=== PATIENT | male | born 1950 | race Caucasian/White ===

== ENCOUNTER 2017-02-09 19:47 | Inpatient (IN) | payer MEDICARE, OTHER ==
[~2017-02-09] VITALS: Ht 180.3 cm; Wt 99.9 kg
[~2017-02-09 19:47] MED LIST: ACET325T9 PO; ACET500T68 PO; AMLO10TA2 PO; ASPI325T8 PO; ATOR10TA PO; BACI28.34 OU; BUSP5TAB PO; CARB15DR98 OU; CHOL10003 PO; CHOL2000 PO; DIVA250T PO; DIVA500T2 PO; DIVA500T4 PO; IBUP400T18 PO; IBUP800T19 PO; LEVE500T56 PO; LISI-338 PO; LISI10TA2 PO; LITH300T3 PO; LOPE2TAB56 PO; LURA40TA PO; LURA80TA PO; MAALOX PO; MAG30ORA2 PO; MAG355OR12 PO; MAGN2400 PO; MAGN400O7 PO; MELO15TA23 PO; METH57CR8 TP; NICO1PAT2 TP; NICO1PAT21 TD; NICO1PAT21 TP; OLAN5TAB5 PO; OMEG1CAP6 PO; ONDA8TAB12 PO; RISP0.2519 PO; RISP1TAB43 PO; RISP25DI IM; RISP2TAB3 PO; RISP3TAB23 PO; Refresh Eye Drops EACHEYE; SERT50TA PO; TRIH2TAB3 PO; VITA1TAB3 PO; [UNRECOGNIZED DRUG - CODE] OU
--- NOTE | 2017-02-09 19:52 | ED.ADGEN ---
Past History Past Medical History: Anxiety, Bipolar, COPD, Depression, High Cholesterol, Hypertension, Schizophrenia, Other Past Surgical History: Other Smoking: Cigarettes Alcohol Use: None Drug Use: None Adult General Chief Complaint Chief Complaint ".. I don't know why they sent me here... I was at [place] last night..." HPI HPI Patient is a 66 year old male resident of [facility]. who presents with hx. of disruptive behavior, yelling inappropriately, cursing staff and other patients, showing chairs around, striking other patients and staff, Pt has been difficult to redirect, refusing meds for the past 2 weeks, refusing labs. Pt.has hx of Schizophrenia and Dementia. Pt. has Hx. of prior CVA with paraplegia, generalized deconditioning, osteoarthritis, COPD, Anemia, Hyperlipidemia, Depression, Anxiety Disorder , CADz, Dysphagia, Gastritis and Gastric Ulcer hx. Review of Systems Review of Systems Poor Historian but no compliants except sacral decub discomfort. Constitutional: Denies fever or chills [] Eyes: Denies change in visual acuity, redness, or eye pain [] HENT: Denies nasal congestion or sore throat [] Respiratory: Denies cough or shortness of breath [] Cardiovascular: No additional information not addressed in HPI [] GI: Denies abdominal pain, nausea, vomiting, bloody stools or diarrhea [] : Denies dysuria or hematuria [] Musculoskeletal: Denies back pain or joint pain [] Integument: Denies rash or skin lesions [] Neurologic: Denies headache, focal weakness or sensory changes [] Endocrine: Denies polyuria or polydipsia [] All other systems were reviewed and found to be within normal limits, except as documented in this note. Family History Family History No currently available Current Medications Current Medications See Nursing for home meds. Allergies Allergies Allergies Coded Allergies Type Severity Reaction Last Updated Verified trazodone Allergy Intermediate 02/09/17 Yes ziprasidone Allergy Intermediate 02/09/17 Yes NSAIDS (Non-Steroidal Anti-Inflamma Allergy Unknown 02/09/17 Yes Penicillins Allergy Unknown 02/09/17 Yes vancomycin Allergy Unknown 02/09/17 Yes Physical Exam Physical Exam Constitutional:in no acute distress, non-toxic appearance. [] HENT: Normocephalic, atraumatic, bilateral external ears normal, oropharynx moist, no oral exudates, nose normal. [] Eyes: PERRLA, EOMI, conjunctiva normal, no discharge. [] Neck: Normal range of motion, no tenderness, supple, no stridor. [] Cardiovascular:Bradycardia Heart rate regular rhythm, no murmur [] Lungs & Thorax: Bilateral breath sounds equal with scattered wheezes on auscultation [] Abdomen: Bowel sounds normal, soft, no tenderness, no masses, no pulsatile masses. Obese Skin: Warm, dry, no erythema, no rash. [] Back: No tenderness, no CVA tenderness. [] Extremities: Sacral tenderness, Decub. sacral, no cyanosis, no clubbing, ROM intact upper arms, bilateral leg weakness, no edema. [] Neurologic: Alert and oriented X 3, leg weakness, reports no change in baseline deficits of paraplegia. ] Psychologic: Affect anxious, angry, , judgement unable to assess at this time, mood depressed. Current Patient Data Vital Signs Vital Signs Date Time Temp Pulse Resp B/P (MAP) Pulse Ox O2 Delivery O2 Flow Rate FiO2 02/09/17 19:52 98.1 63 17 63 Lab Results Laboratory Tests Test 02/09/17 20:15 02/09/17 21:25 White Blood Count 9.0 x10^3/uL (4.0-11.0) Red Blood Count 4.78 x10^6/uL (4.30-5.70) Hemoglobin 14.3 g/dL (13.0-17.5) Hematocrit 41.3 % (39.0-53.0) Mean Corpuscular Volume 87 fL (79-100) Mean Corpuscular Hemoglobin 30 pg (25-35) Mean Corpuscular Hemoglobin Concent 35 g/dL (31-37) Red Cell Distribution Width 12.6 % (11.5-14.5) Platelet Count 166 x10^3/uL (140-400) Neutrophils (%) (Auto) 56 % (31-73) Lymphocytes (%) (Auto) 32 % (24-48) Monocytes (%) (Auto) 7 % (0-9) Eosinophils (%) (Auto) 4 % (0-3) H Basophils (%) (Auto) 1 % (0-3) Neutrophils # (Auto) 5.1 x10^3uL (1.8-7.7) Lymphocytes # (Auto) 2.8 x10^3/uL (1.0-4.8) Monocytes # (Auto) 0.6 x10^3/uL (0.0-1.1) Eosinophils # (Auto) 0.4 x10^3/uL (0.0-0.7) Basophils # (Auto) 0.1 x10^3/uL (0.0-0.2) Erythrocyte Sedimentation Rate 8 (0-15) Prothrombin Time 10.6 SEC (9.4-11.4) Prothrombin Time INR 1.0 (0.9-1.1) PTT 27 SEC (23-33) Sodium Level 136 mmol/L (136-145) Potassium Level 4.4 mmol/L (3.5-5.1) Chloride Level 102 mmol/L (98-107) Carbon Dioxide Level 26 mmol/L (21-32) Anion Gap 8 (6-14) Blood Urea Nitrogen 22 mg/dL (8-26) Creatinine 1.3 mg/dL (0.7-1.3) Estimated GFR (Cockcroft-Gault) 55.4 Glucose Level 94 mg/dL (70-99) Calcium Level 9.9 mg/dL (8.5-10.1) Magnesium Level 2.1 mg/dL (1.8-2.4) Total Bilirubin 0.4 mg/dL (0.2-1.0) Direct Bilirubin Pending Aspartate Amino Transferase (AST) 20 U/L (15-37) Alanine Aminotransferase (ALT) 18 U/L (16-63) Alkaline Phosphatase 72 U/L (46-116) Creatine Kinase 94 U/L (39-308) Creatine Kinase MB (Mass) 1.0 ng/mL (0.0-3.6) Creatine Kinase MB Relative Index 1.1 % (0-4) Troponin I Quantitative < 0.017 ng/mL (0-0.055) TJ-Iew-U-Type Natriuretic Peptide 35 pg/mL (0-124) Total Protein 7.6 g/dL (6.4-8.2) Albumin 4.0 g/dL (3.4-5.0) Urine Collection Type Unknown Urine Color Yellow Urine Clarity Clear Urine pH 8.0 Urine Specific [place] 1.015 Urine Protein Neg (NEG-TRACE) Urine Glucose (UA) Neg mg/dL (NEG) Urine Ketones (Stick) Neg mg/dL (NEG) Urine Blood Neg (NEG) Urine Nitrite Neg (NEG) Urine Bilirubin Neg (NEG) Urine Urobilinogen Dipstick 0.2 mg/dL (0.2 mg/dL) Urine Leukocyte Esterase Neg (NEG) Urine RBC 1-2 /HPF (0-2) Urine WBC 0 /HPF (0-4) Urine Squamous Epithelial Cells Occ /LPF Urine Bacteria 0 /HPF (0-FEW) Urine Opiates Screen Pos (NEG) Urine Methadone Screen Neg (NEG) Urine Barbiturates Neg (NEG) Urine Phencyclidine Screen Neg (NEG) Urine Amphetamine/Methamphetamine Neg (NEG) Urine Benzodiazepines Screen Neg (NEG) Urine Cocaine Screen Neg (NEG) Urine Cannabinoids Screen Neg (NEG) Urine Ethyl Alcohol Neg (NEG) EKG EKG My interpretation EKG shows a sinus bradycardia at 59 bpm. Does have somewhat irregular rhythm but there is noted P waves before each QRS. There is findings of T-wave changes. But no findings acute STEMI with contralateral changes.[] Radiology/Procedures Radiology/Procedures Reviewed chest x-ray from previous visit at [facility] [place] shows COPD type changes on 02/08. CT shows atrophy, no acute changes. Course & Med Decision Making Course & Med Decision Making Pertinent Labs and Imaging studies reviewed. (See chart for details). Patient to be admitted to [facility]. Consults to Dr. Chacon for medical issues. [] Final Impression Final Impression 1. Mental status change[] 2, Dementia 3. Schizophrenia 4. Aggressive Behavior 5. Depression 6. Anxiety Disorder 7. Paraplegia-CVA 8. COPD 9. Decub. sacral Ulcer 10Deconditioned Problems: Dragon Disclaimer Dragon Disclaimer This electronic medical record was generated, in whole or in part, using a voice recognition dictation system. JEANETH RODRIGES MD Feb 09, 2017 19:52
[2017-02-09 20:48] LABS: BASO # 0.1 x10^3/uL (0.0-0.2); BASO % 1 % (0-3); EOS # 0.4 x10^3/uL (0.0-0.7); EOS % 4 % (0-3); HEMATOCRIT 41.3 % (39.0-53.0); HEMOGLOBIN 14.3 g/dL (13.0-17.5); LYMPH # 2.8 x10^3/uL (1.0-4.8); LYMPH % 32 % (24-48); MEAN CORPUSCULAR HEMOGLOBIN 30 pg (25-35); MEAN CORPUSCULAR HGB CONC 35 g/dL (31-37); MEAN CORPUSCULAR VOLUME 87 fL (79-100); MONO # 0.6 x10^3/uL (0.0-1.1); MONO % 7 % (0-9); NEUT # 5.1 x10^3uL (1.8-7.7); NEUT % 56 % (31-73); PLATELET COUNT 166 x10^3/uL (140-400); RED BLOOD COUNT 4.78 x10^6/uL (4.30-5.70); RED CELL DISTRIBUTION WIDTH 12.6 % (11.5-14.5)
[2017-02-09 21:11] LABS: CALCIUM 9.9 mg/dL (8.5-10.1); CREATININE 1.3 mg/dL (0.7-1.3); GFR 55.4; MAGNESIUM 2.1 mg/dL (1.8-2.4); POTASSIUM 4.4 mmol/L (3.5-5.1)
--- NOTE | 2017-02-09 21:18 | EKG ---
[address] [address] Test Date: 2017-02-09 Test Time: 19:58:43 Pat Name: JAIR RICHTER Department: Room: Gender: M Branch Coordinator: ALBERTO : 1950 Requested By: JEANETH RODRIGES Order Number: [id number] Reading MD: Adrian Jules Measurements Intervals Raymond Rate: 59 P: WA: QRS: 36 QRSD: 100 T: 131 QT: 400 QTc: 396 Interpretive Statements SINUS RHYTHM ST & T ABNORMALITY, CONSIDER HIGH LATERAL ISCHEMIA OR LEFT VENTRICULAR STRAIN T ABNORMALITY IN LATERAL LEADS ABNORMAL ECG Electronically Signed On 02-15-2017 14:42:25 [employer]WALL PROFESSIONAL by Adrian Jules
[2017-02-09 21:55] LABS: BARBITURATES NEG (NEG); BENZODIAZEPINES NEG (NEG); CANNABINOIDS NEG (NEG); COCAINE NEG (NEG); METHADONE NEG (NEG); OPIATES POS (NEG); PHENCYCLIDINE NEG (NEG)
[2017-02-09 21:56] LABS: AMPHETAMINE/METHAMPHETAMINE NEG (NEG)
[2017-02-09 21:57] LABS: BILIRUBIN,URINE NEG (NEG); CLARITY,URINE CLEAR; COLOR,URINE YELLOW; GLUCOSE,URINE NEG (NEG); NITRITE,URINE NEG (NEG); UROBILINOGEN,URINE 0.2 mg/dL (0.2 mg/dL)
[2017-02-09 21:58] LABS: BACTERIA,URINE 0 /HPF (0-FEW); SQUAMOUS EPITHELIAL CELL,UR OCC /LPF; WBC,URINE 0 /HPF (0-4)
[2017-02-09 22:10] LABS: SEDIMENTATION RATE 8 (0-15)
[2017-02-09 22:51] VITALS: BP 138/76
[2017-02-09] MEDS ORDERED: MAGNESIUM HYDROXIDE 2,400 MG/30 ML ORAL.SUSP. PO PRN (23:45)
[2017-02-09] MEDS ORDERED: MAG HYDROX/AL HYDROX/SIMETH 30 ML ORAL.SUSP PO PRN (23:45)
[2017-02-09] MEDS ORDERED: METHYL SALICYLATE/MENTHOL TOPICAL OINTMENT 29GM TUBE. TP PRN (23:45)
[2017-02-09] MEDS ORDERED: ACETAMINOPHEN 325 MG TABLET PO PRN (23:45)
[2017-02-10 00:07] LABS: TOTAL BILIRUBIN 0.4 mg/dL (0.2-1.0); TOTAL PROTEIN 7.6 g/dL (6.4-8.2)
[2017-02-10] MEDS ORDERED: MAG360OR24 PO (01:14)
[2017-02-10] MEDS ORDERED: TAMS0.4C97 PO (01:14)
[2017-02-10] MEDS ORDERED: POLY17PO5 PO (01:14)
[2017-02-10] MEDS ORDERED: LOPE2CAP3 PO (01:14)
[2017-02-10] MEDS ORDERED: RANI150T2 PO (01:14)
[2017-02-10] MEDS ORDERED: LURA80TA PO (01:14)
[2017-02-10] MEDS ORDERED: MAGN400O7 PO (01:14)
[2017-02-10] MEDS ORDERED: CYAN10005 PO (01:14)
[2017-02-10] MEDS ORDERED: OXCA150T3 PO (01:14)
[2017-02-10] MEDS ORDERED: TRIH2TAB3 PO (01:14)
[2017-02-10] MEDS ORDERED: BUSP15TA PO (01:14)
[2017-02-10] MEDS ORDERED: ONDA4TAB11 PO (01:14)
[2017-02-10] MEDS ORDERED: MELA3TAB2 PO (01:14)
[2017-02-10] MEDS ORDERED: DEXT1DRO7 OP (01:14)
[2017-02-10] MEDS ORDERED: ACET160S PO (01:14)
[2017-02-10] MEDS ORDERED: SENN-79 PO (01:14)
[2017-02-10] MEDS ORDERED: ATOR10TA60 PO (01:14)
[2017-02-10] MEDS ORDERED: HYDR-971 PO ×2 (01:14)
[2017-02-10] MEDS ORDERED: LISI-338 PO (01:14)
[2017-02-10] MEDS ORDERED: MULT-460 PO (01:14)
[2017-02-10] MEDS ORDERED: PANT40TA3 PO (01:14)
[2017-02-10] MEDS ORDERED: OLAN2.5T3 PO (01:14)
[2017-02-10] MEDS ORDERED: CHOL10003 PO (01:14)
[2017-02-10] MEDS ORDERED: ASPI-630 PO (01:14)
[2017-02-10] MEDS ORDERED: ASCO500T3 PO (01:14)
[2017-02-10] MEDS ORDERED: MAGN400T3 PO (01:14)
[2017-02-10 05:18] LABS: DIRECT BILIRUBIN 0.1 mg/dL (0.0-0.2)
[2017-02-10 06:21] VITALS: BP 143/90
[2017-02-10] MEDS ORDERED: ACETAMINOPHEN 325 MG TABLET PO PRN (08:00)
[2017-02-10] MEDS ORDERED: HYDROcodone/APAP 5/325MG 1 TAB TABLET PO PRN (08:00)
[2017-02-10] MEDS ORDERED: LOPERAMIDE 2 MG CAPSULE PO PRN (08:00)
[2017-02-10] MEDS ORDERED: [UNRECOGNIZED DRUG - OTHER] TP PRN (08:00)
[2017-02-10] MEDS ORDERED: NON FORMULARY ITEM (Acetaminophen 650 MG) PO PRN (08:00)
[2017-02-10] MEDS ORDERED: CARBOXYMETHYLCELLULOSE SODIUM OU PRN (08:00)
[2017-02-10] MEDS ORDERED: ONDANSETRON ODT 4 MG TAB.RAPDIS PO PRN (08:30)
[2017-02-10] MEDS ORDERED: POLYVINYL ALCOHOL 1.4% OPHTH SOLUTION 15ML BOTTLE. OU PRN (08:30)
[2017-02-10] MEDS ORDERED: MAG HYDROX/AL HYDROX/SIMETH 30 ML ORAL.SUSP PO PRN (08:30)
[2017-02-10] MEDS: CHOLECALCIFEROL (VITAMIN D3) 1,000 UNIT TABLET PO SCH (09:21)
[2017-02-10] MEDS: amLODIPine BESYLATE 10 MG TABLET PO SCH (09:22)
[2017-02-10] MEDS: LISINOPRIL 5 MG TABLET. PO SCH (09:22)
[2017-02-10] MEDS: busPIRone 15 MG TABLET. PO SCH ×2 (09:22→20:18)
[2017-02-10] MEDS: PANTOPRAZOLE 40 MG TABLET. PO SCH (09:22)
[2017-02-10] MEDS: MAGNESIUM OXIDE 400 MG TABLET PO SCH ×2 (09:22→20:17)
[2017-02-10] MEDS: OXcarbazepine 150 MG TABLET. PO SCH ×2 (09:23→20:16)
[2017-02-10] MEDS: MULTIVITAMIN with MINERAL TABLET. PO SCH (09:23)
[2017-02-10] MEDS: ASPIRIN 81 MG TAB.CHEW PO SCH (09:23)
[2017-02-10] MEDS: ASCORBIC ACID 500 MG TABLET PO SCH ×2 (09:23→20:17)
[2017-02-10] MEDS: HYDROcodone/APAP 5/325MG 1 TAB TABLET PO SCH ×3 (09:23→20:16)
[2017-02-10] MEDS: CYANOCOBALAMIN (VITAMIN B-12) 1,000 MCG TABLET. PO SCH (09:23)
[2017-02-10] MEDS: SENNOSIDES 8.6 MG TABLET PO SCH ×2 (09:23→20:18)
[2017-02-10] MEDS: MAGNESIUM HYDROXIDE 2,400 MG/30 ML ORAL.SUSP. PO PRN (09:31)
[2017-02-10] MEDS: FAMOTIDINE 20 MG TABLET PO SCH (13:30)
[2017-02-10 15:27] VITALS: BP 135/75
[2017-02-10 16:08] LABS: THYROXINE 9.5 ug/dL (4.5-12.0)
--- NOTE | 2017-02-10 19:59 | PDOC ---
Exam Note: Rob Note: Please also refer to the separate dictated note~for this date of service dictated separately.~Patient seen individually. Discussed the patient with Nursing staff reviewed the chart.~Reviewed interim history and current functioning. Reviewed vital signs,~Labs/ Radiology~and current medications noted below. Continue current treatment with the changes noted in the dictated addendum note Assessment: Vital Signs: Vital Signs Date Time Temp Pulse Resp B/P (MAP) Pulse Ox O2 Delivery O2 Flow Rate FiO2 02/10/17 15:27 97.5 81 20 135/75 (95) 100 02/10/17 15:03 Room Air I&O Intake and Output 02/10/17 07:00 Intake Total 240 ml Balance 240 ml Intake Oral 240 ml Labs: Laboratory Tests Test 02/09/17 20:15 02/09/17 21:25 White Blood Count 9.0 x10^3/uL (4.0-11.0) Red Blood Count 4.78 x10^6/uL (4.30-5.70) Hemoglobin 14.3 g/dL (13.0-17.5) Hematocrit 41.3 % (39.0-53.0) Mean Corpuscular Volume 87 fL (79-100) Mean Corpuscular Hemoglobin 30 pg (25-35) Mean Corpuscular Hemoglobin Concent 35 g/dL (31-37) Red Cell Distribution Width 12.6 % (11.5-14.5) Platelet Count 166 x10^3/uL (140-400) Neutrophils (%) (Auto) 56 % (31-73) Lymphocytes (%) (Auto) 32 % (24-48) Monocytes (%) (Auto) 7 % (0-9) Eosinophils (%) (Auto) 4 % (0-3) H Basophils (%) (Auto) 1 % (0-3) Neutrophils # (Auto) 5.1 x10^3uL (1.8-7.7) Lymphocytes # (Auto) 2.8 x10^3/uL (1.0-4.8) Monocytes # (Auto) 0.6 x10^3/uL (0.0-1.1) Eosinophils # (Auto) 0.4 x10^3/uL (0.0-0.7) Basophils # (Auto) 0.1 x10^3/uL (0.0-0.2) Erythrocyte Sedimentation Rate 8 (0-15) Prothrombin Time 10.6 SEC (9.4-11.4) Prothrombin Time INR 1.0 (0.9-1.1) PTT 27 SEC (23-33) Sodium Level 136 mmol/L (136-145) Potassium Level 4.4 mmol/L (3.5-5.1) Chloride Level 102 mmol/L (98-107) Carbon Dioxide Level 26 mmol/L (21-32) Anion Gap 8 (6-14) Blood Urea Nitrogen 22 mg/dL (8-26) Creatinine 1.3 mg/dL (0.7-1.3) Estimated GFR (Cockcroft-Gault) 55.4 Glucose Level 94 mg/dL (70-99) Calcium Level 9.9 mg/dL (8.5-10.1) Magnesium Level 2.1 mg/dL (1.8-2.4) Total Bilirubin 0.4 mg/dL (0.2-1.0) Direct Bilirubin 0.1 mg/dL (0.0-0.2) Aspartate Amino Transferase (AST) 20 U/L (15-37) Alanine Aminotransferase (ALT) 18 U/L (16-63) Alkaline Phosphatase 72 U/L (46-116) Creatine Kinase 94 U/L (39-308) Creatine Kinase MB (Mass) 1.0 ng/mL (0.0-3.6) Creatine Kinase MB Relative Index 1.1 % (0-4) Troponin I Quantitative < 0.017 ng/mL (0-0.055) PR-Hic-R-Type Natriuretic Peptide 35 pg/mL (0-124) Total Protein 7.6 g/dL (6.4-8.2) Albumin 4.0 g/dL (3.4-5.0) Thyroid Stimulating Hormone (TSH) 0.886 uIU/mL (0.358-3.740) Thyroxine (T4) 9.5 ug/dL (4.5-12.0) Total Triiodothyronine (TT3) 79 ng/dL (71-180) Urine Collection Type Unknown Urine Color Yellow Urine Clarity Clear Urine pH 8.0 Urine Specific [place] 1.015 Urine Protein Neg (NEG-TRACE) Urine Glucose (UA) Neg mg/dL (NEG) Urine Ketones (Stick) Neg mg/dL (NEG) Urine Blood Neg (NEG) Urine Nitrite Neg (NEG) Urine Bilirubin Neg (NEG) Urine Urobilinogen Dipstick 0.2 mg/dL (0.2 mg/dL) Urine Leukocyte Esterase Neg (NEG) Urine RBC 1-2 /HPF (0-2) Urine WBC 0 /HPF (0-4) Urine Squamous Epithelial Cells Occ /LPF Urine Bacteria 0 /HPF (0-FEW) Urine Opiates Screen Pos (NEG) Urine Methadone Screen Neg (NEG) Urine Barbiturates Neg (NEG) Urine Phencyclidine Screen Neg (NEG) Urine Amphetamine/Methamphetamine Neg (NEG) Urine Benzodiazepines Screen Neg (NEG) Urine Cocaine Screen Neg (NEG) Urine Cannabinoids Screen Neg (NEG) Urine Ethyl Alcohol Neg (NEG) Current Medications: Meds: Current Medications Acetaminophen (Tylenol) 650 mg PRN Q6HRS PRN PO PAIN / TEMP; Start 02/09/17 at 23:45; Stop 02/10/17 at 08:25; Status DC Multi-Ingredient Ointment (Analgesic [place]) 1 shaheen PRN QID PRN TP MUSCLE PAIN; Start 02/09/17 at 23:45 Al Hydroxide/Mg Hydroxide (Mylanta Plus Xs) 15 ml PRN AFTMEALHC PRN PO DYSPEPSIA; Start 02/09/17 at 23:45; Stop 02/10/17 at 08:20; Status DC Magnesium Hydroxide (Milk Of Magnesia) 2,400 mg PRN QHS PRN PO CONSTIPATION; Start 02/09/17 at 23:45; Stop 02/10/17 at 08:25; Status DC Buspirone HCl (Buspar) 15 mg BID PO Last administered on 02/10/17 09:22; Start 02/10/17 at 09:00 Olanzapine (ZyPREXA) 2.5 mg HS PO ; Start 02/10/17 at 21:00 Oxcarbazepine (Trileptal) 150 mg BID PO Last administered on 02/10/17 09:23; Start 02/10/17 at 09:00 Non-Formulary Medication 120 mg HS PO ; Start 02/10/17 at 21:00; Status UNV Melatonin 6 mg QHS PO ; Start 02/10/17 at 21:00 Acetaminophen (Tylenol) 650 mg PRN Q6HRS PRN PO PAIN / TEMP; Start 02/10/17 at 08:00 Amlodipine Besylate (Norvasc) 10 mg DAILY PO Last administered on 02/10/17 09 :22; Start 02/10/17 at 09:00 Ascorbic Acid (Vitamin C) 500 mg BID PO Last administered on 02/10/17 09:23; Start 02/10/17 at 09:00 Aspirin (Children'S Aspirin) 81 mg DAILY PO Last administered on 02/10/17 09: 23; Start 02/10/17 at 09:00 Atorvastatin Calcium (Lipitor) 5 mg QHS PO ; Start 02/10/17 at 21:00 Vitamin D (Vitamin D3) 2,000 unit DAILY PO Last administered on 02/10/17 09: 21; Start 02/10/17 at 09:00 Cyanocobalamin (Vitamin B-12) 1,000 mcg DAILY PO Last administered on 09:23; Start 02/10/17 at 09:00 Acetaminophen/ Hydrocodone Bitart (Lortab 5/325) 1 tab PRN Q4HRS PRN PO PAIN; Start 02/10/17 at 08:00 Acetaminophen/ Hydrocodone Bitart (Lortab 5/325) 1 tab TID PO Last administered on 02/10/17 13:34; Start 02/10/17 at 09:00 Lisinopril (Prinivil) 5 mg DAILY PO Last administered on 02/10/17 09:22; Start 02/10/17 at 09:00 Loperamide HCl (Imodium) 2 mg PRN Q6HRS PRN PO DIARRHEA; Start 02/10/17 at 08: 00 Magnesium Hydroxide (Milk Of Magnesia) 2,400 mg PRN Q24HRS PRN PO CONSTIPATION Last administered on 02/10/17 09:31; Start 02/10/17 at 08:00 Magnesium Oxide (Magnesium Oxide) 400 mg BID PO Last administered on 09:22; Start 02/10/17 at 09:00 Pantoprazole Sodium (Protonix) 40 mg DAILYAC PO Last administered on 09:22; Start 02/10/17 at 09:00 Polyethylene Glycol (miraLAX) 17 gm PRN Q24HRS PRN PO CONSTIPATION; Start at 08:00 Sennosides (Senna) 8.6 mg BID PO Last administered on 02/10/17 09:23; Start 02/10/17 at 09:00 Tamsulosin HCl (Flomax) 0.4 mg HS PO ; Start 02/10/17 at 21:00 Non-Formulary Medication 650 mg PRN Q6HRS PRN PO pain/fever; Start 02/10/17 at 08:00; Stop 02/10/17 at 08:17; Status DC Non-Formulary Medication 1 drop PRN Q4HRS PRN OU DRY EYE; Start 02/10/17 at 08 :00; Stop 02/10/17 at 08:23; Status DC Artificial Tears (Artificial Tears) 2 drop PRN Q2HR PRN OU DRY EYE; Start at 08:30 Al Hydroxide/Mg Hydroxide (Mylanta Plus Xs) 30 ml PRN Q4HRS PRN PO GERD; Start 02/10/17 at 08:30 Non-Formulary Medication 1 shaheen PRN QID PRN TP MUSCLE PAIN; Start 02/10/17 at 08:00; Stop 02/10/17 at 08:18; Status DC Multivitamins/ Calcium (Thera-M Plus) 1 tab DAILY PO Last administered on 02/10 09:23; Start 02/10/17 at 09:00 Ondansetron HCl (Zofran Odt) 8 mg PRN QID PRN PO NAUSEA/VOMITING; Start at 08:30 Famotidine (Pepcid) 20 mg AFTRNOON PO Last administered on 02/10/17 13:30; Start 02/10/17 at 13:00 Active Scripts Active Reported Vitamin B-12 (Cyanocobalamin (Vitamin B-12)) 1,000 Mcg Tablet 1,000 Mcg PO DAILY Trileptal (Oxcarbazepine) 150 Mg Tablet 1 Mg PO BID Trihexyphenidyl Hcl 2 Mg Tablet 2 Mg PO BID Senna (Sennosides) 8.6 Mg Tablet 1 Tab PO BID Ranitidine Hcl 150 Mg Tablet 150 Mg PO AFTRNOON Protonix (Pantoprazole Sodium) 40 Mg Tablet.dr 40 Mg PO DAILYAC Zyprexa (Olanzapine) 2.5 Mg Tablet 2.5 Mg PO HS [place] 5-325 Tablet (Hydrocodone Bit/Acetaminophen) 1 Each Tablet 1 Tab PO TID [place] 5-325 Tablet (Hydrocodone Bit/Acetaminophen) 1 Each Tablet 1 Tab PO PRN Q4HRS PRN Alum-Mag Hydroxide-Simeth Liq (Mag Hydrox/Al Hydrox/Simeth) 360 Ml Oral.susp 30 Ml PO PRN Q4HRS PRN Multiple Vitamin (Multivitamin With Minerals) 1 Each Tablet 1 Each PO DAILY Miralax (Polyethylene Glycol 3350) 17 Gm Powd.pack 17 Gm PO PRN Q24HRS PRN Milk Of Magnesia (Magnesium Hydroxide) 400 Mg/5 Ml Oral.susp 2,400 Mg PO PRN Q24HRS PRN Melatonin 3 Mg Tablet 6 Mg PO HS Magnesium Oxide 400 Mg Tablet 400 Mg PO BID Anti-Diarrheal (Loperamide Hcl) 2 Mg Capsule 2 Mg PO PRN Q6HRS PRN Lisinopril 5 Mg Tablet 5 Mg PO DAILY Latuda (Lurasidone Hcl) 80 Mg Tablet 120 Mg PO HS Flomax (Tamsulosin Hcl) 0.4 Mg Cap.er.24h 0.4 Mg PO HS Vitamin D3 (Cholecalciferol (Vitamin D3)) 1,000 Unit Tablet 2,000 Unit PO DAILY Atorvastatin Calcium 10 Mg Tablet 5 Mg PO QHS Aspirin 81 Mg Tab.chew 81 Mg PO DAILY Ascorbic Acid 500 Mg Tablet 500 Mg PO BID Acetaminophen 160 Mg/5 Ml Solution 650 Mg PO PRN Q6HRS PRN Artificial Tears (Dextran 70/Hypromellose) 1 Each Droperette 2 Drop OP PRN Q2HR Buspirone Hcl 15 Mg Tablet 15 Mg PO BID Zyprexa Zydis (Olanzapine) 5 Mg Tab.rapdis 2.5 Mg PO PRN Q2HR PRN Dissolve in mouth Zofran Odt (Ondansetron) 8 Mg Tab.rapdis 8 Mg PO QID PRN Dissolve on tongue NICODERM CQ 21mg (Nicotine) 1 Each Patch.td24 1 Patch TP DAILY Remove at bedtime if patient is having sleep disturbances. [place] Ultra Strength Crm (Methyl Salicylate/Menth/Camph) 57 Gm Cream..g. 1 Shaheen TP PRN QID PRN Tylenol (Acetaminophen) 325 Mg Tablet 650 Mg PO PRN Q6HRS PRN Max Acetaminophen dose is 4000mg in 24 hours from all sources for adults. Refresh Tears (Carboxymethylcellulose Sodium) 15 Ml Drops 1 Drop OU PRN Q4HRS PRN Amlodipine Besylate 10 Mg Tablet 10 Mg PO DAILY Hold for SBP less than 100. After a held dose, reassess in 2 hours. If SBP is above threshold, administer dose as ordered. If SBP is below threshold, contact provider for additional instructions. I have reviewed the current psychotropics carefully including drug interactions. Risk benefit ratio favors no change other than as noted in my dictated progress note. Diagnosis: Problems: (1) SCHIZOAFFECTIVE DISORDER, UNSPECIFIED (2) Schizophrenia (3) Bipolar 1 disorder (4) Mental status change (5) Psychosis (6) Dementia (7) SIADH (syndrome of inappropriate ADH production) (8) Hyponatremia (9) Tobacco use disorder (10) Schizoaffective disorder TINY CHAN MD Feb 10, 2017 19:59
[2017-02-10 20:07] LABS: HEMOGLOBIN A1C 5.3 % (4.8-5.6)
[2017-02-10] MEDS: TAMSULOSIN 0.4 MG CAP.ER.24H. PO SCH (20:16)
[2017-02-10] MEDS: ATORVASTATIN CALCIUM 10 MG TABLET. PO SCH (20:17)
[2017-02-10] MEDS: MELATONIN 3 MG TABLET PO SCH (20:18)
[2017-02-10] MEDS: OLANZapine 2.5 MG TABLET PO SCH (20:18)
[2017-02-10] MEDS: LURASIDONE 40 MG TABLET. PO SCH (20:21)
[2017-02-11 05:50] VITALS: BP 145/87
[2017-02-11] MEDS: MAGNESIUM HYDROXIDE 2,400 MG/30 ML ORAL.SUSP. PO PRN (06:23)
[2017-02-11] MEDS: OXcarbazepine 150 MG TABLET. PO SCH ×2 (09:51→19:49)
[2017-02-11] MEDS: CHOLECALCIFEROL (VITAMIN D3) 1,000 UNIT TABLET PO SCH (09:51)
[2017-02-11] MEDS: PANTOPRAZOLE 40 MG TABLET. PO SCH (09:51)
[2017-02-11] MEDS: LISINOPRIL 5 MG TABLET. PO SCH (09:51)
[2017-02-11] MEDS: CYANOCOBALAMIN (VITAMIN B-12) 1,000 MCG TABLET. PO SCH (09:51)
[2017-02-11] MEDS: ASCORBIC ACID 500 MG TABLET PO SCH ×2 (09:51→19:44)
[2017-02-11] MEDS: MAGNESIUM OXIDE 400 MG TABLET PO SCH ×2 (09:51→19:44)
[2017-02-11] MEDS: busPIRone 15 MG TABLET. PO SCH ×2 (09:51→19:45)
[2017-02-11] MEDS: MULTIVITAMIN with MINERAL TABLET. PO SCH (09:51)
[2017-02-11] MEDS: ASPIRIN 81 MG TAB.CHEW PO SCH (09:51)
[2017-02-11] MEDS: SENNOSIDES 8.6 MG TABLET PO SCH ×2 (09:52→19:46)
[2017-02-11] MEDS: amLODIPine BESYLATE 10 MG TABLET PO SCH (09:52)
[2017-02-11] MEDS: HYDROcodone/APAP 5/325MG 1 TAB TABLET PO SCH ×3 (09:55→19:50)
[2017-02-11] MEDS: FAMOTIDINE 20 MG TABLET PO SCH (12:49)
[2017-02-11 15:53] VITALS: BP 126/77
--- NOTE | 2017-02-11 16:33 | HP ---
ADMIT DATE: 02/10/2017 PSYCHIATRIC ADMISSION HISTORY/EVALUATION This is a late entry for 02/10/2017, covers the elements not covered in my initial note of 02/10/2017. SUBJECTIVE: I met with the patient the evening of 02/10/2017. Discussed with nursing staff the evening of 02/10/2017 and earlier in the day after we received the referral from [facility] by his primary care physician on account of yelling out, being disruptive, psychotic, refusing medications, bumping his wheelchair into others, being verbally abusive to staff, unmanageable behaviors within the context of his schizoaffective disorder, bipolar type and progressive dementia. He has failed outpatient psychiatric interventions resulting in this referral. CHIEF COMPLAINT: "I did not do those things." The patient seems oblivious of the circumstances prompting admission. HISTORY OF PRESENT ILLNESS: The patient has a history of schizoaffective disorder, bipolar type. He has been residing at the [facility] for sometime, doing reasonably well, but over the past several days perhaps up to 1 month, he has been increasingly agitated. He has failed psychiatric interventions and outpatient treatment with Dr. Henriquez. As noted, he has been yelling out, disruptive, abusive, refusing medications, yelling. Behaviors have been deemed dangerous, unmanageable at the facility resulting in this referral. He does have a history of mood swings, psychotic symptoms, and progressive dementia. PAST PSYCHIATRIC HISTORY: As above. MEDICAL HISTORY: Status post hemiplegia, status post CVA, hemiparesis on the right side, muscle weakness, osteoarthritis, hyperlipidemia, hypertension, atherosclerotic heart disease, dysphagia, acute respiratory failure, acute duodenal ulcer with hemorrhage by history. ALLERGIES: PENICILLIN, TRAZODONE, VANCOMYCIN, GEODON, NONSTEROIDAL ANTI-INFLAMMATORY. CODE STATUS: DNR. DIET: Mechanical soft. Accu-Cheks are none. MEDICATION: Takes it whole. Ambulates in wheelchair and Dru lift. UA: 02/07/2017 was negative. FAMILY HISTORY: Noncontributory. SOCIAL HISTORY: The patient's about a year back. I initially met his while they were both an inpatient on the psychiatric facility and they have one daughter, who is the patient's DPOA. No alcohol or drug abuse, physical, sexual or elder abuse history is noted. Not known to be a perpetrator. Reaction to hospitalization, the patient accepting of this, asset supportive daughter. MENTAL STATUS EXAM: The patient was seen individually evening of 02/10/2017. He is oriented to himself and situation. Speech moderate latency, often responses monosyllabic. Abstraction fair, computation impaired, language function intact. Attention span short. He appears somewhat paranoid, delusional, distracted. No active suicidal or homicidal ideation. ASSETS: Supportive daughter. WEAKNESS: Chronic mental illness. IMPRESSION: Schizoaffective disorder, bipolar type, mixed with psychotic features; anxiety disorder, unspecified; major neurocognitive disorder, vascular with delusion, depression, behavioral disturbance, impulse control disorder, unspecified. Rest as above. PLAN: Admit to Geropsychiatry Unit at [facility]. I will see the patient daily individually from a psychiatric standpoint; medical followup per Dr. Chacon/Dr. Posada. Continue the patient on his current psychotropics, which include Trileptal 150 mg b.i.d., melatonin 6 mg at bedtime, Zyprexa 2.5 mg at bedtime, BuSpar 15 mg b.i.d., Latuda 120 mg at bedtime. We will increase the Trileptal to 300 mg twice a day as a mood stabilizer. Make further changes as clinically indicated post baseline assessment. MAN Cinthia CHAN MD DR: ARON/zena JOB#: [id number] / [id number]
[2017-02-11] MEDS: LIDOCAINE (700MG/PATCH) PATCH. TD SCH (16:37)
[2017-02-11] MEDS: OLANZapine 2.5 MG TABLET PO SCH (19:44)
[2017-02-11] MEDS: MELATONIN 3 MG TABLET PO SCH (19:45)
[2017-02-11] MEDS: TAMSULOSIN 0.4 MG CAP.ER.24H. PO SCH (19:45)
[2017-02-11] MEDS: ATORVASTATIN CALCIUM 10 MG TABLET. PO SCH (19:46)
[2017-02-11] MEDS: LURASIDONE 40 MG TABLET. PO SCH (19:51)
--- NOTE | 2017-02-11 19:58 | PDOC ---
Exam Note: Rob Note: Please also refer to the separate dictated note~for this date of service dictated separately.~Patient seen individually. Discussed the patient with Nursing staff reviewed the chart.~Reviewed interim history and current functioning. Reviewed vital signs,~Labs/ Radiology~and current medications noted below. Continue current treatment with the changes noted in the dictated addendum note Assessment: Vital Signs: Vital Signs Date Time Temp Pulse Resp B/P (MAP) Pulse Ox O2 Delivery O2 Flow Rate FiO2 02/11/17 15:53 97.4 71 20 126/77 (93) 96 Room Air I&O Intake and Output 02/11/17 07:00 Intake Total 840 ml Balance 840 ml Intake Oral 840 ml # Voids 3 # Bowel Movements 1 Labs: Laboratory Tests Test 02/10/17 21:50 Triglycerides Level 96 mg/dL (0-150) Cholesterol Level 127 mg/dL (0-200) LDL Cholesterol, Calculated 68 mg/dL (0-100) VLDL Cholesterol, Calculated 19 mg/dL (0-40) Non-HDL Cholesterol Calculated 87 mg/dL (0-129) HDL Cholesterol 40 mg/dL (40-60) Cholesterol/HDL Ratio 3.0 Current Medications: Meds: Current Medications Acetaminophen (Tylenol) 650 mg PRN Q6HRS PRN PO PAIN / TEMP; Start 02/09/17 at 23:45; Stop 02/10/17 at 08:25; Status DC Multi-Ingredient Ointment (Analgesic [place]) 1 shaheen PRN QID PRN TP MUSCLE PAIN; Start 02/09/17 at 23:45 Al Hydroxide/Mg Hydroxide (Mylanta Plus Xs) 15 ml PRN AFTMEALHC PRN PO DYSPEPSIA; Start 02/09/17 at 23:45; Stop 02/10/17 at 08:20; Status DC Magnesium Hydroxide (Milk Of Magnesia) 2,400 mg PRN QHS PRN PO CONSTIPATION; Start 02/09/17 at 23:45; Stop 02/10/17 at 08:25; Status DC Buspirone HCl (Buspar) 15 mg BID PO Last administered on 02/11/17 19:45; Start 02/10/17 at 09:00 Olanzapine (ZyPREXA) 2.5 mg HS PO Last administered on 02/11/17 19:44; Start 02/10/17 at 21:00 Oxcarbazepine (Trileptal) 150 mg BID PO Last administered on 02/11/17 09:51; Start 02/10/17 at 09:00; Stop 02/11/17 at 11:41; Status DC Non-Formulary Medication 120 mg HS PO ; Start 02/10/17 at 21:00; Status UNV Melatonin 6 mg QHS PO Last administered on 02/11/17 19:45; Start 02/10/17 at 21:00 Acetaminophen (Tylenol) 650 mg PRN Q6HRS PRN PO PAIN / TEMP; Start 02/10/17 at 08:00 Amlodipine Besylate (Norvasc) 10 mg DAILY PO Last administered on 02/11/17 09 :52; Start 02/10/17 at 09:00 Ascorbic Acid (Vitamin C) 500 mg BID PO Last administered on 02/11/17 19:44; Start 02/10/17 at 09:00 Aspirin (Children'S Aspirin) 81 mg DAILY PO Last administered on 02/11/17 09: 51; Start 02/10/17 at 09:00 Atorvastatin Calcium (Lipitor) 5 mg QHS PO Last administered on 02/11/17 19: 46; Start 02/10/17 at 21:00 Vitamin D (Vitamin D3) 2,000 unit DAILY PO Last administered on 02/11/17 09: 51; Start 02/10/17 at 09:00 Cyanocobalamin (Vitamin B-12) 1,000 mcg DAILY PO Last administered on 09:51; Start 02/10/17 at 09:00 Acetaminophen/ Hydrocodone Bitart (Lortab 5/325) 1 tab PRN Q4HRS PRN PO PAIN; Start 02/10/17 at 08:00 Acetaminophen/ Hydrocodone Bitart (Lortab 5/325) 1 tab TID PO Last administered on 02/11/17 19:50; Start 02/10/17 at 09:00 Lisinopril (Prinivil) 5 mg DAILY PO Last administered on 02/11/17 09:51; Start 02/10/17 at 09:00 Loperamide HCl (Imodium) 2 mg PRN Q6HRS PRN PO DIARRHEA; Start 02/10/17 at 08: 00 Magnesium Hydroxide (Milk Of Magnesia) 2,400 mg PRN Q24HRS PRN PO CONSTIPATION Last administered on 02/11/17 06:23; Start 02/10/17 at 08:00 Magnesium Oxide (Magnesium Oxide) 400 mg BID PO Last administered on 19:44; Start 02/10/17 at 09:00 Pantoprazole Sodium (Protonix) 40 mg DAILYAC PO Last administered on 09:51; Start 02/10/17 at 09:00 Polyethylene Glycol (miraLAX) 17 gm PRN Q24HRS PRN PO CONSTIPATION; Start at 08:00 Sennosides (Senna) 8.6 mg BID PO Last administered on 02/11/17 19:46; Start 02/10/17 at 09:00 Tamsulosin HCl (Flomax) 0.4 mg HS PO Last administered on 02/11/17 19:45; Start 02/10/17 at 21:00 Non-Formulary Medication 650 mg PRN Q6HRS PRN PO pain/fever; Start 02/10/17 at 08:00; Stop 02/10/17 at 08:17; Status DC Non-Formulary Medication 1 drop PRN Q4HRS PRN OU DRY EYE; Start 02/10/17 at 08 :00; Stop 02/10/17 at 08:23; Status DC Artificial Tears (Artificial Tears) 2 drop PRN Q2HR PRN OU DRY EYE; Start at 08:30 Al Hydroxide/Mg Hydroxide (Mylanta Plus Xs) 30 ml PRN Q4HRS PRN PO GERD; Start 02/10/17 at 08:30 Non-Formulary Medication 1 shaheen PRN QID PRN TP MUSCLE PAIN; Start 02/10/17 at 08:00; Stop 02/10/17 at 08:18; Status DC Multivitamins/ Calcium (Thera-M Plus) 1 tab DAILY PO Last administered on 02/11 09:51; Start 02/10/17 at 09:00 Ondansetron HCl (Zofran Odt) 8 mg PRN QID PRN PO NAUSEA/VOMITING; Start at 08:30 Famotidine (Pepcid) 20 mg AFTRNOON PO Last administered on 02/11/17 12:49; Start 02/10/17 at 13:00 Oxcarbazepine (Trileptal) 300 mg BID PO Last administered on 02/11/17 19:49; Start 02/11/17 at 21:00 Lidocaine (Lidoderm) 1 patch DAILY TD Last administered on 02/11/17 16:37; Start 02/11/17 at 15:00 Buspirone HCl (Buspar) 10 mg DAILY@1400 PO ; Start 02/12/17 at 14:00 Active Scripts Active Reported Vitamin B-12 (Cyanocobalamin (Vitamin B-12)) 1,000 Mcg Tablet 1,000 Mcg PO DAILY Trileptal (Oxcarbazepine) 150 Mg Tablet 1 Mg PO BID Trihexyphenidyl Hcl 2 Mg Tablet 2 Mg PO BID Senna (Sennosides) 8.6 Mg Tablet 1 Tab PO BID Ranitidine Hcl 150 Mg Tablet 150 Mg PO AFTRNOON Protonix (Pantoprazole Sodium) 40 Mg Tablet.dr 40 Mg PO DAILYAC Zyprexa (Olanzapine) 2.5 Mg Tablet 2.5 Mg PO HS [place] 5-325 Tablet (Hydrocodone Bit/Acetaminophen) 1 Each Tablet 1 Tab PO TID [place] 5-325 Tablet (Hydrocodone Bit/Acetaminophen) 1 Each Tablet 1 Tab PO PRN Q4HRS PRN Alum-Mag Hydroxide-Simeth Liq (Mag Hydrox/Al Hydrox/Simeth) 360 Ml Oral.susp 30 Ml PO PRN Q4HRS PRN Multiple Vitamin (Multivitamin With Minerals) 1 Each Tablet 1 Each PO DAILY Miralax (Polyethylene Glycol 3350) 17 Gm Powd.pack 17 Gm PO PRN Q24HRS PRN Milk Of Magnesia (Magnesium Hydroxide) 400 Mg/5 Ml Oral.susp 2,400 Mg PO PRN Q24HRS PRN Melatonin 3 Mg Tablet 6 Mg PO HS Magnesium Oxide 400 Mg Tablet 400 Mg PO BID Anti-Diarrheal (Loperamide Hcl) 2 Mg Capsule 2 Mg PO PRN Q6HRS PRN Lisinopril 5 Mg Tablet 5 Mg PO DAILY Latuda (Lurasidone Hcl) 80 Mg Tablet 120 Mg PO HS Flomax (Tamsulosin Hcl) 0.4 Mg Cap.er.24h 0.4 Mg PO HS Vitamin D3 (Cholecalciferol (Vitamin D3)) 1,000 Unit Tablet 2,000 Unit PO DAILY Atorvastatin Calcium 10 Mg Tablet 5 Mg PO QHS Aspirin 81 Mg Tab.chew 81 Mg PO DAILY Ascorbic Acid 500 Mg Tablet 500 Mg PO BID Acetaminophen 160 Mg/5 Ml Solution 650 Mg PO PRN Q6HRS PRN Artificial Tears (Dextran 70/Hypromellose) 1 Each Droperette 2 Drop OP PRN Q2HR Buspirone Hcl 15 Mg Tablet 15 Mg PO BID Zyprexa Zydis (Olanzapine) 5 Mg Tab.rapdis 2.5 Mg PO PRN Q2HR PRN Dissolve in mouth Zofran Odt (Ondansetron) 8 Mg Tab.rapdis 8 Mg PO QID PRN Dissolve on tongue NICODERM CQ 21mg (Nicotine) 1 Each Patch.td24 1 Patch TP DAILY Remove at bedtime if patient is having sleep disturbances. [place] Ultra Strength Crm (Methyl Salicylate/Menth/Camph) 57 Gm Cream..g. 1 Shaheen TP PRN QID PRN Tylenol (Acetaminophen) 325 Mg Tablet 650 Mg PO PRN Q6HRS PRN Max Acetaminophen dose is 4000mg in 24 hours from all sources for adults. Refresh Tears (Carboxymethylcellulose Sodium) 15 Ml Drops 1 Drop OU PRN Q4HRS PRN Amlodipine Besylate 10 Mg Tablet 10 Mg PO DAILY Hold for SBP less than 100. After a held dose, reassess in 2 hours. If SBP is above threshold, administer dose as ordered. If SBP is below threshold, contact provider for additional instructions. I have reviewed the current psychotropics carefully including drug interactions. Risk benefit ratio favors no change other than as noted in my dictated progress note. Diagnosis: Problems: (1) SCHIZOAFFECTIVE DISORDER, UNSPECIFIED (2) Schizophrenia (3) Bipolar 1 disorder (4) Mental status change (5) Psychosis (6) Dementia (7) SIADH (syndrome of inappropriate ADH production) (8) Hyponatremia (9) Tobacco use disorder (10) Schizoaffective disorder TINY CHAN MD Feb 11, 2017 19:58
--- NOTE | 2017-02-11 23:11 | CONS ---
DATE OF CONSULTATION: 02/11/2017 HISTORY OF PRESENT ILLNESS: [facility] here at [facility]. The patient has been very disruptive, psychotic, refusing medications, bumping his wheelchair into others and verbally abusive to staff. The patient basically has a history of schizoaffective disorder, bipolar type. He has been living in [facility] for some time. He has failed psychiatric intervention and outpatient treatment at the facility at [facility] where he was before. He has been deemed dangerous at times and management of the facility resulting in referral. The patient is not able to give any type of medical history. He does have severe mood swings, psychotic symptoms and progressive dementia. 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 ALLERGIES: PENICILLIN, TRAZODONE, VANCOMYCIN, GEODON, NONSTEROIDAL ANTI-INFLAMMATORY MEDICATION, ZIPRASIDONE. The patient is a DNR. FAMILY HISTORY: Noncontributory. HOME MEDICATIONS: Includes Tylenol, Norvasc 10 mg a day, ascorbic acid 500 mg b.i.d., aspirin 81 mg, Lipitor 5 mg, buspirone 15 mg b.i.d., carboxymethylcellulose sodium, vitamin D3, B12, artificial tears, hydrocodone p.r.n., lisinopril 5 mg daily, Latuda 80 mg daily, magnesium hydroxide, magnesium oxide, methyl salicylate cream, nicotine patch every 24 hours, Zyprexa 2.5 mg daily, Zofran ODT p.r.n., Senokot for constipation, Flomax 0.4 mg daily, trihexyphenidyl 2 mg daily, Zantac 150 mg daily and MiraLax. SOCIAL HISTORY: Not obtained from the patient per se. Obviously, he has a smoking history. REVIEW OF SYSTEMS: The patient not able to give a history to that function as he is really not able to discuss much in the way of his medical condition. PHYSICAL EXAMINATION: GENERAL: On exam, was a white male in no apparent distress. VITAL SIGNS: Blood pressure 145/80, respiratory rate 18, pulse 90, afebrile. The patient's head was atraumatic, normocephalic. Eyes: PERRLA without jaundice. Mouth and throat were normal. NECK: Supple, no JVD, carotid bruits. No thyromegaly. Lungs were diminished throughout, but basically diminished, but clear. CARDIOVASCULAR: Regular sinus rhythm, S1, S2. ABDOMEN: Soft, nontender, no rebound or guarding. Positive bowel sounds, no hepatosplenomegaly noted, protuberant. EXTREMITIES: No clubbing, cyanosis. Trace edema noted. NEUROLOGIC: The patient was alert. He is in a wheelchair. He is confused and disoriented just to self. The patient; otherwise, fairly stiff in some of his extremities and decreased range of motion, complains of some pain in his shoulders. I have put a Lidoderm patch to those areas. ASSESSMENT AND PLAN: Otherwise; schizoaffective disorder, bipolar type with psychotic features, anxiety disorder, major neurocognitive disorder, vascular, delusional, depression with behavioral disturbance, impulse control disorder, degenerative arthritis of the extremities, status post CVA with hemiparesis on the right side, some muscle weakness, history of hypertension and atherosclerotic heart disease, history of acute respiratory failure and history of duodenal ulcer. The patient will be admitted. We will monitor for medical problems. The patient's labs are basically stable and reviewed and found to be basically all within normal limits. Thank you for this consultation. We will follow along with you by his medical needs and will make any adjustments as indicated. RUBEN COLE MD DR: MATTHEW/zena JOB#: [id number] / [id number]
[2017-02-12 05:39] VITALS: BP 139/78
[2017-02-12] MEDS: ASPIRIN 81 MG TAB.CHEW PO SCH (07:37)
[2017-02-12] MEDS: amLODIPine BESYLATE 10 MG TABLET PO SCH (07:37)
[2017-02-12] MEDS: LISINOPRIL 5 MG TABLET. PO SCH (07:38)
[2017-02-12] MEDS: OXcarbazepine 150 MG TABLET. PO SCH ×2 (07:38→19:52)
[2017-02-12] MEDS: MAGNESIUM OXIDE 400 MG TABLET PO SCH ×2 (07:38→19:52)
[2017-02-12] MEDS: SENNOSIDES 8.6 MG TABLET PO SCH ×2 (07:39→19:54)
[2017-02-12] MEDS: MULTIVITAMIN with MINERAL TABLET. PO SCH (07:39)
[2017-02-12] MEDS: ASCORBIC ACID 500 MG TABLET PO SCH ×2 (07:39→19:52)
[2017-02-12] MEDS: busPIRone 15 MG TABLET. PO SCH ×2 (07:39→19:52)
[2017-02-12] MEDS: CHOLECALCIFEROL (VITAMIN D3) 1,000 UNIT TABLET PO SCH (07:40)
[2017-02-12] MEDS: LIDOCAINE (700MG/PATCH) PATCH. TD SCH (07:40)
[2017-02-12] MEDS: PANTOPRAZOLE 40 MG TABLET. PO SCH (07:40)
[2017-02-12] MEDS: CYANOCOBALAMIN (VITAMIN B-12) 1,000 MCG TABLET. PO SCH (07:40)
[2017-02-12] MEDS: HYDROcodone/APAP 5/325MG 1 TAB TABLET PO SCH ×3 (07:44→19:51)
[2017-02-12] MEDS: FAMOTIDINE 20 MG TABLET PO SCH (13:41)
[2017-02-12] MEDS: busPIRone 10 MG TABLET. PO SCH (13:41)
[2017-02-12 15:48] VITALS: BP 137/74
[2017-02-12] MEDS: TAMSULOSIN 0.4 MG CAP.ER.24H. PO SCH (19:51)
[2017-02-12] MEDS: MELATONIN 3 MG TABLET PO SCH (19:51)
[2017-02-12] MEDS: ATORVASTATIN CALCIUM 10 MG TABLET. PO SCH (19:54)
[2017-02-12] MEDS: LURASIDONE 40 MG TABLET. PO SCH (19:56)
[2017-02-12] MEDS: MIRTAZAPINE 7.5 MG TABLET. PO SCH (19:56)
--- NOTE | 2017-02-12 20:16 | PDOC ---
Exam Note: Rob Note: Please also refer to the separate dictated note~for this date of service dictated separately.~Patient seen individually. Discussed the patient with Nursing staff reviewed the chart.~Reviewed interim history and current functioning. Reviewed vital signs,~Labs/ Radiology~and current medications noted below. Continue current treatment with the changes noted in the dictated addendum note Assessment: Vital Signs: Vital Signs Date Time Temp Pulse Resp B/P (MAP) Pulse Ox O2 Delivery O2 Flow Rate FiO2 02/12/17 19:51 20 02/12/17 15:48 97.4 80 137/74 (95) 100 02/12/17 14:42 Room Air I&O Intake and Output 02/12/17 07:00 Intake Total 1200 ml Balance 1200 ml Intake Oral 1200 ml # Bowel Movements 1 Current Medications: Meds: Current Medications Acetaminophen (Tylenol) 650 mg PRN Q6HRS PRN PO PAIN / TEMP; Start 02/09/17 at 23:45; Stop 02/10/17 at 08:25; Status DC Multi-Ingredient Ointment (Analgesic [place]) 1 shaheen PRN QID PRN TP MUSCLE PAIN; Start 02/09/17 at 23:45 Al Hydroxide/Mg Hydroxide (Mylanta Plus Xs) 15 ml PRN AFTMEALHC PRN PO DYSPEPSIA; Start 02/09/17 at 23:45; Stop 02/10/17 at 08:20; Status DC Magnesium Hydroxide (Milk Of Magnesia) 2,400 mg PRN QHS PRN PO CONSTIPATION; Start 02/09/17 at 23:45; Stop 02/10/17 at 08:25; Status DC Buspirone HCl (Buspar) 15 mg BID PO Last administered on 02/12/17 19:52; Start 02/10/17 at 09:00 Olanzapine (ZyPREXA) 2.5 mg HS PO Last administered on 02/11/17 19:44; Start 02/10/17 at 21:00; Stop 02/12/17 at 19:29; Status DC Oxcarbazepine (Trileptal) 150 mg BID PO Last administered on 02/11/17 09:51; Start 02/10/17 at 09:00; Stop 02/11/17 at 11:41; Status DC Non-Formulary Medication 120 mg HS PO ; Start 02/10/17 at 21:00; Status UNV Melatonin 6 mg QHS PO Last administered on 02/12/17 19:51; Start 02/10/17 at 21:00 Acetaminophen (Tylenol) 650 mg PRN Q6HRS PRN PO PAIN / TEMP; Start 02/10/17 at 08:00 Amlodipine Besylate (Norvasc) 10 mg DAILY PO Last administered on 02/12/17 07: 37; Start 02/10/17 at 09:00 Ascorbic Acid (Vitamin C) 500 mg BID PO Last administered on 02/12/17 19:52; Start 02/10/17 at 09:00 Aspirin (Children'S Aspirin) 81 mg DAILY PO Last administered on 02/12/17 07: 37; Start 02/10/17 at 09:00 Atorvastatin Calcium (Lipitor) 5 mg QHS PO Last administered on 02/12/17 19:54 ; Start 02/10/17 at 21:00 Vitamin D (Vitamin D3) 2,000 unit DAILY PO Last administered on 02/12/17 07:40 ; Start 02/10/17 at 09:00 Cyanocobalamin (Vitamin B-12) 1,000 mcg DAILY PO Last administered on 07:40; Start 02/10/17 at 09:00 Acetaminophen/ Hydrocodone Bitart (Lortab 5/325) 1 tab PRN Q4HRS PRN PO PAIN; Start 02/10/17 at 08:00 Acetaminophen/ Hydrocodone Bitart (Lortab 5/325) 1 tab TID PO Last administered on 02/12/17 19:51; Start 02/10/17 at 09:00 Lisinopril (Prinivil) 5 mg DAILY PO Last administered on 02/12/17 07:38; Start 02/10/17 at 09:00 Loperamide HCl (Imodium) 2 mg PRN Q6HRS PRN PO DIARRHEA; Start 02/10/17 at 08: 00 Magnesium Hydroxide (Milk Of Magnesia) 2,400 mg PRN Q24HRS PRN PO CONSTIPATION Last administered on 02/11/17 06:23; Start 02/10/17 at 08:00 Magnesium Oxide (Magnesium Oxide) 400 mg BID PO Last administered on 02/12/17 19:52; Start 02/10/17 at 09:00 Pantoprazole Sodium (Protonix) 40 mg DAILYAC PO Last administered on 02/12/17 07:40; Start 02/10/17 at 09:00 Polyethylene Glycol (miraLAX) 17 gm PRN Q24HRS PRN PO CONSTIPATION; Start at 08:00 Sennosides (Senna) 8.6 mg BID PO Last administered on 02/12/17 19:54; Start 02/10/17 at 09:00 Tamsulosin HCl (Flomax) 0.4 mg HS PO Last administered on 02/12/17 19:51; Start 02/10/17 at 21:00 Non-Formulary Medication 650 mg PRN Q6HRS PRN PO pain/fever; Start 02/10/17 at 08:00; Stop 02/10/17 at 08:17; Status DC Non-Formulary Medication 1 drop PRN Q4HRS PRN OU DRY EYE; Start 02/10/17 at 08 :00; Stop 02/10/17 at 08:23; Status DC Artificial Tears (Artificial Tears) 2 drop PRN Q2HR PRN OU DRY EYE; Start at 08:30 Al Hydroxide/Mg Hydroxide (Mylanta Plus Xs) 30 ml PRN Q4HRS PRN PO GERD; Start 02/10/17 at 08:30 Non-Formulary Medication 1 shaheen PRN QID PRN TP MUSCLE PAIN; Start 02/10/17 at 08:00; Stop 02/10/17 at 08:18; Status DC Multivitamins/ Calcium (Thera-M Plus) 1 tab DAILY PO Last administered on 07:39; Start 02/10/17 at 09:00 Ondansetron HCl (Zofran Odt) 8 mg PRN QID PRN PO NAUSEA/VOMITING; Start at 08:30 Famotidine (Pepcid) 20 mg AFTRNOON PO Last administered on 02/12/17 13:41; Start 02/10/17 at 13:00 Oxcarbazepine (Trileptal) 300 mg BID PO Last administered on 02/12/17 19:52; Start 02/11/17 at 21:00 Lidocaine (Lidoderm) 1 patch DAILY TD Last administered on 02/12/17 07:40; Start 02/11/17 at 15:00 Buspirone HCl (Buspar) 10 mg DAILY@1400 PO Last administered on 02/12/17 13:41 ; Start 02/12/17 at 14:00 Quetiapine Fumarate (SEROquel) 25 mg TID@0900,1400,1700 PO ; Start 02/13/17 at 09:00 Mirtazapine (Remeron) 7.5 mg QHS PO Last administered on 02/12/17 19:56; Start 02/12/17 at 21:00 Active Scripts Active Reported Vitamin B-12 (Cyanocobalamin (Vitamin B-12)) 1,000 Mcg Tablet 1,000 Mcg PO DAILY Trileptal (Oxcarbazepine) 150 Mg Tablet 1 Mg PO BID Trihexyphenidyl Hcl 2 Mg Tablet 2 Mg PO BID Senna (Sennosides) 8.6 Mg Tablet 1 Tab PO BID Ranitidine Hcl 150 Mg Tablet 150 Mg PO AFTRNOON Protonix (Pantoprazole Sodium) 40 Mg Tablet.dr 40 Mg PO DAILYAC Zyprexa (Olanzapine) 2.5 Mg Tablet 2.5 Mg PO HS [place] 5-325 Tablet (Hydrocodone Bit/Acetaminophen) 1 Each Tablet 1 Tab PO TID [place] 5-325 Tablet (Hydrocodone Bit/Acetaminophen) 1 Each Tablet 1 Tab PO PRN Q4HRS PRN Alum-Mag Hydroxide-Simeth Liq (Mag Hydrox/Al Hydrox/Simeth) 360 Ml Oral.susp 30 Ml PO PRN Q4HRS PRN Multiple Vitamin (Multivitamin With Minerals) 1 Each Tablet 1 Each PO DAILY Miralax (Polyethylene Glycol 3350) 17 Gm Powd.pack 17 Gm PO PRN Q24HRS PRN Milk Of Magnesia (Magnesium Hydroxide) 400 Mg/5 Ml Oral.susp 2,400 Mg PO PRN Q24HRS PRN Melatonin 3 Mg Tablet 6 Mg PO HS Magnesium Oxide 400 Mg Tablet 400 Mg PO BID Anti-Diarrheal (Loperamide Hcl) 2 Mg Capsule 2 Mg PO PRN Q6HRS PRN Lisinopril 5 Mg Tablet 5 Mg PO DAILY Latuda (Lurasidone Hcl) 80 Mg Tablet 120 Mg PO HS Flomax (Tamsulosin Hcl) 0.4 Mg Cap.er.24h 0.4 Mg PO HS Vitamin D3 (Cholecalciferol (Vitamin D3)) 1,000 Unit Tablet 2,000 Unit PO DAILY Atorvastatin Calcium 10 Mg Tablet 5 Mg PO QHS Aspirin 81 Mg Tab.chew 81 Mg PO DAILY Ascorbic Acid 500 Mg Tablet 500 Mg PO BID Acetaminophen 160 Mg/5 Ml Solution 650 Mg PO PRN Q6HRS PRN Artificial Tears (Dextran 70/Hypromellose) 1 Each Droperette 2 Drop OP PRN Q2HR Buspirone Hcl 15 Mg Tablet 15 Mg PO BID Zyprexa Zydis (Olanzapine) 5 Mg Tab.rapdis 2.5 Mg PO PRN Q2HR PRN Dissolve in mouth Zofran Odt (Ondansetron) 8 Mg Tab.rapdis 8 Mg PO QID PRN Dissolve on tongue NICODERM CQ 21mg (Nicotine) 1 Each Patch.td24 1 Patch TP DAILY Remove at bedtime if patient is having sleep disturbances. [place] Ultra Strength Crm (Methyl Salicylate/Menth/Camph) 57 Gm Cream..g. 1 Shaheen TP PRN QID PRN Tylenol (Acetaminophen) 325 Mg Tablet 650 Mg PO PRN Q6HRS PRN Max Acetaminophen dose is 4000mg in 24 hours from all sources for adults. Refresh Tears (Carboxymethylcellulose Sodium) 15 Ml Drops 1 Drop OU PRN Q4HRS PRN Amlodipine Besylate 10 Mg Tablet 10 Mg PO DAILY Hold for SBP less than 100. After a held dose, reassess in 2 hours. If SBP is above threshold, administer dose as ordered. If SBP is below threshold, contact provider for additional instructions. I have reviewed the current psychotropics carefully including drug interactions. Risk benefit ratio favors no change other than as noted in my dictated progress note. Diagnosis: Problems: (1) SCHIZOAFFECTIVE DISORDER, UNSPECIFIED (2) Schizophrenia (3) Bipolar 1 disorder (4) Mental status change (5) Psychosis (6) Dementia (7) SIADH (syndrome of inappropriate ADH production) (8) Hyponatremia (9) Tobacco use disorder (10) Schizoaffective disorder TINY CHAN MD Feb 12, 2017 20:16
--- NOTE | 2017-02-13 01:30 | PN ---
DATE: 02/11/2017 This late entry 02/11/2017 covers elements not covered in my initial note of 02/11/2017. I met with the patient evening of 02/11/2017 at length and staffed at a treatment team meeting with the entire team morning of 02/11/2017 together with the patient's daughter, Soraida, attending. The daughter is the DPOA. The patient slept 7 hours previous evening. Appetite 100%. Reviewed his history at length including circumstances prompting admission including yelling, disruptive behavior, refusing medications, bumping others with his wheelchair, verbally abusive to staff, unmanageable psychotic. REVIEW OF SYSTEMS: Ambulation impaired, in wheelchair. No CV, , pulmonary, eye, ENT system symptoms on review. Reliability varies. MENTAL STATUS EXAM: Oriented to himself and situation. Speech is coherent, has some latency, often responses monosyllabic. Abstraction fair, computation impaired, language function intact. Mood and affect still somewhat withdrawn, at times labile, but improved. Reviewed past history, that his 1 year ago. IMPRESSION: Schizoaffective disorder, bipolar type, mixed with psychotic features, cognitive disorder, unspecified. PLAN: Increase Trileptal from 150 mg b.i.d. to 300 mg twice a day for his mood disorder. Maintain Zyprexa 2.5 mg at bedtime, melatonin 6 mg at bedtime, Latuda 120 mg at bedtime, BuSpar 15 mg b.i.d., may need to add an antidepressant if depressive symptoms are evident. MAN Cinthia CHAN MD DR: ARON/zena JOB#: [id number] / [id number]
[2017-02-13 05:55] VITALS: BP 133/79
[2017-02-13] MEDS: HYDROcodone/APAP 5/325MG 1 TAB TABLET PO SCH ×3 (07:43→19:19)
[2017-02-13] MEDS: CYANOCOBALAMIN (VITAMIN B-12) 1,000 MCG TABLET. PO SCH (07:43)
[2017-02-13] MEDS: ASCORBIC ACID 500 MG TABLET PO SCH ×2 (07:43→19:17)
[2017-02-13] MEDS: MULTIVITAMIN with MINERAL TABLET. PO SCH (07:43)
[2017-02-13] MEDS: busPIRone 15 MG TABLET. PO SCH ×2 (07:43→19:17)
[2017-02-13] MEDS: SENNOSIDES 8.6 MG TABLET PO SCH ×2 (07:43→19:17)
[2017-02-13] MEDS: MAGNESIUM OXIDE 400 MG TABLET PO SCH ×2 (07:43→19:19)
[2017-02-13] MEDS: amLODIPine BESYLATE 10 MG TABLET PO SCH (07:44)
[2017-02-13] MEDS: OXcarbazepine 150 MG TABLET. PO SCH ×2 (07:44→19:17)
[2017-02-13] MEDS: CHOLECALCIFEROL (VITAMIN D3) 1,000 UNIT TABLET PO SCH (07:44)
[2017-02-13] MEDS: PANTOPRAZOLE 40 MG TABLET. PO SCH (07:44)
[2017-02-13] MEDS: LISINOPRIL 5 MG TABLET. PO SCH (07:44)
[2017-02-13] MEDS: ASPIRIN 81 MG TAB.CHEW PO SCH (07:45)
[2017-02-13] MEDS: LIDOCAINE (700MG/PATCH) PATCH. TD SCH (07:45)
[2017-02-13] MEDS: QUEtiapine 25 MG TABLET. PO SCH ×3 (07:46→17:52)
[2017-02-13] MEDS: busPIRone 10 MG TABLET. PO SCH (13:23)
[2017-02-13] MEDS: FAMOTIDINE 20 MG TABLET PO SCH (13:23)
[2017-02-13 16:27] VITALS: BP 153/80
[2017-02-13] MEDS: TAMSULOSIN 0.4 MG CAP.ER.24H. PO SCH (19:16)
[2017-02-13] MEDS: MELATONIN 3 MG TABLET PO SCH (19:16)
[2017-02-13] MEDS: ATORVASTATIN CALCIUM 10 MG TABLET. PO SCH (19:16)
[2017-02-13] MEDS: MIRTAZAPINE 7.5 MG TABLET. PO SCH (19:17)
[2017-02-13] MEDS: LURASIDONE 40 MG TABLET. PO SCH (19:25)
--- NOTE | 2017-02-13 21:46 | PDOC ---
Exam Note: Rob Note: Please also refer to the separate dictated note~for this date of service dictated separately.~Patient seen individually. Discussed the patient with Nursing staff reviewed the chart.~Reviewed interim history and current functioning. Reviewed vital signs,~Labs/ Radiology~and current medications noted below. Continue current treatment with the changes noted in the dictated addendum note Assessment: Vital Signs: Vital Signs Date Time Temp Pulse Resp B/P (MAP) Pulse Ox O2 Delivery O2 Flow Rate FiO2 02/13/17 21:28 16 Room Air 02/13/17 16:27 98.8 80 153/80 (104) 95 I&O Intake and Output 02/13/17 07:00 Intake Total 1080 ml Balance 1080 ml Intake Oral 1080 ml Current Medications: Meds: Current Medications Acetaminophen (Tylenol) 650 mg PRN Q6HRS PRN PO PAIN / TEMP; Start 02/09/17 at 23:45; Stop 02/10/17 at 08:25; Status DC Multi-Ingredient Ointment (Analgesic [place]) 1 shaheen PRN QID PRN TP MUSCLE PAIN; Start 02/09/17 at 23:45 Al Hydroxide/Mg Hydroxide (Mylanta Plus Xs) 15 ml PRN AFTMEALHC PRN PO DYSPEPSIA; Start 02/09/17 at 23:45; Stop 02/10/17 at 08:20; Status DC Magnesium Hydroxide (Milk Of Magnesia) 2,400 mg PRN QHS PRN PO CONSTIPATION; Start 02/09/17 at 23:45; Stop 02/10/17 at 08:25; Status DC Buspirone HCl (Buspar) 15 mg BID PO Last administered on 02/13/17 19:17; Start 02/10/17 at 09:00 Olanzapine (ZyPREXA) 2.5 mg HS PO Last administered on 02/11/17 19:44; Start 02/10/17 at 21:00; Stop 02/12/17 at 19:29; Status DC Oxcarbazepine (Trileptal) 150 mg BID PO Last administered on 02/11/17 09:51; Start 02/10/17 at 09:00; Stop 02/11/17 at 11:41; Status DC Non-Formulary Medication 120 mg HS PO ; Start 02/10/17 at 21:00; Status UNV Melatonin 6 mg QHS PO Last administered on 02/13/17 19:16; Start 02/10/17 at 21:00 Acetaminophen (Tylenol) 650 mg PRN Q6HRS PRN PO PAIN / TEMP; Start 02/10/17 at 08:00 Amlodipine Besylate (Norvasc) 10 mg DAILY PO Last administered on 02/13/17 07: 44; Start 02/10/17 at 09:00 Ascorbic Acid (Vitamin C) 500 mg BID PO Last administered on 02/13/17 19:17; Start 02/10/17 at 09:00 Aspirin (Children'S Aspirin) 81 mg DAILY PO Last administered on 02/13/17 07: 45; Start 02/10/17 at 09:00 Atorvastatin Calcium (Lipitor) 5 mg QHS PO Last administered on 02/13/17 19:16 ; Start 02/10/17 at 21:00 Vitamin D (Vitamin D3) 2,000 unit DAILY PO Last administered on 02/13/17 07:44 ; Start 02/10/17 at 09:00 Cyanocobalamin (Vitamin B-12) 1,000 mcg DAILY PO Last administered on 07:43; Start 02/10/17 at 09:00 Acetaminophen/ Hydrocodone Bitart (Lortab 5/325) 1 tab PRN Q4HRS PRN PO PAIN; Start 02/10/17 at 08:00 Acetaminophen/ Hydrocodone Bitart (Lortab 5/325) 1 tab TID PO Last administered on 02/13/17 19:19; Start 02/10/17 at 09:00 Lisinopril (Prinivil) 5 mg DAILY PO Last administered on 02/13/17 07:44; Start 02/10/17 at 09:00 Loperamide HCl (Imodium) 2 mg PRN Q6HRS PRN PO DIARRHEA; Start 02/10/17 at 08: 00 Magnesium Hydroxide (Milk Of Magnesia) 2,400 mg PRN Q24HRS PRN PO CONSTIPATION Last administered on 02/11/17 06:23; Start 02/10/17 at 08:00 Magnesium Oxide (Magnesium Oxide) 400 mg BID PO Last administered on 02/13/17 19:19; Start 02/10/17 at 09:00 Pantoprazole Sodium (Protonix) 40 mg DAILYAC PO Last administered on 02/13/17 07:44; Start 02/10/17 at 09:00 Polyethylene Glycol (miraLAX) 17 gm PRN Q24HRS PRN PO CONSTIPATION; Start at 08:00 Sennosides (Senna) 8.6 mg BID PO Last administered on 02/13/17 19:17; Start 02/10/17 at 09:00 Tamsulosin HCl (Flomax) 0.4 mg HS PO Last administered on 02/13/17 19:16; Start 02/10/17 at 21:00 Non-Formulary Medication 650 mg PRN Q6HRS PRN PO pain/fever; Start 02/10/17 at 08:00; Stop 02/10/17 at 08:17; Status DC Non-Formulary Medication 1 drop PRN Q4HRS PRN OU DRY EYE; Start 02/10/17 at 08 :00; Stop 02/10/17 at 08:23; Status DC Artificial Tears (Artificial Tears) 2 drop PRN Q2HR PRN OU DRY EYE; Start at 08:30 Al Hydroxide/Mg Hydroxide (Mylanta Plus Xs) 30 ml PRN Q4HRS PRN PO GERD; Start 02/10/17 at 08:30 Non-Formulary Medication 1 shaheen PRN QID PRN TP MUSCLE PAIN; Start 02/10/17 at 08:00; Stop 02/10/17 at 08:18; Status DC Multivitamins/ Calcium (Thera-M Plus) 1 tab DAILY PO Last administered on 07:43; Start 02/10/17 at 09:00 Ondansetron HCl (Zofran Odt) 8 mg PRN QID PRN PO NAUSEA/VOMITING; Start at 08:30 Famotidine (Pepcid) 20 mg AFTRNOON PO Last administered on 02/13/17 13:23; Start 02/10/17 at 13:00 Oxcarbazepine (Trileptal) 300 mg BID PO Last administered on 02/13/17 19:17; Start 02/11/17 at 21:00 Lidocaine (Lidoderm) 1 patch DAILY TD Last administered on 02/13/17 07:45; Start 02/11/17 at 15:00 Buspirone HCl (Buspar) 10 mg DAILY@1400 PO Last administered on 02/13/17 13:23 ; Start 02/12/17 at 14:00 Quetiapine Fumarate (SEROquel) 25 mg TID@0900,1400,1700 PO Last administered on 02/13/17 17:52; Start 02/13/17 at 09:00; Stop 02/13/17 at 18:37; Status DC Mirtazapine (Remeron) 7.5 mg QHS PO Last administered on 02/13/17 19:17; Start 02/12/17 at 21:00 Quetiapine Fumarate (SEROquel) 37.5 mg TID@0900,1400,1700 PO ; Start 02/14/17 at 09:00 Olanzapine (ZyPREXA ZYDIS) 2.5 mg PRN Q2HR PRN PO ANXIETY / AGITATION; Start 02/13/17 at 18:45 Active Scripts Active Reported Vitamin B-12 (Cyanocobalamin (Vitamin B-12)) 1,000 Mcg Tablet 1,000 Mcg PO DAILY Trileptal (Oxcarbazepine) 150 Mg Tablet 1 Mg PO BID Trihexyphenidyl Hcl 2 Mg Tablet 2 Mg PO BID Senna (Sennosides) 8.6 Mg Tablet 1 Tab PO BID Ranitidine Hcl 150 Mg Tablet 150 Mg PO AFTRNOON Protonix (Pantoprazole Sodium) 40 Mg Tablet.dr 40 Mg PO DAILYAC Zyprexa (Olanzapine) 2.5 Mg Tablet 2.5 Mg PO HS [place] 5-325 Tablet (Hydrocodone Bit/Acetaminophen) 1 Each Tablet 1 Tab PO TID [place] 5-325 Tablet (Hydrocodone Bit/Acetaminophen) 1 Each Tablet 1 Tab PO PRN Q4HRS PRN Alum-Mag Hydroxide-Simeth Liq (Mag Hydrox/Al Hydrox/Simeth) 360 Ml Oral.susp 30 Ml PO PRN Q4HRS PRN Multiple Vitamin (Multivitamin With Minerals) 1 Each Tablet 1 Each PO DAILY Miralax (Polyethylene Glycol 3350) 17 Gm Powd.pack 17 Gm PO PRN Q24HRS PRN Milk Of Magnesia (Magnesium Hydroxide) 400 Mg/5 Ml Oral.susp 2,400 Mg PO PRN Q24HRS PRN Melatonin 3 Mg Tablet 6 Mg PO HS Magnesium Oxide 400 Mg Tablet 400 Mg PO BID Anti-Diarrheal (Loperamide Hcl) 2 Mg Capsule 2 Mg PO PRN Q6HRS PRN Lisinopril 5 Mg Tablet 5 Mg PO DAILY Latuda (Lurasidone Hcl) 80 Mg Tablet 120 Mg PO HS Flomax (Tamsulosin Hcl) 0.4 Mg Cap.er.24h 0.4 Mg PO HS Vitamin D3 (Cholecalciferol (Vitamin D3)) 1,000 Unit Tablet 2,000 Unit PO DAILY Atorvastatin Calcium 10 Mg Tablet 5 Mg PO QHS Aspirin 81 Mg Tab.chew 81 Mg PO DAILY Ascorbic Acid 500 Mg Tablet 500 Mg PO BID Acetaminophen 160 Mg/5 Ml Solution 650 Mg PO PRN Q6HRS PRN Artificial Tears (Dextran 70/Hypromellose) 1 Each Droperette 2 Drop OP PRN Q2HR Buspirone Hcl 15 Mg Tablet 15 Mg PO BID Zyprexa Zydis (Olanzapine) 5 Mg Tab.rapdis 2.5 Mg PO PRN Q2HR PRN Dissolve in mouth Zofran Odt (Ondansetron) 8 Mg Tab.rapdis 8 Mg PO QID PRN Dissolve on tongue NICODERM CQ 21mg (Nicotine) 1 Each Patch.td24 1 Patch TP DAILY Remove at bedtime if patient is having sleep disturbances. [place] Ultra Strength Crm (Methyl Salicylate/Menth/Camph) 57 Gm Cream..g. 1 Shaheen TP PRN QID PRN Tylenol (Acetaminophen) 325 Mg Tablet 650 Mg PO PRN Q6HRS PRN Max Acetaminophen dose is 4000mg in 24 hours from all sources for adults. Refresh Tears (Carboxymethylcellulose Sodium) 15 Ml Drops 1 Drop OU PRN Q4HRS PRN Amlodipine Besylate 10 Mg Tablet 10 Mg PO DAILY Hold for SBP less than 100. After a held dose, reassess in 2 hours. If SBP is above threshold, administer dose as ordered. If SBP is below threshold, contact provider for additional instructions. I have reviewed the current psychotropics carefully including drug interactions. Risk benefit ratio favors no change other than as noted in my dictated progress note. Diagnosis: Problems: (1) SCHIZOAFFECTIVE DISORDER, UNSPECIFIED (2) Schizophrenia (3) Bipolar 1 disorder (4) Mental status change (5) Psychosis (6) Dementia (7) SIADH (syndrome of inappropriate ADH production) (8) Hyponatremia (9) Schizoaffective disorder TINY CHAN MD Feb 13, 2017 21:46
[2017-02-14 05:51] VITALS: BP 129/77
[2017-02-14 07:47] LABS: BASO # 0.1 x10^3/uL (0.0-0.2); BASO % 1 % (0-3); EOS # 0.3 x10^3/uL (0.0-0.7); EOS % 6 % (0-3); HEMATOCRIT 41.3 % (39.0-53.0); HEMOGLOBIN 14.2 g/dL (13.0-17.5); LYMPH # 1.9 x10^3/uL (1.0-4.8); LYMPH % 32 % (24-48); MEAN CORPUSCULAR HEMOGLOBIN 30 pg (25-35); MEAN CORPUSCULAR HGB CONC 34 g/dL (31-37); MEAN CORPUSCULAR VOLUME 87 fL (79-100); MONO # 0.5 x10^3/uL (0.0-1.1); MONO % 9 % (0-9); NEUT # 3.2 x10^3uL (1.8-7.7); NEUT % 53 % (31-73); PLATELET COUNT 176 x10^3/uL (140-400); RED BLOOD COUNT 4.74 x10^6/uL (4.30-5.70); RED CELL DISTRIBUTION WIDTH 12.7 % (11.5-14.5); WHITE BLOOD COUNT 6.1 x10^3/uL (4.0-11.0)
[2017-02-14] MEDS: ASCORBIC ACID 500 MG TABLET PO SCH ×2 (07:55→19:42)
[2017-02-14] MEDS: ASPIRIN 81 MG TAB.CHEW PO SCH (07:55)
[2017-02-14] MEDS: busPIRone 15 MG TABLET. PO SCH ×2 (07:55→19:42)
[2017-02-14] MEDS: CHOLECALCIFEROL (VITAMIN D3) 1,000 UNIT TABLET PO SCH (07:55)
[2017-02-14] MEDS: PANTOPRAZOLE 40 MG TABLET. PO SCH (07:55)
[2017-02-14] MEDS: OXcarbazepine 150 MG TABLET. PO SCH ×2 (07:56→19:43)
[2017-02-14] MEDS: SENNOSIDES 8.6 MG TABLET PO SCH ×2 (07:56→19:42)
[2017-02-14] MEDS: MAGNESIUM OXIDE 400 MG TABLET PO SCH ×2 (07:56→19:42)
[2017-02-14] MEDS: MULTIVITAMIN with MINERAL TABLET. PO SCH (07:56)
[2017-02-14] MEDS: amLODIPine BESYLATE 10 MG TABLET PO SCH (07:56)
[2017-02-14] MEDS: LISINOPRIL 5 MG TABLET. PO SCH (07:56)
[2017-02-14] MEDS: CYANOCOBALAMIN (VITAMIN B-12) 1,000 MCG TABLET. PO SCH (07:56)
[2017-02-14] MEDS: LIDOCAINE (700MG/PATCH) PATCH. TD SCH (07:57)
[2017-02-14 07:59] LABS: ALBUMIN 3.8 g/dL (3.4-5.0); ALBUMIN/GLOBULIN RATIO 1.1 (1.0-1.7); CALCIUM 9.3 mg/dL (8.5-10.1); CREATININE 1.4 mg/dL (0.7-1.3); GFR 50.9; POTASSIUM 4.9 mmol/L (3.5-5.1); TOTAL BILIRUBIN 0.5 mg/dL (0.2-1.0); TOTAL PROTEIN 7.4 g/dL (6.4-8.2)
[2017-02-14] MEDS: QUEtiapine 25 MG TABLET. PO SCH ×3 (08:00→16:56)
[2017-02-14] MEDS: POLYETHYLENE GLYCOL 3350 17 GM PACKET. PO PRN ×3 (11:42→19:47)
[2017-02-14] MEDS: MAGNESIUM HYDROXIDE 2,400 MG/30 ML ORAL.SUSP. PO PRN (11:42)
[2017-02-14] MEDS: FAMOTIDINE 20 MG TABLET PO SCH (15:09)
[2017-02-14] MEDS: busPIRone 10 MG TABLET. PO SCH (15:10)
[2017-02-14] MEDS: HYDROcodone/APAP 5/325MG 1 TAB TABLET PO SCH ×2 (15:10→19:42)
[2017-02-14 16:12] VITALS: BP 122/76
--- NOTE | 2017-02-14 18:34 | PN ---
DATE: 02/12/2017 PSYCHIATRIC PROGRESS NOTE This late entry date of service 02/12/2017 covers elements, not covered in my initial note of 02/12/2017. I met with the patient in the evening of 02/12/2017. Overall, the patient remains somewhat anxious, needy per nursing report, fixated on his foot, not working, that is broken and there is no evidence of that. He slept 8 hours previous evening. Ambulation impaired, in wheelchair. REVIEW OF SYSTEMS: No CV, , pulmonary, eye system symptoms on review. Vague somatic symptoms. Part of his mood lability, anxiety. MENTAL STATUS EXAM: Oriented to himself and situation. Speech is coherent, a little pressured at times, other times monosyllabic and responses. Abstraction fair, computation impaired, language function intact, attention span short. Mood and affect remain somewhat anxious, labile. LABORATORY DATA: Reviewed. IMPRESSION: Unchanged from initial note. PLAN: Start trazodone 50 mg p.o. at bedtime p.r.n., may repeat x1 for anxiety. Change Zyprexa to Seroquel 12.5 mg 9 a.m., 2 p.m., 5 p.m. Maintain BuSpar 15 b.i.d., Latuda 120 mg at bedtime, Trileptal 300 mg b.i.d., melatonin 6 mg at bedtime. Discontinue the Zyprexa 2.5 mg at bedtime. Reviewed drug contractions. Risk/benefit ratio favors no further change. TINY CHAN MD DR: ARON/zena JOB#: [id number] / [id number]
--- NOTE | 2017-02-14 19:29 | PN ---
DATE: 02/13/2017 This is a late entry 02/13, covers elements not covered in my initial note 02/13. SUBJECTIVE: I met with the patient evening of 02/13. The patient has been quite anxious, labile, yelling in the dining room in the morning, complaining of pain, putting himself on the floor, yelling most of the evening about his leg. He is on the mattress on the floor in a separate hallway. No active suicidal or homicidal ideation. Attention span short, language function intact. Mood and affect labile. He has had some abdominal movement. We will consult Dr. Chan, Neurology, for this. Somatically preoccupied "I'm paralyzed." Complains of muscle spams, "the muscles are getting me bullets," in his back are coming out according to his statements. He refused to feed himself at lunchtime. REVIEW OF SYSTEMS: Ambulation impaired, in wheelchair. Vague somatic symptoms noted above. MENTAL STATUS EXAM: Oriented to himself and situation. Speech coherent, rapid at times. Abstraction fair, computation impaired, language function intact. Attention span short. IMPRESSION: Unchanged from initial note. PLAN: Increase Seroquel from 25 mg 3 times a day to 37.5 mg 3 times a day, BuSpar was increased for anxiety previously. Maintain the rest unchanged. Make further adjustments as clinically indicated. MAN Cinthia CHAN MD DR: ARON/zena JOB#: [id number] / [id number]
[2017-02-14] MEDS: MIRTAZAPINE 7.5 MG TABLET. PO SCH (19:42)
[2017-02-14] MEDS: ATORVASTATIN CALCIUM 10 MG TABLET. PO SCH (19:42)
[2017-02-14] MEDS: MELATONIN 3 MG TABLET PO SCH (19:42)
[2017-02-14] MEDS: TAMSULOSIN 0.4 MG CAP.ER.24H. PO SCH (19:44)
[2017-02-14] MEDS: LURASIDONE 40 MG TABLET. PO SCH (19:45)
--- NOTE | 2017-02-14 20:01 | PDOC ---
Exam Note: Rob Note: Please also refer to the separate dictated note~for this date of service dictated separately.~Patient seen individually. Discussed the patient with Nursing staff reviewed the chart.~Reviewed interim history and current functioning. Reviewed vital signs,~Labs/ Radiology~and current medications noted below. Continue current treatment with the changes noted in the dictated addendum note Assessment: Vital Signs: Vital Signs Date Time Temp Pulse Resp B/P (MAP) Pulse Ox O2 Delivery O2 Flow Rate FiO2 02/14/17 19:42 22 02/14/17 16:12 98.4 81 122/76 (91) 97 02/13/17 21:28 Room Air I&O Intake and Output 02/14/17 07:00 Intake Total 720 ml Balance 720 ml Intake Oral 720 ml Labs: Laboratory Tests Test 02/14/17 07:26 White Blood Count 6.1 x10^3/uL (4.0-11.0) Red Blood Count 4.74 x10^6/uL (4.30-5.70) Hemoglobin 14.2 g/dL (13.0-17.5) Hematocrit 41.3 % (39.0-53.0) Mean Corpuscular Volume 87 fL (79-100) Mean Corpuscular Hemoglobin 30 pg (25-35) Mean Corpuscular Hemoglobin Concent 34 g/dL (31-37) Red Cell Distribution Width 12.7 % (11.5-14.5) Platelet Count 176 x10^3/uL (140-400) Neutrophils (%) (Auto) 53 % (31-73) Lymphocytes (%) (Auto) 32 % (24-48) Monocytes (%) (Auto) 9 % (0-9) Eosinophils (%) (Auto) 6 % (0-3) H Basophils (%) (Auto) 1 % (0-3) Neutrophils # (Auto) 3.2 x10^3uL (1.8-7.7) Lymphocytes # (Auto) 1.9 x10^3/uL (1.0-4.8) Monocytes # (Auto) 0.5 x10^3/uL (0.0-1.1) Eosinophils # (Auto) 0.3 x10^3/uL (0.0-0.7) Basophils # (Auto) 0.1 x10^3/uL (0.0-0.2) Sodium Level 136 mmol/L (136-145) Potassium Level 4.9 mmol/L (3.5-5.1) Chloride Level 101 mmol/L (98-107) Carbon Dioxide Level 29 mmol/L (21-32) Anion Gap 6 (6-14) Blood Urea Nitrogen 16 mg/dL (8-26) Creatinine 1.4 mg/dL (0.7-1.3) H Estimated GFR (Cockcroft-Gault) 50.9 BUN/Creatinine Ratio 11 (6-20) Glucose Level 106 mg/dL (70-99) H Calcium Level 9.3 mg/dL (8.5-10.1) Total Bilirubin 0.5 mg/dL (0.2-1.0) Aspartate Amino Transferase (AST) 22 U/L (15-37) Alanine Aminotransferase (ALT) 22 U/L (16-63) Alkaline Phosphatase 82 U/L (46-116) Total Protein 7.4 g/dL (6.4-8.2) Albumin 3.8 g/dL (3.4-5.0) Albumin/Globulin Ratio 1.1 (1.0-1.7) Current Medications: Meds: Current Medications Acetaminophen (Tylenol) 650 mg PRN Q6HRS PRN PO PAIN / TEMP; Start 02/09/17 at 23:45; Stop 02/10/17 at 08:25; Status DC Multi-Ingredient Ointment (Analgesic [place]) 1 shaheen PRN QID PRN TP MUSCLE PAIN; Start 02/09/17 at 23:45 Al Hydroxide/Mg Hydroxide (Mylanta Plus Xs) 15 ml PRN AFTMEALHC PRN PO DYSPEPSIA; Start 02/09/17 at 23:45; Stop 02/10/17 at 08:20; Status DC Magnesium Hydroxide (Milk Of Magnesia) 2,400 mg PRN QHS PRN PO CONSTIPATION; Start 02/09/17 at 23:45; Stop 02/10/17 at 08:25; Status DC Buspirone HCl (Buspar) 15 mg BID PO Last administered on 02/14/17 19:42; Start 02/10/17 at 09:00 Olanzapine (ZyPREXA) 2.5 mg HS PO Last administered on 02/11/17 19:44; Start 02/10/17 at 21:00; Stop 02/12/17 at 19:29; Status DC Oxcarbazepine (Trileptal) 150 mg BID PO Last administered on 02/11/17 09:51; Start 02/10/17 at 09:00; Stop 02/11/17 at 11:41; Status DC Non-Formulary Medication 120 mg HS PO ; Start 02/10/17 at 21:00; Status UNV Melatonin 6 mg QHS PO Last administered on 02/14/17 19:42; Start 02/10/17 at 21:00 Acetaminophen (Tylenol) 650 mg PRN Q6HRS PRN PO PAIN / TEMP; Start 02/10/17 at 08:00 Amlodipine Besylate (Norvasc) 10 mg DAILY PO Last administered on 02/14/17 07: 56; Start 02/10/17 at 09:00 Ascorbic Acid (Vitamin C) 500 mg BID PO Last administered on 02/14/17 19:42; Start 02/10/17 at 09:00 Aspirin (Children'S Aspirin) 81 mg DAILY PO Last administered on 02/14/17 07: 55; Start 02/10/17 at 09:00 Atorvastatin Calcium (Lipitor) 5 mg QHS PO Last administered on 02/14/17 19:42 ; Start 02/10/17 at 21:00 Vitamin D (Vitamin D3) 2,000 unit DAILY PO Last administered on 02/14/17 07:55 ; Start 02/10/17 at 09:00 Cyanocobalamin (Vitamin B-12) 1,000 mcg DAILY PO Last administered on 07:56; Start 02/10/17 at 09:00 Acetaminophen/ Hydrocodone Bitart (Lortab 5/325) 1 tab PRN Q4HRS PRN PO PAIN; Start 02/10/17 at 08:00 Acetaminophen/ Hydrocodone Bitart (Lortab 5/325) 1 tab TID PO Last administered on 02/14/17 19:42; Start 02/10/17 at 09:00 Lisinopril (Prinivil) 5 mg DAILY PO Last administered on 02/14/17 07:56; Start 02/10/17 at 09:00 Loperamide HCl (Imodium) 2 mg PRN Q6HRS PRN PO DIARRHEA; Start 02/10/17 at 08: 00 Magnesium Hydroxide (Milk Of Magnesia) 2,400 mg PRN Q24HRS PRN PO CONSTIPATION Last administered on 02/14/17 11:42; Start 02/10/17 at 08:00 Magnesium Oxide (Magnesium Oxide) 400 mg BID PO Last administered on 02/14/17 19:42; Start 02/10/17 at 09:00 Pantoprazole Sodium (Protonix) 40 mg DAILYAC PO Last administered on 02/14/17 07:55; Start 02/10/17 at 09:00 Polyethylene Glycol (miraLAX) 17 gm PRN Q24HRS PRN PO CONSTIPATION Last administered on 02/14/17 19:47; Start 02/10/17 at 08:00 Sennosides (Senna) 8.6 mg BID PO Last administered on 02/14/17 19:42; Start 02/10/17 at 09:00 Tamsulosin HCl (Flomax) 0.4 mg HS PO Last administered on 02/14/17 19:44; Start 02/10/17 at 21:00 Non-Formulary Medication 650 mg PRN Q6HRS PRN PO pain/fever; Start 02/10/17 at 08:00; Stop 02/10/17 at 08:17; Status DC Non-Formulary Medication 1 drop PRN Q4HRS PRN OU DRY EYE; Start 02/10/17 at 08 :00; Stop 02/10/17 at 08:23; Status DC Artificial Tears (Artificial Tears) 2 drop PRN Q2HR PRN OU DRY EYE; Start at 08:30 Al Hydroxide/Mg Hydroxide (Mylanta Plus Xs) 30 ml PRN Q4HRS PRN PO GERD; Start 02/10/17 at 08:30 Non-Formulary Medication 1 shaheen PRN QID PRN TP MUSCLE PAIN; Start 02/10/17 at 08:00; Stop 02/10/17 at 08:18; Status DC Multivitamins/ Calcium (Thera-M Plus) 1 tab DAILY PO Last administered on 07:56; Start 02/10/17 at 09:00 Ondansetron HCl (Zofran Odt) 8 mg PRN QID PRN PO NAUSEA/VOMITING; Start at 08:30 Famotidine (Pepcid) 20 mg AFTRNOON PO Last administered on 02/14/17 15:09; Start 02/10/17 at 13:00 Oxcarbazepine (Trileptal) 300 mg BID PO Last administered on 02/14/17 19:43; Start 02/11/17 at 21:00 Lidocaine (Lidoderm) 1 patch DAILY TD Last administered on 02/14/17 07:57; Start 02/11/17 at 15:00 Buspirone HCl (Buspar) 10 mg DAILY@1400 PO Last administered on 02/14/17 15:10 ; Start 02/12/17 at 14:00 Quetiapine Fumarate (SEROquel) 25 mg TID@0900,1400,1700 PO Last administered on 02/13/17 17:52; Start 02/13/17 at 09:00; Stop 02/13/17 at 18:37; Status DC Mirtazapine (Remeron) 7.5 mg QHS PO Last administered on 02/14/17 19:42; Start 02/12/17 at 21:00 Quetiapine Fumarate (SEROquel) 37.5 mg TID@0900,1400,1700 PO Last administered on 02/14/17 16:56; Start 02/14/17 at 09:00 Olanzapine (ZyPREXA ZYDIS) 2.5 mg PRN Q2HR PRN PO ANXIETY / AGITATION; Start 02/13/17 at 18:45 Active Scripts Active Reported Vitamin B-12 (Cyanocobalamin (Vitamin B-12)) 1,000 Mcg Tablet 1,000 Mcg PO DAILY Trileptal (Oxcarbazepine) 150 Mg Tablet 1 Mg PO BID Trihexyphenidyl Hcl 2 Mg Tablet 2 Mg PO BID Senna (Sennosides) 8.6 Mg Tablet 1 Tab PO BID Ranitidine Hcl 150 Mg Tablet 150 Mg PO AFTRNOON Protonix (Pantoprazole Sodium) 40 Mg Tablet.dr 40 Mg PO DAILYAC Zyprexa (Olanzapine) 2.5 Mg Tablet 2.5 Mg PO HS [place] 5-325 Tablet (Hydrocodone Bit/Acetaminophen) 1 Each Tablet 1 Tab PO TID [place] 5-325 Tablet (Hydrocodone Bit/Acetaminophen) 1 Each Tablet 1 Tab PO PRN Q4HRS PRN Alum-Mag Hydroxide-Simeth Liq (Mag Hydrox/Al Hydrox/Simeth) 360 Ml Oral.susp 30 Ml PO PRN Q4HRS PRN Multiple Vitamin (Multivitamin With Minerals) 1 Each Tablet 1 Each PO DAILY Miralax (Polyethylene Glycol 3350) 17 Gm Powd.pack 17 Gm PO PRN Q24HRS PRN Milk Of Magnesia (Magnesium Hydroxide) 400 Mg/5 Ml Oral.susp 2,400 Mg PO PRN Q24HRS PRN Melatonin 3 Mg Tablet 6 Mg PO HS Magnesium Oxide 400 Mg Tablet 400 Mg PO BID Anti-Diarrheal (Loperamide Hcl) 2 Mg Capsule 2 Mg PO PRN Q6HRS PRN Lisinopril 5 Mg Tablet 5 Mg PO DAILY Latuda (Lurasidone Hcl) 80 Mg Tablet 120 Mg PO HS Flomax (Tamsulosin Hcl) 0.4 Mg Cap.er.24h 0.4 Mg PO HS Vitamin D3 (Cholecalciferol (Vitamin D3)) 1,000 Unit Tablet 2,000 Unit PO DAILY Atorvastatin Calcium 10 Mg Tablet 5 Mg PO QHS Aspirin 81 Mg Tab.chew 81 Mg PO DAILY Ascorbic Acid 500 Mg Tablet 500 Mg PO BID Acetaminophen 160 Mg/5 Ml Solution 650 Mg PO PRN Q6HRS PRN Artificial Tears (Dextran 70/Hypromellose) 1 Each Droperette 2 Drop OP PRN Q2HR Buspirone Hcl 15 Mg Tablet 15 Mg PO BID Zyprexa Zydis (Olanzapine) 5 Mg Tab.rapdis 2.5 Mg PO PRN Q2HR PRN Dissolve in mouth Zofran Odt (Ondansetron) 8 Mg Tab.rapdis 8 Mg PO QID PRN Dissolve on tongue NICODERM CQ 21mg (Nicotine) 1 Each Patch.td24 1 Patch TP DAILY Remove at bedtime if patient is having sleep disturbances. [place] Ultra Strength Crm (Methyl Salicylate/Menth/Camph) 57 Gm Cream..g. 1 Shaheen TP PRN QID PRN Tylenol (Acetaminophen) 325 Mg Tablet 650 Mg PO PRN Q6HRS PRN Max Acetaminophen dose is 4000mg in 24 hours from all sources for adults. Refresh Tears (Carboxymethylcellulose Sodium) 15 Ml Drops 1 Drop OU PRN Q4HRS PRN Amlodipine Besylate 10 Mg Tablet 10 Mg PO DAILY Hold for SBP less than 100. After a held dose, reassess in 2 hours. If SBP is above threshold, administer dose as ordered. If SBP is below threshold, contact provider for additional instructions. I have reviewed the current psychotropics carefully including drug interactions. Risk benefit ratio favors no change other than as noted in my dictated progress note. Diagnosis: Problems: (1) Mental status change (2) Psychosis (3) Dementia (4) SIADH (syndrome of inappropriate ADH production) (5) Hyponatremia (6) Tobacco use disorder (7) Schizoaffective disorder (8) SCHIZOAFFECTIVE DISORDER, UNSPECIFIED (9) Schizophrenia (10) Bipolar 1 disorder TINY CHAN MD Feb 14, 2017 20:01
--- NOTE | 2017-02-15 01:03 | RAD ---
INDICATION: Sent previous CT for comparison. Patient has bilateral extremity weakness but mostly on the left, mental status changes. COMPARISON: October 01, 2015 TECHNIQUE: Axial CT images obtained through the head without intravenous contrast. One or more of the following individualized dose reduction techniques were utilized for this examination: 1. Automated exposure control; 2. Adjustment of the mA and/or kV according to patient size; 3. Use of iterative reconstruction technique. FINDINGS: No intracranial hemorrhage. No midline shift. Basal cisterns patents. Ventricles and sulci are globally prominent. No acute osseous abnormality. Orbits and paranasal sinuses unremarkable. Scattered foci of low attenuation within the white matter. There are some possible swelling overlying the partially visualized face. IMPRESSION: 1. No acute intracranial hemorrhage. 2. Scattered regions of low attenuation within the white matter. Non-specific in nature but frequently secondary to chronic small vessel ischemic disease. If there is clinical concern for acute causes MRI could better evaluate. 3. Prominence of ventricles and sulci which is frequently secondary to age related volume loss. Electronically signed by: Tamir Schofield MD (02/15/2017 12:59 AM) [id number]
[2017-02-15 02:52] LABS: BILIRUBIN,URINE NEG (NEG); CLARITY,URINE CLEAR; COLOR,URINE YELLOW; GLUCOSE,URINE NEG (NEG)
[2017-02-15 02:53] LABS: BACTERIA,URINE 0 /HPF (0-FEW); HYALINE CASTS, URINE OCC /HPF; NITRITE,URINE NEG (NEG); SQUAMOUS EPITHELIAL CELL,UR OCC /LPF; UROBILINOGEN,URINE 0.2 mg/dL (0.2 mg/dL); WBC,URINE OCC /HPF (0-4)
[2017-02-15 05:52] VITALS: BP 116/74
[2017-02-15] MEDS: PANTOPRAZOLE 40 MG TABLET. PO SCH (08:26)
[2017-02-15] MEDS: MAGNESIUM OXIDE 400 MG TABLET PO SCH ×2 (08:27→20:01)
[2017-02-15] MEDS: SENNOSIDES 8.6 MG TABLET PO SCH ×2 (08:27→20:01)
[2017-02-15] MEDS: CYANOCOBALAMIN (VITAMIN B-12) 1,000 MCG TABLET. PO SCH (08:27)
[2017-02-15] MEDS: LISINOPRIL 5 MG TABLET. PO SCH (08:27)
[2017-02-15] MEDS: OXcarbazepine 150 MG TABLET. PO SCH ×2 (08:28→20:00)
[2017-02-15] MEDS: amLODIPine BESYLATE 10 MG TABLET PO SCH (08:28)
[2017-02-15] MEDS: ASCORBIC ACID 500 MG TABLET PO SCH ×2 (08:28→20:02)
[2017-02-15] MEDS: MULTIVITAMIN with MINERAL TABLET. PO SCH (08:28)
[2017-02-15] MEDS: ASPIRIN 81 MG TAB.CHEW PO SCH (08:29)
[2017-02-15] MEDS: QUEtiapine 25 MG TABLET. PO SCH ×3 (08:29→18:46)
[2017-02-15] MEDS: HYDROcodone/APAP 5/325MG 1 TAB TABLET PO SCH ×3 (08:29→20:04)
[2017-02-15] MEDS: busPIRone 15 MG TABLET. PO SCH ×2 (08:30→20:01)
[2017-02-15] MEDS: LIDOCAINE (700MG/PATCH) PATCH. TD SCH (08:31)
[2017-02-15] MEDS: CHOLECALCIFEROL (VITAMIN D3) 1,000 UNIT TABLET PO SCH (08:32)
[2017-02-15] MEDS: MAGNESIUM HYDROXIDE 2,400 MG/30 ML ORAL.SUSP. PO PRN (12:43)
[2017-02-15] MEDS: FAMOTIDINE 20 MG TABLET PO SCH (13:43)
[2017-02-15] MEDS: busPIRone 10 MG TABLET. PO SCH (13:43)
[2017-02-15 15:59] VITALS: BP 127/87
--- NOTE | 2017-02-15 19:59 | PDOC ---
Exam Note: Rob Note: Please also refer to the separate dictated note~for this date of service dictated separately.~Patient seen individually. Discussed the patient with Nursing staff reviewed the chart.~Reviewed interim history and current functioning. Reviewed vital signs,~Labs/ Radiology~and current medications noted below. Continue current treatment with the changes noted in the dictated addendum note Assessment: Vital Signs: Vital Signs Date Time Temp Pulse Resp B/P (MAP) Pulse Ox O2 Delivery O2 Flow Rate FiO2 02/15/17 15:59 97.5 99 18 127/87 (100) 93 02/15/17 15:00 Room Air I&O Intake and Output 02/15/17 07:00 Intake Total 1200 ml Output Total 1000 ml Balance 200 ml Intake Oral 1200 ml Output Urine Total 1000 ml Labs: Laboratory Tests Test 02/15/17 02:15 Urine Collection Type Unknown Urine Color Yellow Urine Clarity Clear Urine pH 6.0 Urine Specific [place] 1.020 Urine Protein Neg (NEG-TRACE) Urine Glucose (UA) Neg mg/dL (NEG) Urine Ketones (Stick) Trace mg/dL (NEG) Urine Blood Trace (NEG) Urine Nitrite Neg (NEG) Urine Bilirubin Neg (NEG) Urine Urobilinogen Dipstick 0.2 mg/dL (0.2 mg/dL) Urine Leukocyte Esterase Neg (NEG) Urine RBC 6-10 /HPF (0-2) Urine WBC Occ /HPF (0-4) Urine Squamous Epithelial Cells Occ /LPF Urine Bacteria 0 /HPF (0-FEW) Urine Hyaline Casts Occ /HPF Current Medications: Meds: Current Medications Acetaminophen (Tylenol) 650 mg PRN Q6HRS PRN PO PAIN / TEMP; Start 02/09/17 at 23:45; Stop 02/10/17 at 08:25; Status DC Multi-Ingredient Ointment (Analgesic [place]) 1 shaheen PRN QID PRN TP MUSCLE PAIN; Start 02/09/17 at 23:45 Al Hydroxide/Mg Hydroxide (Mylanta Plus Xs) 15 ml PRN AFTMEALHC PRN PO DYSPEPSIA; Start 02/09/17 at 23:45; Stop 02/10/17 at 08:20; Status DC Magnesium Hydroxide (Milk Of Magnesia) 2,400 mg PRN QHS PRN PO CONSTIPATION; Start 02/09/17 at 23:45; Stop 02/10/17 at 08:25; Status DC Buspirone HCl (Buspar) 15 mg BID PO Last administered on 02/15/17 08:30; Start 02/10/17 at 09:00 Olanzapine (ZyPREXA) 2.5 mg HS PO Last administered on 02/11/17 19:44; Start 02/10/17 at 21:00; Stop 02/12/17 at 19:29; Status DC Oxcarbazepine (Trileptal) 150 mg BID PO Last administered on 02/11/17 09:51; Start 02/10/17 at 09:00; Stop 02/11/17 at 11:41; Status DC Non-Formulary Medication 120 mg HS PO ; Start 02/10/17 at 21:00; Status UNV Melatonin 6 mg QHS PO Last administered on 02/14/17 19:42; Start 02/10/17 at 21:00 Acetaminophen (Tylenol) 650 mg PRN Q6HRS PRN PO PAIN / TEMP; Start 02/10/17 at 08:00 Amlodipine Besylate (Norvasc) 10 mg DAILY PO Last administered on 02/15/17 08: 28; Start 02/10/17 at 09:00 Ascorbic Acid (Vitamin C) 500 mg BID PO Last administered on 02/15/17 08:28; Start 02/10/17 at 09:00 Aspirin (Children'S Aspirin) 81 mg DAILY PO Last administered on 02/15/17 08: 29; Start 02/10/17 at 09:00 Atorvastatin Calcium (Lipitor) 5 mg QHS PO Last administered on 02/14/17 19:42 ; Start 02/10/17 at 21:00 Vitamin D (Vitamin D3) 2,000 unit DAILY PO Last administered on 02/15/17 08:32 ; Start 02/10/17 at 09:00 Cyanocobalamin (Vitamin B-12) 1,000 mcg DAILY PO Last administered on 08:27; Start 02/10/17 at 09:00 Acetaminophen/ Hydrocodone Bitart (Lortab 5/325) 1 tab PRN Q4HRS PRN PO PAIN; Start 02/10/17 at 08:00 Acetaminophen/ Hydrocodone Bitart (Lortab 5/325) 1 tab TID PO Last administered on 02/15/17 13:44; Start 02/10/17 at 09:00 Lisinopril (Prinivil) 5 mg DAILY PO Last administered on 02/15/17 08:27; Start 02/10/17 at 09:00 Loperamide HCl (Imodium) 2 mg PRN Q6HRS PRN PO DIARRHEA; Start 02/10/17 at 08: 00 Magnesium Hydroxide (Milk Of Magnesia) 2,400 mg PRN Q24HRS PRN PO CONSTIPATION Last administered on 02/15/17 12:43; Start 02/10/17 at 08:00 Magnesium Oxide (Magnesium Oxide) 400 mg BID PO Last administered on 02/15/17 08:27; Start 02/10/17 at 09:00 Pantoprazole Sodium (Protonix) 40 mg DAILYAC PO Last administered on 02/15/17 08:26; Start 02/10/17 at 09:00 Polyethylene Glycol (miraLAX) 17 gm PRN Q24HRS PRN PO CONSTIPATION Last administered on 02/14/17 19:47; Start 02/10/17 at 08:00 Sennosides (Senna) 8.6 mg BID PO Last administered on 02/15/17 08:27; Start 02/10/17 at 09:00 Tamsulosin HCl (Flomax) 0.4 mg HS PO Last administered on 02/14/17 19:44; Start 02/10/17 at 21:00 Non-Formulary Medication 650 mg PRN Q6HRS PRN PO pain/fever; Start 02/10/17 at 08:00; Stop 02/10/17 at 08:17; Status DC Non-Formulary Medication 1 drop PRN Q4HRS PRN OU DRY EYE; Start 02/10/17 at 08 :00; Stop 02/10/17 at 08:23; Status DC Artificial Tears (Artificial Tears) 2 drop PRN Q2HR PRN OU DRY EYE; Start at 08:30 Al Hydroxide/Mg Hydroxide (Mylanta Plus Xs) 30 ml PRN Q4HRS PRN PO GERD; Start 02/10/17 at 08:30 Non-Formulary Medication 1 shaheen PRN QID PRN TP MUSCLE PAIN; Start 02/10/17 at 08:00; Stop 02/10/17 at 08:18; Status DC Multivitamins/ Calcium (Thera-M Plus) 1 tab DAILY PO Last administered on 08:28; Start 02/10/17 at 09:00 Ondansetron HCl (Zofran Odt) 8 mg PRN QID PRN PO NAUSEA/VOMITING; Start at 08:30 Famotidine (Pepcid) 20 mg AFTRNOON PO Last administered on 02/15/17 13:43; Start 02/10/17 at 13:00 Oxcarbazepine (Trileptal) 300 mg BID PO Last administered on 02/15/17 08:28; Start 02/11/17 at 21:00 Lidocaine (Lidoderm) 1 patch DAILY TD Last administered on 02/15/17 08:31; Start 02/11/17 at 15:00 Buspirone HCl (Buspar) 10 mg DAILY@1400 PO Last administered on 02/15/17 13:43 ; Start 02/12/17 at 14:00 Quetiapine Fumarate (SEROquel) 25 mg TID@0900,1400,1700 PO Last administered on 02/13/17 17:52; Start 02/13/17 at 09:00; Stop 02/13/17 at 18:37; Status DC Mirtazapine (Remeron) 7.5 mg QHS PO Last administered on 02/14/17 19:42; Start 02/12/17 at 21:00 Quetiapine Fumarate (SEROquel) 37.5 mg TID@0900,1400,1700 PO Last administered on 02/15/17 18:46; Start 02/14/17 at 09:00 Olanzapine (ZyPREXA ZYDIS) 2.5 mg PRN Q2HR PRN PO ANXIETY / AGITATION; Start 02/13/17 at 18:45 Active Scripts Active Reported Vitamin B-12 (Cyanocobalamin (Vitamin B-12)) 1,000 Mcg Tablet 1,000 Mcg PO DAILY Trileptal (Oxcarbazepine) 150 Mg Tablet 1 Mg PO BID Trihexyphenidyl Hcl 2 Mg Tablet 2 Mg PO BID Senna (Sennosides) 8.6 Mg Tablet 1 Tab PO BID Ranitidine Hcl 150 Mg Tablet 150 Mg PO AFTRNOON Protonix (Pantoprazole Sodium) 40 Mg Tablet.dr 40 Mg PO DAILYAC Zyprexa (Olanzapine) 2.5 Mg Tablet 2.5 Mg PO HS [place] 5-325 Tablet (Hydrocodone Bit/Acetaminophen) 1 Each Tablet 1 Tab PO TID [place] 5-325 Tablet (Hydrocodone Bit/Acetaminophen) 1 Each Tablet 1 Tab PO PRN Q4HRS PRN Alum-Mag Hydroxide-Simeth Liq (Mag Hydrox/Al Hydrox/Simeth) 360 Ml Oral.susp 30 Ml PO PRN Q4HRS PRN Multiple Vitamin (Multivitamin With Minerals) 1 Each Tablet 1 Each PO DAILY Miralax (Polyethylene Glycol 3350) 17 Gm Powd.pack 17 Gm PO PRN Q24HRS PRN Milk Of Magnesia (Magnesium Hydroxide) 400 Mg/5 Ml Oral.susp 2,400 Mg PO PRN Q24HRS PRN Melatonin 3 Mg Tablet 6 Mg PO HS Magnesium Oxide 400 Mg Tablet 400 Mg PO BID Anti-Diarrheal (Loperamide Hcl) 2 Mg Capsule 2 Mg PO PRN Q6HRS PRN Lisinopril 5 Mg Tablet 5 Mg PO DAILY Latuda (Lurasidone Hcl) 80 Mg Tablet 120 Mg PO HS Flomax (Tamsulosin Hcl) 0.4 Mg Cap.er.24h 0.4 Mg PO HS Vitamin D3 (Cholecalciferol (Vitamin D3)) 1,000 Unit Tablet 2,000 Unit PO DAILY Atorvastatin Calcium 10 Mg Tablet 5 Mg PO QHS Aspirin 81 Mg Tab.chew 81 Mg PO DAILY Ascorbic Acid 500 Mg Tablet 500 Mg PO BID Acetaminophen 160 Mg/5 Ml Solution 650 Mg PO PRN Q6HRS PRN Artificial Tears (Dextran 70/Hypromellose) 1 Each Droperette 2 Drop OP PRN Q2HR Buspirone Hcl 15 Mg Tablet 15 Mg PO BID Zyprexa Zydis (Olanzapine) 5 Mg Tab.rapdis 2.5 Mg PO PRN Q2HR PRN Dissolve in mouth Zofran Odt (Ondansetron) 8 Mg Tab.rapdis 8 Mg PO QID PRN Dissolve on tongue NICODERM CQ 21mg (Nicotine) 1 Each Patch.td24 1 Patch TP DAILY Remove at bedtime if patient is having sleep disturbances. [place] Ultra Strength Crm (Methyl Salicylate/Menth/Camph) 57 Gm Cream..g. 1 Shahe[place] TP PRN QID PRN Tylenol (Acetaminophen) 325 Mg Tablet 650 Mg PO PRN Q6HRS PRN Max Acetaminophen dose is 4000mg in 24 hours from all sources for adults. Refresh Tears (Carboxymethylcellulose Sodium) 15 Ml Drops 1 Drop OU PRN Q4HRS PRN Amlodipine Besylate 10 Mg Tablet 10 Mg PO DAILY Hold for SBP less than 100. After a held dose, reassess in 2 hours. If SBP is above threshold, administer dose as ordered. If SBP is below threshold, contact provider for additional instructions. I have reviewed the current psychotropics carefully including drug interactions. Risk benefit ratio favors no change other than as noted in my dictated progress note. 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
[2017-02-15] MEDS: TAMSULOSIN 0.4 MG CAP.ER.24H. PO SCH (20:00)
[2017-02-15] MEDS: MIRTAZAPINE 7.5 MG TABLET. PO SCH (20:01)
[2017-02-15] MEDS: ATORVASTATIN CALCIUM 10 MG TABLET. PO SCH (20:01)
[2017-02-15] MEDS: MELATONIN 3 MG TABLET PO SCH (20:02)
[2017-02-15] MEDS: LURASIDONE 40 MG TABLET. PO SCH (20:04)
[2017-02-16 06:22] VITALS: BP 101/44
[2017-02-16 07:13] LABS: BASO # 0.1 x10^3/uL (0.0-0.2); BASO % 1 % (0-3); EOS # 0.3 x10^3/uL (0.0-0.7); EOS % 4 % (0-3); HEMATOCRIT 41.8 % (39.0-53.0); HEMOGLOBIN 14.2 g/dL (13.0-17.5); LYMPH # 1.8 x10^3/uL (1.0-4.8); LYMPH % 25 % (24-48); MEAN CORPUSCULAR HEMOGLOBIN 30 pg (25-35); MEAN CORPUSCULAR HGB CONC 34 g/dL (31-37); MEAN CORPUSCULAR VOLUME 88 fL (79-100); MONO # 0.5 x10^3/uL (0.0-1.1); MONO % 7 % (0-9); NEUT # 4.6 x10^3uL (1.8-7.7); NEUT % 63 % (31-73); PLATELET COUNT 177 x10^3/uL (140-400); RED BLOOD COUNT 4.78 x10^6/uL (4.30-5.70); RED CELL DISTRIBUTION WIDTH 12.7 % (11.5-14.5); WHITE BLOOD COUNT 7.2 x10^3/uL (4.0-11.0)
[2017-02-16 07:39] LABS: ALBUMIN 3.8 g/dL (3.4-5.0); CALCIUM 9.4 mg/dL (8.5-10.1); CREATININE 1.5 mg/dL (0.7-1.3); POTASSIUM 5.1 mmol/L (3.5-5.1); TOTAL BILIRUBIN 0.3 mg/dL (0.2-1.0); TOTAL PROTEIN 7.5 g/dL (6.4-8.2)
[2017-02-16] MEDS: ASPIRIN 81 MG TAB.CHEW PO SCH (08:37)
[2017-02-16] MEDS: PANTOPRAZOLE 40 MG TABLET. PO SCH (08:37)
[2017-02-16] MEDS: busPIRone 15 MG TABLET. PO SCH ×2 (08:39→20:28)
[2017-02-16] MEDS: CHOLECALCIFEROL (VITAMIN D3) 1,000 UNIT TABLET PO SCH (08:39)
[2017-02-16] MEDS: CYANOCOBALAMIN (VITAMIN B-12) 1,000 MCG TABLET. PO SCH (08:39)
[2017-02-16] MEDS: MULTIVITAMIN with MINERAL TABLET. PO SCH (08:39)
[2017-02-16] MEDS: ASCORBIC ACID 500 MG TABLET PO SCH ×2 (08:39→20:29)
[2017-02-16] MEDS: MAGNESIUM OXIDE 400 MG TABLET PO SCH ×2 (08:39→20:30)
[2017-02-16] MEDS: OXcarbazepine 150 MG TABLET. PO SCH (08:39)
[2017-02-16] MEDS: QUEtiapine 25 MG TABLET. PO SCH ×3 (08:41→17:27)
[2017-02-16] MEDS: SENNOSIDES 8.6 MG TABLET PO SCH ×2 (08:41→20:28)
[2017-02-16 08:42] VITALS: BP 132/83
[2017-02-16] MEDS: LISINOPRIL 5 MG TABLET. PO SCH (08:43)
[2017-02-16] MEDS: amLODIPine BESYLATE 10 MG TABLET PO SCH (08:44)
[2017-02-16] MEDS: LIDOCAINE (700MG/PATCH) PATCH. TD SCH (08:45)
[2017-02-16] MEDS: HYDROcodone/APAP 5/325MG 1 TAB TABLET PO SCH ×3 (08:53→20:37)
--- NOTE | 2017-02-16 10:08 | PN ---
DATE: 02/14/2017 This late entry 02/14/2017 covers elements not covered in my initial note 02/14/2017. I met with the patient in the evening of 02/14/2017. He slept 6-1/2 hours previous evening, has been less labile in his mood, yelling is better. Dr. Chan did see the patient for a Neurology consult. CT head is being done. He has been retaining urine and I will defer to Dr. Chacon/Dr. Posada. Creatinine was 1.4 on 02/14/2017. REVIEW OF SYSTEMS: Positive for some tiredness, impaired ambulation. No CV, , pulmonary, eye, ENT system symptoms on review. MENTAL STATUS EXAM: Oriented to himself and situation. Speech is coherent, less pressured. Abstraction fair, computation impaired, language function intact, attention span short. Mood and affect remains labile, at times withdrawn. No active suicidal or homicidal ideation. LABORATORY DATA: Reviewed. IMPRESSION: Schizoaffective disorder, bipolar type, mixed with psychotic features. Rest unchanged. PLAN: Continue psychotropics mentioned in my initial note. Adjust further as clinically indicated. MAN Cinthia CHAN MD DR: ARON/zena JOB#: [id number] / [id number]
[2017-02-16] MEDS: MAGNESIUM HYDROXIDE 2,400 MG/30 ML ORAL.SUSP. PO PRN (10:28)
[2017-02-16] MEDS: busPIRone 10 MG TABLET. PO SCH (13:04)
[2017-02-16] MEDS: FAMOTIDINE 20 MG TABLET PO SCH (13:04)
[2017-02-16 15:09] VITALS: BP 132/72
--- NOTE | 2017-02-16 18:49 | RAD ---
AP supine abdominal radiograph 02/16/2017 CLINICAL INDICATION: Constipation versus obstruction. COMPARISON: None. FINDINGS: There is mild gaseous distention of the stomach. Scattered gas throughout the small and large bowel loops and gas seen to the level of the distal colon. There is moderate amount of retained stool throughout the distal colon and rectum. IMPRESSION: 1. No radiographic evidence of bowel obstruction. 2. Moderate amount of retained distal colonic and rectal stool, may contribute to constipation. Electronically signed by: Giuseppe Gómez MD (02/16/2017 6:45 PM) [facility]
--- NOTE | 2017-02-16 19:58 | PDOC ---
Exam Note: Rob Note: Please also refer to the separate dictated note~for this date of service dictated separately.~Patient seen individually. Discussed the patient with Nursing staff reviewed the chart.~Reviewed interim history and current functioning. Reviewed vital signs,~Labs/ Radiology~and current medications noted below. Continue current treatment with the changes noted in the dictated addendum note Assessment: Vital Signs: Vital Signs Date Time Temp Pulse Resp B/P (MAP) Pulse Ox O2 Delivery O2 Flow Rate FiO2 02/16/17 15:09 98.0 72 16 132/72 (92) 93 02/16/17 14:14 Room Air I&O Intake and Output 02/16/17 07:00 Intake Total 600 ml Balance 600 ml Intake Oral 600 ml # Voids 2 # Bowel Movements 1 Labs: Laboratory Tests Test 02/16/17 06:58 White Blood Count 7.2 x10^3/uL (4.0-11.0) Red Blood Count 4.78 x10^6/uL (4.30-5.70) Hemoglobin 14.2 g/dL (13.0-17.5) Hematocrit 41.8 % (39.0-53.0) Mean Corpuscular Volume 88 fL (79-100) Mean Corpuscular Hemoglobin 30 pg (25-35) Mean Corpuscular Hemoglobin Concent 34 g/dL (31-37) Red Cell Distribution Width 12.7 % (11.5-14.5) Platelet Count 177 x10^3/uL (140-400) Neutrophils (%) (Auto) 63 % (31-73) Lymphocytes (%) (Auto) 25 % (24-48) Monocytes (%) (Auto) 7 % (0-9) Eosinophils (%) (Auto) 4 % (0-3) H Basophils (%) (Auto) 1 % (0-3) Neutrophils # (Auto) 4.6 x10^3uL (1.8-7.7) Lymphocytes # (Auto) 1.8 x10^3/uL (1.0-4.8) Monocytes # (Auto) 0.5 x10^3/uL (0.0-1.1) Eosinophils # (Auto) 0.3 x10^3/uL (0.0-0.7) Basophils # (Auto) 0.1 x10^3/uL (0.0-0.2) Sodium Level 139 mmol/L (136-145) Potassium Level 5.1 mmol/L (3.5-5.1) Chloride Level 104 mmol/L (98-107) Carbon Dioxide Level 28 mmol/L (21-32) Anion Gap 7 (6-14) Blood Urea Nitrogen 24 mg/dL (8-26) Creatinine 1.5 mg/dL (0.7-1.3) H Estimated GFR (Cockcroft-Gault) 47.0 BUN/Creatinine Ratio 16 (6-20) Glucose Level 104 mg/dL (70-99) H Calcium Level 9.4 mg/dL (8.5-10.1) Magnesium Level 2.8 mg/dL (1.8-2.4) H Total Bilirubin 0.3 mg/dL (0.2-1.0) Aspartate Amino Transferase (AST) 20 U/L (15-37) Alanine Aminotransferase (ALT) 25 U/L (16-63) Alkaline Phosphatase 77 U/L (46-116) Total Protein 7.5 g/dL (6.4-8.2) Albumin 3.8 g/dL (3.4-5.0) Albumin/Globulin Ratio 1.0 (1.0-1.7) Current Medications: Meds: Current Medications Acetaminophen (Tylenol) 650 mg PRN Q6HRS PRN PO PAIN / TEMP; Start 02/09/17 at 23:45; Stop 02/10/17 at 08:25; Status DC Multi-Ingredient Ointment (Analgesic [place]) 1 shaheen PRN QID PRN TP MUSCLE PAIN; Start 02/09/17 at 23:45 Al Hydroxide/Mg Hydroxide (Mylanta Plus Xs) 15 ml PRN AFTMEALHC PRN PO DYSPEPSIA; Start 02/09/17 at 23:45; Stop 02/10/17 at 08:20; Status DC Magnesium Hydroxide (Milk Of Magnesia) 2,400 mg PRN QHS PRN PO CONSTIPATION; Start 02/09/17 at 23:45; Stop 02/10/17 at 08:25; Status DC Buspirone HCl (Buspar) 15 mg BID PO Last administered on 02/16/17t 08:39; Start 02/10/17 at 09:00 Olanzapine (ZyPREXA) 2.5 mg HS PO Last administered on 02/11/17 19:44; Start 02/10/17 at 21:00; Stop 02/12/17 at 19:29; Status DC Oxcarbazepine (Trileptal) 150 mg BID PO Last administered on 02/11/17 09:51; Start 02/10/17 at 09:00; Stop 02/11/17 at 11:41; Status DC Non-Formulary Medication 120 mg HS PO ; Start 02/10/17 at 21:00; Status UNV Melatonin 6 mg QHS PO Last administered on 02/15/17 20:02; Start 02/10/17 at 21:00 Acetaminophen (Tylenol) 650 mg PRN Q6HRS PRN PO PAIN / TEMP; Start 02/10/17 at 08:00 Amlodipine Besylate (Norvasc) 10 mg DAILY PO Last administered on 02/16/17 08: 44; Start 02/10/17 at 09:00 Ascorbic Acid (Vitamin C) 500 mg BID PO Last administered on 02/16/17 08:39; Start 02/10/17 at 09:00 Aspirin (Children'S Aspirin) 81 mg DAILY PO Last administered on 02/16/17 08: 37; Start 02/10/17 at 09:00 Atorvastatin Calcium (Lipitor) 5 mg QHS PO Last administered on 02/15/17 20:01 ; Start 02/10/17 at 21:00 Vitamin D (Vitamin D3) 2,000 unit DAILY PO Last administered on 02/16/17 08:39 ; Start 02/10/17 at 09:00 Cyanocobalamin (Vitamin B-12) 1,000 mcg DAILY PO Last administered on 08:39; Start 02/10/17 at 09:00 Acetaminophen/ Hydrocodone Bitart (Lortab 5/325) 1 tab PRN Q4HRS PRN PO PAIN; Start 02/10/17 at 08:00 Acetaminophen/ Hydrocodone Bitart (Lortab 5/325) 1 tab TID PO Last administered on 02/16/17 13:05; Start 02/10/17 at 09:00 Lisinopril (Prinivil) 5 mg DAILY PO Last administered on 02/16/17 08:43; Start 02/10/17 at 09:00 Loperamide HCl (Imodium) 2 mg PRN Q6HRS PRN PO DIARRHEA; Start 02/10/17 at 08: 00 Magnesium Hydroxide (Milk Of Magnesia) 2,400 mg PRN Q24HRS PRN PO CONSTIPATION Last administered on 02/16/17 10:28; Start 02/10/17 at 08:00 Magnesium Oxide (Magnesium Oxide) 400 mg BID PO Last administered on 02/16/17 08:39; Start 02/10/17 at 09:00 Pantoprazole Sodium (Protonix) 40 mg DAILYAC PO Last administered on 02/16/17 08:37; Start 02/10/17 at 09:00 Polyethylene Glycol (miraLAX) 17 gm PRN Q24HRS PRN PO CONSTIPATION Last administered on 02/14/17 19:47; Start 02/10/17 at 08:00 Sennosides (Senna) 8.6 mg BID PO Last administered on 02/16/17 08:41; Start 02/10/17 at 09:00 Tamsulosin HCl (Flomax) 0.4 mg HS PO Last administered on 02/15/17 20:00; Start 02/10/17 at 21:00 Non-Formulary Medication 650 mg PRN Q6HRS PRN PO pain/fever; Start 02/10/17 at 08:00; Stop 02/10/17 at 08:17; Status DC Non-Formulary Medication 1 drop PRN Q4HRS PRN OU DRY EYE; Start 02/10/17 at 08 :00; Stop 02/10/17 at 08:23; Status DC Artificial Tears (Artificial Tears) 2 drop PRN Q2HR PRN OU DRY EYE; Start at 08:30 Al Hydroxide/Mg Hydroxide (Mylanta Plus Xs) 30 ml PRN Q4HRS PRN PO GERD; Start 02/10/17 at 08:30 Non-Formulary Medication 1 shaheen PRN QID PRN TP MUSCLE PAIN; Start 02/10/17 at 08:00; Stop 02/10/17 at 08:18; Status DC Multivitamins/ Calcium (Thera-M Plus) 1 tab DAILY PO Last administered on 08:39; Start 02/10/17 at 09:00 Ondansetron HCl (Zofran Odt) 8 mg PRN QID PRN PO NAUSEA/VOMITING; Start at 08:30 Famotidine (Pepcid) 20 mg AFTRNOON PO Last administered on 02/16/17 13:04; Start 02/10/17 at 13:00 Oxcarbazepine (Trileptal) 300 mg BID PO Last administered on 02/16/17 08:39; Start 02/11/17 at 21:00; Stop 02/16/17 at 17:59; Status DC Lidocaine (Lidoderm) 1 patch DAILY TD Last administered on 02/16/17 08:45; Start 02/11/17 at 15:00 Buspirone HCl (Buspar) 10 mg DAILY@1400 PO Last administered on 02/16/17 13:04 ; Start 02/12/17 at 14:00 Quetiapine Fumarate (SEROquel) 25 mg TID@0900,1400,1700 PO Last administered on 02/13/17 17:52; Start 02/13/17 at 09:00; Stop 02/13/17 at 18:37; Status DC Mirtazapine (Remeron) 7.5 mg QHS PO Last administered on 02/15/17 20:01; Start 02/12/17 at 21:00 Quetiapine Fumarate (SEROquel) 37.5 mg TID@0900,1400,1700 PO Last administered on 02/16/17 17:27; Start 02/14/17 at 09:00; Stop 02/16/17 at 18:57; Status DC Olanzapine (ZyPREXA ZYDIS) 2.5 mg PRN Q2HR PRN PO ANXIETY / AGITATION; Start 02/13/17 at 18:45 Oxcarbazepine (Trileptal) 300 mg DAILY PO ; Start 02/17/17 at 09:00; Stop at 12:00 Oxcarbazepine (Trileptal) 600 mg QHS PO ; Start 02/16/17 at 21:00; Stop at 23:00 Oxcarbazepine (Trileptal) 600 mg BID PO ; Start 02/20/17 at 09:00 Risperidone (RisperDAL) 0.5 mg HS PO ; Start 02/16/17 at 21:00 Active Scripts Active Reported Vitamin B-12 (Cyanocobalamin (Vitamin B-12)) 1,000 Mcg Tablet 1,000 Mcg PO DAILY Trileptal (Oxcarbazepine) 150 Mg Tablet 1 Mg PO BID Trihexyphenidyl Hcl 2 Mg Tablet 2 Mg PO BID Senna (Sennosides) 8.6 Mg Tablet 1 Tab PO BID Ranitidine Hcl 150 Mg Tablet 150 Mg PO AFTRNOON Protonix (Pantoprazole Sodium) 40 Mg Tablet.dr 40 Mg PO DAILYAC Zyprexa (Olanzapine) 2.5 Mg Tablet 2.5 Mg PO HS [place] 5-325 Tablet (Hydrocodone Bit/Acetaminophen) 1 Each Tablet 1 Tab PO TID [place] 5-325 Tablet (Hydrocodone Bit/Acetaminophen) 1 Each Tablet 1 Tab PO PRN Q4HRS PRN Alum-Mag Hydroxide-Simeth Liq (Mag Hydrox/Al Hydrox/Simeth) 360 Ml Oral.susp 30 Ml PO PRN Q4HRS PRN Multiple Vitamin (Multivitamin With Minerals) 1 Each Tablet 1 Each PO DAILY Miralax (Polyethylene Glycol 3350) 17 Gm Powd.pack 17 Gm PO PRN Q24HRS PRN Milk Of Magnesia (Magnesium Hydroxide) 400 Mg/5 Ml Oral.susp 2,400 Mg PO PRN Q24HRS PRN Melatonin 3 Mg Tablet 6 Mg PO HS Magnesium Oxide 400 Mg Tablet 400 Mg PO BID Anti-Diarrheal (Loperamide Hcl) 2 Mg Capsule 2 Mg PO PRN Q6HRS PRN Lisinopril 5 Mg Tablet 5 Mg PO DAILY Latuda (Lurasidone Hcl) 80 Mg Tablet 120 Mg PO HS Flomax (Tamsulosin Hcl) 0.4 Mg Cap.er.24h 0.4 Mg PO HS Vitamin D3 (Cholecalciferol (Vitamin D3)) 1,000 Unit Tablet 2,000 Unit PO DAILY Atorvastatin Calcium 10 Mg Tablet 5 Mg PO QHS Aspirin 81 Mg Tab.chew 81 Mg PO DAILY Ascorbic Acid 500 Mg Tablet 500 Mg PO BID Acetaminophen 160 Mg/5 Ml Solution 650 Mg PO PRN Q6HRS PRN Artificial Tears (Dextran 70/Hypromellose) 1 Each Droperette 2 Drop OP PRN Q2HR Buspirone Hcl 15 Mg Tablet 15 Mg PO BID Zyprexa Zydis (Olanzapine) 5 Mg Tab.rapdis 2.5 Mg PO PRN Q2HR PRN Dissolve in mouth Zofran Odt (Ondansetron) 8 Mg Tab.rapdis 8 Mg PO QID PRN Dissolve on tongue NICODERM CQ 21mg (Nicotine) 1 Each Patch.td24 1 Patch TP DAILY Remove at bedtime if patient is having sleep disturbances. [place] Ultra Strength Crm (Methyl Salicylate/Menth/Camph) 57 Gm Cream..g. 1 Shahe[place] TP PRN QID PRN Tylenol (Acetaminophen) 325 Mg Tablet 650 Mg PO PRN Q6HRS PRN Max Acetaminophen dose is 4000mg in 24 hours from all sources for adults. Refresh Tears (Carboxymethylcellulose Sodium) 15 Ml Drops 1 Drop OU PRN Q4HRS PRN Amlodipine Besylate 10 Mg Tablet 10 Mg PO DAILY Hold for SBP less than 100. After a held dose, reassess in 2 hours. If SBP is above threshold, administer dose as ordered. If SBP is below threshold, contact provider for additional instructions. I have reviewed the current psychotropics carefully including drug interactions. Risk benefit ratio favors no change other than as noted in my dictated progress note. 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
[2017-02-16] MEDS: MIRTAZAPINE 7.5 MG TABLET. PO SCH (20:28)
[2017-02-16] MEDS: MELATONIN 3 MG TABLET PO SCH (20:28)
[2017-02-16] MEDS: TAMSULOSIN 0.4 MG CAP.ER.24H. PO SCH (20:28)
[2017-02-16] MEDS: ATORVASTATIN CALCIUM 10 MG TABLET. PO SCH (20:29)
[2017-02-16] MEDS: LURASIDONE 40 MG TABLET. PO SCH (20:30)
[2017-02-16] MEDS ORDERED: BISACODYL 10 MG SUPP.RECT PR PRN (20:30)
[2017-02-16] MEDS: risperiDONE 0.5 MG TABLET. PO SCH (20:37)
[2017-02-17 06:19] VITALS: BP 120/72
[2017-02-17] MEDS: CYANOCOBALAMIN (VITAMIN B-12) 1,000 MCG TABLET. PO SCH (08:07)
[2017-02-17] MEDS: PANTOPRAZOLE 40 MG TABLET. PO SCH (08:07)
[2017-02-17] MEDS: SENNOSIDES 8.6 MG TABLET PO SCH ×2 (08:08→20:12)
[2017-02-17] MEDS: ASCORBIC ACID 500 MG TABLET PO SCH ×2 (08:08→20:12)
[2017-02-17] MEDS: busPIRone 15 MG TABLET. PO SCH ×2 (08:08→20:13)
[2017-02-17] MEDS: ASPIRIN 81 MG TAB.CHEW PO SCH (08:10)
[2017-02-17] MEDS: LISINOPRIL 5 MG TABLET. PO SCH (08:10)
[2017-02-17] MEDS: MAGNESIUM OXIDE 400 MG TABLET PO SCH ×2 (08:10→20:13)
[2017-02-17] MEDS: MULTIVITAMIN with MINERAL TABLET. PO SCH (08:10)
[2017-02-17] MEDS: CHOLECALCIFEROL (VITAMIN D3) 1,000 UNIT TABLET PO SCH (08:10)
[2017-02-17] MEDS: amLODIPine BESYLATE 10 MG TABLET PO SCH (08:10)
[2017-02-17] MEDS: LIDOCAINE (700MG/PATCH) PATCH. TD SCH (08:11)
[2017-02-17] MEDS: HYDROcodone/APAP 5/325MG 1 TAB TABLET PO SCH ×3 (08:18→20:20)
--- NOTE | 2017-02-17 12:03 | PN ---
DATE: 02/15/2017 This is a late entry for 02/15/2017 and covers elements not covered in my initial note of 02/15/2017. I met with the patient the evening of 02/15/2017. The patient slept 5-1/4 hours previous evening. He has been behaving helpless, demanding and wanting nursing staff to essentially do everything for him, needing help with sitting up and being fed as well. He states his feet are broken and he is unable to move his arms, does nothing for himself. CT head was negative. UA has reflex to culture. REVIEW OF SYSTEMS: Lying in bed, complains of the above somatic symptoms. No CV, , pulmonary, eye system symptoms on review. MENTAL STATUS EXAM: Oriented to himself and situation. Speech is difficult to understand, somewhat low in volume. Abstraction fair, computation impaired, language function intact. Attention span short. He is quite psychotic. LABORATORY DATA: Reviewed. IMPRESSION: Unchanged from initial note. PLAN: Continue current psychotropics, increase Trileptal to 300 mg a.m. and 600 mg at bedtime for 2 days, then 600 mg b.i.d. as a mood stabilizer. Maintain the Rest unchanged. Adjust further as clinically indicated. TINY CHAN MD DR: ARON/zena JOB#: [id number] / [id number]
[2017-02-17] MEDS: FAMOTIDINE 20 MG TABLET PO SCH (13:57)
[2017-02-17] MEDS: busPIRone 10 MG TABLET. PO SCH (13:57)
[2017-02-17 16:27] VITALS: BP 119/71
[2017-02-17] MEDS: ATORVASTATIN CALCIUM 10 MG TABLET. PO SCH (20:13)
[2017-02-17] MEDS: TAMSULOSIN 0.4 MG CAP.ER.24H. PO SCH (20:13)
[2017-02-17] MEDS: MELATONIN 3 MG TABLET PO SCH (20:13)
[2017-02-17] MEDS: risperiDONE 0.5 MG TABLET. PO SCH (20:14)
[2017-02-17] MEDS: MIRTAZAPINE 7.5 MG TABLET. PO SCH (20:14)
[2017-02-17] MEDS: LURASIDONE 40 MG TABLET. PO SCH (20:21)
--- NOTE | 2017-02-17 21:09 | PDOC ---
Exam Note: Rob Note: Please also refer to the separate dictated note~for this date of service dictated separately.~Patient seen individually. Discussed the patient with Nursing staff reviewed the chart.~Reviewed interim history and current functioning. Reviewed vital signs,~Labs/ Radiology~and current medications noted below. Continue current treatment with the changes noted in the dictated addendum note Assessment: Vital Signs: Vital Signs Date Time Temp Pulse Resp B/P (MAP) Pulse Ox O2 Delivery O2 Flow Rate FiO2 02/17/17 20:20 18 Room Air 02/17/17 16:27 97.8 67 119/71 (87) 93 I&O Intake and Output 02/17/17 07:00 Intake Total 1080 ml Output Total 600 ml Balance 480 ml Intake Oral 1080 ml Output Urine Total 600 ml # Voids 2 # Bowel Movements 1 Current Medications: Meds: Current Medications Acetaminophen (Tylenol) 650 mg PRN Q6HRS PRN PO PAIN / TEMP; Start 02/09/17 at 23:45; Stop 02/10/17 at 08:25; Status DC Multi-Ingredient Ointment (Analgesic [place]) 1 shaheen PRN QID PRN TP MUSCLE PAIN; Start 02/09/17 at 23:45 Al Hydroxide/Mg Hydroxide (Mylanta Plus Xs) 15 ml PRN AFTMEALHC PRN PO DYSPEPSIA; Start 02/09/17 at 23:45; Stop 02/10/17 at 08:20; Status DC Magnesium Hydroxide (Milk Of Magnesia) 2,400 mg PRN QHS PRN PO CONSTIPATION; Start 02/09/17 at 23:45; Stop 02/10/17 at 08:25; Status DC Buspirone HCl (Buspar) 15 mg BID PO Last administered on 02/17/17 20:13; Start 02/10/17 at 09:00 Olanzapine (ZyPREXA) 2.5 mg HS PO Last administered on 02/11/17 19:44; Start 02/10/17 at 21:00; Stop 02/12/17 at 19:29; Status DC Oxcarbazepine (Trileptal) 150 mg BID PO Last administered on 02/11/17 09:51; Start 02/10/17 at 09:00; Stop 02/11/17 at 11:41; Status DC Non-Formulary Medication 120 mg HS PO ; Start 02/10/17 at 21:00; Status UNV Melatonin 6 mg QHS PO Last administered on 02/17/17 20:13; Start 02/10/17 at 21:00 Acetaminophen (Tylenol) 650 mg PRN Q6HRS PRN PO PAIN / TEMP; Start 02/10/17 at 08:00 Amlodipine Besylate (Norvasc) 10 mg DAILY PO Last administered on 02/17/17 08: 10; Start 02/10/17 at 09:00 Ascorbic Acid (Vitamin C) 500 mg BID PO Last administered on 02/17/17 20:12; Start 02/10/17 at 09:00 Aspirin (Children'S Aspirin) 81 mg DAILY PO Last administered on 02/17/17 08: 10; Start 02/10/17 at 09:00 Atorvastatin Calcium (Lipitor) 5 mg QHS PO Last administered on 02/17/17 20:13 ; Start 02/10/17 at 21:00 Vitamin D (Vitamin D3) 2,000 unit DAILY PO Last administered on 02/17/17 08:10 ; Start 02/10/17 at 09:00 Cyanocobalamin (Vitamin B-12) 1,000 mcg DAILY PO Last administered on 08:07; Start 02/10/17 at 09:00 Acetaminophen/ Hydrocodone Bitart (Lortab 5/325) 1 tab PRN Q4HRS PRN PO PAIN; Start 02/10/17 at 08:00 Acetaminophen/ Hydrocodone Bitart (Lortab 5/325) 1 tab TID PO Last administered on 02/17/17 20:20; Start 02/10/17 at 09:00 Lisinopril (Prinivil) 5 mg DAILY PO Last administered on 02/17/17 08:10; Start 02/10/17 at 09:00 Loperamide HCl (Imodium) 2 mg PRN Q6HRS PRN PO DIARRHEA; Start 02/10/17 at 08: 00 Magnesium Hydroxide (Milk Of Magnesia) 2,400 mg PRN Q24HRS PRN PO CONSTIPATION Last administered on 02/16/17 10:28; Start 02/10/17 at 08:00 Magnesium Oxide (Magnesium Oxide) 400 mg BID PO Last administered on 02/17/17 20:13; Start 02/10/17 at 09:00 Pantoprazole Sodium (Protonix) 40 mg DAILYAC PO Last administered on 02/17/17 08:07; Start 02/10/17 at 09:00 Polyethylene Glycol (miraLAX) 17 gm PRN Q24HRS PRN PO CONSTIPATION Last administered on 02/14/17 19:47; Start 02/10/17 at 08:00 Sennosides (Senna) 8.6 mg BID PO Last administered on 02/17/17 20:12; Start 02/10/17 at 09:00 Tamsulosin HCl (Flomax) 0.4 mg HS PO Last administered on 02/17/17 20:13; Start 02/10/17 at 21:00 Non-Formulary Medication 650 mg PRN Q6HRS PRN PO pain/fever; Start 02/10/17 at 08:00; Stop 02/10/17 at 08:17; Status DC Non-Formulary Medication 1 drop PRN Q4HRS PRN OU DRY EYE; Start 02/10/17 at 08 :00; Stop 02/10/17 at 08:23; Status DC Artificial Tears (Artificial Tears) 2 drop PRN Q2HR PRN OU DRY EYE; Start at 08:30 Al Hydroxide/Mg Hydroxide (Mylanta Plus Xs) 30 ml PRN Q4HRS PRN PO GERD; Start 02/10/17 at 08:30 Non-Formulary Medication 1 shaheen PRN QID PRN TP MUSCLE PAIN; Start 02/10/17 at 08:00; Stop 02/10/17 at 08:18; Status DC Multivitamins/ Calcium (Thera-M Plus) 1 tab DAILY PO Last administered on 08:10; Start 02/10/17 at 09:00 Ondansetron HCl (Zofran Odt) 8 mg PRN QID PRN PO NAUSEA/VOMITING; Start at 08:30 Famotidine (Pepcid) 20 mg AFTRNOON PO Last administered on 02/17/17 13:57; Start 02/10/17 at 13:00 Oxcarbazepine (Trileptal) 300 mg BID PO Last administered on 02/16/17 08:39; Start 02/11/17 at 21:00; Stop 02/16/17 at 17:59; Status DC Lidocaine (Lidoderm) 1 patch DAILY TD Last administered on 02/17/17 08:11; Start 02/11/17 at 15:00 Buspirone HCl (Buspar) 10 mg DAILY@1400 PO Last administered on 02/17/17 13:57 ; Start 02/12/17 at 14:00 Quetiapine Fumarate (SEROquel) 25 mg TID@0900,1400,1700 PO Last administered on 02/13/17 17:52; Start 02/13/17 at 09:00; Stop 02/13/17 at 18:37; Status DC Mirtazapine (Remeron) 7.5 mg QHS PO Last administered on 02/17/17 20:14; Start 02/12/17 at 21:00 Quetiapine Fumarate (SEROquel) 37.5 mg TID@0900,1400,1700 PO Last administered on 02/16/17 17:27; Start 02/14/17 at 09:00; Stop 02/16/17 at 18:57; Status DC Olanzapine (ZyPREXA ZYDIS) 2.5 mg PRN Q2HR PRN PO ANXIETY / AGITATION; Start 02/13/17 at 18:45 Oxcarbazepine (Trileptal) 300 mg DAILY PO Last administered on 02/17/17 08:17 ; Start 02/17/17 at 09:00; Stop 02/19/17 at 12:00 Oxcarbazepine (Trileptal) 600 mg QHS PO Last administered on 02/17/17 20:12; Start 02/16/17 at 21:00; Stop 02/19/17 at 23:00 Oxcarbazepine (Trileptal) 600 mg BID PO ; Start 02/20/17 at 09:00 Risperidone (RisperDAL) 0.5 mg HS PO Last administered on 02/17/17 20:14; Start 02/16/17 at 21:00; Stop 02/17/17 at 21:01; Status DC Bisacodyl (Dulcolax Supp) 10 mg PRN DAILY PRN [place] CONSTIPATION Last administered on 02/16/17 20:40; Start 12/5/17 at 20:30 Risperidone (RisperDAL) 1 mg HS PO ; Start 02/18/17 at 21:00 Active Scripts Active Reported Vitamin B-12 (Cyanocobalamin (Vitamin B-12)) 1,000 Mcg Tablet 1,000 Mcg PO DAILY Trileptal (Oxcarbazepine) 150 Mg Tablet 1 Mg PO BID Trihexyphenidyl Hcl 2 Mg Tablet 2 Mg PO BID Senna (Sennosides) 8.6 Mg Tablet 1 Tab PO BID Ranitidine Hcl 150 Mg Tablet 150 Mg PO AFTRNOON Protonix (Pantoprazole Sodium) 40 Mg Tablet.dr 40 Mg PO DAILYAC Zyprexa (Olanzapine) 2.5 Mg Tablet 2.5 Mg PO HS [place] 5-325 Tablet (Hydrocodone Bit/Acetaminophen) 1 Each Tablet 1 Tab PO TID [place] 5-325 Tablet (Hydrocodone Bit/Acetaminophen) 1 Each Tablet 1 Tab PO PRN Q4HRS PRN Alum-Mag Hydroxide-Simeth Liq (Mag Hydrox/Al Hydrox/Simeth) 360 Ml Oral.susp 30 Ml PO PRN Q4HRS PRN Multiple Vitamin (Multivitamin With Minerals) 1 Each Tablet 1 Each PO DAILY Miralax (Polyethylene Glycol 3350) 17 Gm Powd.pack 17 Gm PO PRN Q24HRS PRN Milk Of Magnesia (Magnesium Hydroxide) 400 Mg/5 Ml Oral.susp 2,400 Mg PO PRN Q24HRS PRN Melatonin 3 Mg Tablet 6 Mg PO HS Magnesium Oxide 400 Mg Tablet 400 Mg PO BID Anti-Diarrheal (Loperamide Hcl) 2 Mg Capsule 2 Mg PO PRN Q6HRS PRN Lisinopril 5 Mg Tablet 5 Mg PO DAILY Latuda (Lurasidone Hcl) 80 Mg Tablet 120 Mg PO HS Flomax (Tamsulosin Hcl) 0.4 Mg Cap.er.24h 0.4 Mg PO HS Vitamin D3 (Cholecalciferol (Vitamin D3)) 1,000 Unit Tablet 2,000 Unit PO DAILY Atorvastatin Calcium 10 Mg Tablet 5 Mg PO QHS Aspirin 81 Mg Tab.chew 81 Mg PO DAILY Ascorbic Acid 500 Mg Tablet 500 Mg PO BID Acetaminophen 160 Mg/5 Ml Solution 650 Mg PO PRN Q6HRS PRN Artificial Tears (Dextran 70/Hypromellose) 1 Each Droperette 2 Drop OP PRN Q2HR Buspirone Hcl 15 Mg Tablet 15 Mg PO BID Zyprexa Zydis (Olanzapine) 5 Mg Tab.rapdis 2.5 Mg PO PRN Q2HR PRN Dissolve in mouth Zofran Odt (Ondansetron) 8 Mg Tab.rapdis 8 Mg PO QID PRN Dissolve on tongue NICODERM CQ 21mg (Nicotine) 1 Each Patch.td24 1 Patch TP DAILY Remove at bedtime if patient is having sleep disturbances. [place] Ultra Strength Crm (Methyl Salicylate/Menth/Camph) 57 Gm Cream..g. 1 Shaheen TP PRN QID PRN Tylenol (Acetaminophen) 325 Mg Tablet 650 Mg PO PRN Q6HRS PRN Max Acetaminophen dose is 4000mg in 24 hours from all sources for adults. Refresh Tears (Carboxymethylcellulose Sodium) 15 Ml Drops 1 Drop OU PRN Q4HRS PRN Amlodipine Besylate 10 Mg Tablet 10 Mg PO DAILY Hold for SBP less than 100. After a held dose, reassess in 2 hours. If SBP is above threshold, administer dose as ordered. If SBP is below threshold, contact provider for additional instructions. I have reviewed the current psychotropics carefully including drug interactions. Risk benefit ratio favors no change other than as noted in my dictated progress note. Diagnosis: Problems: (1) Mental status change (2) Psychosis (3) Dementia (4) Schizoaffective disorder (5) SCHIZOAFFECTIVE DISORDER, UNSPECIFIED (6) Schizophrenia (7) Bipolar 1 disorder TINY CHAN MD Feb 17, 2017 21:09
--- NOTE | 2017-02-18 02:19 | PN ---
DATE: 02/16/2017 This late entry for 02/16/2017 covers elements not covered in my initial note of 02/16/2017. SUBJECTIVE: I met with the patient in the evening of 02/16/2017. He remains quite psychotic, refusing to do much of anything for himself, states he cannot move his arms and legs, refusing to feed himself. Nursing staff let his meal tray for lunch be in front of him and ultimately he did eat it himself. I had to feed him most of his supper as he refused to eat, fixated that he has lost function of his arms and fingers. There is a questionable bowel obstruction on KUB. We will defer to Dr. Chacon. He slid and fell to the floor. No injuries. Somewhat helpless, just has had 2 bowel movements since admission. REVIEW OF SYSTEMS: Ambulation impaired. No CV, , pulmonary, eye system symptoms on review. Other somatic symptoms noted above. MENTAL STATUS EXAM: Reasonably oriented to place and situation. Speech, low in rate and rhythm, often responses monosyllabic. Abstraction fair, computation impaired, language function intact. Remains quite psychotic. Much of it, somatic in presentation. No active suicidal or homicidal ideation. LABORATORY DATA: Reviewed. IMPRESSION: Schizoaffective disorder, bipolar type, mixed with psychotic features; cognitive disorder, unspecified; anxiety disorder, unspecified. Rest unchanged. PLAN: Change Seroquel to Risperdal 0.5 mg p.o. at bedtime. Maintain rest of the psychotropics mentioned in my initial note. Trileptal is being increased. Reviewed drug interactions. Risk/benefit ratio favors no further change. Continue Latuda 120 mg a day. MAN Cinthia CHAN MD DR: ARON/zena JOB#: [id number] / [id number]
[2017-02-18 05:48] VITALS: BP 143/79
[2017-02-18] MEDS: LIDOCAINE (700MG/PATCH) PATCH. TD SCH (08:41)
[2017-02-18] MEDS: CYANOCOBALAMIN (VITAMIN B-12) 1,000 MCG TABLET. PO SCH (08:42)
[2017-02-18] MEDS: LISINOPRIL 5 MG TABLET. PO SCH (08:42)
[2017-02-18] MEDS: MULTIVITAMIN with MINERAL TABLET. PO SCH (08:42)
[2017-02-18] MEDS: amLODIPine BESYLATE 10 MG TABLET PO SCH (08:42)
[2017-02-18] MEDS: ASPIRIN 81 MG TAB.CHEW PO SCH (08:42)
[2017-02-18] MEDS: MAGNESIUM OXIDE 400 MG TABLET PO SCH ×2 (08:42→20:24)
[2017-02-18] MEDS: CHOLECALCIFEROL (VITAMIN D3) 1,000 UNIT TABLET PO SCH (08:42)
[2017-02-18] MEDS: ASCORBIC ACID 500 MG TABLET PO SCH ×2 (08:42→20:24)
[2017-02-18] MEDS: busPIRone 15 MG TABLET. PO SCH ×2 (08:42→20:25)
[2017-02-18] MEDS: SENNOSIDES 8.6 MG TABLET PO SCH ×2 (08:42→20:24)
[2017-02-18] MEDS: PANTOPRAZOLE 40 MG TABLET. PO SCH (08:44)
[2017-02-18] MEDS: HYDROcodone/APAP 5/325MG 1 TAB TABLET PO SCH ×3 (08:44→20:29)
[2017-02-18 11:38] LABS: BACTERIA,URINE FEW /HPF (0-FEW); BILIRUBIN,URINE NEG (NEG); CLARITY,URINE HAZY; COLOR,URINE YELLOW; GLUCOSE,URINE NEG (NEG); NITRITE,URINE NEG (NEG); RBC,URINE OCC /HPF (0-2); SQUAMOUS EPITHELIAL CELL,UR OCC /LPF; UROBILINOGEN,URINE 0.2 mg/dL (0.2 mg/dL)
[2017-02-18 11:39] LABS: HYALINE CASTS, URINE OCC /HPF
[2017-02-18 13:46] LABS: BASO # 0.1 x10^3/uL (0.0-0.2); BASO % 1 % (0-3); EOS # 0.4 x10^3/uL (0.0-0.7); EOS % 4 % (0-3); HEMOGLOBIN 14.5 g/dL (13.0-17.5); LYMPH # 1.8 x10^3/uL (1.0-4.8); LYMPH % 18 % (24-48); MEAN CORPUSCULAR HEMOGLOBIN 30 pg (25-35); MEAN CORPUSCULAR HGB CONC 34 g/dL (31-37); MEAN CORPUSCULAR VOLUME 87 fL (79-100); MONO # 0.7 x10^3/uL (0.0-1.1); MONO % 7 % (0-9); NEUT # 6.8 x10^3uL (1.8-7.7); NEUT % 70 % (31-73); PLATELET COUNT 173 x10^3/uL (140-400); RED BLOOD COUNT 4.82 x10^6/uL (4.30-5.70); RED CELL DISTRIBUTION WIDTH 12.8 % (11.5-14.5); WHITE BLOOD COUNT 9.7 x10^3/uL (4.0-11.0)
[2017-02-18 13:59] LABS: ALBUMIN 3.6 g/dL (3.4-5.0); CALCIUM 9.2 mg/dL (8.5-10.1); CREATININE 1.3 mg/dL (0.7-1.3); GFR 55.4; POTASSIUM 4.9 mmol/L (3.5-5.1); TOTAL BILIRUBIN 0.3 mg/dL (0.2-1.0); TOTAL PROTEIN 7.3 g/dL (6.4-8.2)
[2017-02-18] MEDS: FAMOTIDINE 20 MG TABLET PO SCH (14:42)
[2017-02-18] MEDS: busPIRone 10 MG TABLET. PO SCH (14:42)
[2017-02-18 16:32] VITALS: BP 143/81
--- NOTE | 2017-02-18 19:53 | PDOC ---
Exam Note: Rob Note: Please also refer to the separate dictated note~for this date of service dictated separately.~Patient seen individually. Discussed the patient with Nursing staff reviewed the chart.~Reviewed interim history and current functioning. Reviewed vital signs,~Labs/ Radiology~and current medications noted below. Continue current treatment with the changes noted in the dictated addendum note Assessment: Vital Signs: Vital Signs Date Time Temp Pulse Resp B/P (MAP) Pulse Ox O2 Delivery O2 Flow Rate FiO2 02/18/17 16:32 97.8 84 20 143/81 (101) 97 02/18/17 05:48 Room Air I&O Intake and Output 02/18/17 07:00 Intake Total 840 ml Balance 840 ml Intake Oral 840 ml # Voids 2 Labs: Laboratory Tests Test 02/18/17 11:23 02/18/17 13:39 Urine Collection Type U cath Urine Color Yellow Urine Clarity Hazy Urine pH 6.5 Urine Specific [place] 1.025 Urine Protein Neg (NEG-TRACE) Urine Glucose (UA) Neg mg/dL (NEG) Urine Ketones (Stick) Neg mg/dL (NEG) Urine Blood Neg (NEG) Urine Nitrite Neg (NEG) Urine Bilirubin Neg (NEG) Urine Urobilinogen Dipstick 0.2 mg/dL (0.2 mg/dL) Urine Leukocyte Esterase Neg (NEG) Urine RBC Occ /HPF (0-2) Urine WBC 1-4 /HPF (0-4) Urine Squamous Epithelial Cells Occ /LPF Urine Bacteria Few /HPF (0-FEW) Urine Hyaline Casts Occ /HPF Urine Mucus Slight /LPF White Blood Count 9.7 x10^3/uL (4.0-11.0) Red Blood Count 4.82 x10^6/uL (4.30-5.70) Hemoglobin 14.5 g/dL (13.0-17.5) Hematocrit 42.0 % (39.0-53.0) Mean Corpuscular Volume 87 fL (79-100) Mean Corpuscular Hemoglobin 30 pg (25-35) Mean Corpuscular Hemoglobin Concent 34 g/dL (31-37) Red Cell Distribution Width 12.8 % (11.5-14.5) Platelet Count 173 x10^3/uL (140-400) Neutrophils (%) (Auto) 70 % (31-73) Lymphocytes (%) (Auto) 18 % (24-48) L Monocytes (%) (Auto) 7 % (0-9) Eosinophils (%) (Auto) 4 % (0-3) H Basophils (%) (Auto) 1 % (0-3) Neutrophils # (Auto) 6.8 x10^3uL (1.8-7.7) Lymphocytes # (Auto) 1.8 x10^3/uL (1.0-4.8) Monocytes # (Auto) 0.7 x10^3/uL (0.0-1.1) Eosinophils # (Auto) 0.4 x10^3/uL (0.0-0.7) Basophils # (Auto) 0.1 x10^3/uL (0.0-0.2) Sodium Level 138 mmol/L (136-145) Potassium Level 4.9 mmol/L (3.5-5.1) Chloride Level 102 mmol/L (98-107) Carbon Dioxide Level 29 mmol/L (21-32) Anion Gap 7 (6-14) Blood Urea Nitrogen 25 mg/dL (8-26) Creatinine 1.3 mg/dL (0.7-1.3) Estimated GFR (Cockcroft-Gault) 55.4 BUN/Creatinine Ratio 19 (6-20) Glucose Level 104 mg/dL (70-99) H Calcium Level 9.2 mg/dL (8.5-10.1) Total Bilirubin 0.3 mg/dL (0.2-1.0) Aspartate Amino Transferase (AST) 21 U/L (15-37) Alanine Aminotransferase (ALT) 25 U/L (16-63) Alkaline Phosphatase 88 U/L (46-116) Total Protein 7.3 g/dL (6.4-8.2) Albumin 3.6 g/dL (3.4-5.0) Albumin/Globulin Ratio 1.0 (1.0-1.7) Current Medications: Meds: Current Medications Acetaminophen (Tylenol) 650 mg PRN Q6HRS PRN PO PAIN / TEMP; Start 02/09/17 at 23:45; Stop 02/10/17 at 08:25; Status DC Multi-Ingredient Ointment (Analgesic [place]) 1 shaheen PRN QID PRN TP MUSCLE PAIN; Start 02/09/17 at 23:45 Al Hydroxide/Mg Hydroxide (Mylanta Plus Xs) 15 ml PRN AFTMEALHC PRN PO DYSPEPSIA; Start 02/09/17 at 23:45; Stop 02/10/17 at 08:20; Status DC Magnesium Hydroxide (Milk Of Magnesia) 2,400 mg PRN QHS PRN PO CONSTIPATION; Start 02/09/17 at 23:45; Stop 02/10/17 at 08:25; Status DC Buspirone HCl (Buspar) 15 mg BID PO Last administered on 02/18/17 08:42; Start 02/10/17 at 09:00 Olanzapine (ZyPREXA) 2.5 mg HS PO Last administered on 02/11/17 19:44; Start 02/10/17 at 21:00; Stop 02/12/17 at 19:29; Status DC Oxcarbazepine (Trileptal) 150 mg BID PO Last administered on 02/11/17 09:51; Start 02/10/17 at 09:00; Stop 02/11/17 at 11:41; Status DC Non-Formulary Medication 120 mg HS PO ; Start 02/10/17 at 21:00; Status UNV Melatonin 6 mg QHS PO Last administered on 02/17/17 20:13; Start 02/10/17 at 21:00 Acetaminophen (Tylenol) 650 mg PRN Q6HRS PRN PO PAIN / TEMP; Start 02/10/17 at 08:00 Amlodipine Besylate (Norvasc) 10 mg DAILY PO Last administered on 02/18/17 08: 42; Start 02/10/17 at 09:00 Ascorbic Acid (Vitamin C) 500 mg BID PO Last administered on 02/18/17 08:42; Start 02/10/17 at 09:00 Aspirin (Children'S Aspirin) 81 mg DAILY PO Last administered on 02/18/17 08: 42; Start 02/10/17 at 09:00 Atorvastatin Calcium (Lipitor) 5 mg QHS PO Last administered on 02/17/17 20:13 ; Start 02/10/17 at 21:00 Vitamin D (Vitamin D3) 2,000 unit DAILY PO Last administered on 02/18/17 08:42 ; Start 02/10/17 at 09:00 Cyanocobalamin (Vitamin B-12) 1,000 mcg DAILY PO Last administered on 08:42; Start 02/10/17 at 09:00 Acetaminophen/ Hydrocodone Bitart (Lortab 5/325) 1 tab PRN Q4HRS PRN PO PAIN; Start 02/10/17 at 08:00 Acetaminophen/ Hydrocodone Bitart (Lortab 5/325) 1 tab TID PO Last administered on 02/18/17 14:42; Start 02/10/17 at 09:00 Lisinopril (Prinivil) 5 mg DAILY PO Last administered on 02/18/17 08:42; Start 02/10/17 at 09:00 Loperamide HCl (Imodium) 2 mg PRN Q6HRS PRN PO DIARRHEA; Start 02/10/17 at 08: 00 Magnesium Hydroxide (Milk Of Magnesia) 2,400 mg PRN Q24HRS PRN PO CONSTIPATION Last administered on 02/16/17 10:28; Start 02/10/17 at 08:00 Magnesium Oxide (Magnesium Oxide) 400 mg BID PO Last administered on 02/18/17 08:42; Start 02/10/17 at 09:00 Pantoprazole Sodium (Protonix) 40 mg DAILYAC PO Last administered on 02/18/17 08:44; Start 02/10/17 at 09:00 Polyethylene Glycol (miraLAX) 17 gm PRN Q24HRS PRN PO CONSTIPATION Last administered on 02/14/17 19:47; Start 02/10/17 at 08:00 Sennosides (Senna) 8.6 mg BID PO Last administered on 02/18/17 08:42; Start 02/10/17 at 09:00 Tamsulosin HCl (Flomax) 0.4 mg HS PO Last administered on 02/17/17 20:13; Start 02/10/17 at 21:00 Non-Formulary Medication 650 mg PRN Q6HRS PRN PO pain/fever; Start 02/10/17 at 08:00; Stop 02/10/17 at 08:17; Status DC Non-Formulary Medication 1 drop PRN Q4HRS PRN OU DRY EYE; Start 02/10/17 at 08 :00; Stop 02/10/17 at 08:23; Status DC Artificial Tears (Artificial Tears) 2 drop PRN Q2HR PRN OU DRY EYE; Start at 08:30 Al Hydroxide/Mg Hydroxide (Mylanta Plus Xs) 30 ml PRN Q4HRS PRN PO GERD; Start 02/10/17 at 08:30 Non-Formulary Medication 1 shaheen PRN QID PRN TP MUSCLE PAIN; Start 02/10/17 at 08:00; Stop 02/10/17 at 08:18; Status DC Multivitamins/ Calcium (Thera-M Plus) 1 tab DAILY PO Last administered on 08:42; Start 02/10/17 at 09:00 Ondansetron HCl (Zofran Odt) 8 mg PRN QID PRN PO NAUSEA/VOMITING; Start at 08:30 Famotidine (Pepcid) 20 mg AFTRNOON PO Last administered on 02/18/17 14:42; Start 02/10/17 at 13:00 Oxcarbazepine (Trileptal) 300 mg BID PO Last administered on 02/16/17 08:39; Start 02/11/17 at 21:00; Stop 02/16/17 at 17:59; Status DC Lidocaine (Lidoderm) 1 patch DAILY TD Last administered on 02/18/17 08:41; Start 02/11/17 at 15:00 Buspirone HCl (Buspar) 10 mg DAILY@1400 PO Last administered on 02/18/17 14:42 ; Start 02/12/17 at 14:00 Quetiapine Fumarate (SEROquel) 25 mg TID@0900,1400,1700 PO Last administered on 02/13/17 17:52; Start 02/13/17 at 09:00; Stop 02/13/17 at 18:37; Status DC Mirtazapine (Remeron) 7.5 mg QHS PO Last administered on 02/17/17 20:14; Start 02/12/17 at 21:00 Quetiapine Fumarate (SEROquel) 37.5 mg TID@0900,1400,1700 PO Last administered on 02/16/17 17:27; Start 02/14/17 at 09:00; Stop 02/16/17 at 18:57; Status DC Olanzapine (ZyPREXA ZYDIS) 2.5 mg PRN Q2HR PRN PO ANXIETY / AGITATION; Start 02/13/17 at 18:45 Oxcarbazepine (Trileptal) 300 mg DAILY PO Last administered on 02/18/17 08:42 ; Start 02/17/17 at 09:00; Stop 02/19/17 at 12:00 Oxcarbazepine (Trileptal) 600 mg QHS PO Last administered on 02/17/17 20:12; Start 02/16/17 at 21:00; Stop 02/19/17 at 23:00 Oxcarbazepine (Trileptal) 600 mg BID PO ; Start 02/20/17 at 09:00 Risperidone (RisperDAL) 0.5 mg HS PO Last administered on 02/17/17 20:14; Start 02/16/17 at 21:00; Stop 02/17/17 at 21:01; Status DC Bisacodyl (Dulcolax Supp) 10 mg PRN DAILY PRN [place] CONSTIPATION Last administered on 02/16/17 20:40; Start 02/16/17 at 20:30 Risperidone (RisperDAL) 1 mg HS PO ; Start 02/18/17 at 21:00 Active Scripts Active Reported Vitamin B-12 (Cyanocobalamin (Vitamin B-12)) 1,000 Mcg Tablet 1,000 Mcg PO DAILY Trileptal (Oxcarbazepine) 150 Mg Tablet 1 Mg PO BID Trihexyphenidyl Hcl 2 Mg Tablet 2 Mg PO BID Senna (Sennosides) 8.6 Mg Tablet 1 Tab PO BID Ranitidine Hcl 150 Mg Tablet 150 Mg PO AFTRNOON Protonix (Pantoprazole Sodium) 40 Mg Tablet.dr 40 Mg PO DAILYAC Zyprexa (Olanzapine) 2.5 Mg Tablet 2.5 Mg PO HS [place] 5-325 Tablet (Hydrocodone Bit/Acetaminophen) 1 Each Tablet 1 Tab PO TID [place] 5-325 Tablet (Hydrocodone Bit/Acetaminophen) 1 Each Tablet 1 Tab PO PRN Q4HRS PRN Alum-Mag Hydroxide-Simeth Liq (Mag Hydrox/Al Hydrox/Simeth) 360 Ml Oral.susp 30 Ml PO PRN Q4HRS PRN Multiple Vitamin (Multivitamin With Minerals) 1 Each Tablet 1 Each PO DAILY Miralax (Polyethylene Glycol 3350) 17 Gm Powd.pack 17 Gm PO PRN Q24HRS PRN Milk Of Magnesia (Magnesium Hydroxide) 400 Mg/5 Ml Oral.susp 2,400 Mg PO PRN Q24HRS PRN Melatonin 3 Mg Tablet 6 Mg PO HS Magnesium Oxide 400 Mg Tablet 400 Mg PO BID Anti-Diarrheal (Loperamide Hcl) 2 Mg Capsule 2 Mg PO PRN Q6HRS PRN Lisinopril 5 Mg Tablet 5 Mg PO DAILY Latuda (Lurasidone Hcl) 80 Mg Tablet 120 Mg PO HS Flomax (Tamsulosin Hcl) 0.4 Mg Cap.er.24h 0.4 Mg PO HS Vitamin D3 (Cholecalciferol (Vitamin D3)) 1,000 Unit Tablet 2,000 Unit PO DAILY Atorvastatin Calcium 10 Mg Tablet 5 Mg PO QHS Aspirin 81 Mg Tab.chew 81 Mg PO DAILY Ascorbic Acid 500 Mg Tablet 500 Mg PO BID Acetaminophen 160 Mg/5 Ml Solution 650 Mg PO PRN Q6HRS PRN Artificial Tears (Dextran 70/Hypromellose) 1 Each Droperette 2 Drop OP PRN Q2HR Buspirone Hcl 15 Mg Tablet 15 Mg PO BID Zyprexa Zydis (Olanzapine) 5 Mg Tab.rapdis 2.5 Mg PO PRN Q2HR PRN Dissolve in mouth Zofran Odt (Ondansetron) 8 Mg Tab.rapdis 8 Mg PO QID PRN Dissolve on tongue NICODERM CQ 21mg (Nicotine) 1 Each Patch.td24 1 Patch TP DAILY Remove at bedtime if patient is having sleep disturbances. [place] Ultra Strength Crm (Methyl Salicylate/Menth/Camph) 57 Gm Cream..g. 1 [place] TP PRN QID PRN Tylenol (Acetaminophen) 325 Mg Tablet 650 Mg PO PRN Q6HRS PRN Max Acetaminophen dose is 4000mg in 24 hours from all sources for adults. Refresh Tears (Carboxymethylcellulose Sodium) 15 Ml Drops 1 Drop OU PRN Q4HRS PRN Amlodipine Besylate 10 Mg Tablet 10 Mg PO DAILY Hold for SBP less than 100. After a held dose, reassess in 2 hours. If SBP is above threshold, administer dose as ordered. If SBP is below threshold, contact provider for additional instructions. I have reviewed the current psychotropics carefully including drug interactions. Risk benefit ratio favors no change other than as noted in my dictated progress note. Diagnosis: Problems: (1) Mental status change (2) Psychosis (3) Dementia (4) SIADH (syndrome of inappropriate ADH production) (5) Hyponatremia (6) Tobacco use disorder (7) Schizoaffective disorder (8) SCHIZOAFFECTIVE DISORDER, UNSPECIFIED (9) Schizophrenia (10) Bipolar 1 disorder TINY CHAN MD Feb 18, 2017 19:53
[2017-02-18] MEDS: TAMSULOSIN 0.4 MG CAP.ER.24H. PO SCH (20:24)
[2017-02-18] MEDS: MELATONIN 3 MG TABLET PO SCH (20:24)
[2017-02-18] MEDS: ATORVASTATIN CALCIUM 10 MG TABLET. PO SCH (20:25)
[2017-02-18] MEDS: MIRTAZAPINE 7.5 MG TABLET. PO SCH (20:25)
[2017-02-18] MEDS: risperiDONE 1 MG TABLET. PO SCH (20:28)
[2017-02-18] MEDS: LURASIDONE 40 MG TABLET. PO SCH (20:29)
--- NOTE | 2017-02-18 22:11 | PN ---
DATE: 02/17/2017 This is a late entry for 02/17/2017 covers elements not covered my initial note of 02/17/2017. SUBJECTIVE: I met with the patient the evening of 02/17/2017. The patient has been irritable, needy, refused to feed himself breakfast because he said he cannot move any of his upper extremities and this is inaccurate, somewhat delusional. He did not eat much for lunch, but by dinnertime, he was quite hungry and fed himself 100% of his dinner. REVIEW OF SYSTEMS: Ambulation impaired. He complains of tiredness. No CV, , pulmonary, eye system symptoms on review, vague somatic symptoms are evident. MENTAL STATUS EXAMINATION: Reasonably oriented. Speech, often responses monosyllabic, low in volume. Abstraction fair, computation impaired, language function intact. Mood and affect somewhat withdrawn, depressed, remains psychotic. LABORATORY DATA: Reviewed. IMPRESSION: Unchanged from initial notes, schizoaffective disorder, bipolar type, mixed with psychotic features; schizophrenia, chronic, undifferentiated with acute exacerbation. Rest unchanged including mild cognitive impairment. PLAN: Risperdal is currently 0.5 [address]time in place of the Seroquel, and on 02/18/2017, we will increase the Risperdal to 1 mg at bedtime. Continue Trileptal, melatonin, BuSpar, Latuda and Remeron at current dosage. MAN Cinthia CHAN MD DR: ARON/zena JOB#: [id number] / [id number]
[2017-02-19 05:46] VITALS: BP 127/68
[2017-02-19] MEDS: PANTOPRAZOLE 40 MG TABLET. PO SCH (07:51)
[2017-02-19] MEDS: MAGNESIUM OXIDE 400 MG TABLET PO SCH ×2 (07:51→19:35)
[2017-02-19] MEDS: ASCORBIC ACID 500 MG TABLET PO SCH ×2 (07:51→19:36)
[2017-02-19] MEDS: LIDOCAINE (700MG/PATCH) PATCH. TD SCH (07:51)
[2017-02-19] MEDS: MULTIVITAMIN with MINERAL TABLET. PO SCH (07:51)
[2017-02-19] MEDS: CYANOCOBALAMIN (VITAMIN B-12) 1,000 MCG TABLET. PO SCH (07:51)
[2017-02-19] MEDS: LISINOPRIL 5 MG TABLET. PO SCH (07:51)
[2017-02-19] MEDS: ASPIRIN 81 MG TAB.CHEW PO SCH (07:51)
[2017-02-19] MEDS: busPIRone 15 MG TABLET. PO SCH ×2 (07:51→19:35)
[2017-02-19] MEDS: SENNOSIDES 8.6 MG TABLET PO SCH ×2 (07:52→19:36)
[2017-02-19] MEDS: CHOLECALCIFEROL (VITAMIN D3) 1,000 UNIT TABLET PO SCH (07:52)
[2017-02-19] MEDS: amLODIPine BESYLATE 10 MG TABLET PO SCH (07:52)
[2017-02-19] MEDS: MAGNESIUM HYDROXIDE 2,400 MG/30 ML ORAL.SUSP. PO PRN (07:53)
[2017-02-19] MEDS: HYDROcodone/APAP 5/325MG 1 TAB TABLET PO SCH ×3 (07:53→19:35)
[2017-02-19] MEDS: FAMOTIDINE 20 MG TABLET PO SCH (14:20)
[2017-02-19] MEDS: busPIRone 10 MG TABLET. PO SCH (14:20)
[2017-02-19 16:01] VITALS: BP 106/68
[2017-02-19] MEDS: LURASIDONE 40 MG TABLET. PO SCH (19:35)
[2017-02-19] MEDS: MIRTAZAPINE 7.5 MG TABLET. PO SCH (19:35)
[2017-02-19] MEDS: risperiDONE 1 MG TABLET. PO SCH (19:36)
[2017-02-19] MEDS: MELATONIN 3 MG TABLET PO SCH (19:36)
[2017-02-19] MEDS: TAMSULOSIN 0.4 MG CAP.ER.24H. PO SCH (19:36)
[2017-02-19] MEDS: ATORVASTATIN CALCIUM 10 MG TABLET. PO SCH (19:36)
--- NOTE | 2017-02-19 19:48 | PDOC ---
Exam Note: Rob Note: Please also refer to the separate dictated note~for this date of service dictated separately.~Patient seen individually. Discussed the patient with Nursing staff reviewed the chart.~Reviewed interim history and current functioning. Reviewed vital signs,~Labs/ Radiology~and current medications noted below. Continue current treatment with the changes noted in the dictated addendum note Assessment: Vital Signs: Vital Signs Date Time Temp Pulse Resp B/P (MAP) Pulse Ox O2 Delivery O2 Flow Rate FiO2 02/19/17 19:35 20 02/19/17 16:01 97.7 70 106/68 (81) 97 02/18/17 21:45 Room Air I&O Intake and Output 02/19/17 07:00 Intake Total 480 ml Output Total 1950 ml Balance -1470 ml Intake Oral 480 ml Output Urine Total 1950 ml Current Medications: Meds: Current Medications Acetaminophen (Tylenol) 650 mg PRN Q6HRS PRN PO PAIN / TEMP; Start 02/09/17 at 23:45; Stop 02/10/17 at 08:25; Status DC Multi-Ingredient Ointment (Analgesic [place]) 1 shaheen PRN QID PRN TP MUSCLE PAIN; Start 02/09/17 at 23:45 Al Hydroxide/Mg Hydroxide (Mylanta Plus Xs) 15 ml PRN AFTMEALHC PRN PO DYSPEPSIA; Start 02/09/17 at 23:45; Stop 02/10/17 at 08:20; Status DC Magnesium Hydroxide (Milk Of Magnesia) 2,400 mg PRN QHS PRN PO CONSTIPATION; Start 02/09/17 at 23:45; Stop 02/10/17 at 08:25; Status DC Buspirone HCl (Buspar) 15 mg BID PO Last administered on 02/19/17 19:35; Start 02/10/17 at 09:00 Olanzapine (ZyPREXA) 2.5 mg HS PO Last administered on 02/11/17 19:44; Start 02/10/17 at 21:00; Stop 02/12/17 at 19:29; Status DC Oxcarbazepine (Trileptal) 150 mg BID PO Last administered on 02/11/17 09:51; Start 02/10/17 at 09:00; Stop 02/11/17 at 11:41; Status DC Non-Formulary Medication 120 mg HS PO ; Start 02/10/17 at 21:00; Status UNV Melatonin 6 mg QHS PO Last administered on 02/19/17 19:36; Start 02/10/17 at 21:00 Acetaminophen (Tylenol) 650 mg PRN Q6HRS PRN PO PAIN / TEMP; Start 02/10/17 at 08:00 Amlodipine Besylate (Norvasc) 10 mg DAILY PO Last administered on 02/19/17 07: 52; Start 02/10/17 at 09:00 Ascorbic Acid (Vitamin C) 500 mg BID PO Last administered on 02/19/17 19:36; Start 02/10/17 at 09:00 Aspirin (Children'S Aspirin) 81 mg DAILY PO Last administered on 02/19/17 07: 51; Start 02/10/17 at 09:00 Atorvastatin Calcium (Lipitor) 5 mg QHS PO Last administered on 02/19/17 19:36 ; Start 02/10/17 at 21:00 Vitamin D (Vitamin D3) 2,000 unit DAILY PO Last administered on 02/19/17 07:52 ; Start 02/10/17 at 09:00 Cyanocobalamin (Vitamin B-12) 1,000 mcg DAILY PO Last administered on 07:51; Start 02/10/17 at 09:00 Acetaminophen/ Hydrocodone Bitart (Lortab 5/325) 1 tab PRN Q4HRS PRN PO PAIN; Start 02/10/17 at 08:00 Acetaminophen/ Hydrocodone Bitart (Lortab 5/325) 1 tab TID PO Last administered on 02/19/17 19:35; Start 02/10/17 at 09:00 Lisinopril (Prinivil) 5 mg DAILY PO Last administered on 02/19/17 07:51; Start 02/10/17 at 09:00 Loperamide HCl (Imodium) 2 mg PRN Q6HRS PRN PO DIARRHEA; Start 02/10/17 at 08: 00 Magnesium Hydroxide (Milk Of Magnesia) 2,400 mg PRN Q24HRS PRN PO CONSTIPATION Last administered on 02/19/17 07:53; Start 02/10/17 at 08:00 Magnesium Oxide (Magnesium Oxide) 400 mg BID PO Last administered on 02/19/17 19:35; Start 02/10/17 at 09:00 Pantoprazole Sodium (Protonix) 40 mg DAILYAC PO Last administered on 02/19/17 07:51; Start 02/10/17 at 09:00 Polyethylene Glycol (miraLAX) 17 gm PRN Q24HRS PRN PO CONSTIPATION Last administered on 02/14/17 19:47; Start 02/10/17 at 08:00 Sennosides (Senna) 8.6 mg BID PO Last administered on 02/19/17 19:36; Start 02/10/17 at 09:00 Tamsulosin HCl (Flomax) 0.4 mg HS PO Last administered on 02/19/17 19:36; Start 02/10/17 at 21:00 Non-Formulary Medication 650 mg PRN Q6HRS PRN PO pain/fever; Start 02/10/17 at 08:00; Stop 02/10/17 at 08:17; Status DC Non-Formulary Medication 1 drop PRN Q4HRS PRN OU DRY EYE; Start 02/10/17 at 08 :00; Stop 02/10/17 at 08:23; Status DC Artificial Tears (Artificial Tears) 2 drop PRN Q2HR PRN OU DRY EYE; Start at 08:30 Al Hydroxide/Mg Hydroxide (Mylanta Plus Xs) 30 ml PRN Q4HRS PRN PO GERD; Start 02/10/17 at 08:30 Non-Formulary Medication 1 shaheen PRN QID PRN TP MUSCLE PAIN; Start 02/10/17 at 08:00; Stop 02/10/17 at 08:18; Status DC Multivitamins/ Calcium (Thera-M Plus) 1 tab DAILY PO Last administered on 07:51; Start 02/10/17 at 09:00 Ondansetron HCl (Zofran Odt) 8 mg PRN QID PRN PO NAUSEA/VOMITING; Start at 08:30 Famotidine (Pepcid) 20 mg AFTRNOON PO Last administered on 02/19/17 14:20; Start 02/10/17 at 13:00 Oxcarbazepine (Trileptal) 300 mg BID PO Last administered on 02/16/17 08:39; Start 02/11/17 at 21:00; Stop 02/16/17 at 17:59; Status DC Lidocaine (Lidoderm) 1 patch DAILY TD Last administered on 02/19/17 07:51; Start 02/11/17 at 15:00 Buspirone HCl (Buspar) 10 mg DAILY@1400 PO Last administered on 02/19/17 14:20 ; Start 02/12/17 at 14:00 Quetiapine Fumarate (SEROquel) 25 mg TID@0900,1400,1700 PO Last administered on 02/13/17 17:52; Start 02/13/17 at 09:00; Stop 02/13/17 at 18:37; Status DC Mirtazapine (Remeron) 7.5 mg QHS PO Last administered on 02/19/17 19:35; Start 02/12/17 at 21:00 Quetiapine Fumarate (SEROquel) 37.5 mg TID@0900,1400,1700 PO Last administered on 02/16/17 17:27; Start 02/14/17 at 09:00; Stop 02/16/17 at 18:57; Status DC Olanzapine (ZyPREXA ZYDIS) 2.5 mg PRN Q2HR PRN PO ANXIETY / AGITATION; Start 02/13/17 at 18:45 Oxcarbazepine (Trileptal) 300 mg DAILY PO Last administered on 02/19/17 07:51 ; Start 02/17/17 at 09:00; Stop 02/19/17 at 12:00; Status DC Oxcarbazepine (Trileptal) 600 mg QHS PO Last administered on 02/19/17 19:35; Start 02/16/17 at 21:00; Stop 02/19/17 at 23:00 Oxcarbazepine (Trileptal) 600 mg BID PO ; Start 02/20/17 at 09:00 Risperidone (RisperDAL) 0.5 mg HS PO Last administered on 02/17/17 20:14; Start 02/16/17 at 21:00; Stop 02/17/17 at 21:01; Status DC Bisacodyl (Dulcolax Supp) 10 mg PRN DAILY PRN [place] CONSTIPATION Last administered on 02/16/17 20:40; Start 02/16/17 at 20:30 Risperidone (RisperDAL) 1 mg HS PO Last administered on 02/19/17t 19:36; Start 02/18/17 at 21:00 Active Scripts Active Reported Vitamin B-12 (Cyanocobalamin (Vitamin B-12)) 1,000 Mcg Tablet 1,000 Mcg PO DAILY Trileptal (Oxcarbazepine) 150 Mg Tablet 1 Mg PO BID Trihexyphenidyl Hcl 2 Mg Tablet 2 Mg PO BID Senna (Sennosides) 8.6 Mg Tablet 1 Tab PO BID Ranitidine Hcl 150 Mg Tablet 150 Mg PO AFTRNOON Protonix (Pantoprazole Sodium) 40 Mg Tablet.dr 40 Mg PO DAILYAC Zyprexa (Olanzapine) 2.5 Mg Tablet 2.5 Mg PO HS [place] 5-325 Tablet (Hydrocodone Bit/Acetaminophen) 1 Each Tablet 1 Tab PO TID [place] 5-325 Tablet (Hydrocodone Bit/Acetaminophen) 1 Each Tablet 1 Tab PO PRN Q4HRS PRN Alum-Mag Hydroxide-Simeth Liq (Mag Hydrox/Al Hydrox/Simeth) 360 Ml Oral.susp 30 Ml PO PRN Q4HRS PRN Multiple Vitamin (Multivitamin With Minerals) 1 Each Tablet 1 Each PO DAILY Miralax (Polyethylene Glycol 3350) 17 Gm Powd.pack 17 Gm PO PRN Q24HRS PRN Milk Of Magnesia (Magnesium Hydroxide) 400 Mg/5 Ml Oral.susp 2,400 Mg PO PRN Q24HRS PRN Melatonin 3 Mg Tablet 6 Mg PO HS Magnesium Oxide 400 Mg Tablet 400 Mg PO BID Anti-Diarrheal (Loperamide Hcl) 2 Mg Capsule 2 Mg PO PRN Q6HRS PRN Lisinopril 5 Mg Tablet 5 Mg PO DAILY Latuda (Lurasidone Hcl) 80 Mg Tablet 120 Mg PO HS Flomax (Tamsulosin Hcl) 0.4 Mg Cap.er.24h 0.4 Mg PO HS Vitamin D3 (Cholecalciferol (Vitamin D3)) 1,000 Unit Tablet 2,000 Unit PO DAILY Atorvastatin Calcium 10 Mg Tablet 5 Mg PO QHS Aspirin 81 Mg Tab.chew 81 Mg PO DAILY Ascorbic Acid 500 Mg Tablet 500 Mg PO BID Acetaminophen 160 Mg/5 Ml Solution 650 Mg PO PRN Q6HRS PRN Artificial Tears (Dextran 70/Hypromellose) 1 Each Droperette 2 Drop OP PRN Q2HR Buspirone Hcl 15 Mg Tablet 15 Mg PO BID Zyprexa Zydis (Olanzapine) 5 Mg Tab.rapdis 2.5 Mg PO PRN Q2HR PRN Dissolve in mouth Zofran Odt (Ondansetron) 8 Mg Tab.rapdis 8 Mg PO QID PRN Dissolve on tongue NICODERM CQ 21mg (Nicotine) 1 Each Patch.td24 1 Patch TP DAILY Remove at bedtime if patient is having sleep disturbances. [place] Ultra Strength Crm (Methyl Salicylate/Menth/Camph) 57 Gm Cream..g. 1 Shaheen TP PRN QID PRN Tylenol (Acetaminophen) 325 Mg Tablet 650 Mg PO PRN Q6HRS PRN Max Acetaminophen dose is 4000mg in 24 hours from all sources for adults. Refresh Tears (Carboxymethylcellulose Sodium) 15 Ml Drops 1 Drop OU PRN Q4HRS PRN Amlodipine Besylate 10 Mg Tablet 10 Mg PO DAILY Hold for SBP less than 100. After a held dose, reassess in 2 hours. If SBP is above threshold, administer dose as ordered. If SBP is below threshold, contact provider for additional instructions. I have reviewed the current psychotropics carefully including drug interactions. Risk benefit ratio favors no change other than as noted in my dictated progress note. Diagnosis: Problems: (1) Mental status change (2) Psychosis (3) Dementia (4) SIADH (syndrome of inappropriate ADH production) (5) Hyponatremia (6) Tobacco use disorder (7) Schizoaffective disorder (8) SCHIZOAFFECTIVE DISORDER, UNSPECIFIED (9) Schizophrenia (10) Bipolar 1 disorder TINY CHAN MD Feb 19, 2017 19:48
--- NOTE | 2017-02-20 04:18 | PN ---
DATE: 02/18/2017 This late entry for 02/18/2017 covers elements not covered in my initial note of 02/18/2017. SUBJECTIVE: I met with the patient in the evening of 02/18/2017. The patient remains somatically preoccupied, often refuses to feed himself because he says he cannot move his arms and by the evening he is hungry for supper and then feeds himself the whole meal. I met with him in the evening of 02/18/2017, staffed at a treatment team meeting in the morning of 02/18/2017 with the entire team. BUN is 24. He appears helpless at times. REVIEW OF SYSTEMS: Ambulation impaired, in wheelchair. No CV, , pulmonary, eye, ENT system symptoms on review other than inability to move his upper extremities, which is not accurate. MENTAL STATUS EXAM: Reasonably oriented. Speech, low in volume, often responses monosyllabic. Abstraction fair, computation impaired, language function intact, attention span short. Mood and affect remains withdrawn. LABORATORY DATA: Reviewed. IMPRESSION: Unchanged from initial note. PLAN: Continue psychotropics mentioned in my initial note, may need to adjust Risperdal further for psychotic symptoms, which present as somatic symptoms. MAN Cinthia CHAN MD DR: ARON/zena JOB#: [id number] / [id number]
[2017-02-20 05:52] VITALS: BP 123/83
[2017-02-20] MEDS: busPIRone 15 MG TABLET. PO SCH ×2 (09:04→20:39)
[2017-02-20] MEDS: ASPIRIN 81 MG TAB.CHEW PO SCH (09:04)
[2017-02-20] MEDS: PANTOPRAZOLE 40 MG TABLET. PO SCH (09:04)
[2017-02-20] MEDS: HYDROcodone/APAP 5/325MG 1 TAB TABLET PO SCH ×3 (09:07→20:40)
[2017-02-20] MEDS: SENNOSIDES 8.6 MG TABLET PO SCH ×2 (09:07→20:39)
[2017-02-20] MEDS: MAGNESIUM OXIDE 400 MG TABLET PO SCH ×2 (09:07→20:38)
[2017-02-20] MEDS: LISINOPRIL 5 MG TABLET. PO SCH (09:07)
[2017-02-20] MEDS: MULTIVITAMIN with MINERAL TABLET. PO SCH (09:07)
[2017-02-20] MEDS: CYANOCOBALAMIN (VITAMIN B-12) 1,000 MCG TABLET. PO SCH (09:08)
[2017-02-20] MEDS: ASCORBIC ACID 500 MG TABLET PO SCH ×2 (09:09→20:39)
[2017-02-20] MEDS: LIDOCAINE (700MG/PATCH) PATCH. TD SCH (09:09)
[2017-02-20] MEDS: CHOLECALCIFEROL (VITAMIN D3) 1,000 UNIT TABLET PO SCH (09:09)
[2017-02-20] MEDS: amLODIPine BESYLATE 10 MG TABLET PO SCH (09:19)
[2017-02-20] MEDS: busPIRone 10 MG TABLET. PO SCH (14:01)
[2017-02-20] MEDS: FAMOTIDINE 20 MG TABLET PO SCH (14:02)
[2017-02-20 16:18] VITALS: BP 150/91
[2017-02-20] MEDS: TAMSULOSIN 0.4 MG CAP.ER.24H. PO SCH (20:38)
[2017-02-20] MEDS: MELATONIN 3 MG TABLET PO SCH (20:39)
[2017-02-20] MEDS: LURASIDONE 40 MG TABLET. PO SCH (20:39)
[2017-02-20] MEDS: MIRTAZAPINE 7.5 MG TABLET. PO SCH (20:39)
[2017-02-20] MEDS: ATORVASTATIN CALCIUM 10 MG TABLET. PO SCH (20:39)
[2017-02-20] MEDS: risperiDONE 1 MG TABLET. PO SCH (20:40)
[2017-02-20 20:54] LABS: BILIRUBIN,URINE NEG (NEG); CLARITY,URINE TURBID; COLOR,URINE RED; GLUCOSE,URINE NEG (NEG)
[2017-02-20 20:55] LABS: BACTERIA,URINE MOD /HPF (0-FEW); NITRITE,URINE POS (NEG); RBC,URINE TNTC /HPF (0-2); SQUAMOUS EPITHELIAL CELL,UR OCC /LPF; UROBILINOGEN,URINE 1 mg/dL (0.2 mg/dL)
--- NOTE | 2017-02-20 21:32 | PDOC ---
Exam Note: Rob Note: Please also refer to the separate dictated note~for this date of service dictated separately.~Patient seen individually. Discussed the patient with Nursing staff reviewed the chart.~Reviewed interim history and current functioning. Reviewed vital signs,~Labs/ Radiology~and current medications noted below. Continue current treatment with the changes noted in the dictated addendum note Assessment: Vital Signs: Vital Signs Date Time Temp Pulse Resp B/P (MAP) Pulse Ox O2 Delivery O2 Flow Rate FiO2 02/20/17 16:18 98.0 106 16 150/91 (110) 98 Room Air I&O Intake and Output 02/20/17 07:00 Intake Total 360 ml Output Total 1450 ml Balance -1090 ml Intake Oral 360 ml Output Urine Total 1450 ml Labs: Laboratory Tests Test 02/20/17 19:00 Urine Collection Type Unknown Urine Color Red Urine Clarity Turbid Urine pH >8.5 Urine Specific [place] 1.010 Urine Protein >100 mg/dl (NEG-TRACE) Urine Glucose (UA) Neg mg/dL (NEG) Urine Ketones (Stick) Trace mg/dL (NEG) Urine Blood Large (NEG) Urine Nitrite Pos (NEG) Urine Bilirubin Neg (NEG) Urine Urobilinogen Dipstick 1 mg/dL (0.2 mg/dL) Urine Leukocyte Esterase Small (NEG) Urine RBC Tntc /HPF (0-2) Urine WBC 5-10 /HPF (0-4) Urine Squamous Epithelial Cells Occ /LPF Urine Bacteria Mod /HPF (0-FEW) Current Medications: Meds: Current Medications Acetaminophen (Tylenol) 650 mg PRN Q6HRS PRN PO PAIN / TEMP; Start 02/09/17 at 23:45; Stop 02/10/17 at 08:25; Status DC Multi-Ingredient Ointment (Analgesic [place]) 1 shaheen PRN QID PRN TP MUSCLE PAIN; Start 02/09/17 at 23:45 Al Hydroxide/Mg Hydroxide (Mylanta Plus Xs) 15 ml PRN AFTMEALHC PRN PO DYSPEPSIA; Start 02/09/17 at 23:45; Stop 02/10/17 at 08:20; Status DC Magnesium Hydroxide (Milk Of Magnesia) 2,400 mg PRN QHS PRN PO CONSTIPATION; Start 02/09/17 at 23:45; Stop 02/10/17 at 08:25; Status DC Buspirone HCl (Buspar) 15 mg BID PO Last administered on 02/20/17 20:39; Start 02/10/17 at 09:00 Olanzapine (ZyPREXA) 2.5 mg HS PO Last administered on 02/11/17 19:44; Start 02/10/17 at 21:00; Stop 02/12/17 at 19:29; Status DC Oxcarbazepine (Trileptal) 150 mg BID PO Last administered on 02/11/17 09:51; Start 02/10/17 at 09:00; Stop 02/11/17 at 11:41; Status DC Non-Formulary Medication 120 mg HS PO ; Start 02/10/17 at 21:00; Status UNV Melatonin 6 mg QHS PO Last administered on 02/20/17 20:39; Start 02/10/17 at 21:00 Acetaminophen (Tylenol) 650 mg PRN Q6HRS PRN PO PAIN / TEMP; Start 02/10/17 at 08:00 Amlodipine Besylate (Norvasc) 10 mg DAILY PO Last administered on 02/20/17 09: 19; Start 02/10/17 at 09:00 Ascorbic Acid (Vitamin C) 500 mg BID PO Last administered on 02/20/17 20:39; Start 02/10/17 at 09:00 Aspirin (Children'S Aspirin) 81 mg DAILY PO Last administered on 02/20/17 09: 04; Start 02/10/17 at 09:00 Atorvastatin Calcium (Lipitor) 5 mg QHS PO Last administered on 02/20/17 20:39 ; Start 02/10/17 at 21:00 Vitamin D (Vitamin D3) 2,000 unit DAILY PO Last administered on 02/20/17 09:09 ; Start 02/10/17 at 09:00 Cyanocobalamin (Vitamin B-12) 1,000 mcg DAILY PO Last administered on 09:08; Start 02/10/17 at 09:00 Acetaminophen/ Hydrocodone Bitart (Lortab 5/325) 1 tab PRN Q4HRS PRN PO PAIN; Start 02/10/17 at 08:00 Acetaminophen/ Hydrocodone Bitart (Lortab 5/325) 1 tab TID PO Last administered on 02/20/17 20:40; Start 02/10/17 at 09:00 Lisinopril (Prinivil) 5 mg DAILY PO Last administered on 02/20/17 09:07; Start 02/10/17 at 09:00 Loperamide HCl (Imodium) 2 mg PRN Q6HRS PRN PO DIARRHEA; Start 02/10/17 at 08: 00 Magnesium Hydroxide (Milk Of Magnesia) 2,400 mg PRN Q24HRS PRN PO CONSTIPATION Last administered on 02/19/17 07:53; Start 02/10/17 at 08:00 Magnesium Oxide (Magnesium Oxide) 400 mg BID PO Last administered on 02/20/17 20:38; Start 02/10/17 at 09:00 Pantoprazole Sodium (Protonix) 40 mg DAILYAC PO Last administered on 02/20/17 09:04; Start 02/10/17 at 09:00 Polyethylene Glycol (miraLAX) 17 gm PRN Q24HRS PRN PO CONSTIPATION Last administered on 02/14/17 19:47; Start 02/10/17 at 08:00 Sennosides (Senna) 8.6 mg BID PO Last administered on 02/20/17 20:39; Start 02/10/17 at 09:00 Tamsulosin HCl (Flomax) 0.4 mg HS PO Last administered on 02/20/17 20:38; Start 02/10/17 at 21:00 Non-Formulary Medication 650 mg PRN Q6HRS PRN PO pain/fever; Start 02/10/17 at 08:00; Stop 02/10/17 at 08:17; Status DC Non-Formulary Medication 1 drop PRN Q4HRS PRN OU DRY EYE; Start 02/10/17 at 08 :00; Stop 02/10/17 at 08:23; Status DC Artificial Tears (Artificial Tears) 2 drop PRN Q2HR PRN OU DRY EYE; Start at 08:30 Al Hydroxide/Mg Hydroxide (Mylanta Plus Xs) 30 ml PRN Q4HRS PRN PO GERD; Start 02/10/17 at 08:30 Non-Formulary Medication 1 shaheen PRN QID PRN TP MUSCLE PAIN; Start 02/10/17 at 08:00; Stop 02/10/17 at 08:18; Status DC Multivitamins/ Calcium (Thera-M Plus) 1 tab DAILY PO Last administered on 09:07; Start 02/10/17 at 09:00 Ondansetron HCl (Zofran Odt) 8 mg PRN QID PRN PO NAUSEA/VOMITING; Start at 08:30 Famotidine (Pepcid) 20 mg AFTRNOON PO Last administered on 02/20/17 14:02; Start 02/10/17 at 13:00 Oxcarbazepine (Trileptal) 300 mg BID PO Last administered on 02/16/17 08:39; Start 02/11/17 at 21:00; Stop 02/16/17 at 17:59; Status DC Lidocaine (Lidoderm) 1 patch DAILY TD Last administered on 02/20/17 09:09; Start 02/11/17 at 15:00 Buspirone HCl (Buspar) 10 mg DAILY@1400 PO Last administered on 02/20/17 14:01 ; Start 02/12/17 at 14:00 Quetiapine Fumarate (SEROquel) 25 mg TID@0900,1400,1700 PO Last administered on 02/13/17 17:52; Start 02/13/17 at 09:00; Stop 02/13/17 at 18:37; Status DC Mirtazapine (Remeron) 7.5 mg QHS PO Last administered on 02/20/17 20:39; Start 02/12/17 at 21:00 Quetiapine Fumarate (SEROquel) 37.5 mg TID@0900,1400,1700 PO Last administered on 02/16/17 17:27; Start 02/14/17 at 09:00; Stop 02/16/17 at 18:57; Status DC Olanzapine (ZyPREXA ZYDIS) 2.5 mg PRN Q2HR PRN PO ANXIETY / AGITATION; Start 02/13/17 at 18:45 Oxcarbazepine (Trileptal) 300 mg DAILY PO Last administered on 02/19/17 07:51 ; Start 02/17/17 at 09:00; Stop 02/19/17 at 12:00; Status DC Oxcarbazepine (Trileptal) 600 mg QHS PO Last administered on 02/19/17 19:35; Start 02/16/17 at 21:00; Stop 02/19/17 at 23:00; Status DC Oxcarbazepine (Trileptal) 600 mg BID PO Last administered on 02/20/17 20:40; Start 02/20/17 at 09:00 Risperidone (RisperDAL) 0.5 mg HS PO Last administered on 02/17/17 20:14; Start 02/16/17 at 21:00; Stop 02/17/17 at 21:01; Status DC Bisacodyl (Dulcolax Supp) 10 mg PRN DAILY PRN [place] CONSTIPATION Last administered on 02/16/17 20:40; Start 02/16/17 at 20:30 Risperidone (RisperDAL) 1 mg HS PO Last administered on 02/20/17 20:40; Start 02/18/17 at 21:00 Active Scripts Active Reported Vitamin B-12 (Cyanocobalamin (Vitamin B-12)) 1,000 Mcg Tablet 1,000 Mcg PO DAILY Trileptal (Oxcarbazepine) 150 Mg Tablet 1 Mg PO BID Trihexyphenidyl Hcl 2 Mg Tablet 2 Mg PO BID Senna (Sennosides) 8.6 Mg Tablet 1 Tab PO BID Ranitidine Hcl 150 Mg Tablet 150 Mg PO AFTRNOON Protonix (Pantoprazole Sodium) 40 Mg Tablet.dr 40 Mg PO DAILYAC Zyprexa (Olanzapine) 2.5 Mg Tablet 2.5 Mg PO HS [place] 5-325 Tablet (Hydrocodone Bit/Acetaminophen) 1 Each Tablet 1 Tab PO TID [place] 5-325 Tablet (Hydrocodone Bit/Acetaminophen) 1 Each Tablet 1 Tab PO PRN Q4HRS PRN Alum-Mag Hydroxide-Simeth Liq (Mag Hydrox/Al Hydrox/Simeth) 360 Ml Oral.susp 30 Ml PO PRN Q4HRS PRN Multiple Vitamin (Multivitamin With Minerals) 1 Each Tablet 1 Each PO DAILY Miralax (Polyethylene Glycol 3350) 17 Gm Powd.pack 17 Gm PO PRN Q24HRS PRN Milk Of Magnesia (Magnesium Hydroxide) 400 Mg/5 Ml Oral.susp 2,400 Mg PO PRN Q24HRS PRN Melatonin 3 Mg Tablet 6 Mg PO HS Magnesium Oxide 400 Mg Tablet 400 Mg PO BID Anti-Diarrheal (Loperamide Hcl) 2 Mg Capsule 2 Mg PO PRN Q6HRS PRN Lisinopril 5 Mg Tablet 5 Mg PO DAILY Latuda (Lurasidone Hcl) 80 Mg Tablet 120 Mg PO HS Flomax (Tamsulosin Hcl) 0.4 Mg Cap.er.24h 0.4 Mg PO HS Vitamin D3 (Cholecalciferol (Vitamin D3)) 1,000 Unit Tablet 2,000 Unit PO DAILY Atorvastatin Calcium 10 Mg Tablet 5 Mg PO QHS Aspirin 81 Mg Tab.chew 81 Mg PO DAILY Ascorbic Acid 500 Mg Tablet 500 Mg PO BID Acetaminophen 160 Mg/5 Ml Solution 650 Mg PO PRN Q6HRS PRN Artificial Tears (Dextran 70/Hypromellose) 1 Each Droperette 2 Drop OP PRN Q2HR Buspirone Hcl 15 Mg Tablet 15 Mg PO BID Zyprexa Zydis (Olanzapine) 5 Mg Tab.rapdis 2.5 Mg PO PRN Q2HR PRN Dissolve in mouth Zofran Odt (Ondansetron) 8 Mg Tab.rapdis 8 Mg PO QID PRN Dissolve on tongue NICODERM CQ 21mg (Nicotine) 1 Each Patch.td24 1 Patch TP DAILY Remove at bedtime if patient is having sleep disturbances. [place] Ultra Strength Crm (Methyl Salicylate/Menth/Camph) 57 Gm Cream..g. 1 [place]he[place] TP PRN QID PRN Tylenol (Acetaminophen) 325 Mg Tablet 650 Mg PO PRN Q6HRS PRN Max Acetaminophen dose is 4000mg in 24 hours from all sources for adults. Refresh Tears (Carboxymethylcellulose Sodium) 15 Ml Drops 1 Drop OU PRN Q4HRS PRN Amlodipine Besylate 10 Mg Tablet 10 Mg PO DAILY Hold for SBP less than 100. After a held dose, reassess in 2 hours. If SBP is above threshold, administer dose as ordered. If SBP is below threshold, contact provider for additional instructions. I have reviewed the current psychotropics carefully including drug interactions. Risk benefit ratio favors no change other than as noted in my dictated progress note. Diagnosis: Problems: (1) Mental status change (2) Psychosis (3) Dementia (4) SIADH (syndrome of inappropriate ADH production) (5) Hyponatremia (6) Schizoaffective disorder (7) SCHIZOAFFECTIVE DISORDER, UNSPECIFIED (8) Schizophrenia (9) Bipolar 1 disorder TINY CHAN MD Feb 20, 2017 21:32
[2017-02-21 02:38] VITALS: BP 131/75
[2017-02-21 02:44] VITALS: BP 131/75
[2017-02-21 06:05] VITALS: BP 112/66
[2017-02-21] MEDS: busPIRone 15 MG TABLET. PO SCH (08:56)
[2017-02-21] MEDS: ASPIRIN 81 MG TAB.CHEW PO SCH (08:56)
[2017-02-21] MEDS: PANTOPRAZOLE 40 MG TABLET. PO SCH (08:56)
[2017-02-21] MEDS: HYDROcodone/APAP 5/325MG 1 TAB TABLET PO SCH ×2 (08:57→14:00)
[2017-02-21] MEDS: MAGNESIUM OXIDE 400 MG TABLET PO SCH (08:57)
[2017-02-21] MEDS: amLODIPine BESYLATE 10 MG TABLET PO SCH (08:58)
[2017-02-21] MEDS: SENNOSIDES 8.6 MG TABLET PO SCH (08:58)
[2017-02-21] MEDS: LISINOPRIL 5 MG TABLET. PO SCH (08:58)
[2017-02-21] MEDS: MULTIVITAMIN with MINERAL TABLET. PO SCH (08:58)
[2017-02-21] MEDS: LIDOCAINE (700MG/PATCH) PATCH. TD SCH (08:59)
[2017-02-21] MEDS: ASCORBIC ACID 500 MG TABLET PO SCH (08:59)
[2017-02-21] MEDS: CHOLECALCIFEROL (VITAMIN D3) 1,000 UNIT TABLET PO SCH (08:59)
[2017-02-21] MEDS: CYANOCOBALAMIN (VITAMIN B-12) 1,000 MCG TABLET. PO SCH (08:59)
[2017-02-21] MEDS: MAGNESIUM HYDROXIDE 2,400 MG/30 ML ORAL.SUSP. PO PRN (09:21)
[2017-02-21] MEDS: FAMOTIDINE 20 MG TABLET PO SCH (13:00)
[2017-02-21] MEDS: busPIRone 10 MG TABLET. PO SCH (14:00)
--- NOTE | 2017-02-21 14:32 | PN ---
DATE: 02/19/2017 PSYCHIATRIC PROGRESS NOTE This is a late entry 02/19/2017, covers elements not covered in my initial note 02/19/2017. SUBJECTIVE: The patient remains somewhat helpless, withdrawn, refuses to eat and feed himself from breakfast and lunch. At dinnertime, he is hungry and then feeds himself fully for his entire dinner. Somewhat needy, retaining urine. Straight cath has been attempted and now he will have a Mehta placed. REVIEW OF SYSTEMS: Ambulation impaired, in Broda chair. No CV, , pulmonary, eye system symptoms on review. MENTAL STATUS EXAM: Oriented to himself and situation. Speech moderate latency, often responses monosyllabic. Abstraction fair, computation impaired, language function intact, attention span short. Mood and affect somewhat withdrawn. LABORATORY DATA: Reviewed. IMPRESSION: Unchanged from initial note. PLAN: Continue current psychotropics including the Trileptal as a mood stabilizer, BuSpar, Latuda, Remeron, Risperdal, latter is being increased, may consider adding Wellbutrin as an antidepressant. MAN Cinthia CHAN MD DR: ARON/zena JOB#: [id number] / [id number]
[2017-02-21 16:14] VITALS: BP 121/63
[2017-02-21 17:42] VITALS: BP 117/75
[2017-02-21 18:12] LABS: BASO # 0.1 x10^3/uL (0.0-0.2); BASO % 0 % (0-3); EOS # 0.1 x10^3/uL (0.0-0.7); EOS % 0 % (0-3); HEMATOCRIT 45.7 % (39.0-53.0); HEMOGLOBIN 15.3 g/dL (13.0-17.5); LYMPH # 1.6 x10^3/uL (1.0-4.8); LYMPH % 9 % (24-48); MEAN CORPUSCULAR HEMOGLOBIN 29 pg (25-35); MEAN CORPUSCULAR HGB CONC 33 g/dL (31-37); MEAN CORPUSCULAR VOLUME 87 fL (79-100); MONO # 1.3 x10^3/uL (0.0-1.1); MONO % 7 % (0-9); NEUT % 83 % (31-73); PLATELET COUNT 201 x10^3/uL (140-400); RED BLOOD COUNT 5.24 x10^6/uL (4.30-5.70); RED CELL DISTRIBUTION WIDTH 12.7 % (11.5-14.5); WHITE BLOOD COUNT 18.1 x10^3/uL (4.0-11.0)
[2017-02-21] MEDS ORDERED: BUSP10TA PO (18:31)
[2017-02-21] MEDS ORDERED: OXCA600T PO (18:32)
[2017-02-21] MEDS ORDERED: BUPR-192 PO (18:32)
[2017-02-21] MEDS ORDERED: BISA10SU2 RC (18:34)
[2017-02-21] MEDS ORDERED: FAMO20TA5 PO (18:35)
[2017-02-21 18:36] LABS: ALBUMIN 3.8 g/dL (3.4-5.0); ALBUMIN/GLOBULIN RATIO 0.9 (1.0-1.7); CREATININE 1.7 mg/dL (0.7-1.3); GFR 40.7; POTASSIUM 5.1 mmol/L (3.5-5.1); TOTAL BILIRUBIN 0.5 mg/dL (0.2-1.0)
[2017-02-21] MEDS ORDERED: MIRT7.5T8 PO (18:38)
[2017-02-21] MEDS ORDERED: POLY255P PO (18:39)
[2017-02-21] MEDS ORDERED: POLY15DR27 OP (18:39)
[2017-02-21] MEDS ORDERED: LIDODERM TD (18:42)
[2017-02-21] MEDS ORDERED: RISP1TAB43 PO (19:16)
--- NOTE | 2017-02-21 21:06 | PN ---
DATE: 02/20/2017 PSYCHIATRIC PROGRESS NOTE This late entry 02/20/2017 covers elements, not covered in my initial note of 02/20/2017. I met with the patient in the evening of 02/20/2017. The patient has been somewhat dehydrated: Urine is dark with blood in it. He has a Mehta in place. We will defer to Dr. Posada. Previous evening was demanding, helpless, but did feed himself for supper. Ambulation impaired, in Broda chair. REVIEW OF SYSTEMS: No CV, , pulmonary, eye system symptoms on review. Frequently complains of inability to use his arms. He in fact believes that he can feed himself and then does it, and feeds himself very well when he is extremely hungry by suppertime. MENTAL STATUS EXAM: Oriented to himself and situation. Speech is coherent, has some latency. Abstraction fair, computation impaired, language function intact, attention span short. Mood and affect still somewhat withdrawn. LABORATORY DATA: Reviewed. IMPRESSION: Unchanged from initial note. Trileptal was increased to 600 mg b.i.d. PLAN: Continue rest of the psychotropics unchanged. Start Wellbutrin-XL 150 mg p.o. daily. Adjust further as clinically indicated. I feel some of the patients depressive symptoms may make ____ cannot use his extremities. We will adjust Wellbutrin so long if it does not make them more manic. MAN Cinthia CHAN MD DR: ARON/zena JOB#: [id number] / [id number]
[2017-02-21 21:58] LABS: % EOS 1 % (0-5); % LYMPHS 11 % (24-48); % MONOS 1 % (0-10); % SEGS 87 % (35-66); OVALOCYTES OCC; SCHISTOCYTES OCC
[2017-02-21 22:50] LABS: PLT ESTIMATE ADEQUATE (ADEQUATE)
--- NOTE | 2017-02-22 01:16 | PN ---
DATE: 02/18/2017 SUBJECTIVE: The patient denies any new medical or neurological complaints. He continues to complain of weakness of the upper and lower extremities, difficulty to use his arms and feed himself. He does not allow anybody to feed him, but when the tray left in front of him on the table, the patient would feed himself. He also complains of weakness of the right hand. OBJECTIVE: GENERAL: Well-developed, well-nourished white male, not in acute distress. VITAL SIGNS: Blood pressure 119/71, respiratory rate 18, pulse is 67 and regular, temperature 97.8, oxygen saturation 93% on room air. HEENT: Normocephalic, atraumatic, otherwise unremarkable. NECK: Supple. Negative for carotid bruit, lymphadenopathy, or thyromegaly. LUNGS: Clear to A and P. CARDIOVASCULAR: Regular rhythm, normal S1, S2. ABDOMEN: Soft. Bowel sounds positive. EXTREMITIES: Negative for cyanosis, clubbing, or edema. NEUROLOGICAL: Mental Status: The patient is alert and oriented x 3. Speech is fluent. There is no language dysfunction. Memory, judgment, and abstract thinking are intact. The patient denies hallucination or delusion. Cranial nerves grossly intact. Motor examination revealed mild weakness of the right upper extremity compared to the left one. The strength was 5/5 on the left side. Sensory examination revealed normal pinprick and light touch senses throughout. Deep tendon reflexes were symmetric and hypoactive with absent Achilles responses. Gait: The patient has unsteady stance. A KUB x-ray performed was performed on 02/16/2017 because the patient has not had any bowel movements. It revealed no evidence of bowel obstructions. IMPRESSION: 1. Generalized weakness, more prominent on the right side, probably due to previous subcortical infarct. 2. Multiple medical problems include hypertension, hyperlipidemia, and duodenal ulcer. 3. Vitamin D and vitamin B12 deficiencies, osteoarthritis ____. RECOMMENDATIONS: 1. We will continue with current psychiatric and medical care. 2. Physical therapy as tolerated. M Marci HERRERA MD DR: NICOLA/zena JOB#: [id number] / [id number]
--- NOTE | 2017-02-22 01:35 | PN ---
DATE: 02/16/2017 SUBJECTIVE: The patient complains of weakness of both arms and legs. He denies any other neurological complaints. He continues to refuse his medication and he did not finish his medication and meals. However, when his lunch was placed in front of him, he started eating by himself. The patient stated the he cannot use his hands because of severe weakness and pain. He also complains of constipation. He has not had bowel movements since yesterday. OBJECTIVE: GENERAL: Well-developed, well nourished, moderately obese white male, not in acute distress. VITAL SIGNS: Blood pressure 132/72, respiratory rate 16, pulse is 72, temperature is 98, oxygen saturation 93% on room air. HEENT: Normocephalic, atraumatic, otherwise unremarkable. NECK: Supple. Negative for carotid bruit, lymphadenopathy, JVD or thyromegaly. LUNGS: Clear to A and P. CARDIOVASCULAR: Regular rate and rhythm, normal S1, S2. EXTREMITIES: Negative for cyanosis, clubbing or pitting edema. NEUROLOGICAL EXAM: Mental Status: The patient is alert and oriented x 3. The speech is fluent. There is no language dysfunction. Memory, judgment, and abstract thinking are intact. The patient denies hallucination or delusion. Cranial nerves are intact and no focal muscle atrophy. The strength is 4/5 in the right upper and lower extremities and 5/5 throughout. Sensory examination: Normal pinprick and light touch senses throughout. Deep tendon reflexes are symmetric and hypoactive with absent Achilles responses. Gait: The patient has unsteady stance. He remains ambulating with a wheelchair. LABORATORY DATA: CBC revealed white blood cells of 7.2, hemoglobin 14.2, hematocrit 41.8, platelet count 177,000. Chemistry revealed sodium of 139, potassium 5.1, chloride 104, CO2 of 28, BUN 24, creatinine 1.5, glucose of 104, calcium 9.4. Liver enzymes are normal. Liver enzymes are normal. Urinalysis on 02/15/2017, revealed negative nitrates and negative leukocyte esterase, and occasional white blood cells, no bacteria. IMPRESSION: 1. Generalized weakness, but more prominent on the right side, probably due to previous stroke. 2. Multiple medical problems include hypertension, hyperlipidemia, duodenal ulcer, vitamin B12 and vitamin D deficiency, and benign prostate hypertrophy. 3. Multiple psychiatric problems including schizoaffective disorder, anxiety, depressions, and disruptive behaviors. RECOMMENDATIONS: Continue with the current medical and psychiatric care. M Marci HERRERA MD DR: NICOLA/zena JOB#: [id number] / [id number]
--- NOTE | 2017-02-22 01:47 | CONS ---
DATE OF CONSULTATION: 02/14/2017 NEUROLOGY CONSULTATION REFERRING PHYSICIAN: Jose Cotton M.D. REASON FOR CONSULTATION: Recent history of stroke. HISTORY OF PRESENT ILLNESS: This is a 66-year-old male, who was admitted through Emergency Room on 02/09/2017 on account of behavior disturbances described as disruptive psychotic behavior. The patient has been more violent abusing his medications and bumping his wheelchair into others, has been verbally abusive to the staff and difficult to manage on outpatient basis care. Neuro consult was requested because the patient has had a history of stroke in the last few months resulted in right hemiparesis. Currently, the [facility] is in the [facility]. He denies headaches, visual disturbances, nausea, vomiting, chest pain, shortness of breath or palpitation, dysarthria or dysphagia or vertigo. PAST MEDICAL HISTORY: Significant for schizoaffective disorder, progressive dementia, anxiety, depression and behavior disturbances, history of stroke resulted in right hemiparesis with mild residual deficit, osteoarthritis, hyperlipidemia, hypertension, atherosclerotic heart disease, dysphagia, duodenal ulcer with hemorrhage. PAST SURGICAL HISTORY: None. SOCIAL HISTORY: The patient denies smoking, alcohol drinking, or illicit drug use. CURRENT HOME MEDICATIONS: Bupropion 150 mg daily, Trileptal 600 mg b.i.d., Risperdal 1 mg at bedtime, Dulcolax 10 mg daily for constipation, olanzapine 2.5 mg q. 2 hours p.r.n. for anxiety and agitation, Remeron 7.5 mg at bedtime, buspirone 10 mg daily, lidocaine patches, Flomax 0.4 mg at bedtime, Lipitor 5 mg at bedtime, melatonin 6 mg at bedtime, Pepcid 20 mg daily, multivitamins, Protonix 40 mg p.o. daily, milk of magnesia, lisinopril 5 mg daily, Lortab 5/325 mg t.i.d. for pain, vitamin B12 1000 mcg, vitamin D 2000 units daily, aspirin 81 mg daily, vitamin C 500 mg b.i.d., BuSpar 15 mg b.i.d., Zofran 8 mg q.i.d. p.r.n. for nausea and vomiting, artificial tears, MiraLax 17 gram every 24 hours p.r.n. for constipation, Imodium 2 mg q.6h. p.r.n. for diarrhea. ALLERGIES: NSAIDs, PENICILLIN, TRAZODONE, VANCOMYCIN AND ZIPRASIDONE. REVIEW OF SYSTEMS: 10-point review of system was performed as mentioned above in history of present illness. PHYSICAL EXAMINATION: GENERAL: A moderately obese white male, not in acute distress. He weighs 220 pounds. VITAL SIGNS: Blood pressure 122/76, respiratory rate 18, pulse is 81, temperature 98.4, oxygen saturation 97% on room air. HEENT: Normocephalic, atraumatic, otherwise unremarkable. NECK: Supple. Negative for carotid bruit, lymphadenopathy or thyromegaly. LUNGS: Clear to A and P. CARDIOVASCULAR: Regular rate and rhythm, normal S1, S2. There is no S3, S4 or murmur. ABDOMEN: Soft. Bowel sounds positive. EXTREMITIES: Negative for cyanosis, clubbing or pitting edema. NEUROLOGIC: 1. MENTAL STATUS: The patient is alert and oriented x 3. Speech is fluent. There is no language dysfunction. Memory, judgment, and abstract thinking are impaired. Attention span is short. The patient recalls 1/3 immediately and after 1 and 3 minutes. 2. CRANIAL NERVES: Visual flores are full. The pupils are reactive to light and accommodation. Extraocular movements are intact. There is no nystagmus. There is no facial motor or sensory deficit. Hearing is intact bilaterally. The palate is elevated symmetrically. Sternocleidomastoid muscles are powerful bilaterally. The patient shrugs his shoulders symmetrically, protrudes his tongue in the midline without fasciculation or atrophy. 3. MOTOR: No focal muscle bulk was seen. The tone is normal. The strength is 4/5 in the right upper and lower extremity and 5/5 throughout. 4. SENSORY: Examination revealed diminished pinprick and light touch senses over the right upper and lower extremities in all dermatomes. Otherwise, normal pinprick, light touch, vibratory and position senses on the left side. Deep tendon reflexes were symmetric and hypoactive without pathologic responses. Gait: The patient has unsteady stance. He spends most of the time in the chair. DIAGNOSTIC DATA: Nonenhanced head CT scan revealed evidence of chronic small vessel ischemic disease with generalized atrophy, otherwise, no acute intracranial process. LABORATORY DATA: CBC revealed white blood cells of 6.1 thousand, hemoglobin 14.2, hematocrit 41.3, platelet count 176,000. Chemistry is pending. Coagulopathy. D-dimer is 0.42. Otherwise, unremarkable. Urine drug screen is positive for opiates. IMPRESSION: 1. History of recent stroke resulting in right hemiparesis with improvement of his motor deficit. 2. Multiple medical problems include hypertension, hyperlipidemia, osteoarthritis, and atherosclerotic heart disease. 3. Multiple psychiatric problems include schizoaffective disorder, bipolar type; anxiety, dementia, depression and behavior disturbances. RECOMMENDATIONS: 1. Continue with current medical and psychiatric care. 2. Physical therapy as tolerated. 3. Continue with current home medications. M Marci HERRERA MD DR: NICOLA/zena JOB#: [id number] / [id number]
[2017-02-22] MEDS ORDERED: buPROPion XL 150 MG TAB.ER.24H PO SCH (09:00)
--- NOTE | 2017-02-22 11:46 | DS ---
DATE OF DISCHARGE: 02/21/2017 PSYCHIATRIC PROGRESS NOTE This is a late entry, date of service 02/21/2017, covers elements not covered in my initial note 02/21/2017. REASON FOR ADMISSION: Please refer to the admission history for details. Briefly, the patient is a 66-year-old male from [facility] with diagnosis of schizoaffective disorder, bipolar type, referred back to us for yelling, disruptive behaviors, refusing medications, bumping others with his wheelchair, verbally abusive to staff. He has failed outpatient psychiatric interventions. SIGNIFICANT FINDINGS AND CLINICAL COURSE: Following admission, the patient was seen daily individually by myself, followed medically per Dr. Chacon/Dr. Posada. He was quite somatically preoccupied, convinced he could not walk or do anything for himself and not even feed himself and was quite psychotic. Adjustments were made in his psychotropics and from a psychiatric standpoint, he seemed to be doing better on a combination of Trileptal 600 mg twice a day, melatonin 6 mg at bedtime, BuSpar 15 mg b.i.d., 10 mg at 1400, Latuda 120 mg at bedtime, Remeron 7.5 mg at bedtime, Risperdal 1 mg p.o. at bedtime, Zyprexa p.r.n., Wellbutrin XL 150 mg daily. He was gradually able to feed himself at least 1 meal a day, gradually doing more for himself rest of the day, but at this stage he seemed to develop urosepsis with significant blood in his urine and was transferred to Dr. Posada for further management. REVIEW OF SYSTEMS: Prior to discharge impaired ambulation, in Broda chair. No CV, , pulmonary, eye, ENT system symptoms on review. Reliability poor. MENTAL STATUS EXAM: Oriented to himself and situation. Speech coherent, has some latency. Abstraction fair, computation impaired, language function intact. Memory is impaired. Associations at times loose. LABORATORY DATA: Reviewed. FINAL DIAGNOSES: Schizoaffective disorder, bipolar type, mixed with psychotic features, in partial remission; anxiety disorder, unspecified; major neurocognitive disorder, Alzheimer, vascular with depression, delusion; impulse control disorder, unspecified; urosepsis. Rest unchanged from admission. DISCHARGE MEDICATIONS: Prior to discharge, Trileptal and Risperdal were discontinued. He was maintained on the rest of his psychotropics. Please refer to the [facility] for detail medication list. Psychiatric and Medical followup on per Dr. Posada. Time for discharge day management greater than 30 minutes. MAN Cinthia CHAN MD DR: ARON/zena JOB#: [id number] / [id number]
--- NOTE | 2017-02-22 22:06 | DS ---
DATE OF DISCHARGE: 02/21/2017 ADDENDUM This addendum is to specify the taper of one of his atypical antipsychotics, which he was taking at discharge to minimize the risks associated with this. At discharge, he was on Latuda 120 mg a day, Risperdal 1 mg p.o. at bedtime along with Zyprexa p.r.n. Once the patient is back at the nursing facility and stable for 30 days, attempt should be made to taper and stop his Risperdal. Risperdal could drop down to 0.75 mg p.o. at bedtime for 30 days, 0.5 mg p.o. at bedtime for 30 days, 0.25 mg p.o. at bedtime for 30 days and discontinued. This would leave him on 1 atypical. MAN Cinthia CHAN MD DR: ARON/zena JOB#: [id number] / [id number]
== END 2017-02-21 19:46 | disposition short-term general hospital (02) | DRG 885 ==
LOC: ER 19:47 → GEROPSY 22:12
PROVIDERS: ADMIT Psychiatry & Neurology Psychiatry; ATTEND Psychiatry & Neurology Psychiatry
DX: F25.0 Schizoaffective disorder, bipolar type (principal); L89.159 Pressure ulcer of sacral region, unspecified stage; E22.2 Syndrome of inappropriate secretion of antidiuretic hormone; G82.20 Paraplegia, unspecified; F01.51 Vascular dementia, unspecified severity, with behavioral disturbance; G30.9 Alzheimer's disease, unspecified; J44.9 Chronic obstructive pulmonary disease, unspecified; E86.0 Dehydration; F02.81 Dementia in other diseases classified elsewhere, unspecified severity, with behavioral disturbance; I69.351 Hemiplegia and hemiparesis following cerebral infarction affecting right dominant side; M13.88 Other specified arthritis, other site; F22 Delusional disorders; E53.8 Deficiency of other specified B group vitamins; E55.9 Vitamin D deficiency, unspecified; E78.5 Hyperlipidemia, unspecified; F41.9 Anxiety disorder, unspecified; F63.9 Impulse disorder, unspecified; I10 Essential (primary) hypertension; I25.10 Atherosclerotic heart disease of native coronary artery without angina pectoris; K26.9 Duodenal ulcer, unspecified as acute or chronic, without hemorrhage or perforation; K59.00 Constipation, unspecified; F39 Unspecified mood [affective] disorder; N40.0 Benign prostatic hyperplasia without lower urinary tract symptoms; Z66 Do not resuscitate; Z72.0 Tobacco use; Z79.82 Long term (current) use of aspirin; Z79.899 Other long term (current) drug therapy; Z87.11 Personal history of peptic ulcer disease; Z88.6 Allergy status to analgesic agent; Z88.1 Allergy status to other antibiotic agents; Z88.0 Allergy status to penicillin; Z88.8 Allergy status to other drugs, medicaments and biological substances
CPT/HCPCS: 36415; 70450; 74000; 80048; 80053; 80061; 80076; 80307; 81001; 82553; 83036; 83605; 83735; 83880; 84436; 84443; 84480; 84484; 85007; 85025; 85610; 85651; 85730; 86592; 86593; 87086; 87186; 93005; 99285-25; G0479

== ENCOUNTER 2017-02-21 19:11 | Inpatient (IN) | payer MEDICARE, OTHER ==
[~2017-02-21] VITALS: Ht 180.3 cm; Wt 97.7 kg
[~2017-02-21 19:11] MED LIST changes: +ACET160S PO; +ASCO500T3 PO; +ASPI-630 PO; +ATOR10TA60 PO; +BISA10SU2 RC; +BUPR-192 PO; +BUSP10TA PO; +BUSP15TA PO; +CYAN10005 PO; +DEXT1DRO7 OP; +FAMO20TA5 PO; +HYDR-971 PO; +LIDODERM TD; +LOPE2CAP3 PO; +MAG360OR24 PO; +MAGN400T3 PO; +MELA3TAB2 PO; +MIRT7.5T8 PO; +MULT-460 PO; +OLAN2.5T3 PO; +ONDA4TAB11 PO; +OXCA150T3 PO; +OXCA600T PO; +PANT40TA3 PO; +POLY15DR27 OP; +POLY17PO5 PO; +POLY255P PO; +RANI150T2 PO; +SENN-79 PO; +TAMS0.4C97 PO
[2017-02-21] MEDS ORDERED: RISP1TAB43 PO (19:16)
[2017-02-21 19:45] VITALS: BP 125/74
[2017-02-21] MEDS: IV NORMAL SALINE 1,000ML 1,000 ML IV PRN (20:00)
[2017-02-21 21:00] VITALS: BP 109/72
[2017-02-22] VITALS (7 sets, daily range): BP systolic 93–141; BP diastolic 54–72
[2017-02-22 08:19] LABS: ALBUMIN 3.1 g/dL (3.4-5.0); ALBUMIN/GLOBULIN RATIO 0.8 (1.0-1.7); CREATININE 1.4 mg/dL (0.7-1.3); GFR 50.9; MAGNESIUM 2.7 mg/dL (1.8-2.4); POTASSIUM 4.8 mmol/L (3.5-5.1); TOTAL BILIRUBIN 0.3 mg/dL (0.2-1.0); TOTAL PROTEIN 6.9 g/dL (6.4-8.2)
[2017-02-22 08:46] LABS: BASO # 0.1 x10^3/uL (0.0-0.2); BASO % 1 % (0-3); EOS # 0.2 x10^3/uL (0.0-0.7); EOS % 2 % (0-3); HEMATOCRIT 39.5 % (39.0-53.0); HEMOGLOBIN 13.3 g/dL (13.0-17.5); LYMPH # 2.5 x10^3/uL (1.0-4.8); LYMPH % 22 % (24-48); MEAN CORPUSCULAR HEMOGLOBIN 30 pg (25-35); MEAN CORPUSCULAR HGB CONC 34 g/dL (31-37); MEAN CORPUSCULAR VOLUME 88 fL (79-100); MONO # 0.9 x10^3/uL (0.0-1.1); MONO % 8 % (0-9); NEUT # 7.6 x10^3uL (1.8-7.7); NEUT % 67 % (31-73); PLATELET COUNT 178 x10^3/uL (140-400); RED BLOOD COUNT 4.49 x10^6/uL (4.30-5.70); RED CELL DISTRIBUTION WIDTH 12.8 % (11.5-14.5); WHITE BLOOD COUNT 11.3 x10^3/uL (4.0-11.0)
[2017-02-22] MEDS ORDERED: IOHEXOL 300 MG/ML 75 ML VIAL. IV ONE (09:15)
--- NOTE | 2017-02-22 10:29 | RAD ---
Indication: Gross hematuria, apparently after Mehta catheter replacement Technique: Precontrast imaging through the kidneys was performed. Portal venous phase imaging through the abdomen and pelvis was performed. 50 mL of intravenous Omnipaque 300 was administered without complication. No comparison is available. One or more of the following individualized dose reduction techniques were utilized for this examination: 1. Automated exposure control 2. Adjustment of the mA and/or kV according to patient size 3. Use of iterative reconstruction technique Findings: Precontrast imaging through the kidneys demonstrates no definite calculus within the collecting systems. Calcifications on the right are favored to be vascular. 3.5 cm presumed complex cyst on the left demonstrates no enhancement between pre and portal venous phase imaging. Subcentimeter probable cysts in each kidney are too small to characterize. Kidneys are symmetrically perfused. Neither ureter is dilated. There is air within the bladder presumably from catheter placement. Bladder is only minimally distended limiting evaluation. The bladder wall does appear thickened allowing for the degree of distention. There is stranding of the perivesical fat. There is atelectasis or scarring in the left lung base. There is no pleural effusion. There are coronary artery calcifications. Liver is grossly unremarkable. There is cholelithiasis. Gallbladder is mildly distended. There is no adjacent stranding or fluid apparent. Spleen is not enlarged. Pancreas and adrenals are unremarkable. There is atheromatous disease in the abdominal aorta without aneurysm. There is no small bowel obstruction or definite mural thickening. There is increased stool in the colon. Lack of oral contrast limits evaluation of bowel. There is no free pelvic fluid. Prostate is borderline prominent. Calcified phleboliths are noted. There are degenerative changes in the spine. Impression: 1. Mehta catheter is in position. Bladder is not well distended although the bladder wall appears thickened even allowing for the degree of distention. There is also stranding in the perivesical fat. This could be secondary to cystitis. 2. Probable complex left renal cyst. 3. Calcifications in the right kidney are favored to be vascular. 4. Cholelithiasis. Gallbladder is mildly distended. If there is concern for acute cholecystitis, consider hepatobiliary scintigraphy.
[2017-02-22] MEDS ORDERED: BISACODYL 10 MG SUPP.RECT RC PRN (15:45)
[2017-02-22] MEDS ORDERED: POLYETHYLENE GLYCOL 3350 17 GM PACKET. PO PRN (15:45)
[2017-02-22] MEDS ORDERED: POLYVINYL ALCOHOL 1.4% OPHTH SOLUTION 15ML BOTTLE. OU PRN (15:45)
[2017-02-22] MEDS ORDERED: MAGNESIUM HYDROXIDE 2,400 MG/30 ML ORAL.SUSP. PO PRN (15:45)
[2017-02-22] MEDS ORDERED: ACETAMINOPHEN 325 MG TABLET PO PRN (15:45)
[2017-02-22] MEDS ORDERED: LOPERAMIDE 2 MG CAPSULE PO PRN (15:45)
[2017-02-22] MEDS ORDERED: METHYL SALICYLATE/MENTHOL TOPICAL OINTMENT 29GM TUBE. TP PRN (16:30)
[2017-02-22] MEDS ORDERED: ONDANSETRON ODT 4 MG TAB.RAPDIS PO PRN (16:30)
--- NOTE | 2017-02-22 17:07 | HP ---
ADMIT DATE: 02/21/2017 REASON FOR ADMISSION TO THE ICU: This is a 66-year-old male who was transferred down from the [facility] for urosepsis or for urinary tract infections. He was not acting right and was mildly hypotensive and so was transferred down for further care. PAST MEDICAL HISTORY: Schizophrenia, hypertension, COPD, bipolar disorder, hyperlipidemia, anxiety, major depressive disorder, delusional disorder, tobacco use disorder. He has also had previous admissions to the [facility] prior to this one for inappropriate sexual gestures at the nursing facility. CURRENT MEDICATIONS: Reviewed. ALLERGIES: TRAZODONE and ZIPRASIDONE. SOCIAL HISTORY: The patient's recently . He has smoked, but probably is unable to smoke currently because of his poor health. No alcohol. Used to live in [place], no longer works. REVIEW OF SYSTEMS: The patient was quite groggy, but is quite sleepy, but did say that he was hungry and wanted something to drink, no other complaints. OBJECTIVE: VITAL SIGNS: T-max 98.8, blood pressure lowest of 94/61 this morning 112/60, pulse 66, respirations 16, pulse ox 94% on room air. Height 71 inches, weight 214 pounds. HEENT: The patient's face is flushed. He has a little bit of debris on the right eye, but his eyes are clear. Nose patent. Tongue is very dry. NECK: Supple. LUNGS: Clear. CARDIOVASCULAR: Regular rhythm and rate. ABDOMEN: Soft, nontender. EXTREMITIES: Without edema. GENITOURINARY: He has a Mehta catheter in place with gross bloody urine. LABORATORY DATA: Also, a large amount of blood, positive nitrites, 5-10 white cells. His white blood cell count is 11.3. Chemistry: Creatinine is 1.4, magnesium is 2.7. ASSESSMENT: 1. Sepsis with urinary tract infection. 2. Dehydration. 3. Acute kidney injury. 4. Hypermagnesemia. 5. Fall risk. 6. Anxiety. 7. Schizoaffective disorder. 8. Hypertension. 9. Chronic obstructive pulmonary disease. 10. Previous tobacco use disorder. The patient's abdominal pelvis CT shows thickened bladder wall, probable secondary to cystitis, also left complex cyst, left renal cyst. He also has gallstones and gallbladder, mildly distended. The patient was not tender and has been n.p.o. PLAN: IV fluids, IV antibiotics, slowly resume his antipsychotics and we will monitor him closely. JHON STUBBS DO DR: TRUDY/zena JOB#: [id number] / [id number]
--- NOTE | 2017-02-22 18:38 | PDOC ---
Exam Note: Rob Note: Please also refer to the separate dictated note~for this date of service dictated separately.~Patient seen individually. Discussed the patient with Nursing staff reviewed the chart.~Reviewed interim history and current functioning. Reviewed vital signs,~Labs/ Radiology~and current medications noted below. Continue current treatment with the changes noted in the dictated addendum note Assessment: Vital Signs: Vital Signs Date Time Temp Pulse Resp B/P (MAP) Pulse Ox O2 Delivery O2 Flow Rate FiO2 02/22/17 15:11 98.8 66 16 112/60 (77) 94 Room Air I&O Intake and Output 02/22/17 07:00 Intake Total 2050 ml Output Total 650 ml Balance 1400 ml IV Total 2050 ml Output Urine Total 650 ml Labs: Laboratory Tests Test 02/22/17 07:58 White Blood Count 11.3 x10^3/uL (4.0-11.0) H Red Blood Count 4.49 x10^6/uL (4.30-5.70) Hemoglobin 13.3 g/dL (13.0-17.5) Hematocrit 39.5 % (39.0-53.0) Mean Corpuscular Volume 88 fL (79-100) Mean Corpuscular Hemoglobin 30 pg (25-35) Mean Corpuscular Hemoglobin Concent 34 g/dL (31-37) Red Cell Distribution Width 12.8 % (11.5-14.5) Platelet Count 178 x10^3/uL (140-400) Neutrophils (%) (Auto) 67 % (31-73) Lymphocytes (%) (Auto) 22 % (24-48) L Monocytes (%) (Auto) 8 % (0-9) Eosinophils (%) (Auto) 2 % (0-3) Basophils (%) (Auto) 1 % (0-3) Neutrophils # (Auto) 7.6 x10^3uL (1.8-7.7) Lymphocytes # (Auto) 2.5 x10^3/uL (1.0-4.8) Monocytes # (Auto) 0.9 x10^3/uL (0.0-1.1) Eosinophils # (Auto) 0.2 x10^3/uL (0.0-0.7) Basophils # (Auto) 0.1 x10^3/uL (0.0-0.2) Sodium Level 141 mmol/L (136-145) Potassium Level 4.8 mmol/L (3.5-5.1) Chloride Level 107 mmol/L (98-107) Carbon Dioxide Level 25 mmol/L (21-32) Anion Gap 9 (6-14) Blood Urea Nitrogen 25 mg/dL (8-26) Creatinine 1.4 mg/dL (0.7-1.3) H Estimated GFR (Cockcroft-Gault) 50.9 BUN/Creatinine Ratio 18 (6-20) Glucose Level 106 mg/dL (70-99) H Lactic Acid Level 0.8 mmol/L (0.4-2.0) Calcium Level 9.0 mg/dL (8.5-10.1) Magnesium Level 2.7 mg/dL (1.8-2.4) H Total Bilirubin 0.3 mg/dL (0.2-1.0) Aspartate Amino Transferase (AST) 18 U/L (15-37) Alanine Aminotransferase (ALT) 23 U/L (16-63) Alkaline Phosphatase 70 U/L (46-116) Total Protein 6.9 g/dL (6.4-8.2) Albumin 3.1 g/dL (3.4-5.0) L Albumin/Globulin Ratio 0.8 (1.0-1.7) L Current Medications: Meds: Current Medications Ceftriaxone Sodium 1 gm/ Sodium Chloride 50 ml @ 100 mls/hr Q24H IV Last administered on 02/21/17 20:35; Start 02/21/17 at 21:00 Sodium Chloride 1,000 ml @ 100 mls/hr Q10H PRN IV SEE I/O RECORD Last administered on 02/21/17t 20:00; Start 02/21/17 at 21:15 Iohexol (Omnipaque 300 Mg/ml) 75 ml 1X ONCE IV ; Start 02/22/17 at 09:15; Stop 02/22/17 at 09:16; Status DC Acetaminophen (Tylenol) 650 mg PRN Q6HRS PRN PO PAIN / TEMP; Start 02/22/17 at 15:45 Ascorbic Acid (Vitamin C) 500 mg BID PO ; Start 02/22/17 at 21:00 Aspirin (Children'S Aspirin) 81 mg DAILY PO ; Start 02/23/17 at 09:00 Atorvastatin Calcium (Lipitor) 5 mg QHS PO ; Start 02/22/17 at 21:00 Bisacodyl (Dulcolax Supp) 10 mg PRN DAILY PRN RC CONSTIPATION; Start 02/22/17 at 15:45 Bupropion HCl (Wellbutrin Xl) 150 mg DAILY PO ; Start 02/23/17 at 09:00 Buspirone HCl (Buspar) 10 mg DAILY@1400 PO ; Start 02/23/17 at 14:00 Buspirone HCl (Buspar) 15 mg BID PO ; Start 02/22/17 at 21:00 Vitamin D (Vitamin D3) 2,000 unit DAILY PO ; Start 02/23/17 at 09:00 Cyanocobalamin (Vitamin B-12) 1,000 mcg DAILY PO ; Start 02/23/17 at 09:00 Famotidine (Pepcid) 20 mg AFTRNOON PO ; Start 02/23/17 at 13:00 Loperamide HCl (Imodium) 2 mg PRN Q6HRS PRN PO DIARRHEA; Start 02/22/17 at 15: 45 Magnesium Hydroxide (Milk Of Magnesia) 2,400 mg PRN Q24HRS PRN PO CONSTIPATION ; Start 02/22/17 at 15:45 Magnesium Oxide (Magnesium Oxide) 400 mg BID PO ; Start 02/22/17 at 21:00 Mirtazapine (Remeron) 7.5 mg QHS PO ; Start 02/22/17 at 21:00 Olanzapine (ZyPREXA ZYDIS) 2.5 mg PRN Q2HR PRN PO psychosis; Start 02/22/17 at 15:45 Pantoprazole Sodium (Protonix) 40 mg DAILYAC PO ; Start 02/23/17 at 07:30 Polyethylene Glycol (miraLAX) 17 gm PRN Q24HRS PRN PO CONSTIPATION; Start 01/29 at 15:45 Artificial Tears (Artificial Tears) 1 drop PRN Q2HR PRN OU DRY EYE; Start 01/29 at 15:45 Risperidone (RisperDAL) 1 mg QHS PO ; Start 02/22/17 at 21:00 Sennosides (Senna) 8.6 mg BID PO ; Start 02/22/17 at 21:00 Tamsulosin HCl (Flomax) 0.4 mg HS PO ; Start 02/22/17 at 21:00 Non-Formulary Medication 120 mg HS PO ; Start 02/22/17 at 21:00; Status UNV Melatonin 6 mg QHS PO ; Start 02/22/17 at 21:00 Multi-Ingredient Ointment (Analgesic [place]) 1 shaheen PRN QID PRN TP MUSCLE PAIN; Start 02/22/17 at 16:30 Multivitamins/ Calcium (Thera-M Plus) 1 tab DAILY PO ; Start 02/23/17 at 09:00 Ondansetron HCl (Zofran Odt) 8 mg PRN QID PRN PO NAUSEA/VOMITING; Start at 16:30 Oxcarbazepine (Trileptal) 600 mg BID PO ; Start 02/22/17 at 21:00 Lidocaine (Lidoderm) 1 patch DAILY TD ; Start 02/23/17 at 09:00 Active Scripts Active Reported Risperdal (Risperidone) 1 Mg Tablet 1 Tab PO QHS [Lidoderm] 700 Mg TD DAILY Artificial Tears (Polyvinyl Alcohol) 15 Ml Drops 1 Drop OP PRN Q2HR PRN Mirtazapine 7.5 Mg Tablet 7.5 Mg PO QHS Famotidine 20 Mg Tablet 20 Mg PO AFTRNOON Bisacodyl 10 Mg Supp.rect 10 Mg RC PRN DAILY PRN Oxcarbazepine 600 Mg Tablet 600 Mg PO BID Bupropion Xl (Bupropion Hcl) 150 Mg Tab.er.24h 150 Mg PO DAILY Buspirone Hcl 10 Mg Tablet 10 Mg PO DAILY@1400 Vitamin B-12 (Cyanocobalamin (Vitamin B-12)) 1,000 Mcg Tablet 1,000 Mcg PO DAILY Senna (Sennosides) 8.6 Mg Tablet 1 Tab PO BID Protonix (Pantoprazole Sodium) 40 Mg Tablet.dr 40 Mg PO DAILYAC [place] 5-325 Tablet (Hydrocodone Bit/Acetaminophen) 1 Each Tablet 1 Tab PO TID [place] 5-325 Tablet (Hydrocodone Bit/Acetaminophen) 1 Each Tablet 1 Tab PO PRN Q4HRS PRN Alum-Mag Hydroxide-Simeth Liq (Mag Hydrox/Al Hydrox/Simeth) 360 Ml Oral.susp 30 Ml PO PRN Q4HRS PRN Multiple Vitamin (Multivitamin With Minerals) 1 Each Tablet 1 Each PO DAILY Miralax (Polyethylene Glycol 3350) 17 Gm Powd.pack 17 Gm PO PRN Q24HRS PRN Milk Of Magnesia (Magnesium Hydroxide) 400 Mg/5 Ml Oral.susp 2,400 Mg PO PRN Q24HRS PRN Melatonin 3 Mg Tablet 6 Mg PO HS Magnesium Oxide 400 Mg Tablet 400 Mg PO BID Anti-Diarrheal (Loperamide Hcl) 2 Mg Capsule 2 Mg PO PRN Q6HRS PRN Lisinopril 5 Mg Tablet 5 Mg PO DAILY Latuda (Lurasidone Hcl) 80 Mg Tablet 120 Mg PO HS Flomax (Tamsulosin Hcl) 0.4 Mg Cap.er.24h 0.4 Mg PO HS Vitamin D3 (Cholecalciferol (Vitamin D3)) 1,000 Unit Tablet 2,000 Unit PO DAILY Atorvastatin Calcium 10 Mg Tablet 5 Mg PO QHS Aspirin 81 Mg Tab.chew 81 Mg PO DAILY Ascorbic Acid 500 Mg Tablet 500 Mg PO BID Buspirone Hcl 15 Mg Tablet 15 Mg PO BID Zyprexa Zydis (Olanzapine) 5 Mg Tab.rapdis 2.5 Mg PO PRN Q2HR PRN Dissolve in mouth Zofran Odt (Ondansetron) 8 Mg Tab.rapdis 8 Mg PO QID PRN Dissolve on tongue [place] Ultra Strength Crm (Methyl Salicylate/Menth/Camph) 57 Gm Cream..g. 1 Shaheen TP PRN QID PRN Tylenol (Acetaminophen) 325 Mg Tablet 650 Mg PO PRN Q6HRS PRN Max Acetaminophen dose is 4000mg in 24 hours from all sources for adults. Amlodipine Besylate 10 Mg Tablet 10 Mg PO DAILY Hold for SBP less than 100. After a held dose, reassess in 2 hours. If SBP is above threshold, administer dose as ordered. If SBP is below threshold, contact provider for additional instructions. I have reviewed the current psychotropics carefully including drug interactions. Risk benefit ratio favors no change other than as noted in my dictated progress note. Diagnosis: Problems: (1) Bipolar 1 disorder (2) Schizophrenia (3) SCHIZOAFFECTIVE DISORDER, UNSPECIFIED (4) Schizoaffective disorder TINY CHAN MD Feb 22, 2017 18:38
[2017-02-22] MEDS: ASCORBIC ACID 500 MG TABLET PO SCH (20:52)
[2017-02-22] MEDS: MIRTAZAPINE 7.5 MG TABLET. PO SCH (20:52)
[2017-02-22] MEDS: TAMSULOSIN 0.4 MG CAP.ER.24H. PO SCH (20:52)
[2017-02-22] MEDS: risperiDONE 1 MG TABLET. PO SCH (20:52)
[2017-02-22] MEDS: SENNOSIDES 8.6 MG TABLET PO SCH (20:52)
[2017-02-22] MEDS: ATORVASTATIN CALCIUM 10 MG TABLET. PO SCH (20:53)
[2017-02-22] MEDS: MAGNESIUM OXIDE 400 MG TABLET PO SCH (20:53)
[2017-02-22] MEDS: MELATONIN 3 MG TABLET PO SCH (20:53)
[2017-02-22] MEDS: LURASIDONE 40 MG TABLET. PO SCH (20:53)
[2017-02-22] MEDS: busPIRone 15 MG TABLET. PO SCH (20:54)
[2017-02-23 00:11] VITALS: BP 127/61
[2017-02-23 00:39] VITALS: BP 117/68
[2017-02-23] MEDS: IV NORMAL SALINE 1,000ML 1,000 ML IV PRN (01:17)
[2017-02-23 05:03] VITALS: BP 147/78
[2017-02-23 06:15] LABS: BASO % 0 % (0-3); EOS # 0.5 x10^3/uL (0.0-0.7); EOS % 4 % (0-3); HEMATOCRIT 36.2 % (39.0-53.0); HEMOGLOBIN 12.3 g/dL (13.0-17.5); LYMPH # 2.7 x10^3/uL (1.0-4.8); LYMPH % 21 % (24-48); MEAN CORPUSCULAR HEMOGLOBIN 30 pg (25-35); MEAN CORPUSCULAR HGB CONC 34 g/dL (31-37); MEAN CORPUSCULAR VOLUME 88 fL (79-100); MONO # 0.9 x10^3/uL (0.0-1.1); MONO % 8 % (0-9); NEUT # 8.4 x10^3uL (1.8-7.7); NEUT % 67 % (31-73); PLATELET COUNT 159 x10^3/uL (140-400); RED BLOOD COUNT 4.12 x10^6/uL (4.30-5.70); RED CELL DISTRIBUTION WIDTH 12.6 % (11.5-14.5); WHITE BLOOD COUNT 12.6 x10^3/uL (4.0-11.0)
[2017-02-23 06:29] LABS: ALBUMIN 2.9 g/dL (3.4-5.0); ALBUMIN/GLOBULIN RATIO 0.8 (1.0-1.7); CALCIUM 8.7 mg/dL (8.5-10.1); CREATININE 1.2 mg/dL (0.7-1.3); GFR 60.8; POTASSIUM 4.4 mmol/L (3.5-5.1); TOTAL BILIRUBIN 0.3 mg/dL (0.2-1.0); TOTAL PROTEIN 6.5 g/dL (6.4-8.2)
[2017-02-23] MEDS: PANTOPRAZOLE 40 MG TABLET. PO SCH (07:30)
[2017-02-23] MEDS: ASCORBIC ACID 500 MG TABLET PO SCH ×2 (08:06→20:22)
[2017-02-23] MEDS: MAGNESIUM OXIDE 400 MG TABLET PO SCH ×2 (08:07→20:23)
[2017-02-23] MEDS: CYANOCOBALAMIN (VITAMIN B-12) 1,000 MCG TABLET. PO SCH (08:07)
[2017-02-23] MEDS: SENNOSIDES 8.6 MG TABLET PO SCH ×2 (08:07→20:23)
[2017-02-23] MEDS: ASPIRIN 81 MG TAB.CHEW PO SCH (08:07)
[2017-02-23] MEDS: MULTIVITAMIN with MINERAL TABLET. PO SCH (08:07)
[2017-02-23] MEDS: CHOLECALCIFEROL (VITAMIN D3) 1,000 UNIT TABLET PO SCH (08:07)
[2017-02-23] MEDS: LIDOCAINE (700MG/PATCH) PATCH. TD SCH (08:08)
[2017-02-23] MEDS: busPIRone 15 MG TABLET. PO SCH ×2 (09:05→20:23)
[2017-02-23] MEDS: buPROPion XL 150 MG TAB.ER.24H PO SCH (09:06)
[2017-02-23 11:11] VITALS: BP 123/81
[2017-02-23] MEDS ORDERED: FAMOTIDINE 20 MG TABLET PO SCH (13:00)
[2017-02-23] MEDS ORDERED: busPIRone 10 MG TABLET. PO SCH (14:00)
[2017-02-23] MEDS ORDERED: SINCALIDE IV ONE (15:45)
[2017-02-23] MEDS ORDERED: NORMAL SALINE IV ONE (15:45)
[2017-02-23] MEDS ORDERED: ENOXAPARIN 40 MG/0.4 ML DISP.SYRIN. SQ SCH (16:00)
--- NOTE | 2017-02-23 16:48 | RAD ---
Indication: Gallbladder attack. Technique: Hepatobiliary scintigraphy with gallbladder ejection fraction was performed. 5.5 mCi technetium 99m labeled Choletec IV was administered. 1.98 mcg of IV Kinevac was administered and gallbladder ejection fraction then calculated. Findings: There is prompt uptake of radiotracer by the hepatic parenchyma. Gallbladder activity is visualized x 10 m. Gallbladder ejection fraction is calculated at 48%. Impression: Normal hepatobiliary scintigraphy with normal ejection fraction.
--- NOTE | 2017-02-23 17:55 | PDOC ---
Exam Note: Rob Note: Please also refer to the separate dictated note~for this date of service dictated separately.~Patient seen individually. Discussed the patient with Nursing staff reviewed the chart.~Reviewed interim history and current functioning. Reviewed vital signs,~Labs/ Radiology~and current medications noted below. Continue current treatment with the changes noted in the dictated addendum note Assessment: Vital Signs: Vital Signs Date Time Temp Pulse Resp B/P (MAP) Pulse Ox O2 Delivery O2 Flow Rate FiO2 02/23/17 15:02 off unit for gallbladder scan 02/23/17 11:11 98.7 64 20 123/81 (95) 98 1.0 I&O Intake and Output 02/23/17 07:00 Intake Total 2648 ml Output Total 1975 ml Balance 673 ml Intake Oral 1100 ml IV Total 1548 ml Output Urine Total 1975 ml Labs: Laboratory Tests Test 02/23/17 05:54 White Blood Count 12.6 x10^3/uL (4.0-11.0) H Red Blood Count 4.12 x10^6/uL (4.30-5.70) L Hemoglobin 12.3 g/dL (13.0-17.5) L Hematocrit 36.2 % (39.0-53.0) L Mean Corpuscular Volume 88 fL (79-100) Mean Corpuscular Hemoglobin 30 pg (25-35) Mean Corpuscular Hemoglobin Concent 34 g/dL (31-37) Red Cell Distribution Width 12.6 % (11.5-14.5) Platelet Count 159 x10^3/uL (140-400) Neutrophils (%) (Auto) 67 % (31-73) Lymphocytes (%) (Auto) 21 % (24-48) L Monocytes (%) (Auto) 8 % (0-9) Eosinophils (%) (Auto) 4 % (0-3) H Basophils (%) (Auto) 0 % (0-3) Neutrophils # (Auto) 8.4 x10^3uL (1.8-7.7) H Lymphocytes # (Auto) 2.7 x10^3/uL (1.0-4.8) Monocytes # (Auto) 0.9 x10^3/uL (0.0-1.1) Eosinophils # (Auto) 0.5 x10^3/uL (0.0-0.7) Basophils # (Auto) 0.0 x10^3/uL (0.0-0.2) Sodium Level 138 mmol/L (136-145) Potassium Level 4.4 mmol/L (3.5-5.1) Chloride Level 104 mmol/L (98-107) Carbon Dioxide Level 26 mmol/L (21-32) Anion Gap 8 (6-14) Blood Urea Nitrogen 20 mg/dL (8-26) Creatinine 1.2 mg/dL (0.7-1.3) Estimated GFR (Cockcroft-Gault) 60.8 BUN/Creatinine Ratio 17 (6-20) Glucose Level 94 mg/dL (70-99) Calcium Level 8.7 mg/dL (8.5-10.1) Magnesium Level 2.0 mg/dL (1.8-2.4) Total Bilirubin 0.3 mg/dL (0.2-1.0) Aspartate Amino Transferase (AST) 22 U/L (15-37) Alanine Aminotransferase (ALT) 28 U/L (16-63) Alkaline Phosphatase 64 U/L (46-116) Total Protein 6.5 g/dL (6.4-8.2) Albumin 2.9 g/dL (3.4-5.0) L Albumin/Globulin Ratio 0.8 (1.0-1.7) L Current Medications: Meds: Current Medications Ceftriaxone Sodium 1 gm/ Sodium Chloride 50 ml @ 100 mls/hr Q24H IV Last administered on 02/22/17 20:55; Start 02/21/17 at 21:00 Sodium Chloride 1,000 ml @ 100 mls/hr Q10H PRN IV SEE I/O RECORD Last administered on 02/23/17 01:17; Start 02/21/17 at 21:15 Iohexol (Omnipaque 300 Mg/ml) 75 ml 1X ONCE IV ; Start 02/22/17 at 09:15; Stop 02/22/17 at 09:16; Status DC Acetaminophen (Tylenol) 650 mg PRN Q6HRS PRN PO PAIN / TEMP; Start 02/22/17 at 15:45 Ascorbic Acid (Vitamin C) 500 mg BID PO Last administered on 02/23/17 08:06; Start 02/22/17 at 21:00 Aspirin (Children'S Aspirin) 81 mg DAILY PO Last administered on 02/23/17 08: 07; Start 02/23/17 at 09:00 Atorvastatin Calcium (Lipitor) 5 mg QHS PO Last administered on 02/22/17 20: 53; Start 02/22/17 at 21:00 Bisacodyl (Dulcolax Supp) 10 mg PRN DAILY PRN RC CONSTIPATION Last administered on 02/23/17 04:57; Start 02/22/17 at 15:45 Bupropion HCl (Wellbutrin Xl) 150 mg DAILY PO Last administered on 02/23/17 09:06; Start 02/23/17 at 09:00 Buspirone HCl (Buspar) 10 mg DAILY@1400 PO ; Start 02/23/17 at 14:00 Buspirone HCl (Buspar) 15 mg BID PO Last administered on 02/23/17 09:05; Start 02/22/17 at 21:00 Vitamin D (Vitamin D3) 2,000 unit DAILY PO Last administered on 02/23/17 08: 07; Start 02/23/17 at 09:00 Cyanocobalamin (Vitamin B-12) 1,000 mcg DAILY PO Last administered on 08:07; Start 02/23/17 at 09:00 Famotidine (Pepcid) 20 mg AFTRNOON PO ; Start 02/23/17 at 13:00 Loperamide HCl (Imodium) 2 mg PRN Q6HRS PRN PO DIARRHEA; Start 02/22/17 at 15: 45 Magnesium Hydroxide (Milk Of Magnesia) 2,400 mg PRN Q24HRS PRN PO CONSTIPATION ; Start 02/22/17 at 15:45 Magnesium Oxide (Magnesium Oxide) 400 mg BID PO Last administered on 08:07; Start 02/22/17 at 21:00 Mirtazapine (Remeron) 7.5 mg QHS PO Last administered on 02/22/17 20:52; Start 02/22/17 at 21:00 Olanzapine (ZyPREXA ZYDIS) 2.5 mg PRN Q2HR PRN PO psychosis Last administered on 02/23/17 07:56; Start 02/22/17 at 15:45 Pantoprazole Sodium (Protonix) 40 mg DAILYAC PO Last administered on 07:30; Start 02/23/17 at 07:30 Polyethylene Glycol (miraLAX) 17 gm PRN Q24HRS PRN PO CONSTIPATION Last administered on 02/23/17 07:56; Start 02/22/17 at 15:45 Artificial Tears (Artificial Tears) 1 drop PRN Q2HR PRN OU DRY EYE Last administered on 02/23/17 09:05; Start 02/22/17 at 15:45 Risperidone (RisperDAL) 1 mg QHS PO Last administered on 02/22/17 20:52; Start 02/22/17 at 21:00 Sennosides (Senna) 8.6 mg BID PO Last administered on 02/23/17 08:07; Start 02/22/17 at 21:00 Tamsulosin HCl (Flomax) 0.4 mg HS PO Last administered on 02/22/17 20:52; Start 02/22/17 at 21:00 Non-Formulary Medication 120 mg HS PO ; Start 02/22/17 at 21:00; Status UNV Melatonin 6 mg QHS PO Last administered on 02/22/17 20:53; Start 02/22/17 at 21:00 Multi-Ingredient Ointment (Analgesic [place]) 1 shaheen PRN QID PRN TP MUSCLE PAIN; Start 02/22/17 at 16:30 Multivitamins/ Calcium (Thera-M Plus) 1 tab DAILY PO Last administered on 02/23 08:07; Start 02/23/17 at 09:00 Ondansetron HCl (Zofran Odt) 8 mg PRN QID PRN PO NAUSEA/VOMITING; Start at 16:30 Oxcarbazepine (Trileptal) 600 mg BID PO Last administered on 02/23/17 09:06; Start 02/22/17 at 21:00 Lidocaine (Lidoderm) 1 patch DAILY TD Last administered on 02/23/17 08:08; Start 02/23/17 at 09:00 Enoxaparin Sodium (Lovenox) 40 mg Q24H SQ Last administered on 02/23/17 17:30 ; Start 02/23/17 at 16:00 Sincalide 1.98 mcg/Sodium Chloride 30 ml @ 120 mls/hr 1X ONCE IV Last administered on 02/23/17t 15:45; Start 02/23/17 at 15:45; Stop 02/23/17 at 15 :59; Status DC Active Scripts Active Reported Risperdal (Risperidone) 1 Mg Tablet 1 Tab PO QHS [Lidoderm] 700 Mg TD DAILY Artificial Tears (Polyvinyl Alcohol) 15 Ml Drops 1 Drop OP PRN Q2HR PRN Mirtazapine 7.5 Mg Tablet 7.5 Mg PO QHS Famotidine 20 Mg Tablet 20 Mg PO AFTRNOON Bisacodyl 10 Mg Supp.rect 10 Mg RC PRN DAILY PRN Oxcarbazepine 600 Mg Tablet 600 Mg PO BID Bupropion Xl (Bupropion Hcl) 150 Mg Tab.er.24h 150 Mg PO DAILY Buspirone Hcl 10 Mg Tablet 10 Mg PO DAILY@1400 Vitamin B-12 (Cyanocobalamin (Vitamin B-12)) 1,000 Mcg Tablet 1,000 Mcg PO DAILY Senna (Sennosides) 8.6 Mg Tablet 1 Tab PO BID Protonix (Pantoprazole Sodium) 40 Mg Tablet.dr 40 Mg PO DAILYAC [place] 5-325 Tablet (Hydrocodone Bit/Acetaminophen) 1 Each Tablet 1 Tab PO TID [place] 5-325 Tablet (Hydrocodone Bit/Acetaminophen) 1 Each Tablet 1 Tab PO PRN Q4HRS PRN Alum-Mag Hydroxide-Simeth Liq (Mag Hydrox/Al Hydrox/Simeth) 360 Ml Oral.susp 30 Ml PO PRN Q4HRS PRN Multiple Vitamin (Multivitamin With Minerals) 1 Each Tablet 1 Each PO DAILY Miralax (Polyethylene Glycol 3350) 17 Gm Powd.pack 17 Gm PO PRN Q24HRS PRN Milk Of Magnesia (Magnesium Hydroxide) 400 Mg/5 Ml Oral.susp 2,400 Mg PO PRN Q24HRS PRN Melatonin 3 Mg Tablet 6 Mg PO HS Magnesium Oxide 400 Mg Tablet 400 Mg PO BID Anti-Diarrheal (Loperamide Hcl) 2 Mg Capsule 2 Mg PO PRN Q6HRS PRN Lisinopril 5 Mg Tablet 5 Mg PO DAILY Latuda (Lurasidone Hcl) 80 Mg Tablet 120 Mg PO HS Flomax (Tamsulosin Hcl) 0.4 Mg Cap.er.24h 0.4 Mg PO HS Vitamin D3 (Cholecalciferol (Vitamin D3)) 1,000 Unit Tablet 2,000 Unit PO DAILY Atorvastatin Calcium 10 Mg Tablet 5 Mg PO QHS Aspirin 81 Mg Tab.chew 81 Mg PO DAILY Ascorbic Acid 500 Mg Tablet 500 Mg PO BID Buspirone Hcl 15 Mg Tablet 15 Mg PO BID Zyprexa Zydis (Olanzapine) 5 Mg Tab.rapdis 2.5 Mg PO PRN Q2HR PRN Dissolve in mouth Zofran Odt (Ondansetron) 8 Mg Tab.rapdis 8 Mg PO QID PRN Dissolve on tongue [place] Ultra Strength Crm (Methyl Salicylate/Menth/Camph) 57 Gm Cream..g. 1 Shahe[place] TP PRN QID PRN Tylenol (Acetaminophen) 325 Mg Tablet 650 Mg PO PRN Q6HRS PRN Max Acetaminophen dose is 4000mg in 24 hours from all sources for adults. Amlodipine Besylate 10 Mg Tablet 10 Mg PO DAILY Hold for SBP less than 100. After a held dose, reassess in 2 hours. If SBP is above threshold, administer dose as ordered. If SBP is below threshold, contact provider for additional instructions. I have reviewed the current psychotropics carefully including drug interactions. Risk benefit ratio favors no change other than as noted in my dictated progress note. Diagnosis: Problems: (1) Bipolar 1 disorder (2) Schizoaffective disorder (3) Psychosis (4) Dementia (5) Schizophrenia TINY CHAN MD Feb 23, 2017 17:55
[2017-02-23 19:15] VITALS: BP 137/74
[2017-02-23] MEDS: ATORVASTATIN CALCIUM 10 MG TABLET. PO SCH (20:23)
[2017-02-23] MEDS: TAMSULOSIN 0.4 MG CAP.ER.24H. PO SCH (20:23)
[2017-02-23] MEDS: LURASIDONE 40 MG TABLET. PO SCH (20:23)
[2017-02-23] MEDS: MIRTAZAPINE 7.5 MG TABLET. PO SCH (20:23)
[2017-02-23] MEDS: MELATONIN 3 MG TABLET PO SCH (20:23)
[2017-02-23] MEDS: risperiDONE 1 MG TABLET. PO SCH (20:23)
[2017-02-23 22:40] VITALS: BP 113/71
[2017-02-24 01:45] VITALS: BP 131/70
--- NOTE | 2017-02-24 03:29 | PN ---
DATE: 02/23/2017 CURRENT PROBLEMS: 1. Sepsis. 2. Urinary tract infection. 3. Gross hematuria. 4. Leukocytosis. 5. Dilated gallbladder, questionable cholecystitis. 6. Hypomagnesemia that has resolved. 7. Fall risk. 8. Schizoaffective disorder. 9. Hypertension. 10. COPD. 11. Previous tobacco use disorder. 12. Dehydration. The patient woke up yesterday evening, wanted some coffee. He was alert. He had been almost 24 hours without any psych meds, so really did wake up. He did eat without difficulty. He did get a psych meds last night and is a little bit more sedated this morning. OBJECTIVE: VITAL SIGNS: Blood pressure 147/78, pulse 71, respirations 21, O2 sat 94% on 1 liter, temperature 98.9, easily arousable. HEENT: Tongue is slightly dry. NECK: Supple. LUNGS: Clear. CARDIOVASCULAR: Regular rhythm and rate. ABDOMEN: Soft. Bowel sounds are positive. No right upper quadrant pain per se. EXTREMITIES: Without edema. Mehta with denis colored urine. Intake 2648, output 1975. The patient gained about 4 pounds. PLAN: Discussed with Dr. Fink the abnormal findings on the CT of the abdomen. We will go ahead and do __ scan as his white count went up slightly today, one make sure we do not miss the cholecystitis and will proceed from there and make plans for him to go upstairs again to [facility]. JHON STUBBS DO DR: TRUDY/zena JOB#: [id number] / [id number]
--- NOTE | 2017-02-24 04:51 | PN ---
DATE: 02/22/2017 PSYCHIATRIC PROGRESS NOTE This is a late entry for 02/22/2017, covers the elements not covered in my initial note of 02/22/2017. SUBJECTIVE: I have been asked to follow the patient from a psychiatric standpoint while he is in the ICU for urosepsis. Prior to this, [facility] was [facility] being stabilized for his schizoaffective disorder. He was medically compromised and transferred downstairs. Overall, medically he is doing better per nursing report, seems clearer from a psychiatric standpoint as well. We had discontinued a couple of his psychotropics prior to his transfer to. REVIEW OF SYSTEMS: Ambulation impaired. No CV, , pulmonary, eye, ENT system symptoms on review. MENTAL STATUS EXAM: Oriented to himself and situation. Speech has some latency, often responses monosyllabic, coherent. Abstraction fair, computation impaired, language function intact, attention span short. Mood and affect less labile. LABORATORY DATA: Reviewed. IMPRESSION: Schizoaffective disorder, bipolar type, mixed with psychotic features; anxiety disorder, unspecified; cognitive disorder, unspecified. PLAN: Continue psychotropics mentioned in my initial note. Adjust further as clinically indicated. MAN Cinthia CHAN MD DR: ARON/zena JOB#: [id number] / [id number]
[2017-02-24 05:25] VITALS: BP 121/75
[2017-02-24 08:24] LABS: HEMATOCRIT 35.6 % (39.0-53.0); HEMOGLOBIN 12.2 g/dL (13.0-17.5); RED BLOOD COUNT 4.12 x10^6/uL (4.30-5.70); RED CELL DISTRIBUTION WIDTH 12.6 % (11.5-14.5)
[2017-02-24] MEDS: LIDOCAINE (700MG/PATCH) PATCH. TD SCH (08:24)
[2017-02-24] MEDS: ASPIRIN 81 MG TAB.CHEW PO SCH (08:25)
[2017-02-24] MEDS: MULTIVITAMIN with MINERAL TABLET. PO SCH (08:25)
[2017-02-24] MEDS: MAGNESIUM OXIDE 400 MG TABLET PO SCH (08:25)
[2017-02-24] MEDS: SENNOSIDES 8.6 MG TABLET PO SCH (08:25)
[2017-02-24] MEDS: CYANOCOBALAMIN (VITAMIN B-12) 1,000 MCG TABLET. PO SCH (08:29)
[2017-02-24] MEDS: CHOLECALCIFEROL (VITAMIN D3) 1,000 UNIT TABLET PO SCH (08:29)
[2017-02-24] MEDS: ASCORBIC ACID 500 MG TABLET PO SCH (08:30)
[2017-02-24] MEDS: PANTOPRAZOLE 40 MG TABLET. PO SCH (08:30)
[2017-02-24] MEDS: busPIRone 15 MG TABLET. PO SCH (08:30)
[2017-02-24] MEDS: buPROPion XL 150 MG TAB.ER.24H PO SCH (08:31)
[2017-02-24 08:43] LABS: ALBUMIN/GLOBULIN RATIO 0.8 (1.0-1.7); CALCIUM 9.2 mg/dL (8.5-10.1); CREATININE 1.1 mg/dL (0.7-1.3); GFR 67.2; POTASSIUM 4.4 mmol/L (3.5-5.1); TOTAL BILIRUBIN 0.3 mg/dL (0.2-1.0); TOTAL PROTEIN 6.8 g/dL (6.4-8.2)
[2017-02-24] MEDS ORDERED: CEPH-264 PO (10:37)
[2017-02-24] MEDS ORDERED: MAG HYDROX/AL HYDROX/SIMETH 30 ML ORAL.SUSP PO PRN (10:45)
--- NOTE | 2017-02-24 15:04 | PDOC3 ---
Discharge Summary Visit Information Date of Admission: Feb 21, 2017 Date of Discharge: Feb 24, 2017 Final Diagnosis 1.SEPSIS 2. Urinary tract infection.-KLEBSIELLA PNEUMONIA 3. Gross hematuria. 4. Leukocytosis. 5. Dilated gallbladder, questionable cholecystitis. 6. Hypomagnesemia that has resolved. 7. Fall risk. 8. Schizoaffective disorder. 9. Hypertension. 10. COPD. 11. Previous tobacco use disorder. 12. Dehydration. Problems: Brief Hospital Course Allergies Allergies Coded Allergies Type Severity Reaction Last Updated Verified NSAIDS (Non-Steroidal Anti-Inflamma Allergy Intermediate 02/11/17 Yes Penicillins Allergy Intermediate 02/11/17 Yes trazodone Allergy Intermediate 02/09/17 Yes vancomycin Allergy Intermediate 02/11/17 Yes ziprasidone Allergy Intermediate 02/09/17 Yes Vital Signs Vital Signs Date Time Temp Pulse Resp B/P (MAP) Pulse Ox O2 Delivery O2 Flow Rate FiO2 02/24/17 08:00 Nasal Cannula 1.0 02/24/17 05:25 68 16 121/75 (90) 95 02/23/17 22:40 98.1 Lab Results Laboratory Tests Test 02/23/17 05:54 02/24/17 07:48 White Blood Count 12.6 x10^3/uL (4.0-11.0) 9.0 x10^3/uL (4.0-11.0) Red Blood Count 4.12 x10^6/uL (4.30-5.70) 4.12 x10^6/uL (4.30-5.70) Hemoglobin 12.3 g/dL (13.0-17.5) 12.2 g/dL (13.0-17.5) Hematocrit 36.2 % (39.0-53.0) 35.6 % (39.0-53.0) Mean Corpuscular Volume 88 fL (79-100) 86 fL (79-100) Mean Corpuscular Hemoglobin 30 pg (25-35) 30 pg (25-35) Mean Corpuscular Hemoglobin Concent 34 g/dL (31-37) 34 g/dL (31-37) Red Cell Distribution Width 12.6 % (11.5-14.5) 12.6 % (11.5-14.5) Platelet Count 159 x10^3/uL (140-400) 173 x10^3/uL (140-400) Neutrophils (%) (Auto) 67 % (31-73) Lymphocytes (%) (Auto) 21 % (24-48) Monocytes (%) (Auto) 8 % (0-9) Eosinophils (%) (Auto) 4 % (0-3) Basophils (%) (Auto) 0 % (0-3) Neutrophils # (Auto) 8.4 x10^3uL (1.8-7.7) Lymphocytes # (Auto) 2.7 x10^3/uL (1.0-4.8) Monocytes # (Auto) 0.9 x10^3/uL (0.0-1.1) Eosinophils # (Auto) 0.5 x10^3/uL (0.0-0.7) Basophils # (Auto) 0.0 x10^3/uL (0.0-0.2) Sodium Level 138 mmol/L (136-145) 136 mmol/L (136-145) Potassium Level 4.4 mmol/L (3.5-5.1) 4.4 mmol/L (3.5-5.1) Chloride Level 104 mmol/L (98-107) 102 mmol/L (98-107) Carbon Dioxide Level 26 mmol/L (21-32) 27 mmol/L (21-32) Anion Gap 8 (6-14) 7 (6-14) Blood Urea Nitrogen 20 mg/dL (8-26) 14 mg/dL (8-26) Creatinine 1.2 mg/dL (0.7-1.3) 1.1 mg/dL (0.7-1.3) Estimated GFR (Cockcroft-Gault) 60.8 67.2 BUN/Creatinine Ratio 17 (6-20) 13 (6-20) Glucose Level 94 mg/dL (70-99) 95 mg/dL (70-99) Calcium Level 8.7 mg/dL (8.5-10.1) 9.2 mg/dL (8.5-10.1) Magnesium Level 2.0 mg/dL (1.8-2.4) 2.0 mg/dL (1.8-2.4) Total Bilirubin 0.3 mg/dL (0.2-1.0) 0.3 mg/dL (0.2-1.0) Aspartate Amino Transf (AST/SGOT) 22 U/L (15-37) 23 U/L (15-37) Alanine Aminotransferase (ALT/SGPT) 28 U/L (16-63) 31 U/L (16-63) Alkaline Phosphatase 64 U/L (46-116) 64 U/L (46-116) Total Protein 6.5 g/dL (6.4-8.2) 6.8 g/dL (6.4-8.2) Albumin 2.9 g/dL (3.4-5.0) 3.0 g/dL (3.4-5.0) Albumin/Globulin Ratio 0.8 (1.0-1.7) 0.8 (1.0-1.7) Brief Hospital Course Mr. Mendez is a 66 old [sex] who presented with [ ] REASON FOR ADMISSION TO THE ICU: This is a 66-year-old male who was transferred down from the [facility] for urinary tract infections. He was not acting right and was mildly hypotensive and so was transferred down for further care.hE WAS SEPTIC AND GREW OUT KLEBSIELLA IN HIS URINE. HE WAS TREATED WITH IV ANTIBIOTICS AND IV FLUIDS. HE CONTINUED TO IMPROVE, STARTED TO EAT AND DRINK AND WAS READY TO BE TRANSFERRED BACK TO THE [facility]. Discharge Information Condition at Discharge: Improved Disposition/Orders: Other Dischare Medications Current Medications Ceftriaxone Sodium 1 gm/ Sodium Chloride 50 ml @ 100 mls/hr Q24H IV Last administered on 02/23/17 20:24; Start 02/21/17 at 21:00; Stop 02/24/17 at 10 :41; Status DC Sodium Chloride 1,000 ml @ 100 mls/hr Q10H PRN IV SEE I/O RECORD Last administered on 02/23/17 01:17; Start 02/21/17 at 21:15; Stop 02/24/17 at 10 :41; Status DC Iohexol (Omnipaque 300 Mg/ml) 75 ml 1X ONCE IV ; Start 02/22/17 at 09:15; Stop 02/22/17 at 09:16; Status DC Acetaminophen (Tylenol) 650 mg PRN Q6HRS PRN PO PAIN / TEMP; Start 02/22/17 at 15:45; Stop 02/24/17 at 10:41; Status DC Ascorbic Acid (Vitamin C) 500 mg BID PO Last administered on 02/24/17 08:30; Start 02/22/17 at 21:00; Stop 02/24/17 at 10:41; Status DC Aspirin (Children'S Aspirin) 81 mg DAILY PO Last administered on 02/24/17 08: 25; Start 02/23/17 at 09:00; Stop 02/24/17 at 10:41; Status DC Atorvastatin Calcium (Lipitor) 5 mg QHS PO Last administered on 02/23/17 20: 23; Start 02/22/17 at 21:00; Stop 02/24/17 at 10:41; Status DC Bisacodyl (Dulcolax Supp) 10 mg PRN DAILY PRN RC CONSTIPATION Last administered on 02/23/17 04:57; Start 02/22/17 at 15:45; Stop 02/24/17 at 10 :41; Status DC Bupropion HCl (Wellbutrin Xl) 150 mg DAILY PO Last administered on 02/24/17 08:31; Start 02/23/17 at 09:00; Stop 02/24/17 at 10:41; Status DC Buspirone HCl (Buspar) 10 mg DAILY@1400 PO ; Start 02/23/17 at 14:00; Stop at 10:41; Status DC Buspirone HCl (Buspar) 15 mg BID PO Last administered on 02/24/17 08:30; Start 02/22/17 at 21:00; Stop 02/24/17 at 10:41; Status DC Vitamin D (Vitamin D3) 2,000 unit DAILY PO Last administered on 02/24/17 08: 29; Start 02/23/17 at 09:00; Stop 02/24/17 at 10:41; Status DC Cyanocobalamin (Vitamin B-12) 1,000 mcg DAILY PO Last administered on 08:29; Start 02/23/17 at 09:00; Stop 02/24/17 at 10:41; Status DC Famotidine (Pepcid) 20 mg AFTRNOON PO ; Start 02/23/17 at 13:00; Stop at 10:41; Status DC Loperamide HCl (Imodium) 2 mg PRN Q6HRS PRN PO DIARRHEA; Start 02/22/17 at 15: 45; Stop 02/24/17 at 10:41; Status DC Magnesium Hydroxide (Milk Of Magnesia) 2,400 mg PRN Q24HRS PRN PO CONSTIPATION ; Start 02/22/17 at 15:45; Stop 02/24/17 at 10:41; Status DC Magnesium Oxide (Magnesium Oxide) 400 mg BID PO Last administered on 08:25; Start 02/22/17 at 21:00; Stop 02/24/17 at 10:41; Status DC Mirtazapine (Remeron) 7.5 mg QHS PO Last administered on 02/23/17 20:23; Start 02/22/17 at 21:00; Stop 02/24/17 at 10:41; Status DC Olanzapine (ZyPREXA ZYDIS) 2.5 mg PRN Q2HR PRN PO psychosis Last administered on 02/23/17 07:56; Start 02/22/17 at 15:45; Stop 02/24/17 at 10:41; Status DC Pantoprazole Sodium (Protonix) 40 mg DAILYAC PO Last administered on 08:30; Start 02/23/17 at 07:30; Stop 02/24/17 at 10:41; Status DC Polyethylene Glycol (miraLAX) 17 gm PRN Q24HRS PRN PO CONSTIPATION Last administered on 02/23/17 07:56; Start 02/22/17 at 15:45; Stop 02/24/17 at 10 :41; Status DC Artificial Tears (Artificial Tears) 1 drop PRN Q2HR PRN OU DRY EYE Last administered on 02/23/17 09:05; Start 02/22/17 at 15:45; Stop 02/24/17 at 10 :41; Status DC Risperidone (RisperDAL) 1 mg QHS PO Last administered on 02/23/17 20:23; Start 02/22/17 at 21:00; Stop 02/24/17 at 10:41; Status DC Sennosides (Senna) 8.6 mg BID PO Last administered on 02/24/17 08:25; Start 02/22/17 at 21:00; Stop 02/24/17 at 10:41; Status DC Tamsulosin HCl (Flomax) 0.4 mg HS PO Last administered on 02/23/17 20:23; Start 02/22/17 at 21:00; Stop 02/24/17 at 10:41; Status DC Non-Formulary Medication 120 mg HS PO Last administered on 02/23/17 20:23; Start 02/22/17 at 21:00; Stop 02/24/17 at 10:41; Status UNV Melatonin 6 mg QHS PO Last administered on 02/23/17 20:23; Start 02/22/17 at 21:00; Stop 02/24/17 at 10:41; Status DC Multi-Ingredient Ointment (Analgesic [place]) 1 shaheen PRN QID PRN TP MUSCLE PAIN; Start 02/22/17 at 16:30; Stop 02/24/17 at 10:41; Status DC Multivitamins/ Calcium (Thera-M Plus) 1 tab DAILY PO Last administered on 02/24 08:25; Start 02/23/17 at 09:00; Stop 02/24/17 at 10:41; Status DC Ondansetron HCl (Zofran Odt) 8 mg PRN QID PRN PO NAUSEA/VOMITING; Start at 16:30; Stop 02/24/17 at 10:41; Status DC Oxcarbazepine (Trileptal) 600 mg BID PO Last administered on 02/24/17 08:31; Start 02/22/17 at 21:00; Stop 02/24/17 at 10:41; Status DC Lidocaine (Lidoderm) 1 patch DAILY TD Last administered on 02/24/17 08:24; Start 02/23/17 at 09:00; Stop 02/24/17 at 10:41; Status DC Enoxaparin Sodium (Lovenox) 40 mg Q24H SQ Last administered on 02/23/17 17:30 ; Start 02/23/17 at 16:00; Stop 02/24/17 at 10:41; Status DC Sincalide 1.98 mcg/Sodium Chloride 30 ml @ 120 mls/hr 1X ONCE IV Last administered on 02/23/17 15:45; Start 02/23/17 at 15:45; Stop 02/23/17 at 15 :59; Status DC Al Hydroxide/Mg Hydroxide (Mylanta Plus Xs) 30 ml PRN Q4HRS PRN PO GERD; Start 02/24/17 at 10:45; Stop 02/24/17 at 10:45; Status DC Active Scripts Active Reported Keflex (Cephalexin) 500 Mg Capsule 1 Cap PO TID Risperdal (Risperidone) 1 Mg Tablet 1 Tab PO QHS [Lidoderm] 700 Mg TD DAILY Artificial Tears (Polyvinyl Alcohol) 15 Ml Drops 1 Drop OP PRN Q2HR PRN Mirtazapine 7.5 Mg Tablet 7.5 Mg PO QHS Famotidine 20 Mg Tablet 20 Mg PO AFTRNOON Bisacodyl 10 Mg Supp.rect 10 Mg RC PRN DAILY PRN Oxcarbazepine 600 Mg Tablet 600 Mg PO BID Bupropion Xl (Bupropion Hcl) 150 Mg Tab.er.24h 150 Mg PO DAILY Buspirone Hcl 10 Mg Tablet 10 Mg PO DAILY@1400 Vitamin B-12 (Cyanocobalamin (Vitamin B-12)) 1,000 Mcg Tablet 1,000 Mcg PO DAILY Senna (Sennosides) 8.6 Mg Tablet 1 Tab PO BID Protonix (Pantoprazole Sodium) 40 Mg Tablet.dr 40 Mg PO DAILYAC Alum-Mag Hydroxide-Simeth Liq (Mag Hydrox/Al Hydrox/Simeth) 360 Ml Oral.susp 30 Ml PO PRN Q4HRS PRN Multiple Vitamin (Multivitamin With Minerals) 1 Each Tablet 1 Each PO DAILY Miralax (Polyethylene Glycol 3350) 17 Gm Powd.pack 17 Gm PO PRN Q24HRS PRN Milk Of Magnesia (Magnesium Hydroxide) 400 Mg/5 Ml Oral.susp 2,400 Mg PO PRN Q24HRS PRN Melatonin 3 Mg Tablet 6 Mg PO HS Magnesium Oxide 400 Mg Tablet 400 Mg PO BID Anti-Diarrheal (Loperamide Hcl) 2 Mg Capsule 2 Mg PO PRN Q6HRS PRN Latuda (Lurasidone Hcl) 80 Mg Tablet 120 Mg PO HS Flomax (Tamsulosin Hcl) 0.4 Mg Cap.er.24h 0.4 Mg PO HS Vitamin D3 (Cholecalciferol (Vitamin D3)) 1,000 Unit Tablet 2,000 Unit PO DAILY Atorvastatin Calcium 10 Mg Tablet 5 Mg PO QHS Aspirin 81 Mg Tab.chew 81 Mg PO DAILY Ascorbic Acid 500 Mg Tablet 500 Mg PO BID Buspirone Hcl 15 Mg Tablet 15 Mg PO BID Zyprexa Zydis (Olanzapine) 5 Mg Tab.rapdis 2.5 Mg PO PRN Q2HR PRN Dissolve in mouth Zofran Odt (Ondansetron) 8 Mg Tab.rapdis 8 Mg PO QID PRN Dissolve on tongue [place] Ultra Strength Crm (Methyl Salicylate/Menth/Camph) 57 Gm Cream..g. 1 Shaheen TP PRN QID PRN Tylenol (Acetaminophen) 325 Mg Tablet 650 Mg PO PRN Q6HRS PRN Max Acetaminophen dose is 4000mg in 24 hours from all sources for adults. Patient Instructions Patient Instuctions TRANSFER BACK TO THE [facility] FOR FURTHER PSYCHIATRIC TREATMENT. JHON STUBBS DO Feb 24, 2017 15:04
--- NOTE | 2017-02-24 23:02 | PN ---
DATE: 02/23/2017 SUBJECTIVE: This late entry 02/23/2017 covers elements not covered in my initial note of 02/23/2017. The patient was seen individually evening of 02/23/2017. The patient has been somewhat withdrawn, but less agitated, less labile and medically seems to be improving. He remains somewhat confused. I met with him in ICU, bed 5 individually. REVIEW OF SYSTEMS: Complains of being tired, impaired ambulation. No CV, , pulmonary, eye, ENT system symptoms on review. Reliability poor. MENTAL STATUS EXAM: Oriented to himself, situation. He was very pleasant, verbal asking me how my day was and asking me about my family. As I was questioning him about his day, an improvement. Speech coherent, low in volume. Abstraction fair. Computation impaired. He is still paranoid, somewhat delusional, but able to be redirected. No active suicidal or homicidal ideation. IMPRESSION: Unchanged from initial note. PLAN: Continue current psychotropics mentioned in my initial note. We will consider transfer back to [facility] if clinically indicated once he is medically stable. MAN Cinthia CHAN MD DR: ARON/zena JOB#: [id number] / [id number]
== END 2017-02-24 10:41 | DRG 871 ==
LOC: ICU 19:11
PROVIDERS: ADMIT Internal Medicine; ATTEND Internal Medicine
DX: A41.9 Sepsis, unspecified organism (principal); N17.0 Acute kidney failure with tubular necrosis; I95.9 Hypotension, unspecified; E83.41 Hypermagnesemia; F03.90 Unspecified dementia, unspecified severity, without behavioral disturbance, psychotic disturbance, mood disturbance, and anxiety; J44.9 Chronic obstructive pulmonary disease, unspecified; F22 Delusional disorders; F25.0 Schizoaffective disorder, bipolar type; K81.9 Cholecystitis, unspecified; E86.0 Dehydration; N30.91 Cystitis, unspecified with hematuria; E78.5 Hyperlipidemia, unspecified; F41.9 Anxiety disorder, unspecified; B96.1 Klebsiella pneumoniae [K. pneumoniae] as the cause of diseases classified elsewhere; I10 Essential (primary) hypertension; K21.9 Gastro-esophageal reflux disease without esophagitis; K82.8 Other specified diseases of gallbladder; N28.1 Cyst of kidney, acquired; Z79.82 Long term (current) use of aspirin; Z79.899 Other long term (current) drug therapy; Z87.891 Personal history of nicotine dependence; Z91.81 History of falling; Z88.8 Allergy status to other drugs, medicaments and biological substances; Z88.6 Allergy status to analgesic agent; Z88.0 Allergy status to penicillin
CPT/HCPCS: 36415; 74174; 78226; 80053; 83605; 83735; 85025; 85027; 87040; 87641; 96374; 96375; A9537; J0696; J1650; J2805; J7030

== ENCOUNTER 2017-02-24 10:06 | Inpatient (IN) | payer MEDICARE, OTHER ==
[~2017-02-24] VITALS: Ht 180.3 cm; Wt 98.1 kg
[2017-02-24] MEDS ORDERED: CEPH-264 PO (10:37)
[2017-02-24 11:08] VITALS: BP 119/67
[2017-02-24] MEDS ORDERED: METHYL SALICYLATE/MENTHOL TOPICAL OINTMENT 29GM TUBE. TP PRN (11:15)
[2017-02-24] MEDS ORDERED: MAGNESIUM HYDROXIDE 2,400 MG/30 ML ORAL.SUSP. PO PRN ×2 (11:15→11:30)
[2017-02-24] MEDS ORDERED: MAG HYDROX/AL HYDROX/SIMETH 30 ML ORAL.SUSP PO PRN ×2 (11:15→12:30)
[2017-02-24] MEDS ORDERED: ACETAMINOPHEN 325 MG TABLET PO PRN (11:15)
[2017-02-24] MEDS ORDERED: BISACODYL 10 MG SUPP.RECT RC PRN (11:30)
[2017-02-24] MEDS ORDERED: [UNRECOGNIZED DRUG - OTHER] TP PRN (11:30)
[2017-02-24] MEDS ORDERED: LOPERAMIDE 2 MG CAPSULE PO PRN (11:30)
[2017-02-24] MEDS ORDERED: POLYVINYL ALCOHOL 1.4% OPHTH SOLUTION 15ML BOTTLE. OU PRN (11:30)
[2017-02-24] MEDS ORDERED: POLYETHYLENE GLYCOL 3350 17 GM PACKET. PO PRN (11:30)
[2017-02-24] MEDS ORDERED: ONDANSETRON ODT 4 MG TAB.RAPDIS PO PRN (12:30)
[2017-02-24] MEDS ORDERED: busPIRone 10 MG TABLET. PO SCH (14:00)
[2017-02-24 16:33] VITALS: BP 144/82
[2017-02-24] MEDS: CEPHALEXIN 250 MG CAPSULE PO SCH ×2 (16:59→23:05)
[2017-02-24] MEDS: FAMOTIDINE 20 MG TABLET PO SCH (16:59)
--- NOTE | 2017-02-24 20:16 | PDOC ---
Exam Note: Rob Note: Please also refer to the separate dictated note~for this date of service dictated separately.~Patient seen individually. Discussed the patient with Nursing staff reviewed the chart.~Reviewed interim history and current functioning. Reviewed vital signs,~Labs/ Radiology~and current medications noted below. Continue current treatment with the changes noted in the dictated addendum note Assessment: Vital Signs: Vital Signs Date Time Temp Pulse Resp B/P (MAP) Pulse Ox O2 Delivery O2 Flow Rate FiO2 02/24/17 16:33 97.6 80 19 144/82 (102) 95 Current Medications: Meds: Current Medications Acetaminophen (Tylenol) 650 mg PRN Q6HRS PRN PO PAIN / TEMP; Start 02/24/17 at 11:15; Status Cancel Multi-Ingredient Ointment (Analgesic [place]) 1 shaheen PRN QID PRN TP MUSCLE PAIN; Start 02/24/17 at 11:15 Al Hydroxide/Mg Hydroxide (Mylanta Plus Xs) 15 ml PRN AFTMEALHC PRN PO DYSPEPSIA; Start 02/24/17 at 11:15; Status Cancel Magnesium Hydroxide (Milk Of Magnesia) 2,400 mg PRN QHS PRN PO CONSTIPATION; Start 02/24/17 at 11:15; Status Cancel Acetaminophen (Tylenol) 650 mg PRN Q6HRS PRN PO PAIN / TEMP; Start 02/24/17 at 11:30 Ascorbic Acid (Vitamin C) 500 mg BID PO ; Start 02/24/17 at 21:00 Aspirin (Children'S Aspirin) 81 mg DAILY PO ; Start 02/25/17 at 09:00 Atorvastatin Calcium (Lipitor) 5 mg QHS PO ; Start 02/24/17 at 21:00 Bisacodyl (Dulcolax Supp) 10 mg PRN DAILY PRN RC CONSTIPATION; Start 02/24/17 at 11:30 Bupropion HCl (Wellbutrin Xl) 150 mg DAILY PO ; Start 02/25/17 at 09:00 Buspirone HCl (Buspar) 10 mg DAILY@1400 PO Last administered on 02/24/17t 16: 59; Start 02/24/17 at 14:00 Buspirone HCl (Buspar) 15 mg BID PO ; Start 02/24/17 at 21:00 Vitamin D (Vitamin D3) 2,000 unit DAILY PO ; Start 02/25/17 at 09:00 Cyanocobalamin (Vitamin B-12) 1,000 mcg DAILY PO ; Start 02/25/17 at 09:00 Famotidine (Pepcid) 20 mg AFTRNOON PO Last administered on 02/24/17 16:59; Start 02/24/17 at 13:00 Loperamide HCl (Imodium) 2 mg PRN Q6HRS PRN PO DIARRHEA; Start 02/24/17 at 11: 30 Magnesium Hydroxide (Milk Of Magnesia) 2,400 mg PRN Q24HRS PRN PO CONSTIPATION ; Start 02/24/17 at 11:30 Magnesium Oxide (Magnesium Oxide) 400 mg BID PO ; Start 02/24/17 at 21:00 Mirtazapine (Remeron) 7.5 mg QHS PO ; Start 02/24/17 at 21:00 Olanzapine (ZyPREXA ZYDIS) 2.5 mg PRN Q2HR PRN PO psychosis; Start 02/24/17 at 11:30 Pantoprazole Sodium (Protonix) 40 mg DAILYAC PO ; Start 02/25/17 at 07:30 Polyethylene Glycol (miraLAX) 17 gm PRN Q24HRS PRN PO CONSTIPATION; Start at 11:30 Artificial Tears (Artificial Tears) 1 drop PRN Q2HR PRN OU DRY EYE; Start at 11:30 Risperidone (RisperDAL) 1 mg QHS PO ; Start 02/24/17 at 21:00 Sennosides (Senna) 8.6 mg BID PO ; Start 02/24/17 at 21:00 Tamsulosin HCl (Flomax) 0.4 mg HS PO ; Start 02/24/17 at 21:00 Cephalexin HCl (Keflex) 500 mg TID PO Last administered on 02/24/17 16:59; Start 02/24/17 at 14:00 Non-Formulary Medication 120 mg HS PO ; Start 02/24/17 at 21:00; Status UNV Al Hydroxide/Mg Hydroxide (Mylanta Plus Xs) 30 ml PRN Q4HRS PRN PO GERD; Start 02/24/17 at 12:30 Melatonin 6 mg QHS PO ; Start 02/24/17 at 21:00 Non-Formulary Medication 1 shaheen PRN QID PRN TP MUSCLE PAIN; Start 02/24/17 at 11:30; Status UNV Multivitamins/ Calcium (Thera-M Plus) 1 tab DAILY PO ; Start 02/25/17 at 09:00 Ondansetron HCl (Zofran Odt) 8 mg PRN QID PRN PO NAUSEA/VOMITING; Start at 12:30 Oxcarbazepine (Trileptal) 600 mg BID PO ; Start 02/24/17 at 21:00 Lidocaine (Lidoderm) 1 patch DAILY TD ; Start 02/25/17 at 09:00 Active Scripts Active Reported Keflex (Cephalexin) 500 Mg Capsule 1 Cap PO TID Risperdal (Risperidone) 1 Mg Tablet 1 Tab PO QHS [Lidoderm] 700 Mg TD DAILY Artificial Tears (Polyvinyl Alcohol) 15 Ml Drops 1 Drop OP PRN Q2HR PRN Mirtazapine 7.5 Mg Tablet 7.5 Mg PO QHS Famotidine 20 Mg Tablet 20 Mg PO AFTRNOON Bisacodyl 10 Mg Supp.rect 10 Mg RC PRN DAILY PRN Oxcarbazepine 600 Mg Tablet 600 Mg PO BID Bupropion Xl (Bupropion Hcl) 150 Mg Tab.er.24h 150 Mg PO DAILY Buspirone Hcl 10 Mg Tablet 10 Mg PO DAILY@1400 Vitamin B-12 (Cyanocobalamin (Vitamin B-12)) 1,000 Mcg Tablet 1,000 Mcg PO DAILY Senna (Sennosides) 8.6 Mg Tablet 1 Tab PO BID Protonix (Pantoprazole Sodium) 40 Mg Tablet.dr 40 Mg PO DAILYAC Alum-Mag Hydroxide-Simeth Liq (Mag Hydrox/Al Hydrox/Simeth) 360 Ml Oral.susp 30 Ml PO PRN Q4HRS PRN Multiple Vitamin (Multivitamin With Minerals) 1 Each Tablet 1 Each PO DAILY Miralax (Polyethylene Glycol 3350) 17 Gm Powd.pack 17 Gm PO PRN Q24HRS PRN Milk Of Magnesia (Magnesium Hydroxide) 400 Mg/5 Ml Oral.susp 2,400 Mg PO PRN Q24HRS PRN Melatonin 3 Mg Tablet 6 Mg PO HS Magnesium Oxide 400 Mg Tablet 400 Mg PO BID Anti-Diarrheal (Loperamide Hcl) 2 Mg Capsule 2 Mg PO PRN Q6HRS PRN Latuda (Lurasidone Hcl) 80 Mg Tablet 120 Mg PO HS Flomax (Tamsulosin Hcl) 0.4 Mg Cap.er.24h 0.4 Mg PO HS Vitamin D3 (Cholecalciferol (Vitamin D3)) 1,000 Unit Tablet 2,000 Unit PO DAILY Atorvastatin Calcium 10 Mg Tablet 5 Mg PO QHS Aspirin 81 Mg Tab.chew 81 Mg PO DAILY Ascorbic Acid 500 Mg Tablet 500 Mg PO BID Buspirone Hcl 15 Mg Tablet 15 Mg PO BID Zyprexa Zydis (Olanzapine) 5 Mg Tab.rapdis 2.5 Mg PO PRN Q2HR PRN Dissolve in mouth Zofran Odt (Ondansetron) 8 Mg Tab.rapdis 8 Mg PO QID PRN Dissolve on tongue [place] Ultra Strength Crm (Methyl Salicylate/Menth/Camph) 57 Gm Cream..g. 1 Shaheen TP PRN QID PRN Tylenol (Acetaminophen) 325 Mg Tablet 650 Mg PO PRN Q6HRS PRN Max Acetaminophen dose is 4000mg in 24 hours from all sources for adults. I have reviewed the current psychotropics carefully including drug interactions. Risk benefit ratio favors no change other than as noted in my dictated progress note. Diagnosis: Problems: (1) UTI (urinary tract infection) (2) Schizoaffective disorder, bipolar type (3) Chronic schizoaffective disorder with acute exacerbation (4) Mild cognitive impairment (5) Mental status change (6) Psychosis (7) Dementia (8) SIADH (syndrome of inappropriate ADH production) (9) Hyponatremia (10) Tobacco use disorder (11) Schizoaffective disorder (12) SCHIZOAFFECTIVE DISORDER, UNSPECIFIED (13) Schizophrenia (14) Bipolar 1 disorder TINY CHAN MD Feb 24, 2017 20:16
[2017-02-24] MEDS: ATORVASTATIN CALCIUM 10 MG TABLET. PO SCH (20:28)
[2017-02-24] MEDS: SENNOSIDES 8.6 MG TABLET PO SCH (20:29)
[2017-02-24] MEDS: TAMSULOSIN 0.4 MG CAP.ER.24H. PO SCH (20:29)
[2017-02-24] MEDS: risperiDONE 1 MG TABLET. PO SCH (20:29)
[2017-02-24] MEDS: MELATONIN 3 MG TABLET PO SCH (20:29)
[2017-02-24] MEDS: MAGNESIUM OXIDE 400 MG TABLET PO SCH (20:29)
[2017-02-24] MEDS: ASCORBIC ACID 500 MG TABLET PO SCH (20:29)
[2017-02-24] MEDS: busPIRone 15 MG TABLET. PO SCH (20:29)
[2017-02-24] MEDS: MIRTAZAPINE 7.5 MG TABLET. PO SCH (20:29)
[2017-02-24] MEDS: LURASIDONE 40 MG TABLET. PO SCH (20:34)
--- NOTE | 2017-02-24 22:35 | HP ---
ADMIT DATE: 02/24/2017 This note covers elements, not covered in my initial note, 02/24/2017. IDENTIFYING DATA: The patient is a 66-year-old male, referred from [address] [place] [address] Chacon on the medical/surgical floor after he was medically stabilized for urosepsis, which developed when he was [facility] the [facility], being stabilized for an acute exacerbation of his schizoaffective disorder, bipolar type. While in the ICU, he remained psychotic, even though aggression was better. He was restless, anxious, referred back for inpatient psychiatric stabilization. CHIEF COMPLAINT: "I am okay." HISTORY OF PRESENT ILLNESS: The patient has a history of schizoaffective disorder, bipolar type. He has been residing at [facility], became extremely psychotic, agitated, more confused, was referred to us for inpatient psychiatric stabilization. Towards that end of that stay, he developed urosepsis, transferred to the ICU and back again now. No active suicidal or homicidal ideation. Readers refer to my initial psychiatric evaluation from the past hospitalization for details. PAST PSYCHIATRIC HISTORY: As above. MEDICAL HISTORY: Status post urosepsis, osteoarthritis, hyperlipidemia, muscle weakness, hypertension, dysphagia, hemiplegia; hemiparesis, dominant side; COPD. ACCU-CHEKS: None. DIET: Mechanical soft. Takes his medications whole. MRAD was reviewed. CODE STATUS: DNR. ALLERGIES: PENICILLIN, VANCOMYCIN, GEODON, TRAZODONE, NONSTEROIDAL ANTI-INFLAMMATORY MEDICATIONS. FAMILY HISTORY: Noncontributory. SOCIAL HISTORY: No alcohol, drug abuse, physical, sexual or elder abuse history is noted. Not known to be a perpetrator. His about 1 year ago. MENTAL STATUS EXAMINATION: The patient was seen individually in the evening of 02/24/2017. He seemed to remember me. Oriented to himself and situation. Speech coherent, low in volume. Abstraction fair, computation impaired, language function intact, attention span short. Mood and affect remains labile, psychotic. LABORATORY DATA: Reviewed. IMPRESSION: Schizoaffective disorder, bipolar type, mixed with acute exacerbation; anxiety disorder, unspecified; impulse control disorder, unspecified. Rest diagnoses as above. PLAN: Admit to geropsychiatry unit at [facility]. I will see the patient daily individually from a psychiatric standpoint, medical followup per Dr. Chacon/Dr. Posada. Continue current psychotropics, observe baseline, adjust further as clinically indicated. MAN Cinthia CHAN MD DR: ARON/zena JOB#: [id number] / [id number]
[2017-02-25 06:24] VITALS: BP 128/88
[2017-02-25] MEDS: PANTOPRAZOLE 40 MG TABLET. PO SCH (08:42)
[2017-02-25] MEDS: CHOLECALCIFEROL (VITAMIN D3) 1,000 UNIT TABLET PO SCH (08:42)
[2017-02-25] MEDS: SENNOSIDES 8.6 MG TABLET PO SCH ×2 (08:42→20:31)
[2017-02-25] MEDS: ASPIRIN 81 MG TAB.CHEW PO SCH (08:43)
[2017-02-25] MEDS: MULTIVITAMIN with MINERAL TABLET. PO SCH (08:43)
[2017-02-25] MEDS: MAGNESIUM OXIDE 400 MG TABLET PO SCH ×2 (08:43→20:33)
[2017-02-25] MEDS: CEPHALEXIN 250 MG CAPSULE PO SCH ×3 (08:43→20:32)
[2017-02-25] MEDS: busPIRone 15 MG TABLET. PO SCH (08:43)
[2017-02-25] MEDS: CYANOCOBALAMIN (VITAMIN B-12) 1,000 MCG TABLET. PO SCH (08:43)
[2017-02-25] MEDS: LIDOCAINE (700MG/PATCH) PATCH. TD SCH (08:43)
[2017-02-25] MEDS: ASCORBIC ACID 500 MG TABLET PO SCH ×2 (08:43→20:33)
[2017-02-25] MEDS ORDERED: buPROPion XL 150 MG TAB.ER.24H PO SCH (09:00)
[2017-02-25] MEDS: FAMOTIDINE 20 MG TABLET PO SCH (13:33)
[2017-02-25 16:37] VITALS: BP 164/89
--- NOTE | 2017-02-25 17:02 | HP ---
ADMIT DATE: 02/24/2017 UPDATE OF H AND P FOR THE [facility] The patient is a 66-year-old gentleman who has 2 H and Ps, one from 01/20/2017 and one from 02/21/2017 when he was originally [facility]2017 and then was transferred down to the ICU on 02/21/2017. He has been medically stabilized and transferred back upstairs. Please refer to either one of these H and Ps for full history and physical. JHON STUBBS DO DR: TRUDY/zena JOB#: [id number] / [id number]
[2017-02-25] MEDS: ACETAMINOPHEN 325 MG TABLET PO PRN (17:56)
--- NOTE | 2017-02-25 20:16 | PDOC ---
Exam Note: Rob Note: Please also refer to the separate dictated note~for this date of service dictated separately.~Patient seen individually. Discussed the patient with Nursing staff reviewed the chart.~Reviewed interim history and current functioning. Reviewed vital signs,~Labs/ Radiology~and current medications noted below. Continue current treatment with the changes noted in the dictated addendum note Assessment: Vital Signs: Vital Signs Date Time Temp Pulse Resp B/P (MAP) Pulse Ox O2 Delivery O2 Flow Rate FiO2 02/25/17 16:37 98.0 68 16 164/89 (114) 96 I&O Intake and Output 02/25/17 07:00 Intake Total 840 ml Output Total 1400 ml Balance -560 ml Intake Oral 840 ml Output Urine Total 1400 ml Current Medications: Meds: Current Medications Acetaminophen (Tylenol) 650 mg PRN Q6HRS PRN PO PAIN / TEMP; Start 02/24/17 at 11:15; Status Cancel Multi-Ingredient Ointment (Analgesic [place]) 1 shaheen PRN QID PRN TP MUSCLE PAIN; Start 02/24/17 at 11:15 Al Hydroxide/Mg Hydroxide (Mylanta Plus Xs) 15 ml PRN AFTMEALHC PRN PO DYSPEPSIA; Start 02/24/17 at 11:15; Status Cancel Magnesium Hydroxide (Milk Of Magnesia) 2,400 mg PRN QHS PRN PO CONSTIPATION; Start 02/24/17 at 11:15; Status Cancel Acetaminophen (Tylenol) 650 mg PRN Q6HRS PRN PO PAIN / TEMP Last administered on 02/25/17 17:56; Start 02/24/17 at 11:30 Ascorbic Acid (Vitamin C) 500 mg BID PO Last administered on 02/25/17 08:43; Start 02/24/17 at 21:00 Aspirin (Children'S Aspirin) 81 mg DAILY PO Last administered on 02/25/17 08: 43; Start 02/25/17 at 09:00 Atorvastatin Calcium (Lipitor) 5 mg QHS PO Last administered on 02/24/17 20: 28; Start 02/24/17 at 21:00 Bisacodyl (Dulcolax Supp) 10 mg PRN DAILY PRN RC CONSTIPATION; Start 02/24/17 at 11:30 Bupropion HCl (Wellbutrin Xl) 150 mg DAILY PO Last administered on 02/25/17 08:42; Start 02/25/17 at 09:00; Stop 02/25/17 at 11:17; Status DC Buspirone HCl (Buspar) 10 mg DAILY@1400 PO Last administered on 02/24/17 16: 59; Start 02/24/17 at 14:00; Stop 02/25/17 at 11:17; Status DC Buspirone HCl (Buspar) 15 mg BID PO Last administered on 02/25/17 08:43; Start 02/24/17 at 21:00; Stop 02/25/17 at 11:17; Status DC Vitamin D (Vitamin D3) 2,000 unit DAILY PO Last administered on 02/25/17 08: 42; Start 02/25/17 at 09:00 Cyanocobalamin (Vitamin B-12) 1,000 mcg DAILY PO Last administered on 08:43; Start 02/25/17 at 09:00 Famotidine (Pepcid) 20 mg AFTRNOON PO Last administered on 02/25/17 13:33; Start 02/24/17 at 13:00 Loperamide HCl (Imodium) 2 mg PRN Q6HRS PRN PO DIARRHEA; Start 02/24/17 at 11: 30 Magnesium Hydroxide (Milk Of Magnesia) 2,400 mg PRN Q24HRS PRN PO CONSTIPATION ; Start 02/24/17 at 11:30 Magnesium Oxide (Magnesium Oxide) 400 mg BID PO Last administered on 08:43; Start 02/24/17 at 21:00 Mirtazapine (Remeron) 7.5 mg QHS PO Last administered on 02/24/17 20:29; Start 02/24/17 at 21:00 Olanzapine (ZyPREXA ZYDIS) 2.5 mg PRN Q2HR PRN PO psychosis; Start 02/24/17 at 11:30 Pantoprazole Sodium (Protonix) 40 mg DAILYAC PO Last administered on 08:42; Start 02/25/17 at 07:30 Polyethylene Glycol (miraLAX) 17 gm PRN Q24HRS PRN PO CONSTIPATION; Start at 11:30 Artificial Tears (Artificial Tears) 1 drop PRN Q2HR PRN OU DRY EYE; Start at 11:30 Risperidone (RisperDAL) 1 mg QHS PO Last administered on 02/24/17 20:29; Start 02/24/17 at 21:00 Sennosides (Senna) 8.6 mg BID PO Last administered on 02/25/17 08:42; Start 02/24/17 at 21:00 Tamsulosin HCl (Flomax) 0.4 mg HS PO Last administered on 02/24/17 20:29; Start 02/24/17 at 21:00 Cephalexin HCl (Keflex) 500 mg TID PO Last administered on 02/25/17 13:34; Start 02/24/17 at 14:00 Non-Formulary Medication 120 mg HS PO ; Start 02/24/17 at 21:00; Status UNV Al Hydroxide/Mg Hydroxide (Mylanta Plus Xs) 30 ml PRN Q4HRS PRN PO GERD; Start 02/24/17 at 12:30 Melatonin 6 mg QHS PO Last administered on 02/24/17 20:29; Start 02/24/17 at 21:00 Non-Formulary Medication 1 shaheen PRN QID PRN TP MUSCLE PAIN; Start 02/24/17 at 11:30; Status UNV Multivitamins/ Calcium (Thera-M Plus) 1 tab DAILY PO Last administered on 02/25 08:43; Start 02/25/17 at 09:00 Ondansetron HCl (Zofran Odt) 8 mg PRN QID PRN PO NAUSEA/VOMITING; Start at 12:30 Oxcarbazepine (Trileptal) 600 mg BID PO Last administered on 02/25/17 08:43; Start 02/24/17 at 21:00 Lidocaine (Lidoderm) 1 patch DAILY TD Last administered on 02/25/17 08:43; Start 02/25/17 at 09:00 Active Scripts Active Reported Keflex (Cephalexin) 500 Mg Capsule 1 Cap PO TID Risperdal (Risperidone) 1 Mg Tablet 1 Tab PO QHS [Lidoderm] 700 Mg TD DAILY Artificial Tears (Polyvinyl Alcohol) 15 Ml Drops 1 Drop OP PRN Q2HR PRN Mirtazapine 7.5 Mg Tablet 7.5 Mg PO QHS Famotidine 20 Mg Tablet 20 Mg PO AFTRNOON Bisacodyl 10 Mg Supp.rect 10 Mg RC PRN DAILY PRN Oxcarbazepine 600 Mg Tablet 600 Mg PO BID Bupropion Xl (Bupropion Hcl) 150 Mg Tab.er.24h 150 Mg PO DAILY Buspirone Hcl 10 Mg Tablet 10 Mg PO DAILY@1400 Vitamin B-12 (Cyanocobalamin (Vitamin B-12)) 1,000 Mcg Tablet 1,000 Mcg PO DAILY Senna (Sennosides) 8.6 Mg Tablet 1 Tab PO BID Protonix (Pantoprazole Sodium) 40 Mg Tablet.dr 40 Mg PO DAILYAC Alum-Mag Hydroxide-Simeth Liq (Mag Hydrox/Al Hydrox/Simeth) 360 Ml Oral.susp 30 Ml PO PRN Q4HRS PRN Multiple Vitamin (Multivitamin With Minerals) 1 Each Tablet 1 Each PO DAILY Miralax (Polyethylene Glycol 3350) 17 Gm Powd.pack 17 Gm PO PRN Q24HRS PRN Milk Of Magnesia (Magnesium Hydroxide) 400 Mg/5 Ml Oral.susp 2,400 Mg PO PRN Q24HRS PRN Melatonin 3 Mg Tablet 6 Mg PO HS Magnesium Oxide 400 Mg Tablet 400 Mg PO BID Anti-Diarrheal (Loperamide Hcl) 2 Mg Capsule 2 Mg PO PRN Q6HRS PRN Latuda (Lurasidone Hcl) 80 Mg Tablet 120 Mg PO HS Flomax (Tamsulosin Hcl) 0.4 Mg Cap.er.24h 0.4 Mg PO HS Vitamin D3 (Cholecalciferol (Vitamin D3)) 1,000 Unit Tablet 2,000 Unit PO DAILY Atorvastatin Calcium 10 Mg Tablet 5 Mg PO QHS Aspirin 81 Mg Tab.chew 81 Mg PO DAILY Ascorbic Acid 500 Mg Tablet 500 Mg PO BID Buspirone Hcl 15 Mg Tablet 15 Mg PO BID Zyprexa Zydis (Olanzapine) 5 Mg Tab.rapdis 2.5 Mg PO PRN Q2HR PRN Dissolve in mouth Zofran Odt (Ondansetron) 8 Mg Tab.rapdis 8 Mg PO QID PRN Dissolve on tongue [place] Ultra Strength Crm (Methyl Salicylate/Menth/Camph) 57 Gm Cream..g. 1 Shaheen TP PRN QID PRN Tylenol (Acetaminophen) 325 Mg Tablet 650 Mg PO PRN Q6HRS PRN Max Acetaminophen dose is 4000mg in 24 hours from all sources for adults. I have reviewed the current psychotropics carefully including drug interactions. Risk benefit ratio favors no change other than as noted in my dictated progress note. Diagnosis: Problems: (1) Schizoaffective disorder, bipolar type (2) UTI (urinary tract infection) (3) Chronic schizoaffective disorder with acute exacerbation (4) Mild cognitive impairment (5) Mental status change (6) Psychosis (7) Dementia (8) SIADH (syndrome of inappropriate ADH production) (9) Hyponatremia (10) Tobacco use disorder (11) Schizoaffective disorder (12) SCHIZOAFFECTIVE DISORDER, UNSPECIFIED (13) Schizophrenia (14) Bipolar 1 disorder TINY CHAN MD Feb 25, 2017 20:15
[2017-02-25] MEDS: ATORVASTATIN CALCIUM 10 MG TABLET. PO SCH (20:31)
[2017-02-25] MEDS: TAMSULOSIN 0.4 MG CAP.ER.24H. PO SCH (20:31)
[2017-02-25] MEDS: MELATONIN 3 MG TABLET PO SCH (20:33)
[2017-02-25] MEDS: risperiDONE 1 MG TABLET. PO SCH (20:33)
[2017-02-25] MEDS: MIRTAZAPINE 7.5 MG TABLET. PO SCH (20:33)
[2017-02-25] MEDS: LURASIDONE 40 MG TABLET. PO SCH (20:36)
[2017-02-26 06:08] VITALS: BP 134/74
[2017-02-26] MEDS: PANTOPRAZOLE 40 MG TABLET. PO SCH (07:33)
[2017-02-26] MEDS: LIDOCAINE (700MG/PATCH) PATCH. TD SCH (07:34)
[2017-02-26] MEDS: CHOLECALCIFEROL (VITAMIN D3) 1,000 UNIT TABLET PO SCH (09:05)
[2017-02-26] MEDS: ASCORBIC ACID 500 MG TABLET PO SCH ×2 (09:05→19:51)
[2017-02-26] MEDS: ASPIRIN 81 MG TAB.CHEW PO SCH (09:05)
[2017-02-26] MEDS: CEPHALEXIN 250 MG CAPSULE PO SCH ×3 (09:05→19:51)
[2017-02-26] MEDS: SENNOSIDES 8.6 MG TABLET PO SCH ×2 (09:06→19:54)
[2017-02-26] MEDS: MULTIVITAMIN with MINERAL TABLET. PO SCH (09:06)
[2017-02-26] MEDS: CYANOCOBALAMIN (VITAMIN B-12) 1,000 MCG TABLET. PO SCH (09:06)
[2017-02-26] MEDS: MAGNESIUM OXIDE 400 MG TABLET PO SCH ×2 (09:06→19:51)
[2017-02-26] MEDS: FAMOTIDINE 20 MG TABLET PO SCH (13:16)
[2017-02-26 17:03] VITALS: BP 131/78
[2017-02-26] MEDS: MIRTAZAPINE 7.5 MG TABLET. PO SCH (19:51)
[2017-02-26] MEDS: MELATONIN 3 MG TABLET PO SCH (19:52)
[2017-02-26] MEDS: risperiDONE 1 MG TABLET. PO SCH (19:52)
[2017-02-26] MEDS: ATORVASTATIN CALCIUM 10 MG TABLET. PO SCH (19:52)
[2017-02-26] MEDS: TAMSULOSIN 0.4 MG CAP.ER.24H. PO SCH (19:54)
[2017-02-26] MEDS: LURASIDONE 40 MG TABLET. PO SCH (19:55)
[2017-02-27 06:23] VITALS: BP 127/85
[2017-02-27] MEDS: MAGNESIUM OXIDE 400 MG TABLET PO SCH ×2 (08:11→20:05)
[2017-02-27] MEDS: ASPIRIN 81 MG TAB.CHEW PO SCH (08:12)
[2017-02-27] MEDS: CYANOCOBALAMIN (VITAMIN B-12) 1,000 MCG TABLET. PO SCH (08:12)
[2017-02-27] MEDS: SENNOSIDES 8.6 MG TABLET PO SCH ×2 (08:12→20:04)
[2017-02-27] MEDS: CEPHALEXIN 250 MG CAPSULE PO SCH ×3 (08:12→20:05)
[2017-02-27] MEDS: MULTIVITAMIN with MINERAL TABLET. PO SCH (08:12)
[2017-02-27] MEDS: CHOLECALCIFEROL (VITAMIN D3) 1,000 UNIT TABLET PO SCH (08:12)
[2017-02-27] MEDS: PANTOPRAZOLE 40 MG TABLET. PO SCH (08:12)
[2017-02-27] MEDS: ASCORBIC ACID 500 MG TABLET PO SCH ×2 (08:12→20:05)
[2017-02-27] MEDS: LIDOCAINE (700MG/PATCH) PATCH. TD SCH (08:12)
--- NOTE | 2017-02-27 08:17 | PN ---
DATE: 02/25/2017 This is a late entry for 02/25/2017 and covers elements not covered in my initial note of 02/25/2017. I met with the patient the evening of 02/25/2017 and staffed at a treatment team meeting morning of 02/25/2017 with the patient's daughter, Abimbola attending conference. Lengthy discussion about the patient's diagnosis, current psychotropics, prognosis, discharge plans. He is sleeping 6-7 hours. Refuses to feed himself at times still gets very hungry and feeds himself. Daughter reviewed his history and felt he did best in the past when he was on a combination of Depakote and Latuda and perhaps on Risperdal as well at one point. REVIEW OF SYSTEMS: Ambulation impaired, in Broda chair. No CV, , pulmonary, eye system symptoms on review. Somatically preoccupied, vague somatic symptoms. MENTAL STATUS EXAM: Oriented to himself and situation. Speech has moderate latency, often responses monosyllabic. Abstraction fair, computation impaired, language function intact. Mood and affect withdrawn. IMPRESSION: Unchanged from initial note. PLAN: We will stop the BuSpar 15 mg twice a day, 10 mg once a day and Wellbutrin XL 150 mg a day, which the daughter feels increased his agitation. Continue Latuda 120 mg at bedtime, Remeron 7.5 mg at bedtime, Trileptal 600 mg twice a day as a substitute for Depakote as a mood stabilizer, Risperdal 1 mg at bedtime. I would like to avoid 2 atypical antipsychotics and we will adjust further as clinically indicated. Rest as in initial note. MAN Cinthia CHAN MD DR: ARON/zena JOB#: [id number] / [id number]
--- NOTE | 2017-02-27 10:41 | PDOC ---
Exam Note: Rob Note: This is late entry for date of service 02/26/2017.Please also refer to the separate dictated note~for this date of service dictated separately.~Patient seen individually. Discussed the patient with Nursing staff reviewed the chart.~ Reviewed interim history and current functioning. Reviewed vital signs,~Labs/ Radiology~and current medications noted below. Continue current treatment with the changes noted in the dictated addendum note Assessment: Vital Signs: VS - Last 72 Hours, by Label Date Time Temp Pulse Resp B/P (MAP) Pulse Ox O2 Delivery O2 Flow Rate FiO2 02/27/17 06:23 97.1 70 20 127/85 (99) 92 02/26/17 17:03 97.9 67 18 131/78 (95) 95 Room Air 02/26/17 06:08 97.7 66 18 134/74 (94) 97 Room Air 02/25/17 16:37 98.0 68 16 164/89 (114) 96 02/25/17 06:24 97.3 88 16 128/88 (101) 96 02/24/17 16:33 97.6 80 19 144/82 (102) 95 02/24/17 11:08 97.6 69 18 119/67 (84) 92 Vital Signs Date Time Temp Pulse Resp B/P (MAP) Pulse Ox O2 Delivery O2 Flow Rate FiO2 02/27/17 06:23 97.1 70 20 127/85 (99) 92 02/26/17 17:03 Room Air I&O Intake and Output 02/27/17 07:00 Intake Total 720 ml Output Total 500 ml Balance 220 ml Intake Oral 720 ml Output Urine Total 500 ml Current Medications: Meds: Current Medications Acetaminophen (Tylenol) 650 mg PRN Q6HRS PRN PO PAIN / TEMP; Start 02/24/17 at 11:15; Status Cancel Multi-Ingredient Ointment (Analgesic [place]) 1 shaheen PRN QID PRN TP MUSCLE PAIN; Start 02/24/17 at 11:15 Al Hydroxide/Mg Hydroxide (Mylanta Plus Xs) 15 ml PRN AFTMEALHC PRN PO DYSPEPSIA; Start 02/24/17 at 11:15; Status Cancel Magnesium Hydroxide (Milk Of Magnesia) 2,400 mg PRN QHS PRN PO CONSTIPATION; Start 02/24/17 at 11:15; Status Cancel Acetaminophen (Tylenol) 650 mg PRN Q6HRS PRN PO PAIN / TEMP Last administered on 02/25/17 17:56; Start 02/24/17 at 11:30 Ascorbic Acid (Vitamin C) 500 mg BID PO Last administered on 02/27/17 08:12; Start 02/24/17 at 21:00 Aspirin (Children'S Aspirin) 81 mg DAILY PO Last administered on 02/27/17 08: 12; Start 02/25/17 at 09:00 Atorvastatin Calcium (Lipitor) 5 mg QHS PO Last administered on 02/26/17 19: 52; Start 02/24/17 at 21:00 Bisacodyl (Dulcolax Supp) 10 mg PRN DAILY PRN RC CONSTIPATION Last administered on 02/27/17 03:38; Start 02/24/17 at 11:30 Bupropion HCl (Wellbutrin Xl) 150 mg DAILY PO Last administered on 02/25/17 08:42; Start 02/25/17 at 09:00; Stop 02/25/17 at 11:17; Status DC Buspirone HCl (Buspar) 10 mg DAILY@1400 PO Last administered on 02/24/17 16: 59; Start 02/24/17 at 14:00; Stop 02/25/17 at 11:17; Status DC Buspirone HCl (Buspar) 15 mg BID PO Last administered on 02/25/17 08:43; Start 02/24/17 at 21:00; Stop 02/25/17 at 11:17; Status DC Vitamin D (Vitamin D3) 2,000 unit DAILY PO Last administered on 02/27/17 08: 12; Start 02/25/17 at 09:00 Cyanocobalamin (Vitamin B-12) 1,000 mcg DAILY PO Last administered on 08:12; Start 02/25/17 at 09:00 Famotidine (Pepcid) 20 mg AFTRNOON PO Last administered on 02/26/17 13:16; Start 02/24/17 at 13:00 Loperamide HCl (Imodium) 2 mg PRN Q6HRS PRN PO DIARRHEA; Start 02/24/17 at 11: 30 Magnesium Hydroxide (Milk Of Magnesia) 2,400 mg PRN Q24HRS PRN PO CONSTIPATION ; Start 02/24/17 at 11:30 Magnesium Oxide (Magnesium Oxide) 400 mg BID PO Last administered on 08:11; Start 02/24/17 at 21:00 Mirtazapine (Remeron) 7.5 mg QHS PO Last administered on 02/26/17 19:51; Start 02/24/17 at 21:00 Olanzapine (ZyPREXA ZYDIS) 2.5 mg PRN Q2HR PRN PO psychosis; Start 02/24/17 at 11:30 Pantoprazole Sodium (Protonix) 40 mg DAILYAC PO Last administered on 08:12; Start 02/25/17 at 07:30 Polyethylene Glycol (miraLAX) 17 gm PRN Q24HRS PRN PO CONSTIPATION Last administered on 02/26/17 09:11; Start 02/24/17 at 11:30 Artificial Tears (Artificial Tears) 1 drop PRN Q2HR PRN OU DRY EYE; Start at 11:30 Risperidone (RisperDAL) 1 mg QHS PO Last administered on 02/26/17 19:52; Start 02/24/17 at 21:00 Sennosides (Senna) 8.6 mg BID PO Last administered on 02/27/17 08:12; Start 02/24/17 at 21:00 Tamsulosin HCl (Flomax) 0.4 mg HS PO Last administered on 02/26/17 19:54; Start 02/24/17 at 21:00 Cephalexin HCl (Keflex) 500 mg TID PO Last administered on 02/27/17 08:12; Start 02/24/17 at 14:00 Non-Formulary Medication 120 mg HS PO ; Start 02/24/17 at 21:00; Status UNV Al Hydroxide/Mg Hydroxide (Mylanta Plus Xs) 30 ml PRN Q4HRS PRN PO GERD; Start 02/24/17 at 12:30 Melatonin 6 mg QHS PO Last administered on 02/26/17 19:52; Start 02/24/17 at 21:00 Non-Formulary Medication 1 shaheen PRN QID PRN TP MUSCLE PAIN; Start 02/24/17 at 11:30; Status UNV Multivitamins/ Calcium (Thera-M Plus) 1 tab DAILY PO Last administered on 02/27 08:12; Start 02/25/17 at 09:00 Ondansetron HCl (Zofran Odt) 8 mg PRN QID PRN PO NAUSEA/VOMITING; Start at 12:30 Oxcarbazepine (Trileptal) 600 mg BID PO Last administered on 02/27/17 08:11; Start 02/24/17 at 21:00 Lidocaine (Lidoderm) 1 patch DAILY TD Last administered on 02/27/17 08:12; Start 02/25/17 at 09:00 Active Scripts Active Reported Keflex (Cephalexin) 500 Mg Capsule 1 Cap PO TID Risperdal (Risperidone) 1 Mg Tablet 1 Tab PO QHS [Lidoderm] 700 Mg TD DAILY Artificial Tears (Polyvinyl Alcohol) 15 Ml Drops 1 Drop OP PRN Q2HR PRN Mirtazapine 7.5 Mg Tablet 7.5 Mg PO QHS Famotidine 20 Mg Tablet 20 Mg PO AFTRNOON Bisacodyl 10 Mg Supp.rect 10 Mg RC PRN DAILY PRN Oxcarbazepine 600 Mg Tablet 600 Mg PO BID Bupropion Xl (Bupropion Hcl) 150 Mg Tab.er.24h 150 Mg PO DAILY Buspirone Hcl 10 Mg Tablet 10 Mg PO DAILY@1400 Vitamin B-12 (Cyanocobalamin (Vitamin B-12)) 1,000 Mcg Tablet 1,000 Mcg PO DAILY Senna (Sennosides) 8.6 Mg Tablet 1 Tab PO BID Protonix (Pantoprazole Sodium) 40 Mg Tablet.dr 40 Mg PO DAILYAC Alum-Mag Hydroxide-Simeth Liq (Mag Hydrox/Al Hydrox/Simeth) 360 Ml Oral.susp 30 Ml PO PRN Q4HRS PRN Multiple Vitamin (Multivitamin With Minerals) 1 Each Tablet 1 Each PO DAILY Miralax (Polyethylene Glycol 3350) 17 Gm Powd.pack 17 Gm PO PRN Q24HRS PRN Milk Of Magnesia (Magnesium Hydroxide) 400 Mg/5 Ml Oral.susp 2,400 Mg PO PRN Q24HRS PRN Melatonin 3 Mg Tablet 6 Mg PO HS Magnesium Oxide 400 Mg Tablet 400 Mg PO BID Anti-Diarrheal (Loperamide Hcl) 2 Mg Capsule 2 Mg PO PRN Q6HRS PRN Latuda (Lurasidone Hcl) 80 Mg Tablet 120 Mg PO HS Flomax (Tamsulosin Hcl) 0.4 Mg Cap.er.24h 0.4 Mg PO HS Vitamin D3 (Cholecalciferol (Vitamin D3)) 1,000 Unit Tablet 2,000 Unit PO DAILY Atorvastatin Calcium 10 Mg Tablet 5 Mg PO QHS Aspirin 81 Mg Tab.chew 81 Mg PO DAILY Ascorbic Acid 500 Mg Tablet 500 Mg PO BID Buspirone Hcl 15 Mg Tablet 15 Mg PO BID Zyprexa Zydis (Olanzapine) 5 Mg Tab.rapdis 2.5 Mg PO PRN Q2HR PRN Dissolve in mouth Zofran Odt (Ondansetron) 8 Mg Tab.rapdis 8 Mg PO QID PRN Dissolve on tongue [place] Ultra Strength Crm (Methyl Salicylate/Menth/Camph) 57 Gm Cream..g. 1 Shaheen TP PRN QID PRN Tylenol (Acetaminophen) 325 Mg Tablet 650 Mg PO PRN Q6HRS PRN Max Acetaminophen dose is 4000mg in 24 hours from all sources for adults. I have reviewed the current psychotropics carefully including drug interactions. Risk benefit ratio favors no change other than as noted in my dictated progress note. Diagnosis: Problems: (1) Chronic schizoaffective disorder with acute exacerbation (2) Schizoaffective disorder, bipolar type (3) Mild cognitive impairment (4) Mental status change (5) Psychosis (6) Dementia (7) Schizoaffective disorder (8) SCHIZOAFFECTIVE DISORDER, UNSPECIFIED (9) Schizophrenia (10) Bipolar 1 disorder TINY CHAN MD Feb 27, 2017 10:41
[2017-02-27] MEDS: FAMOTIDINE 20 MG TABLET PO SCH (13:29)
[2017-02-27 16:42] VITALS: BP 162/91
[2017-02-27] MEDS: MIRTAZAPINE 7.5 MG TABLET. PO SCH (20:04)
[2017-02-27] MEDS: TAMSULOSIN 0.4 MG CAP.ER.24H. PO SCH (20:05)
[2017-02-27] MEDS: ATORVASTATIN CALCIUM 10 MG TABLET. PO SCH (20:05)
[2017-02-27] MEDS: risperiDONE 1 MG TABLET. PO SCH (20:05)
[2017-02-27] MEDS: MELATONIN 3 MG TABLET PO SCH (20:05)
[2017-02-27] MEDS: LURASIDONE 40 MG TABLET. PO SCH (20:06)
--- NOTE | 2017-02-27 21:51 | PDOC ---
Exam Note: Rob Note: Please also refer to the separate dictated note~for this date of service dictated separately.~Patient seen individually. Discussed the patient with Nursing staff reviewed the chart.~Reviewed interim history and current functioning. Reviewed vital signs,~Labs/ Radiology~and current medications noted below. Continue current treatment with the changes noted in the dictated addendum note Assessment: Vital Signs: Vital Signs Date Time Temp Pulse Resp B/P (MAP) Pulse Ox O2 Delivery O2 Flow Rate FiO2 02/27/17 16:42 97.1 71 18 162/91 (114) 98 02/26/17 17:03 Room Air I&O Intake and Output 02/27/17 07:00 Intake Total 720 ml Output Total 500 ml Balance 220 ml Intake Oral 720 ml Output Urine Total 500 ml Current Medications: Meds: Current Medications Acetaminophen (Tylenol) 650 mg PRN Q6HRS PRN PO PAIN / TEMP; Start 02/24/17 at 11:15; Status Cancel Multi-Ingredient Ointment (Analgesic [place]) 1 shaheen PRN QID PRN TP MUSCLE PAIN; Start 02/24/17 at 11:15 Al Hydroxide/Mg Hydroxide (Mylanta Plus Xs) 15 ml PRN AFTMEALHC PRN PO DYSPEPSIA; Start 02/24/17 at 11:15; Status Cancel Magnesium Hydroxide (Milk Of Magnesia) 2,400 mg PRN QHS PRN PO CONSTIPATION; Start 02/24/17 at 11:15; Status Cancel Acetaminophen (Tylenol) 650 mg PRN Q6HRS PRN PO PAIN / TEMP Last administered on 02/25/17 17:56; Start 02/24/17 at 11:30 Ascorbic Acid (Vitamin C) 500 mg BID PO Last administered on 02/27/17 20:05; Start 02/24/17 at 21:00 Aspirin (Children'S Aspirin) 81 mg DAILY PO Last administered on 02/27/17 08: 12; Start 02/25/17 at 09:00 Atorvastatin Calcium (Lipitor) 5 mg QHS PO Last administered on 02/27/17 20: 05; Start 02/24/17 at 21:00 Bisacodyl (Dulcolax Supp) 10 mg PRN DAILY PRN RC CONSTIPATION Last administered on 02/27/17 03:38; Start 02/24/17 at 11:30 Bupropion HCl (Wellbutrin Xl) 150 mg DAILY PO Last administered on 02/25/17 08:42; Start 02/25/17 at 09:00; Stop 02/25/17 at 11:17; Status DC Buspirone HCl (Buspar) 10 mg DAILY@1400 PO Last administered on 02/24/17 16: 59; Start 02/24/17 at 14:00; Stop 02/25/17 at 11:17; Status DC Buspirone HCl (Buspar) 15 mg BID PO Last administered on 02/25/17 08:43; Start 02/24/17 at 21:00; Stop 02/25/17 at 11:17; Status DC Vitamin D (Vitamin D3) 2,000 unit DAILY PO Last administered on 02/27/17 08: 12; Start 02/25/17 at 09:00 Cyanocobalamin (Vitamin B-12) 1,000 mcg DAILY PO Last administered on 08:12; Start 02/25/17 at 09:00 Famotidine (Pepcid) 20 mg AFTRNOON PO Last administered on 02/27/17 13:29; Start 02/24/17 at 13:00 Loperamide HCl (Imodium) 2 mg PRN Q6HRS PRN PO DIARRHEA; Start 02/24/17 at 11: 30 Magnesium Hydroxide (Milk Of Magnesia) 2,400 mg PRN Q24HRS PRN PO CONSTIPATION ; Start 02/24/17 at 11:30 Magnesium Oxide (Magnesium Oxide) 400 mg BID PO Last administered on 20:05; Start 02/24/17 at 21:00 Mirtazapine (Remeron) 7.5 mg QHS PO Last administered on 02/27/17 20:04; Start 02/24/17 at 21:00 Olanzapine (ZyPREXA ZYDIS) 2.5 mg PRN Q2HR PRN PO psychosis; Start 02/24/17 at 11:30 Pantoprazole Sodium (Protonix) 40 mg DAILYAC PO Last administered on 08:12; Start 02/25/17 at 07:30 Polyethylene Glycol (miraLAX) 17 gm PRN Q24HRS PRN PO CONSTIPATION Last administered on 02/26/17 09:11; Start 02/24/17 at 11:30 Artificial Tears (Artificial Tears) 1 drop PRN Q2HR PRN OU DRY EYE; Start at 11:30 Risperidone (RisperDAL) 1 mg QHS PO Last administered on 02/27/17 20:05; Start 02/24/17 at 21:00 Sennosides (Senna) 8.6 mg BID PO Last administered on 02/27/17 20:04; Start 02/24/17 at 21:00 Tamsulosin HCl (Flomax) 0.4 mg HS PO Last administered on 02/27/17 20:05; Start 02/24/17 at 21:00 Cephalexin HCl (Keflex) 500 mg TID PO Last administered on 02/27/17 20:05; Start 02/24/17 at 14:00 Non-Formulary Medication 120 mg HS PO ; Start 02/24/17 at 21:00; Status UNV Al Hydroxide/Mg Hydroxide (Mylanta Plus Xs) 30 ml PRN Q4HRS PRN PO GERD; Start 02/24/17 at 12:30 Melatonin 6 mg QHS PO Last administered on 02/27/17 20:05; Start 02/24/17 at 21:00 Non-Formulary Medication 1 shaheen PRN QID PRN TP MUSCLE PAIN; Start 02/24/17 at 11:30; Status UNV Multivitamins/ Calcium (Thera-M Plus) 1 tab DAILY PO Last administered on 02/27 08:12; Start 02/25/17 at 09:00 Ondansetron HCl (Zofran Odt) 8 mg PRN QID PRN PO NAUSEA/VOMITING; Start at 12:30 Oxcarbazepine (Trileptal) 600 mg BID PO Last administered on 02/27/17 20:05; Start 02/24/17 at 21:00 Lidocaine (Lidoderm) 1 patch DAILY TD Last administered on 02/27/17 08:12; Start 02/25/17 at 09:00 Active Scripts Active Reported Keflex (Cephalexin) 500 Mg Capsule 1 Cap PO TID Risperdal (Risperidone) 1 Mg Tablet 1 Tab PO QHS [Lidoderm] 700 Mg TD DAILY Artificial Tears (Polyvinyl Alcohol) 15 Ml Drops 1 Drop OP PRN Q2HR PRN Mirtazapine 7.5 Mg Tablet 7.5 Mg PO QHS Famotidine 20 Mg Tablet 20 Mg PO AFTRNOON Bisacodyl 10 Mg Supp.rect 10 Mg RC PRN DAILY PRN Oxcarbazepine 600 Mg Tablet 600 Mg PO BID Bupropion Xl (Bupropion Hcl) 150 Mg Tab.er.24h 150 Mg PO DAILY Buspirone Hcl 10 Mg Tablet 10 Mg PO DAILY@1400 Vitamin B-12 (Cyanocobalamin (Vitamin B-12)) 1,000 Mcg Tablet 1,000 Mcg PO DAILY Senna (Sennosides) 8.6 Mg Tablet 1 Tab PO BID Protonix (Pantoprazole Sodium) 40 Mg Tablet.dr 40 Mg PO DAILYAC Alum-Mag Hydroxide-Simeth Liq (Mag Hydrox/Al Hydrox/Simeth) 360 Ml Oral.susp 30 Ml PO PRN Q4HRS PRN Multiple Vitamin (Multivitamin With Minerals) 1 Each Tablet 1 Each PO DAILY Miralax (Polyethylene Glycol 3350) 17 Gm Powd.pack 17 Gm PO PRN Q24HRS PRN Milk Of Magnesia (Magnesium Hydroxide) 400 Mg/5 Ml Oral.susp 2,400 Mg PO PRN Q24HRS PRN Melatonin 3 Mg Tablet 6 Mg PO HS Magnesium Oxide 400 Mg Tablet 400 Mg PO BID Anti-Diarrheal (Loperamide Hcl) 2 Mg Capsule 2 Mg PO PRN Q6HRS PRN Latuda (Lurasidone Hcl) 80 Mg Tablet 120 Mg PO HS Flomax (Tamsulosin Hcl) 0.4 Mg Cap.er.24h 0.4 Mg PO HS Vitamin D3 (Cholecalciferol (Vitamin D3)) 1,000 Unit Tablet 2,000 Unit PO DAILY Atorvastatin Calcium 10 Mg Tablet 5 Mg PO QHS Aspirin 81 Mg Tab.chew 81 Mg PO DAILY Ascorbic Acid 500 Mg Tablet 500 Mg PO BID Buspirone Hcl 15 Mg Tablet 15 Mg PO BID Zyprexa Zydis (Olanzapine) 5 Mg Tab.rapdis 2.5 Mg PO PRN Q2HR PRN Dissolve in mouth Zofran Odt (Ondansetron) 8 Mg Tab.rapdis 8 Mg PO QID PRN Dissolve on tongue [place] Ultra Strength Crm (Methyl Salicylate/Menth/Camph) 57 Gm Cream..g. 1 Shaheen TP PRN QID PRN Tylenol (Acetaminophen) 325 Mg Tablet 650 Mg PO PRN Q6HRS PRN Max Acetaminophen dose is 4000mg in 24 hours from all sources for adults. I have reviewed the current psychotropics carefully including drug interactions. Risk benefit ratio favors no change other than as noted in my dictated progress note. Diagnosis: Problems: (1) Schizoaffective disorder, bipolar type (2) Chronic schizoaffective disorder with acute exacerbation (3) Mild cognitive impairment (4) Mental status change (5) Psychosis (6) Dementia (7) Schizoaffective disorder (8) SCHIZOAFFECTIVE DISORDER, UNSPECIFIED (9) Schizophrenia (10) Bipolar 1 disorder TINY CHAN MD Feb 27, 2017 21:51
[2017-02-28 05:57] VITALS: BP 132/85
[2017-02-28] MEDS: MULTIVITAMIN with MINERAL TABLET. PO SCH (07:36)
[2017-02-28] MEDS: CHOLECALCIFEROL (VITAMIN D3) 1,000 UNIT TABLET PO SCH (07:36)
[2017-02-28] MEDS: SENNOSIDES 8.6 MG TABLET PO SCH ×2 (07:36→20:34)
[2017-02-28] MEDS: ASPIRIN 81 MG TAB.CHEW PO SCH (07:36)
[2017-02-28] MEDS: ASCORBIC ACID 500 MG TABLET PO SCH ×2 (07:36→20:34)
[2017-02-28] MEDS: CYANOCOBALAMIN (VITAMIN B-12) 1,000 MCG TABLET. PO SCH (07:36)
[2017-02-28] MEDS: PANTOPRAZOLE 40 MG TABLET. PO SCH (07:36)
[2017-02-28] MEDS: CEPHALEXIN 250 MG CAPSULE PO SCH ×3 (07:37→20:35)
[2017-02-28] MEDS: MAGNESIUM OXIDE 400 MG TABLET PO SCH ×2 (07:37→20:34)
[2017-02-28] MEDS: LIDOCAINE (700MG/PATCH) PATCH. TD SCH (07:37)
[2017-02-28] MEDS: FAMOTIDINE 20 MG TABLET PO SCH (13:26)
[2017-02-28 16:13] VITALS: BP 142/69
--- NOTE | 2017-02-28 20:19 | PN ---
DATE: 02/26/2017 This is a late entry 02/26/2017 covers elements not covered in my initial note 02/26/2017. Met with the patient in the evening of 02/26/2017. The patient's food has been changed to finger foods to help him feed himself. He had a bowel movement today, complains of back pain. REVIEW OF SYSTEMS: Additionally, positive for impaired ambulation in Broda chair. No CV, , pulmonary, eye, ENT system symptoms on review. States he cannot use his hands to feed himself, slept 7 hours the previous evening dozing off and on in the Broda chair 02/26. MENTAL STATUS EXAM: Oriented to himself and situation. Speech has some latency of responses monosyllabic. Abstraction fair, computation impaired, language function intact. Memory is impaired. No active suicidal or homicidal ideation. IMPRESSION: Schizoaffective disorder, bipolar type, mixed with psychotic features, mild cognitive impairment, anxiety disorder, unspecified. PLAN: Continue psychotropics mentioned in my initial note and adjust further as clinically indicated. MAN Cinthia CHAN MD DR: ARON/zena JOB#: [id number] / [id number]
--- NOTE | 2017-02-28 20:19 | PDOC ---
Exam Note: Rob Note: Please also refer to the separate dictated note~for this date of service dictated separately.~Patient seen individually. Discussed the patient with Nursing staff reviewed the chart.~Reviewed interim history and current functioning. Reviewed vital signs,~Labs/ Radiology~and current medications noted below. Continue current treatment with the changes noted in the dictated addendum note Assessment: Vital Signs: Vital Signs Date Time Temp Pulse Resp B/P (MAP) Pulse Ox O2 Delivery O2 Flow Rate FiO2 02/28/17 16:13 98.3 73 18 142/69 (93) 93 02/26/17 17:03 Room Air I&O Intake and Output 02/28/17 07:00 Intake Total 1200 ml Output Total 1900 ml Balance -700 ml Intake Oral 1200 ml Output Urine Total 1900 ml # Bowel Movements 1 Current Medications: Meds: Current Medications Acetaminophen (Tylenol) 650 mg PRN Q6HRS PRN PO PAIN / TEMP; Start 02/24/17 at 11:15; Status Cancel Multi-Ingredient Ointment (Analgesic Jud) 1 shaheen PRN QID PRN TP MUSCLE PAIN; Start 02/24/17 at 11:15 Al Hydroxide/Mg Hydroxide (Mylanta Plus Xs) 15 ml PRN AFTMEALHC PRN PO DYSPEPSIA; Start 02/24/17 at 11:15; Status Cancel Magnesium Hydroxide (Milk Of Magnesia) 2,400 mg PRN QHS PRN PO CONSTIPATION; Start 02/24/17 at 11:15; Status Cancel Acetaminophen (Tylenol) 650 mg PRN Q6HRS PRN PO PAIN / TEMP Last administered on 02/25/17 17:56; Start 02/24/17 at 11:30 Ascorbic Acid (Vitamin C) 500 mg BID PO Last administered on 02/28/17 07:36; Start 02/24/17 at 21:00 Aspirin (Children'S Aspirin) 81 mg DAILY PO Last administered on 02/28/17 07: 36; Start 02/25/17 at 09:00 Atorvastatin Calcium (Lipitor) 5 mg QHS PO Last administered on 02/27/17 20: 05; Start 02/24/17 at 21:00 Bisacodyl (Dulcolax Supp) 10 mg PRN DAILY PRN RC CONSTIPATION Last administered on 02/27/17 03:38; Start 02/24/17 at 11:30 Bupropion HCl (Wellbutrin Xl) 150 mg DAILY PO Last administered on 02/25/17 08:42; Start 02/25/17 at 09:00; Stop 02/25/17 at 11:17; Status DC Buspirone HCl (Buspar) 10 mg DAILY@1400 PO Last administered on 02/24/17 16: 59; Start 02/24/17 at 14:00; Stop 02/25/17 at 11:17; Status DC Buspirone HCl (Buspar) 15 mg BID PO Last administered on 02/25/17 08:43; Start 02/24/17 at 21:00; Stop 02/25/17 at 11:17; Status DC Vitamin D (Vitamin D3) 2,000 unit DAILY PO Last administered on 02/28/17 07: 36; Start 02/25/17 at 09:00 Cyanocobalamin (Vitamin B-12) 1,000 mcg DAILY PO Last administered on 07:36; Start 02/25/17 at 09:00 Famotidine (Pepcid) 20 mg AFTRNOON PO Last administered on 02/28/17 13:26; Start 02/24/17 at 13:00 Loperamide HCl (Imodium) 2 mg PRN Q6HRS PRN PO DIARRHEA; Start 02/24/17 at 11: 30 Magnesium Hydroxide (Milk Of Magnesia) 2,400 mg PRN Q24HRS PRN PO CONSTIPATION ; Start 02/24/17 at 11:30 Magnesium Oxide (Magnesium Oxide) 400 mg BID PO Last administered on 07:37; Start 02/24/17 at 21:00 Mirtazapine (Remeron) 7.5 mg QHS PO Last administered on 02/27/17 20:04; Start 02/24/17 at 21:00 Olanzapine (ZyPREXA ZYDIS) 2.5 mg PRN Q2HR PRN PO psychosis; Start 02/24/17 at 11:30 Pantoprazole Sodium (Protonix) 40 mg DAILYAC PO Last administered on 07:36; Start 02/25/17 at 07:30 Polyethylene Glycol (miraLAX) 17 gm PRN Q24HRS PRN PO CONSTIPATION Last administered on 02/26/17 09:11; Start 02/24/17 at 11:30 Artificial Tears (Artificial Tears) 1 drop PRN Q2HR PRN OU DRY EYE; Start at 11:30 Risperidone (RisperDAL) 1 mg QHS PO Last administered on 02/27/17 20:05; Start 02/24/17 at 21:00 Sennosides (Senna) 8.6 mg BID PO Last administered on 02/28/17 07:36; Start 02/24/17 at 21:00 Tamsulosin HCl (Flomax) 0.4 mg HS PO Last administered on 02/27/17 20:05; Start 02/24/17 at 21:00 Cephalexin HCl (Keflex) 500 mg TID PO Last administered on 02/28/17 13:26; Start 02/24/17 at 14:00 Non-Formulary Medication 120 mg HS PO ; Start 02/24/17 at 21:00; Status UNV Al Hydroxide/Mg Hydroxide (Mylanta Plus Xs) 30 ml PRN Q4HRS PRN PO GERD; Start 02/24/17 at 12:30 Melatonin 6 mg QHS PO Last administered on 02/27/17 20:05; Start 02/24/17 at 21:00 Non-Formulary Medication 1 shaheen PRN QID PRN TP MUSCLE PAIN; Start 02/24/17 at 11:30; Status UNV Multivitamins/ Calcium (Thera-M Plus) 1 tab DAILY PO Last administered on 02/28 07:36; Start 02/25/17 at 09:00 Ondansetron HCl (Zofran Odt) 8 mg PRN QID PRN PO NAUSEA/VOMITING; Start at 12:30 Oxcarbazepine (Trileptal) 600 mg BID PO Last administered on 02/28/17 07:36; Start 02/24/17 at 21:00 Lidocaine (Lidoderm) 1 patch DAILY TD Last administered on 02/28/17 07:37; Start 02/25/17 at 09:00 Active Scripts Active Reported Keflex (Cephalexin) 500 Mg Capsule 1 Cap PO TID Risperdal (Risperidone) 1 Mg Tablet 1 Tab PO QHS [Lidoderm] 700 Mg TD DAILY Artificial Tears (Polyvinyl Alcohol) 15 Ml Drops 1 Drop OP PRN Q2HR PRN Mirtazapine 7.5 Mg Tablet 7.5 Mg PO QHS Famotidine 20 Mg Tablet 20 Mg PO AFTRNOON Bisacodyl 10 Mg Supp.rect 10 Mg RC PRN DAILY PRN Oxcarbazepine 600 Mg Tablet 600 Mg PO BID Bupropion Xl (Bupropion Hcl) 150 Mg Tab.er.24h 150 Mg PO DAILY Buspirone Hcl 10 Mg Tablet 10 Mg PO DAILY@1400 Vitamin B-12 (Cyanocobalamin (Vitamin B-12)) 1,000 Mcg Tablet 1,000 Mcg PO DAILY Senna (Sennosides) 8.6 Mg Tablet 1 Tab PO BID Protonix (Pantoprazole Sodium) 40 Mg Tablet.dr 40 Mg PO DAILYAC Alum-Mag Hydroxide-Simeth Liq (Mag Hydrox/Al Hydrox/Simeth) 360 Ml Oral.susp 30 Ml PO PRN Q4HRS PRN Multiple Vitamin (Multivitamin With Minerals) 1 Each Tablet 1 Each PO DAILY Miralax (Polyethylene Glycol 3350) 17 Gm Powd.pack 17 Gm PO PRN Q24HRS PRN Milk Of Magnesia (Magnesium Hydroxide) 400 Mg/5 Ml Oral.susp 2,400 Mg PO PRN Q24HRS PRN Melatonin 3 Mg Tablet 6 Mg PO HS Magnesium Oxide 400 Mg Tablet 400 Mg PO BID Anti-Diarrheal (Loperamide Hcl) 2 Mg Capsule 2 Mg PO PRN Q6HRS PRN Latuda (Lurasidone Hcl) 80 Mg Tablet 120 Mg PO HS Flomax (Tamsulosin Hcl) 0.4 Mg Cap.er.24h 0.4 Mg PO HS Vitamin D3 (Cholecalciferol (Vitamin D3)) 1,000 Unit Tablet 2,000 Unit PO DAILY Atorvastatin Calcium 10 Mg Tablet 5 Mg PO QHS Aspirin 81 Mg Tab.chew 81 Mg PO DAILY Ascorbic Acid 500 Mg Tablet 500 Mg PO BID Buspirone Hcl 15 Mg Tablet 15 Mg PO BID Zyprexa Zydis (Olanzapine) 5 Mg Tab.rapdis 2.5 Mg PO PRN Q2HR PRN Dissolve in mouth Zofran Odt (Ondansetron) 8 Mg Tab.rapdis 8 Mg PO QID PRN Dissolve on tongue [place] Ultra Strength Crm (Methyl Salicylate/Menth/Camph) 57 Gm Cream..g. 1 Shaheen TP PRN QID PRN Tylenol (Acetaminophen) 325 Mg Tablet 650 Mg PO PRN Q6HRS PRN Max Acetaminophen dose is 4000mg in 24 hours from all sources for adults. I have reviewed the current psychotropics carefully including drug interactions. Risk benefit ratio favors no change other than as noted in my dictated progress note. Diagnosis: Problems: (1) Schizoaffective disorder, bipolar type (2) UTI (urinary tract infection) (3) Chronic schizoaffective disorder with acute exacerbation (4) Mild cognitive impairment (5) Mental status change (6) Psychosis (7) Dementia (8) SIADH (syndrome of inappropriate ADH production) (9) Hyponatremia (10) Tobacco use disorder (11) Schizoaffective disorder (12) SCHIZOAFFECTIVE DISORDER, UNSPECIFIED (13) Schizophrenia (14) Bipolar 1 disorder TINY CHAN MD Feb 28, 2017 20:19
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
[2017-02-28] MEDS: TAMSULOSIN 0.4 MG CAP.ER.24H. PO SCH (20:33)
[2017-02-28] MEDS: MELATONIN 3 MG TABLET PO SCH (20:34)
[2017-02-28] MEDS: risperiDONE 1 MG TABLET. PO SCH (20:34)
[2017-02-28] MEDS: MIRTAZAPINE 7.5 MG TABLET. PO SCH (20:34)
[2017-02-28] MEDS: ATORVASTATIN CALCIUM 10 MG TABLET. PO SCH (20:35)
[2017-02-28] MEDS: LURASIDONE 40 MG TABLET. PO SCH (20:37)
[2017-03-01 06:40] VITALS: BP 126/69
[2017-03-01 07:57] LABS: BASO # 0.1 x10^3/uL (0.0-0.2); BASO % 1 % (0-3); EOS # 0.3 x10^3/uL (0.0-0.7); EOS % 4 % (0-3); HEMATOCRIT 38.9 % (39.0-53.0); HEMOGLOBIN 13.3 g/dL (13.0-17.5); LYMPH # 2.2 x10^3/uL (1.0-4.8); LYMPH % 26 % (24-48); MEAN CORPUSCULAR HEMOGLOBIN 29 pg (25-35); MEAN CORPUSCULAR HGB CONC 34 g/dL (31-37); MEAN CORPUSCULAR VOLUME 86 fL (79-100); MONO # 0.7 x10^3/uL (0.0-1.1); MONO % 8 % (0-9); NEUT # 5.3 x10^3uL (1.8-7.7); NEUT % 62 % (31-73); PLATELET COUNT 220 x10^3/uL (140-400); RED BLOOD COUNT 4.53 x10^6/uL (4.30-5.70); RED CELL DISTRIBUTION WIDTH 12.6 % (11.5-14.5); WHITE BLOOD COUNT 8.6 x10^3/uL (4.0-11.0)
[2017-03-01 08:13] LABS: ALBUMIN 3.5 g/dL (3.4-5.0); ALBUMIN/GLOBULIN RATIO 0.9 (1.0-1.7); CALCIUM 9.5 mg/dL (8.5-10.1); CREATININE 1.1 mg/dL (0.7-1.3); GFR 67.2; POTASSIUM 4.5 mmol/L (3.5-5.1); TOTAL BILIRUBIN 0.2 mg/dL (0.2-1.0); TOTAL PROTEIN 7.2 g/dL (6.4-8.2)
[2017-03-01] MEDS: ASPIRIN 81 MG TAB.CHEW PO SCH (09:01)
[2017-03-01] MEDS: MULTIVITAMIN with MINERAL TABLET. PO SCH (09:01)
[2017-03-01] MEDS: MAGNESIUM OXIDE 400 MG TABLET PO SCH ×2 (09:01→19:38)
[2017-03-01] MEDS: SENNOSIDES 8.6 MG TABLET PO SCH ×2 (09:01→19:39)
[2017-03-01] MEDS: CEPHALEXIN 250 MG CAPSULE PO SCH ×3 (09:01→19:39)
[2017-03-01] MEDS: ASCORBIC ACID 500 MG TABLET PO SCH ×2 (09:01→19:38)
[2017-03-01] MEDS: CYANOCOBALAMIN (VITAMIN B-12) 1,000 MCG TABLET. PO SCH (09:01)
[2017-03-01] MEDS: CHOLECALCIFEROL (VITAMIN D3) 1,000 UNIT TABLET PO SCH (09:01)
[2017-03-01] MEDS: PANTOPRAZOLE 40 MG TABLET. PO SCH (09:01)
[2017-03-01] MEDS: LIDOCAINE (700MG/PATCH) PATCH. TD SCH (09:02)
[2017-03-01] MEDS: FAMOTIDINE 20 MG TABLET PO SCH (14:17)
[2017-03-01 16:03] VITALS: BP 153/80
[2017-03-01] MEDS: risperiDONE 1 MG TABLET. PO SCH (19:38)
[2017-03-01] MEDS: TAMSULOSIN 0.4 MG CAP.ER.24H. PO SCH (19:38)
[2017-03-01] MEDS: MELATONIN 3 MG TABLET PO SCH (19:38)
[2017-03-01] MEDS: ATORVASTATIN CALCIUM 10 MG TABLET. PO SCH (19:38)
[2017-03-01] MEDS: MIRTAZAPINE 7.5 MG TABLET. PO SCH (19:38)
[2017-03-01] MEDS: LURASIDONE 40 MG TABLET. PO SCH (19:40)
--- NOTE | 2017-03-01 20:09 | PDOC ---
Exam Note: Rob Note: Please also refer to the separate dictated note~for this date of service dictated separately.~Patient seen individually. Discussed the patient with Nursing staff reviewed the chart.~Reviewed interim history and current functioning. Reviewed vital signs,~Labs/ Radiology~and current medications noted below. Continue current treatment with the changes noted in the dictated addendum note Assessment: Vital Signs: Vital Signs Date Time Temp Pulse Resp B/P (MAP) Pulse Ox O2 Delivery O2 Flow Rate FiO2 03/01/17 16:03 97.6 69 16 153/80 (104) 96 02/26/17 17:03 Room Air I&O Intake and Output 03/01/17 07:00 Intake Total 1200 ml Output Total 1000 ml Balance 200 ml Intake Oral 1200 ml Output Urine Total 1000 ml Labs: Laboratory Tests Test 03/01/17 07:35 White Blood Count 8.6 x10^3/uL (4.0-11.0) Red Blood Count 4.53 x10^6/uL (4.30-5.70) Hemoglobin 13.3 g/dL (13.0-17.5) Hematocrit 38.9 % (39.0-53.0) L Mean Corpuscular Volume 86 fL (79-100) Mean Corpuscular Hemoglobin 29 pg (25-35) Mean Corpuscular Hemoglobin Concent 34 g/dL (31-37) Red Cell Distribution Width 12.6 % (11.5-14.5) Platelet Count 220 x10^3/uL (140-400) Neutrophils (%) (Auto) 62 % (31-73) Lymphocytes (%) (Auto) 26 % (24-48) Monocytes (%) (Auto) 8 % (0-9) Eosinophils (%) (Auto) 4 % (0-3) H Basophils (%) (Auto) 1 % (0-3) Neutrophils # (Auto) 5.3 x10^3uL (1.8-7.7) Lymphocytes # (Auto) 2.2 x10^3/uL (1.0-4.8) Monocytes # (Auto) 0.7 x10^3/uL (0.0-1.1) Eosinophils # (Auto) 0.3 x10^3/uL (0.0-0.7) Basophils # (Auto) 0.1 x10^3/uL (0.0-0.2) Sodium Level 132 mmol/L (136-145) L Potassium Level 4.5 mmol/L (3.5-5.1) Chloride Level 97 mmol/L (98-107) L Carbon Dioxide Level 27 mmol/L (21-32) Anion Gap 8 (6-14) Blood Urea Nitrogen 13 mg/dL (8-26) Creatinine 1.1 mg/dL (0.7-1.3) Estimated GFR (Cockcroft-Gault) 67.2 BUN/Creatinine Ratio 12 (6-20) Glucose Level 94 mg/dL (70-99) Calcium Level 9.5 mg/dL (8.5-10.1) Total Bilirubin 0.2 mg/dL (0.2-1.0) Aspartate Amino Transferase (AST) 33 U/L (15-37) Alanine Aminotransferase (ALT) 56 U/L (16-63) Alkaline Phosphatase 90 U/L (46-116) Total Protein 7.2 g/dL (6.4-8.2) Albumin 3.5 g/dL (3.4-5.0) Albumin/Globulin Ratio 0.9 (1.0-1.7) L Current Medications: Meds: Current Medications Acetaminophen (Tylenol) 650 mg PRN Q6HRS PRN PO PAIN / TEMP; Start 02/24/17 at 11:15; Status Cancel Multi-Ingredient Ointment (Analgesic [place]) 1 shaheen PRN QID PRN TP MUSCLE PAIN; Start 02/24/17 at 11:15 Al Hydroxide/Mg Hydroxide (Mylanta Plus Xs) 15 ml PRN AFTMEALHC PRN PO DYSPEPSIA; Start 02/24/17 at 11:15; Status Cancel Magnesium Hydroxide (Milk Of Magnesia) 2,400 mg PRN QHS PRN PO CONSTIPATION; Start 02/24/17 at 11:15; Status Cancel Acetaminophen (Tylenol) 650 mg PRN Q6HRS PRN PO PAIN / TEMP Last administered on 02/25/17 17:56; Start 02/24/17 at 11:30 Ascorbic Acid (Vitamin C) 500 mg BID PO Last administered on 03/01/17 19:38; Start 02/24/17 at 21:00 Aspirin (Children'S Aspirin) 81 mg DAILY PO Last administered on 03/01/17 09: 01; Start 02/25/17 at 09:00 Atorvastatin Calcium (Lipitor) 5 mg QHS PO Last administered on 03/01/17 19: 38; Start 02/24/17 at 21:00 Bisacodyl (Dulcolax Supp) 10 mg PRN DAILY PRN RC CONSTIPATION Last administered on 02/27/17 03:38; Start 02/24/17 at 11:30 Bupropion HCl (Wellbutrin Xl) 150 mg DAILY PO Last administered on 02/25/17 08:42; Start 02/25/17 at 09:00; Stop 02/25/17 at 11:17; Status DC Buspirone HCl (Buspar) 10 mg DAILY@1400 PO Last administered on 02/24/17 16: 59; Start 02/24/17 at 14:00; Stop 02/25/17 at 11:17; Status DC Buspirone HCl (Buspar) 15 mg BID PO Last administered on 02/25/17 08:43; Start 02/24/17 at 21:00; Stop 02/25/17 at 11:17; Status DC Vitamin D (Vitamin D3) 2,000 unit DAILY PO Last administered on 03/01/17 09: 01; Start 02/25/17 at 09:00 Cyanocobalamin (Vitamin B-12) 1,000 mcg DAILY PO Last administered on 09:01; Start 02/25/17 at 09:00 Famotidine (Pepcid) 20 mg AFTRNOON PO Last administered on 03/01/17 14:17; Start 02/24/17 at 13:00 Loperamide HCl (Imodium) 2 mg PRN Q6HRS PRN PO DIARRHEA; Start 02/24/17 at 11: 30 Magnesium Hydroxide (Milk Of Magnesia) 2,400 mg PRN Q24HRS PRN PO CONSTIPATION ; Start 02/24/17 at 11:30 Magnesium Oxide (Magnesium Oxide) 400 mg BID PO Last administered on 19:38; Start 02/24/17 at 21:00 Mirtazapine (Remeron) 7.5 mg QHS PO Last administered on 03/01/17 19:38; Start 02/24/17 at 21:00 Olanzapine (ZyPREXA ZYDIS) 2.5 mg PRN Q2HR PRN PO psychosis; Start 02/24/17 at 11:30 Pantoprazole Sodium (Protonix) 40 mg DAILYAC PO Last administered on 09:01; Start 02/25/17 at 07:30 Polyethylene Glycol (miraLAX) 17 gm PRN Q24HRS PRN PO CONSTIPATION Last administered on 02/26/17 09:11; Start 02/24/17 at 11:30 Artificial Tears (Artificial Tears) 1 drop PRN Q2HR PRN OU DRY EYE; Start at 11:30 Risperidone (RisperDAL) 1 mg QHS PO Last administered on 02/28/17 20:34; Start 02/24/17 at 21:00; Stop 03/01/17 at 18:28; Status DC Sennosides (Senna) 8.6 mg BID PO Last administered on 03/01/17 19:39; Start 02/24/17 at 21:00 Tamsulosin HCl (Flomax) 0.4 mg HS PO Last administered on 03/01/17 19:38; Start 02/24/17 at 21:00 Cephalexin HCl (Keflex) 500 mg TID PO Last administered on 03/01/17 19:39; Start 02/24/17 at 14:00; Stop 03/02/17 at 21:00 Non-Formulary Medication 120 mg HS PO ; Start 02/24/17 at 21:00; Status UNV Al Hydroxide/Mg Hydroxide (Mylanta Plus Xs) 30 ml PRN Q4HRS PRN PO GERD; Start 02/24/17 at 12:30 Melatonin 6 mg QHS PO Last administered on 03/01/17 19:38; Start 02/24/17 at 21:00 Non-Formulary Medication 1 shaheen PRN QID PRN TP MUSCLE PAIN; Start 02/24/17 at 11:30; Status UNV Multivitamins/ Calcium (Thera-M Plus) 1 tab DAILY PO Last administered on 03/01 09:01; Start 02/25/17 at 09:00 Ondansetron HCl (Zofran Odt) 8 mg PRN QID PRN PO NAUSEA/VOMITING; Start at 12:30 Oxcarbazepine (Trileptal) 600 mg BID PO Last administered on 03/01/17 19:39; Start 02/24/17 at 21:00 Lidocaine (Lidoderm) 1 patch DAILY TD Last administered on 03/01/17 09:02; Start 02/25/17 at 09:00 Risperidone (RisperDAL) 1.5 mg QHS PO Last administered on 03/01/17 19:38; Start 03/01/17 at 21:00 Active Scripts Active Reported Keflex (Cephalexin) 500 Mg Capsule 1 Cap PO TID Risperdal (Risperidone) 1 Mg Tablet 1 Tab PO QHS [Lidoderm] 700 Mg TD DAILY Artificial Tears (Polyvinyl Alcohol) 15 Ml Drops 1 Drop OP PRN Q2HR PRN Mirtazapine 7.5 Mg Tablet 7.5 Mg PO QHS Famotidine 20 Mg Tablet 20 Mg PO AFTRNOON Bisacodyl 10 Mg Supp.rect 10 Mg RC PRN DAILY PRN Oxcarbazepine 600 Mg Tablet 600 Mg PO BID Bupropion Xl (Bupropion Hcl) 150 Mg Tab.er.24h 150 Mg PO DAILY Buspirone Hcl 10 Mg Tablet 10 Mg PO DAILY@1400 Vitamin B-12 (Cyanocobalamin (Vitamin B-12)) 1,000 Mcg Tablet 1,000 Mcg PO DAILY Senna (Sennosides) 8.6 Mg Tablet 1 Tab PO BID Protonix (Pantoprazole Sodium) 40 Mg Tablet.dr 40 Mg PO DAILYAC Alum-Mag Hydroxide-Simeth Liq (Mag Hydrox/Al Hydrox/Simeth) 360 Ml Oral.susp 30 Ml PO PRN Q4HRS PRN Multiple Vitamin (Multivitamin With Minerals) 1 Each Tablet 1 Each PO DAILY Miralax (Polyethylene Glycol 3350) 17 Gm Powd.pack 17 Gm PO PRN Q24HRS PRN Milk Of Magnesia (Magnesium Hydroxide) 400 Mg/5 Ml Oral.susp 2,400 Mg PO PRN Q24HRS PRN Melatonin 3 Mg Tablet 6 Mg PO HS Magnesium Oxide 400 Mg Tablet 400 Mg PO BID Anti-Diarrheal (Loperamide Hcl) 2 Mg Capsule 2 Mg PO PRN Q6HRS PRN Latuda (Lurasidone Hcl) 80 Mg Tablet 120 Mg PO HS Flomax (Tamsulosin Hcl) 0.4 Mg Cap.er.24h 0.4 Mg PO HS Vitamin D3 (Cholecalciferol (Vitamin D3)) 1,000 Unit Tablet 2,000 Unit PO DAILY Atorvastatin Calcium 10 Mg Tablet 5 Mg PO QHS Aspirin 81 Mg Tab.chew 81 Mg PO DAILY Ascorbic Acid 500 Mg Tablet 500 Mg PO BID Buspirone Hcl 15 Mg Tablet 15 Mg PO BID Zyprexa Zydis (Olanzapine) 5 Mg Tab.rapdis 2.5 Mg PO PRN Q2HR PRN Dissolve in mouth Zofran Odt (Ondansetron) 8 Mg Tab.rapdis 8 Mg PO QID PRN Dissolve on tongue Bengay Ultra Strength Crm (Methyl Salicylate/Menth/Camph) 57 Gm Cream..g. 1 Shaheen TP PRN QID PRN Tylenol (Acetaminophen) 325 Mg Tablet 650 Mg PO PRN Q6HRS PRN Max Acetaminophen dose is 4000mg in 24 hours from all sources for adults. I have reviewed the current psychotropics carefully including drug interactions. Risk benefit ratio favors no change other than as noted in my dictated progress note. Diagnosis: Problems: (1) Schizoaffective disorder, bipolar type (2) Chronic schizoaffective disorder with acute exacerbation (3) Mild cognitive impairment (4) Mental status change (5) Psychosis (6) Dementia (7) Schizoaffective disorder (8) SCHIZOAFFECTIVE DISORDER, UNSPECIFIED (9) Schizophrenia (10) Bipolar 1 disorder TINY CHAN MD Mar 01, 2017 20:09
[2017-03-02 06:28] VITALS: BP 128/68
--- NOTE | 2017-03-02 07:00 | PN ---
DATE: 02/28/2017 This is a late entry 02/28/2017 covers elements not covered in my initial note 02/28/2017. I met with the patient in the evening of 02/28/2017. The patient has been feeding himself finger foods which is an improvement. Otherwise, withdrawn, compliant, refusing to do self-cares. REVIEW OF SYSTEMS: Ambulation impaired, in Broda chair. No CV, , pulmonary, eye system symptoms on review. Keeping his eyes closed as I met with him. MENTAL STATUS EXAM: Oriented to himself and situation. Speech moderate latency, often responses monosyllabic. Abstraction fair, computation impaired, language function intact. Mood and affect somewhat depressed, withdrawn. LABORATORY DATA: Reviewed. IMPRESSION: Schizoaffective disorder, bipolar type, mixed with psychotic features, mild cognitive impairment. Rest unchanged. PLAN: Continue psychotropics mentioned in my initial note. MAN Cinthia CHAN MD DR: ARON/zena JOB#: [id number] / [id number]
[2017-03-02] MEDS: SENNOSIDES 8.6 MG TABLET PO SCH ×2 (09:27→20:03)
[2017-03-02] MEDS: MULTIVITAMIN with MINERAL TABLET. PO SCH (09:27)
[2017-03-02] MEDS: LIDOCAINE (700MG/PATCH) PATCH. TD SCH (09:27)
[2017-03-02] MEDS: CEPHALEXIN 250 MG CAPSULE PO SCH ×3 (09:28→20:02)
[2017-03-02] MEDS: MAGNESIUM OXIDE 400 MG TABLET PO SCH ×2 (09:28→20:02)
[2017-03-02] MEDS: CHOLECALCIFEROL (VITAMIN D3) 1,000 UNIT TABLET PO SCH (09:28)
[2017-03-02] MEDS: ASPIRIN 81 MG TAB.CHEW PO SCH (09:28)
[2017-03-02] MEDS: CYANOCOBALAMIN (VITAMIN B-12) 1,000 MCG TABLET. PO SCH (09:28)
[2017-03-02] MEDS: ASCORBIC ACID 500 MG TABLET PO SCH ×2 (09:28→20:03)
[2017-03-02] MEDS: PANTOPRAZOLE 40 MG TABLET. PO SCH (09:28)
[2017-03-02] MEDS: FAMOTIDINE 20 MG TABLET PO SCH (13:07)
[2017-03-02 15:43] VITALS: BP 156/88
[2017-03-02] MEDS: MELATONIN 3 MG TABLET PO SCH (20:02)
[2017-03-02] MEDS: MIRTAZAPINE 7.5 MG TABLET. PO SCH (20:02)
[2017-03-02] MEDS: ATORVASTATIN CALCIUM 10 MG TABLET. PO SCH (20:03)
[2017-03-02] MEDS: risperiDONE 1 MG TABLET. PO SCH (20:03)
[2017-03-02] MEDS: TAMSULOSIN 0.4 MG CAP.ER.24H. PO SCH (20:04)
[2017-03-02] MEDS: LURASIDONE 40 MG TABLET. PO SCH (20:05)
--- NOTE | 2017-03-02 20:12 | PDOC ---
Exam Note: Rob Note: Please also refer to the separate dictated note~for this date of service dictated separately.~Patient seen individually. Discussed the patient with Nursing staff reviewed the chart.~Reviewed interim history and current functioning. Reviewed vital signs,~Labs/ Radiology~and current medications noted below. Continue current treatment with the changes noted in the dictated addendum note Assessment: Vital Signs: Vital Signs Date Time Temp Pulse Resp B/P (MAP) Pulse Ox O2 Delivery O2 Flow Rate FiO2 03/02/17 15:43 97.1 75 20 156/88 (110) 97 02/26/17 17:03 Room Air I&O Intake and Output 03/02/17 07:00 Intake Total 1500 ml Output Total 650 ml Balance 850 ml Intake Oral 1500 ml Output Urine Total 650 ml Current Medications: Meds: Current Medications Acetaminophen (Tylenol) 650 mg PRN Q6HRS PRN PO PAIN / TEMP; Start 02/24/17 at 11:15; Status Cancel Multi-Ingredient Ointment (Analgesic [place]) 1 shaheen PRN QID PRN TP MUSCLE PAIN; Start 02/24/17 at 11:15 Al Hydroxide/Mg Hydroxide (Mylanta Plus Xs) 15 ml PRN AFTMEALHC PRN PO DYSPEPSIA; Start 02/24/17 at 11:15; Status Cancel Magnesium Hydroxide (Milk Of Magnesia) 2,400 mg PRN QHS PRN PO CONSTIPATION; Start 02/24/17 at 11:15; Status Cancel Acetaminophen (Tylenol) 650 mg PRN Q6HRS PRN PO PAIN / TEMP Last administered on 02/25/17 17:56; Start 02/24/17 at 11:30 Ascorbic Acid (Vitamin C) 500 mg BID PO Last administered on 03/02/17 20:03; Start 02/24/17 at 21:00 Aspirin (Children'S Aspirin) 81 mg DAILY PO Last administered on 03/02/17 09: 28; Start 02/25/17 at 09:00 Atorvastatin Calcium (Lipitor) 5 mg QHS PO Last administered on 03/02/17 20: 03; Start 02/24/17 at 21:00 Bisacodyl (Dulcolax Supp) 10 mg PRN DAILY PRN RC CONSTIPATION Last administered on 02/27/17 03:38; Start 02/24/17 at 11:30 Bupropion HCl (Wellbutrin Xl) 150 mg DAILY PO Last administered on 02/25/17 08:42; Start 02/25/17 at 09:00; Stop 02/25/17 at 11:17; Status DC Buspirone HCl (Buspar) 10 mg DAILY@1400 PO Last administered on 02/24/17 16: 59; Start 02/24/17 at 14:00; Stop 02/25/17 at 11:17; Status DC Buspirone HCl (Buspar) 15 mg BID PO Last administered on 02/25/17 08:43; Start 02/24/17 at 21:00; Stop 02/25/17 at 11:17; Status DC Vitamin D (Vitamin D3) 2,000 unit DAILY PO Last administered on 03/02/17 09: 28; Start 02/25/17 at 09:00 Cyanocobalamin (Vitamin B-12) 1,000 mcg DAILY PO Last administered on 09:28; Start 02/25/17 at 09:00 Famotidine (Pepcid) 20 mg AFTRNOON PO Last administered on 03/02/17 13:07; Start 02/24/17 at 13:00 Loperamide HCl (Imodium) 2 mg PRN Q6HRS PRN PO DIARRHEA; Start 02/24/17 at 11: 30 Magnesium Hydroxide (Milk Of Magnesia) 2,400 mg PRN Q24HRS PRN PO CONSTIPATION ; Start 02/24/17 at 11:30 Magnesium Oxide (Magnesium Oxide) 400 mg BID PO Last administered on 20:02; Start 02/24/17 at 21:00 Mirtazapine (Remeron) 7.5 mg QHS PO Last administered on 03/02/17 20:02; Start 02/24/17 at 21:00 Olanzapine (ZyPREXA ZYDIS) 2.5 mg PRN Q2HR PRN PO psychosis; Start 02/24/17 at 11:30 Pantoprazole Sodium (Protonix) 40 mg DAILYAC PO Last administered on 09:28; Start 02/25/17 at 07:30 Polyethylene Glycol (miraLAX) 17 gm PRN Q24HRS PRN PO CONSTIPATION Last administered on 02/26/17 09:11; Start 02/24/17 at 11:30 Artificial Tears (Artificial Tears) 1 drop PRN Q2HR PRN OU DRY EYE; Start at 11:30 Risperidone (RisperDAL) 1 mg QHS PO Last administered on 02/28/17 20:34; Start 02/24/17 at 21:00; Stop 03/01/17 at 18:28; Status DC Sennosides (Senna) 8.6 mg BID PO Last administered on 03/02/17 20:03; Start 02/24/17 at 21:00 Tamsulosin HCl (Flomax) 0.4 mg HS PO Last administered on 03/02/17 20:04; Start 02/24/17 at 21:00 Cephalexin HCl (Keflex) 500 mg TID PO Last administered on 03/02/17 20:02; Start 02/24/17 at 14:00; Stop 03/02/17 at 21:00 Non-Formulary Medication 120 mg HS PO ; Start 02/24/17 at 21:00; Status UNV Al Hydroxide/Mg Hydroxide (Mylanta Plus Xs) 30 ml PRN Q4HRS PRN PO GERD; Start 02/24/17 at 12:30 Melatonin 6 mg QHS PO Last administered on 03/02/17 20:02; Start 02/24/17 at 21:00 Non-Formulary Medication 1 shaheen PRN QID PRN TP MUSCLE PAIN; Start 02/24/17 at 11:30; Status UNV Multivitamins/ Calcium (Thera-M Plus) 1 tab DAILY PO Last administered on 03/02 09:27; Start 02/25/17 at 09:00 Ondansetron HCl (Zofran Odt) 8 mg PRN QID PRN PO NAUSEA/VOMITING; Start at 12:30 Oxcarbazepine (Trileptal) 600 mg BID PO Last administered on 03/02/17 20:02; Start 02/24/17 at 21:00 Lidocaine (Lidoderm) 1 patch DAILY TD Last administered on 03/02/17 09:27; Start 02/25/17 at 09:00 Risperidone (RisperDAL) 1.5 mg QHS PO Last administered on 12/19/17at 20:03; Start 03/01/17 at 21:00 Active Scripts Active Reported Keflex (Cephalexin) 500 Mg Capsule 1 Cap PO TID Risperdal (Risperidone) 1 Mg Tablet 1 Tab PO QHS [Lidoderm] 700 Mg TD DAILY Artificial Tears (Polyvinyl Alcohol) 15 Ml Drops 1 Drop OP PRN Q2HR PRN Mirtazapine 7.5 Mg Tablet 7.5 Mg PO QHS Famotidine 20 Mg Tablet 20 Mg PO AFTRNOON Bisacodyl 10 Mg Supp.rect 10 Mg RC PRN DAILY PRN Oxcarbazepine 600 Mg Tablet 600 Mg PO BID Bupropion Xl (Bupropion Hcl) 150 Mg Tab.er.24h 150 Mg PO DAILY Buspirone Hcl 10 Mg Tablet 10 Mg PO DAILY@1400 Vitamin B-12 (Cyanocobalamin (Vitamin B-12)) 1,000 Mcg Tablet 1,000 Mcg PO DAILY Senna (Sennosides) 8.6 Mg Tablet 1 Tab PO BID Protonix (Pantoprazole Sodium) 40 Mg Tablet.dr 40 Mg PO DAILYAC Alum-Mag Hydroxide-Simeth Liq (Mag Hydrox/Al Hydrox/Simeth) 360 Ml Oral.susp 30 Ml PO PRN Q4HRS PRN Multiple Vitamin (Multivitamin With Minerals) 1 Each Tablet 1 Each PO DAILY Miralax (Polyethylene Glycol 3350) 17 Gm Powd.pack 17 Gm PO PRN Q24HRS PRN Milk Of Magnesia (Magnesium Hydroxide) 400 Mg/5 Ml Oral.susp 2,400 Mg PO PRN Q24HRS PRN Melatonin 3 Mg Tablet 6 Mg PO HS Magnesium Oxide 400 Mg Tablet 400 Mg PO BID Anti-Diarrheal (Loperamide Hcl) 2 Mg Capsule 2 Mg PO PRN Q6HRS PRN Latuda (Lurasidone Hcl) 80 Mg Tablet 120 Mg PO HS Flomax (Tamsulosin Hcl) 0.4 Mg Cap.er.24h 0.4 Mg PO HS Vitamin D3 (Cholecalciferol (Vitamin D3)) 1,000 Unit Tablet 2,000 Unit PO DAILY Atorvastatin Calcium 10 Mg Tablet 5 Mg PO QHS Aspirin 81 Mg Tab.chew 81 Mg PO DAILY Ascorbic Acid 500 Mg Tablet 500 Mg PO BID Buspirone Hcl 15 Mg Tablet 15 Mg PO BID Zyprexa Zydis (Olanzapine) 5 Mg Tab.rapdis 2.5 Mg PO PRN Q2HR PRN Dissolve in mouth Zofran Odt (Ondansetron) 8 Mg Tab.rapdis 8 Mg PO QID PRN Dissolve on tongue [place] Ultra Strength Crm (Methyl Salicylate/Menth/Camph) 57 Gm Cream..g. 1 Shaheen TP PRN QID PRN Tylenol (Acetaminophen) 325 Mg Tablet 650 Mg PO PRN Q6HRS PRN Max Acetaminophen dose is 4000mg in 24 hours from all sources for adults. I have reviewed the current psychotropics carefully including drug interactions. Risk benefit ratio favors no change other than as noted in my dictated progress note. Diagnosis: Problems: (1) Schizoaffective disorder, bipolar type (2) Chronic schizoaffective disorder with acute exacerbation (3) Mild cognitive impairment (4) Mental status change (5) Psychosis (6) Dementia (7) SIADH (syndrome of inappropriate ADH production) (8) Hyponatremia (9) Tobacco use disorder (10) Schizoaffective disorder (11) SCHIZOAFFECTIVE DISORDER, UNSPECIFIED (12) Schizophrenia (13) Bipolar 1 disorder TINY CHAN MD Mar 02, 2017 20:12
[2017-03-03 05:56] VITALS: BP 151/82
--- NOTE | 2017-03-03 06:24 | PN ---
DATE: 03/01/2017 This is a late entry 03/01/2017 covers elements not covered in my initial note 03/01/2017. I met with the patient in the evening of 03/01/2017. Overall, the patient has been irritable, demanding, eats finger foods often, professes that he cannot move his hands to feed himself and he wanted me to reposition his leg, which I did several times from under the table, but he still felt it was inadequate, irritable, anxious, labile as he persisted in wanting me to do it once again. He remains somewhat psychotic. REVIEW OF SYSTEMS: Ambulation impaired, in Broda chair. No CV, , pulmonary, eye system symptoms on review, vague somatic symptoms as above. MENTAL STATUS EXAM: Oriented to himself and situation. Speech coherent, has some latency. Abstraction fair, computation impaired, language function intact, attention span short. Mood and affect remain somewhat labile. LABORATORY DATA: Reviewed. IMPRESSION: Unchanged from initial note, schizoaffective disorder, bipolar type, mixed with acute exacerbation, mild cognitive impairment. Rest unchanged from initial note. PLAN: Increase Risperdal from 1 mg at bedtime to 1.5 mg at bedtime. Continue melatonin, Latuda, Remeron, Trileptal at current dosage along with Zyprexa p.r.n. MAN Cinthia CHAN MD DR: ARON/zena JOB#: [id number] / [id number]
[2017-03-03] MEDS: MULTIVITAMIN with MINERAL TABLET. PO SCH (07:58)
[2017-03-03] MEDS: SENNOSIDES 8.6 MG TABLET PO SCH ×2 (07:58→19:23)
[2017-03-03] MEDS: CYANOCOBALAMIN (VITAMIN B-12) 1,000 MCG TABLET. PO SCH (07:58)
[2017-03-03] MEDS: MAGNESIUM OXIDE 400 MG TABLET PO SCH ×2 (07:58→19:22)
[2017-03-03] MEDS: PANTOPRAZOLE 40 MG TABLET. PO SCH (07:58)
[2017-03-03] MEDS: CHOLECALCIFEROL (VITAMIN D3) 1,000 UNIT TABLET PO SCH (07:58)
[2017-03-03] MEDS: ASPIRIN 81 MG TAB.CHEW PO SCH (07:59)
[2017-03-03] MEDS: ASCORBIC ACID 500 MG TABLET PO SCH ×2 (07:59→19:23)
[2017-03-03] MEDS: LIDOCAINE (700MG/PATCH) PATCH. TD SCH (08:01)
[2017-03-03] MEDS: FAMOTIDINE 20 MG TABLET PO SCH (13:05)
[2017-03-03 15:40] VITALS: BP 133/90
[2017-03-03] MEDS: LURASIDONE 40 MG TABLET. PO SCH (19:21)
[2017-03-03] MEDS: MIRTAZAPINE 7.5 MG TABLET. PO SCH (19:21)
[2017-03-03] MEDS: ATORVASTATIN CALCIUM 10 MG TABLET. PO SCH (19:22)
[2017-03-03] MEDS: MELATONIN 3 MG TABLET PO SCH (19:22)
[2017-03-03] MEDS: TAMSULOSIN 0.4 MG CAP.ER.24H. PO SCH (19:23)
[2017-03-03] MEDS: risperiDONE 1 MG TABLET. PO SCH (19:23)
--- NOTE | 2017-03-03 21:29 | PDOC ---
Exam Note: Rob Note: Please also refer to the separate dictated note~for this date of service dictated separately.~Patient seen individually. Discussed the patient with Nursing staff reviewed the chart.~Reviewed interim history and current functioning. Reviewed vital signs,~Labs/ Radiology~and current medications noted below. Continue current treatment with the changes noted in the dictated addendum note Assessment: Vital Signs: Vital Signs Date Time Temp Pulse Resp B/P (MAP) Pulse Ox O2 Delivery O2 Flow Rate FiO2 03/03/17 15:40 97.3 72 20 133/90 (104) 97 02/26/17 17:03 Room Air I&O Intake and Output 03/03/17 07:00 Intake Total 1320 ml Output Total 850 ml Balance 470 ml Intake Oral 1320 ml Output Urine Total 850 ml Current Medications: Meds: Current Medications Acetaminophen (Tylenol) 650 mg PRN Q6HRS PRN PO PAIN / TEMP; Start 02/24/17 at 11:15; Status Cancel Multi-Ingredient Ointment (Analgesic [place]) 1 shaheen PRN QID PRN TP MUSCLE PAIN; Start 02/24/17 at 11:15 Al Hydroxide/Mg Hydroxide (Mylanta Plus Xs) 15 ml PRN AFTMEALHC PRN PO DYSPEPSIA; Start 02/24/17 at 11:15; Status Cancel Magnesium Hydroxide (Milk Of Magnesia) 2,400 mg PRN QHS PRN PO CONSTIPATION; Start 02/24/17 at 11:15; Status Cancel Acetaminophen (Tylenol) 650 mg PRN Q6HRS PRN PO PAIN / TEMP Last administered on 02/25/17 17:56; Start 02/24/17 at 11:30 Ascorbic Acid (Vitamin C) 500 mg BID PO Last administered on 03/03/17 19:23; Start 02/24/17 at 21:00 Aspirin (Children'S Aspirin) 81 mg DAILY PO Last administered on 03/03/17 07: 59; Start 02/25/17 at 09:00 Atorvastatin Calcium (Lipitor) 5 mg QHS PO Last administered on 03/03/17 19: 22; Start 02/24/17 at 21:00 Bisacodyl (Dulcolax Supp) 10 mg PRN DAILY PRN RC CONSTIPATION Last administered on 02/27/17 03:38; Start 02/24/17 at 11:30 Bupropion HCl (Wellbutrin Xl) 150 mg DAILY PO Last administered on 02/25/17 08:42; Start 02/25/17 at 09:00; Stop 02/25/17 at 11:17; Status DC Buspirone HCl (Buspar) 10 mg DAILY@1400 PO Last administered on 02/24/17 16: 59; Start 02/24/17 at 14:00; Stop 02/25/17 at 11:17; Status DC Buspirone HCl (Buspar) 15 mg BID PO Last administered on 02/25/17 08:43; Start 02/24/17 at 21:00; Stop 02/25/17 at 11:17; Status DC Vitamin D (Vitamin D3) 2,000 unit DAILY PO Last administered on 03/03/17 07: 58; Start 02/25/17 at 09:00 Cyanocobalamin (Vitamin B-12) 1,000 mcg DAILY PO Last administered on 07:58; Start 02/25/17 at 09:00 Famotidine (Pepcid) 20 mg AFTRNOON PO Last administered on 03/03/17 13:05; Start 02/24/17 at 13:00 Loperamide HCl (Imodium) 2 mg PRN Q6HRS PRN PO DIARRHEA; Start 02/24/17 at 11: 30 Magnesium Hydroxide (Milk Of Magnesia) 2,400 mg PRN Q24HRS PRN PO CONSTIPATION ; Start 02/24/17 at 11:30 Magnesium Oxide (Magnesium Oxide) 400 mg BID PO Last administered on 19:22; Start 02/24/17 at 21:00 Mirtazapine (Remeron) 7.5 mg QHS PO Last administered on 03/03/17 19:21; Start 02/24/17 at 21:00 Olanzapine (ZyPREXA ZYDIS) 2.5 mg PRN Q2HR PRN PO psychosis; Start 02/24/17 at 11:30 Pantoprazole Sodium (Protonix) 40 mg DAILYAC PO Last administered on 07:58; Start 02/25/17 at 07:30 Polyethylene Glycol (miraLAX) 17 gm PRN Q24HRS PRN PO CONSTIPATION Last administered on 02/26/17 09:11; Start 02/24/17 at 11:30 Artificial Tears (Artificial Tears) 1 drop PRN Q2HR PRN OU DRY EYE; Start at 11:30 Risperidone (RisperDAL) 1 mg QHS PO Last administered on 02/28/17 20:34; Start 02/24/17 at 21:00; Stop 03/01/17 at 18:28; Status DC Sennosides (Senna) 8.6 mg BID PO Last administered on 03/03/17 19:23; Start 02/24/17 at 21:00 Tamsulosin HCl (Flomax) 0.4 mg HS PO Last administered on 03/03/17 19:23; Start 02/24/17 at 21:00 Cephalexin HCl (Keflex) 500 mg TID PO Last administered on 03/02/17 20:02; Start 02/24/17 at 14:00; Stop 03/02/17 at 21:00; Status DC Non-Formulary Medication 120 mg HS PO ; Start 02/24/17 at 21:00; Status UNV Al Hydroxide/Mg Hydroxide (Mylanta Plus Xs) 30 ml PRN Q4HRS PRN PO GERD; Start 02/24/17 at 12:30 Melatonin 6 mg QHS PO Last administered on 03/03/17 19:22; Start 02/24/17 at 21:00 Non-Formulary Medication 1 shaheen PRN QID PRN TP MUSCLE PAIN; Start 02/24/17 at 11:30; Status UNV Multivitamins/ Calcium (Thera-M Plus) 1 tab DAILY PO Last administered on 03/03 07:58; Start 02/25/17 at 09:00 Ondansetron HCl (Zofran Odt) 8 mg PRN QID PRN PO NAUSEA/VOMITING; Start at 12:30 Oxcarbazepine (Trileptal) 600 mg BID PO Last administered on 03/03/17 19:23; Start 02/24/17 at 21:00 Lidocaine (Lidoderm) 1 patch DAILY TD Last administered on 03/03/17 08:01; Start 02/25/17 at 09:00 Risperidone (RisperDAL) 1.5 mg QHS PO Last administered on 12/20/17at 19:23; Start 03/01/17 at 21:00 Active Scripts Active Reported Keflex (Cephalexin) 500 Mg Capsule 1 Cap PO TID Risperdal (Risperidone) 1 Mg Tablet 1 Tab PO QHS [Lidoderm] 700 Mg TD DAILY Artificial Tears (Polyvinyl Alcohol) 15 Ml Drops 1 Drop OP PRN Q2HR PRN Mirtazapine 7.5 Mg Tablet 7.5 Mg PO QHS Famotidine 20 Mg Tablet 20 Mg PO AFTRNOON Bisacodyl 10 Mg Supp.rect 10 Mg RC PRN DAILY PRN Oxcarbazepine 600 Mg Tablet 600 Mg PO BID Bupropion Xl (Bupropion Hcl) 150 Mg Tab.er.24h 150 Mg PO DAILY Buspirone Hcl 10 Mg Tablet 10 Mg PO DAILY@1400 Vitamin B-12 (Cyanocobalamin (Vitamin B-12)) 1,000 Mcg Tablet 1,000 Mcg PO DAILY Senna (Sennosides) 8.6 Mg Tablet 1 Tab PO BID Protonix (Pantoprazole Sodium) 40 Mg Tablet.dr 40 Mg PO DAILYAC Alum-Mag Hydroxide-Simeth Liq (Mag Hydrox/Al Hydrox/Simeth) 360 Ml Oral.susp 30 Ml PO PRN Q4HRS PRN Multiple Vitamin (Multivitamin With Minerals) 1 Each Tablet 1 Each PO DAILY Miralax (Polyethylene Glycol 3350) 17 Gm Powd.pack 17 Gm PO PRN Q24HRS PRN Milk Of Magnesia (Magnesium Hydroxide) 400 Mg/5 Ml Oral.susp 2,400 Mg PO PRN Q24HRS PRN Melatonin 3 Mg Tablet 6 Mg PO HS Magnesium Oxide 400 Mg Tablet 400 Mg PO BID Anti-Diarrheal (Loperamide Hcl) 2 Mg Capsule 2 Mg PO PRN Q6HRS PRN Latuda (Lurasidone Hcl) 80 Mg Tablet 120 Mg PO HS Flomax (Tamsulosin Hcl) 0.4 Mg Cap.er.24h 0.4 Mg PO HS Vitamin D3 (Cholecalciferol (Vitamin D3)) 1,000 Unit Tablet 2,000 Unit PO DAILY Atorvastatin Calcium 10 Mg Tablet 5 Mg PO QHS Aspirin 81 Mg Tab.chew 81 Mg PO DAILY Ascorbic Acid 500 Mg Tablet 500 Mg PO BID Buspirone Hcl 15 Mg Tablet 15 Mg PO BID Zyprexa Zydis (Olanzapine) 5 Mg Tab.rapdis 2.5 Mg PO PRN Q2HR PRN Dissolve in mouth Zofran Odt (Ondansetron) 8 Mg Tab.rapdis 8 Mg PO QID PRN Dissolve on tongue [place] Ultra Strength Crm (Methyl Salicylate/Menth/Camph) 57 Gm Cream..g. 1 Shaheen TP PRN QID PRN Tylenol (Acetaminophen) 325 Mg Tablet 650 Mg PO PRN Q6HRS PRN Max Acetaminophen dose is 4000mg in 24 hours from all sources for adults. I have reviewed the current psychotropics carefully including drug interactions. Risk benefit ratio favors no change other than as noted in my dictated progress note. Diagnosis: Problems: (1) Schizoaffective disorder, bipolar type (2) Chronic schizoaffective disorder with acute exacerbation (3) Mild cognitive impairment (4) Mental status change (5) Psychosis (6) Dementia (7) Schizoaffective disorder (8) SCHIZOAFFECTIVE DISORDER, UNSPECIFIED (9) Schizophrenia (10) Bipolar 1 disorder TINY CHAN MD Mar 03, 2017 21:29
--- NOTE | 2017-03-04 03:28 | PN ---
DATE: 03/02/2017 This late entry for 03/02/2017 covers elements not covered in my initial note of 03/02/2017. SUBJECTIVE: I met with the patient in the evening of 03/02/2017. The patient has been irritable, somewhat demanding, refusing to eat his food by himself, states he is unable to move his hands once his feet moved different times, still somatically delusional. REVIEW OF SYSTEMS: Ambulation impaired, in Broda chair. No CV, , pulmonary, eye system symptoms on review, has vague somatic symptoms. MENTAL STATUS EXAM: Oriented to himself and situation. Speech has some latency, coherent. Abstraction fair, computation impaired, language function intact, attention span short. Mood and affect remain somewhat labile. LABORATORY DATA: Reviewed. IMPRESSION: Schizoaffective disorder, bipolar type, mixed with psychotic features; cognitive disorder, unspecified. Rest unchanged from initial note. PLAN: Risperdal was increased to 1.5 mg at bedtime. Continue melatonin, Latuda, Trileptal along with Zyprexa p.r.n. TINY CHAN MD DR: ARON/zena JOB#: [id number] / [id number]
[2017-03-04 05:48] VITALS: BP 148/80
[2017-03-04] MEDS: PANTOPRAZOLE 40 MG TABLET. PO SCH (08:03)
[2017-03-04] MEDS: MAGNESIUM OXIDE 400 MG TABLET PO SCH ×2 (08:04→20:23)
[2017-03-04] MEDS: MULTIVITAMIN with MINERAL TABLET. PO SCH (08:04)
[2017-03-04] MEDS: CHOLECALCIFEROL (VITAMIN D3) 1,000 UNIT TABLET PO SCH (08:04)
[2017-03-04] MEDS: ASPIRIN 81 MG TAB.CHEW PO SCH (08:04)
[2017-03-04] MEDS: SENNOSIDES 8.6 MG TABLET PO SCH ×2 (08:04→20:26)
[2017-03-04] MEDS: CYANOCOBALAMIN (VITAMIN B-12) 1,000 MCG TABLET. PO SCH (08:04)
[2017-03-04] MEDS: ASCORBIC ACID 500 MG TABLET PO SCH ×2 (08:04→20:22)
[2017-03-04] MEDS: LIDOCAINE (700MG/PATCH) PATCH. TD SCH (08:05)
[2017-03-04] MEDS: ACETAMINOPHEN 325 MG TABLET PO PRN (08:39)
[2017-03-04] MEDS: FAMOTIDINE 20 MG TABLET PO SCH (13:29)
[2017-03-04 16:02] VITALS: BP 187/72
--- NOTE | 2017-03-04 20:08 | PDOC ---
Exam Note: Rob Note: Please also refer to the separate dictated note~for this date of service dictated separately.~Patient seen individually. Discussed the patient with Nursing staff reviewed the chart.~Reviewed interim history and current functioning. Reviewed vital signs,~Labs/ Radiology~and current medications noted below. Continue current treatment with the changes noted in the dictated addendum note Assessment: Vital Signs: Vital Signs Date Time Temp Pulse Resp B/P (MAP) Pulse Ox O2 Delivery O2 Flow Rate FiO2 03/04/17 16:02 96.7 65 18 187/72 (110) 98 Room Air I&O Intake and Output 03/04/17 07:00 Intake Total 1560 ml Output Total 1000 ml Balance 560 ml Intake Oral 1560 ml Output Urine Total 1000 ml Current Medications: Meds: Current Medications Acetaminophen (Tylenol) 650 mg PRN Q6HRS PRN PO PAIN / TEMP; Start 02/24/17 at 11:15; Status Cancel Multi-Ingredient Ointment (Analgesic [place]) 1 shaheen PRN QID PRN TP MUSCLE PAIN; Start 02/24/17 at 11:15 Al Hydroxide/Mg Hydroxide (Mylanta Plus Xs) 15 ml PRN AFTMEALHC PRN PO DYSPEPSIA; Start 02/24/17 at 11:15; Status Cancel Magnesium Hydroxide (Milk Of Magnesia) 2,400 mg PRN QHS PRN PO CONSTIPATION; Start 02/24/17 at 11:15; Status Cancel Acetaminophen (Tylenol) 650 mg PRN Q6HRS PRN PO PAIN / TEMP Last administered on 03/04/17 08:39; Start 02/24/17 at 11:30 Ascorbic Acid (Vitamin C) 500 mg BID PO Last administered on 03/04/17 08:04; Start 02/24/17 at 21:00 Aspirin (Children'S Aspirin) 81 mg DAILY PO Last administered on 03/04/17 08: 04; Start 02/25/17 at 09:00 Atorvastatin Calcium (Lipitor) 5 mg QHS PO Last administered on 03/03/17 19: 22; Start 02/24/17 at 21:00 Bisacodyl (Dulcolax Supp) 10 mg PRN DAILY PRN RC CONSTIPATION Last administered on 02/27/17 03:38; Start 02/24/17 at 11:30 Bupropion HCl (Wellbutrin Xl) 150 mg DAILY PO Last administered on 02/25/17 08:42; Start 02/25/17 at 09:00; Stop 02/25/17 at 11:17; Status DC Buspirone HCl (Buspar) 10 mg DAILY@1400 PO Last administered on 02/24/17 16: 59; Start 02/24/17 at 14:00; Stop 02/25/17 at 11:17; Status DC Buspirone HCl (Buspar) 15 mg BID PO Last administered on 02/25/17 08:43; Start 02/24/17 at 21:00; Stop 02/25/17 at 11:17; Status DC Vitamin D (Vitamin D3) 2,000 unit DAILY PO Last administered on 03/04/17 08: 04; Start 02/25/17 at 09:00 Cyanocobalamin (Vitamin B-12) 1,000 mcg DAILY PO Last administered on 08:04; Start 02/25/17 at 09:00 Famotidine (Pepcid) 20 mg AFTRNOON PO Last administered on 03/04/17 13:29; Start 02/24/17 at 13:00 Loperamide HCl (Imodium) 2 mg PRN Q6HRS PRN PO DIARRHEA; Start 02/24/17 at 11: 30 Magnesium Hydroxide (Milk Of Magnesia) 2,400 mg PRN Q24HRS PRN PO CONSTIPATION ; Start 02/24/17 at 11:30 Magnesium Oxide (Magnesium Oxide) 400 mg BID PO Last administered on 08:04; Start 02/24/17 at 21:00 Mirtazapine (Remeron) 7.5 mg QHS PO Last administered on 03/03/17 19:21; Start 02/24/17 at 21:00 Olanzapine (ZyPREXA ZYDIS) 2.5 mg PRN Q2HR PRN PO psychosis; Start 02/24/17 at 11:30 Pantoprazole Sodium (Protonix) 40 mg DAILYAC PO Last administered on 08:03; Start 02/25/17 at 07:30 Polyethylene Glycol (miraLAX) 17 gm PRN Q24HRS PRN PO CONSTIPATION Last administered on 02/26/17 09:11; Start 02/24/17 at 11:30 Artificial Tears (Artificial Tears) 1 drop PRN Q2HR PRN OU DRY EYE; Start at 11:30 Risperidone (RisperDAL) 1 mg QHS PO Last administered on 02/28/17 20:34; Start 02/24/17 at 21:00; Stop 03/01/17 at 18:28; Status DC Sennosides (Senna) 8.6 mg BID PO Last administered on 03/04/17 08:04; Start 02/24/17 at 21:00 Tamsulosin HCl (Flomax) 0.4 mg HS PO Last administered on 03/03/17 19:23; Start 02/24/17 at 21:00 Cephalexin HCl (Keflex) 500 mg TID PO Last administered on 03/02/17 20:02; Start 02/24/17 at 14:00; Stop 03/02/17 at 21:00; Status DC Non-Formulary Medication 120 mg HS PO ; Start 02/24/17 at 21:00; Status UNV Al Hydroxide/Mg Hydroxide (Mylanta Plus Xs) 30 ml PRN Q4HRS PRN PO GERD; Start 02/24/17 at 12:30 Melatonin 6 mg QHS PO Last administered on 03/03/17 19:22; Start 02/24/17 at 21:00 Non-Formulary Medication 1 shaheen PRN QID PRN TP MUSCLE PAIN; Start 02/24/17 at 11:30; Status UNV Multivitamins/ Calcium (Thera-M Plus) 1 tab DAILY PO Last administered on 03/04 08:04; Start 02/25/17 at 09:00 Ondansetron HCl (Zofran Odt) 8 mg PRN QID PRN PO NAUSEA/VOMITING; Start at 12:30 Oxcarbazepine (Trileptal) 600 mg BID PO Last administered on 03/04/17 08:04; Start 02/24/17 at 21:00 Lidocaine (Lidoderm) 1 patch DAILY TD Last administered on 03/04/17 08:05; Start 02/25/17 at 09:00 Risperidone (RisperDAL) 1.5 mg QHS PO Last administered on 03/03/17 19:23; Start 03/01/17 at 21:00 Amlodipine Besylate (Norvasc) 5 mg DAILY PO ; Start 03/05/17 at 09:00 Active Scripts Active Reported Keflex (Cephalexin) 500 Mg Capsule 1 Cap PO TID Risperdal (Risperidone) 1 Mg Tablet 1 Tab PO QHS [Lidoderm] 700 Mg TD DAILY Artificial Tears (Polyvinyl Alcohol) 15 Ml Drops 1 Drop OP PRN Q2HR PRN Mirtazapine 7.5 Mg Tablet 7.5 Mg PO QHS Famotidine 20 Mg Tablet 20 Mg PO AFTRNOON Bisacodyl 10 Mg Supp.rect 10 Mg RC PRN DAILY PRN Oxcarbazepine 600 Mg Tablet 600 Mg PO BID Bupropion Xl (Bupropion Hcl) 150 Mg Tab.er.24h 150 Mg PO DAILY Buspirone Hcl 10 Mg Tablet 10 Mg PO DAILY@1400 Vitamin B-12 (Cyanocobalamin (Vitamin B-12)) 1,000 Mcg Tablet 1,000 Mcg PO DAILY Senna (Sennosides) 8.6 Mg Tablet 1 Tab PO BID Protonix (Pantoprazole Sodium) 40 Mg Tablet.dr 40 Mg PO DAILYAC Alum-Mag Hydroxide-Simeth Liq (Mag Hydrox/Al Hydrox/Simeth) 360 Ml Oral.susp 30 Ml PO PRN Q4HRS PRN Multiple Vitamin (Multivitamin With Minerals) 1 Each Tablet 1 Each PO DAILY Miralax (Polyethylene Glycol 3350) 17 Gm Powd.pack 17 Gm PO PRN Q24HRS PRN Milk Of Magnesia (Magnesium Hydroxide) 400 Mg/5 Ml Oral.susp 2,400 Mg PO PRN Q24HRS PRN Melatonin 3 Mg Tablet 6 Mg PO HS Magnesium Oxide 400 Mg Tablet 400 Mg PO BID Anti-Diarrheal (Loperamide Hcl) 2 Mg Capsule 2 Mg PO PRN Q6HRS PRN Latuda (Lurasidone Hcl) 80 Mg Tablet 120 Mg PO HS Flomax (Tamsulosin Hcl) 0.4 Mg Cap.er.24h 0.4 Mg PO HS Vitamin D3 (Cholecalciferol (Vitamin D3)) 1,000 Unit Tablet 2,000 Unit PO DAILY Atorvastatin Calcium 10 Mg Tablet 5 Mg PO QHS Aspirin 81 Mg Tab.chew 81 Mg PO DAILY Ascorbic Acid 500 Mg Tablet 500 Mg PO BID Buspirone Hcl 15 Mg Tablet 15 Mg PO BID Zyprexa Zydis (Olanzapine) 5 Mg Tab.rapdis 2.5 Mg PO PRN Q2HR PRN Dissolve in mouth Zofran Odt (Ondansetron) 8 Mg Tab.rapdis 8 Mg PO QID PRN Dissolve on tongue [place] Ultra Strength Crm (Methyl Salicylate/Menth/Camph) 57 Gm Cream..g. 1 Shaheen TP PRN QID PRN Tylenol (Acetaminophen) 325 Mg Tablet 650 Mg PO PRN Q6HRS PRN Max Acetaminophen dose is 4000mg in 24 hours from all sources for adults. I have reviewed the current psychotropics carefully including drug interactions. Risk benefit ratio favors no change other than as noted in my dictated progress note. Diagnosis: Problems: (1) Schizoaffective disorder, bipolar type (2) Chronic schizoaffective disorder with acute exacerbation (3) Mild cognitive impairment (4) Mental status change (5) Psychosis (6) Dementia (7) SIADH (syndrome of inappropriate ADH production) (8) Hyponatremia (9) Tobacco use disorder (10) Schizoaffective disorder (11) SCHIZOAFFECTIVE DISORDER, UNSPECIFIED (12) Schizophrenia (13) Bipolar 1 disorder TINY CHAN MD Mar 04, 2017 20:08
[2017-03-04] MEDS: MIRTAZAPINE 7.5 MG TABLET. PO SCH (20:21)
[2017-03-04] MEDS: risperiDONE 1 MG TABLET. PO SCH (20:21)
[2017-03-04] MEDS: LURASIDONE 40 MG TABLET. PO SCH (20:22)
[2017-03-04] MEDS: MELATONIN 3 MG TABLET PO SCH (20:22)
[2017-03-04] MEDS: ATORVASTATIN CALCIUM 10 MG TABLET. PO SCH (20:24)
[2017-03-04] MEDS: TAMSULOSIN 0.4 MG CAP.ER.24H. PO SCH (20:26)
[2017-03-05 05:46] VITALS: BP 160/74
[2017-03-05] MEDS: LIDOCAINE (700MG/PATCH) PATCH. TD SCH (07:58)
[2017-03-05] MEDS: SENNOSIDES 8.6 MG TABLET PO SCH ×2 (07:59→20:31)
[2017-03-05] MEDS: ASPIRIN 81 MG TAB.CHEW PO SCH (07:59)
[2017-03-05] MEDS: ASCORBIC ACID 500 MG TABLET PO SCH ×2 (07:59→20:33)
[2017-03-05] MEDS: PANTOPRAZOLE 40 MG TABLET. PO SCH (07:59)
[2017-03-05] MEDS: MAGNESIUM OXIDE 400 MG TABLET PO SCH ×2 (07:59→20:31)
[2017-03-05] MEDS: MULTIVITAMIN with MINERAL TABLET. PO SCH (07:59)
[2017-03-05] MEDS: CHOLECALCIFEROL (VITAMIN D3) 1,000 UNIT TABLET PO SCH (07:59)
[2017-03-05] MEDS: CYANOCOBALAMIN (VITAMIN B-12) 1,000 MCG TABLET. PO SCH (08:00)
[2017-03-05] MEDS: amLODIPine BESYLATE 5 MG TABLET PO SCH (08:01)
[2017-03-05] MEDS: FAMOTIDINE 20 MG TABLET PO SCH (12:44)
[2017-03-05 16:16] VITALS: BP 147/73
[2017-03-05] MEDS: ACETAMINOPHEN 325 MG TABLET PO PRN (18:09)
[2017-03-05] MEDS: MELATONIN 3 MG TABLET PO SCH (20:33)
[2017-03-05] MEDS: ATORVASTATIN CALCIUM 10 MG TABLET. PO SCH (20:33)
[2017-03-05] MEDS: risperiDONE 1 MG TABLET. PO SCH (20:34)
[2017-03-05] MEDS: TAMSULOSIN 0.4 MG CAP.ER.24H. PO SCH (20:34)
[2017-03-05] MEDS: LURASIDONE 40 MG TABLET. PO SCH (20:36)
[2017-03-05] MEDS ORDERED: MIRTAZAPINE 15 MG TABLET PO SCH (21:00)
--- NOTE | 2017-03-05 22:19 | PDOC ---
Exam Note: Rob Note: Please also refer to the separate dictated note~for this date of service dictated separately.~Patient seen individually. Discussed the patient with Nursing staff reviewed the chart.~Reviewed interim history and current functioning. Reviewed vital signs,~Labs/ Radiology~and current medications noted below. Continue current treatment with the changes noted in the dictated addendum note Assessment: Vital Signs: Vital Signs Date Time Temp Pulse Resp B/P (MAP) Pulse Ox O2 Delivery O2 Flow Rate FiO2 03/05/17 16:16 97.6 71 19 147/73 (97) 96 03/04/17 16:02 Room Air I&O Intake and Output 03/05/17 07:00 Intake Total 1520 ml Output Total 700 ml Balance 820 ml Intake Oral 1520 ml Output Urine Total 700 ml Current Medications: Meds: Current Medications Acetaminophen (Tylenol) 650 mg PRN Q6HRS PRN PO PAIN / TEMP; Start 02/24/17 at 11:15; Status Cancel Multi-Ingredient Ointment (Analgesic [place]) 1 shaheen PRN QID PRN TP MUSCLE PAIN; Start 02/24/17 at 11:15 Al Hydroxide/Mg Hydroxide (Mylanta Plus Xs) 15 ml PRN AFTMEALHC PRN PO DYSPEPSIA; Start 02/24/17 at 11:15; Status Cancel Magnesium Hydroxide (Milk Of Magnesia) 2,400 mg PRN QHS PRN PO CONSTIPATION; Start 02/24/17 at 11:15; Status Cancel Acetaminophen (Tylenol) 650 mg PRN Q6HRS PRN PO PAIN / TEMP Last administered on 03/05/17 18:09; Start 02/24/17 at 11:30 Ascorbic Acid (Vitamin C) 500 mg BID PO Last administered on 03/05/17 20:33; Start 02/24/17 at 21:00 Aspirin (Children'S Aspirin) 81 mg DAILY PO Last administered on 03/05/17 07: 59; Start 02/25/17 at 09:00 Atorvastatin Calcium (Lipitor) 5 mg QHS PO Last administered on 03/05/17 20: 33; Start 02/24/17 at 21:00 Bisacodyl (Dulcolax Supp) 10 mg PRN DAILY PRN RC CONSTIPATION Last administered on 02/27/17 03:38; Start 02/24/17 at 11:30 Bupropion HCl (Wellbutrin Xl) 150 mg DAILY PO Last administered on 02/25/17 08:42; Start 02/25/17 at 09:00; Stop 02/25/17 at 11:17; Status DC Buspirone HCl (Buspar) 10 mg DAILY@1400 PO Last administered on 02/24/17 16: 59; Start 02/24/17 at 14:00; Stop 02/25/17 at 11:17; Status DC Buspirone HCl (Buspar) 15 mg BID PO Last administered on 02/25/17 08:43; Start 02/24/17 at 21:00; Stop 02/25/17 at 11:17; Status DC Vitamin D (Vitamin D3) 2,000 unit DAILY PO Last administered on 03/05/17 07: 59; Start 02/25/17 at 09:00 Cyanocobalamin (Vitamin B-12) 1,000 mcg DAILY PO Last administered on 08:00; Start 02/25/17 at 09:00 Famotidine (Pepcid) 20 mg AFTRNOON PO Last administered on 03/05/17 12:44; Start 02/24/17 at 13:00 Loperamide HCl (Imodium) 2 mg PRN Q6HRS PRN PO DIARRHEA; Start 02/24/17 at 11: 30 Magnesium Hydroxide (Milk Of Magnesia) 2,400 mg PRN Q24HRS PRN PO CONSTIPATION ; Start 02/24/17 at 11:30 Magnesium Oxide (Magnesium Oxide) 400 mg BID PO Last administered on 20:31; Start 02/24/17 at 21:00 Mirtazapine (Remeron) 7.5 mg QHS PO Last administered on 03/04/17 20:21; Start 02/24/17 at 21:00; Stop 03/05/17 at 18:16; Status DC Olanzapine (ZyPREXA ZYDIS) 2.5 mg PRN Q2HR PRN PO psychosis; Start 02/24/17 at 11:30 Pantoprazole Sodium (Protonix) 40 mg DAILYAC PO Last administered on 07:59; Start 02/25/17 at 07:30 Polyethylene Glycol (miraLAX) 17 gm PRN Q24HRS PRN PO CONSTIPATION Last administered on 02/26/17 09:11; Start 02/24/17 at 11:30 Artificial Tears (Artificial Tears) 1 drop PRN Q2HR PRN OU DRY EYE; Start at 11:30 Risperidone (RisperDAL) 1 mg QHS PO Last administered on 02/28/17 20:34; Start 02/24/17 at 21:00; Stop 03/01/17 at 18:28; Status DC Sennosides (Senna) 8.6 mg BID PO Last administered on 03/05/17 20:31; Start 02/24/17 at 21:00 Tamsulosin HCl (Flomax) 0.4 mg HS PO Last administered on 03/05/17 20:34; Start 02/24/17 at 21:00 Cephalexin HCl (Keflex) 500 mg TID PO Last administered on 03/02/17 20:02; Start 02/24/17 at 14:00; Stop 03/02/17 at 21:00; Status DC Non-Formulary Medication 120 mg HS PO ; Start 02/24/17 at 21:00; Status UNV Al Hydroxide/Mg Hydroxide (Mylanta Plus Xs) 30 ml PRN Q4HRS PRN PO GERD; Start 02/24/17 at 12:30 Melatonin 6 mg QHS PO Last administered on 03/05/17 20:33; Start 02/24/17 at 21:00 Non-Formulary Medication 1 shaheen PRN QID PRN TP MUSCLE PAIN; Start 02/24/17 at 11:30; Status UNV Multivitamins/ Calcium (Thera-M Plus) 1 tab DAILY PO Last administered on 03/05 07:59; Start 02/25/17 at 09:00 Ondansetron HCl (Zofran Odt) 8 mg PRN QID PRN PO NAUSEA/VOMITING; Start at 12:30 Oxcarbazepine (Trileptal) 600 mg BID PO Last administered on 03/05/17 20:34; Start 02/24/17 at 21:00 Lidocaine (Lidoderm) 1 patch DAILY TD Last administered on 03/05/17 07:58; Start 02/25/17 at 09:00 Risperidone (RisperDAL) 1.5 mg QHS PO Last administered on 03/05/17 20:34; Start 03/01/17 at 21:00 Amlodipine Besylate (Norvasc) 5 mg DAILY PO Last administered on 03/05/17 08: 01; Start 03/05/17 at 09:00 Mirtazapine (Remeron) 15 mg QHS PO Last administered on 03/05/17 20:38; Start 03/05/17 at 21:00 Active Scripts Active Reported Keflex (Cephalexin) 500 Mg Capsule 1 Cap PO TID Risperdal (Risperidone) 1 Mg Tablet 1 Tab PO QHS [Lidoderm] 700 Mg TD DAILY Artificial Tears (Polyvinyl Alcohol) 15 Ml Drops 1 Drop OP PRN Q2HR PRN Mirtazapine 7.5 Mg Tablet 7.5 Mg PO QHS Famotidine 20 Mg Tablet 20 Mg PO AFTRNOON Bisacodyl 10 Mg Supp.rect 10 Mg RC PRN DAILY PRN Oxcarbazepine 600 Mg Tablet 600 Mg PO BID Bupropion Xl (Bupropion Hcl) 150 Mg Tab.er.24h 150 Mg PO DAILY Buspirone Hcl 10 Mg Tablet 10 Mg PO DAILY@1400 Vitamin B-12 (Cyanocobalamin (Vitamin B-12)) 1,000 Mcg Tablet 1,000 Mcg PO DAILY Senna (Sennosides) 8.6 Mg Tablet 1 Tab PO BID Protonix (Pantoprazole Sodium) 40 Mg Tablet.dr 40 Mg PO DAILYAC Alum-Mag Hydroxide-Simeth Liq (Mag Hydrox/Al Hydrox/Simeth) 360 Ml Oral.susp 30 Ml PO PRN Q4HRS PRN Multiple Vitamin (Multivitamin With Minerals) 1 Each Tablet 1 Each PO DAILY Miralax (Polyethylene Glycol 3350) 17 Gm Powd.pack 17 Gm PO PRN Q24HRS PRN Milk Of Magnesia (Magnesium Hydroxide) 400 Mg/5 Ml Oral.susp 2,400 Mg PO PRN Q24HRS PRN Melatonin 3 Mg Tablet 6 Mg PO HS Magnesium Oxide 400 Mg Tablet 400 Mg PO BID Anti-Diarrheal (Loperamide Hcl) 2 Mg Capsule 2 Mg PO PRN Q6HRS PRN Latuda (Lurasidone Hcl) 80 Mg Tablet 120 Mg PO HS Flomax (Tamsulosin Hcl) 0.4 Mg Cap.er.24h 0.4 Mg PO HS Vitamin D3 (Cholecalciferol (Vitamin D3)) 1,000 Unit Tablet 2,000 Unit PO DAILY Atorvastatin Calcium 10 Mg Tablet 5 Mg PO QHS Aspirin 81 Mg Tab.chew 81 Mg PO DAILY Ascorbic Acid 500 Mg Tablet 500 Mg PO BID Buspirone Hcl 15 Mg Tablet 15 Mg PO BID Zyprexa Zydis (Olanzapine) 5 Mg Tab.rapdis 2.5 Mg PO PRN Q2HR PRN Dissolve in mouth Zofran Odt (Ondansetron) 8 Mg Tab.rapdis 8 Mg PO QID PRN Dissolve on tongue [place] Ultra Strength Crm (Methyl Salicylate/Menth/Camph) 57 Gm Cream..g. 1 Shaheen TP PRN QID PRN Tylenol (Acetaminophen) 325 Mg Tablet 650 Mg PO PRN Q6HRS PRN Max Acetaminophen dose is 4000mg in 24 hours from all sources for adults. I have reviewed the current psychotropics carefully including drug interactions. Risk benefit ratio favors no change other than as noted in my dictated progress note. Diagnosis: Problems: (1) Schizoaffective disorder, bipolar type (2) Chronic schizoaffective disorder with acute exacerbation (3) Mild cognitive impairment (4) Mental status change (5) Psychosis (6) Dementia (7) SIADH (syndrome of inappropriate ADH production) (8) Hyponatremia (9) Schizoaffective disorder (10) SCHIZOAFFECTIVE DISORDER, UNSPECIFIED (11) Schizophrenia (12) Bipolar 1 disorder TINY CHAN MD Mar 05, 2017 22:19
--- NOTE | 2017-03-06 01:04 | PN ---
DATE: 03/04/2017 This is a late entry for 03/04/2017 and covers the elements not covered in my initial note of 03/04/2017. SUBJECTIVE: I met with the patient in the evening of 03/04/2017, staffed at a treatment team meeting with the entire team in the morning of 03/04/2017. Reviewed his history. He continues to appear helpless, but does assist himself with feeding a little bit more. Less psychotic and that seems a somatic preoccupation. REVIEW OF SYSTEMS: Ambulation impaired, in Broda chair. Complains of inability to use his arms and legs at times. No CV, , pulmonary, eye system symptoms on review. MENTAL STATUS EXAM: Oriented to himself and situation. Speech has some latency, coherent. Abstraction fair, computation impaired, language function intact, attention span short. Mood and affect still somewhat withdrawn, paranoid, psychotic, less so than before. LABORATORY DATA: Reviewed. IMPRESSION: Schizoaffective disorder, bipolar type, mixed with psychotic features. Rest unchanged from initial note. PLAN: Continue psychotropics mentioned in my initial note. MAN Cinthia CHAN MD DR: ARON/zena JOB#: [id number] / [id number]
--- NOTE | 2017-03-06 01:04 | PN ---
DATE: 03/03/2017 This late entry of 03/03/2017 covers elements not covered in my initial note of 03/03/2017. SUBJECTIVE: I met with the patient in the evening of 03/03/2017. The patient remains somatically preoccupied that he cannot use his arms and his legs at times, unable to feed himself per his perception, demanding at times, at times drowsy. REVIEW OF SYSTEMS: Ambulation impaired, in Broda chair. No CV, , pulmonary, eye system symptoms on review, has vague somatic symptoms. MENTAL STATUS EXAM: Oriented to himself and situation. Speech is coherent, abstraction fair, computation impaired, language function intact, attention span short. Mood and affect somewhat withdrawn. LABORATORY DATA: Reviewed. IMPRESSION: Schizoaffective disorder, bipolar type, mixed with psychotic features; anxiety disorder, unspecified. Rest unchanged from initial note. PLAN: Continue psychotropics mentioned in my initial note, Risperdal, Latuda, Trileptal, melatonin along with Zyprexa p.r.n. MAN Cinthia CHAN MD DR: ARON/zena JOB#: [id number] / [id number]
[2017-03-06 05:43] VITALS: BP 152/92
[2017-03-06] MEDS: MULTIVITAMIN with MINERAL TABLET. PO SCH (07:41)
[2017-03-06] MEDS: CHOLECALCIFEROL (VITAMIN D3) 1,000 UNIT TABLET PO SCH (07:41)
[2017-03-06] MEDS: SENNOSIDES 8.6 MG TABLET PO SCH ×2 (07:41→20:12)
[2017-03-06] MEDS: amLODIPine BESYLATE 5 MG TABLET PO SCH (07:41)
[2017-03-06] MEDS: PANTOPRAZOLE 40 MG TABLET. PO SCH (07:41)
[2017-03-06] MEDS: MAGNESIUM OXIDE 400 MG TABLET PO SCH ×2 (07:42→20:12)
[2017-03-06] MEDS: CYANOCOBALAMIN (VITAMIN B-12) 1,000 MCG TABLET. PO SCH (07:42)
[2017-03-06] MEDS: ASCORBIC ACID 500 MG TABLET PO SCH ×2 (07:42→20:11)
[2017-03-06] MEDS: LIDOCAINE (700MG/PATCH) PATCH. TD SCH (07:42)
[2017-03-06] MEDS: ASPIRIN 81 MG TAB.CHEW PO SCH (07:42)
[2017-03-06] MEDS: ACETAMINOPHEN 325 MG TABLET PO PRN (09:25)
[2017-03-06 10:45] LABS: BASO # 0.1 x10^3/uL (0.0-0.2); BASO % 1 % (0-3); EOS # 0.3 x10^3/uL (0.0-0.7); EOS % 4 % (0-3); HEMATOCRIT 39.1 % (39.0-53.0); HEMOGLOBIN 13.4 g/dL (13.0-17.5); LYMPH # 1.6 x10^3/uL (1.0-4.8); LYMPH % 20 % (24-48); MEAN CORPUSCULAR HEMOGLOBIN 30 pg (25-35); MEAN CORPUSCULAR HGB CONC 34 g/dL (31-37); MEAN CORPUSCULAR VOLUME 86 fL (79-100); MONO # 0.6 x10^3/uL (0.0-1.1); MONO % 7 % (0-9); NEUT # 5.7 x10^3uL (1.8-7.7); NEUT % 69 % (31-73); PLATELET COUNT 221 x10^3/uL (140-400); RED BLOOD COUNT 4.56 x10^6/uL (4.30-5.70); RED CELL DISTRIBUTION WIDTH 12.8 % (11.5-14.5); WHITE BLOOD COUNT 8.3 x10^3/uL (4.0-11.0)
[2017-03-06 11:03] LABS: ALBUMIN 3.3 g/dL (3.4-5.0); ALBUMIN/GLOBULIN RATIO 0.9 (1.0-1.7); CALCIUM 9.2 mg/dL (8.5-10.1); CREATININE 0.9 mg/dL (0.7-1.3); GFR 84.7; POTASSIUM 4.4 mmol/L (3.5-5.1); TOTAL BILIRUBIN 0.2 mg/dL (0.2-1.0); TOTAL PROTEIN 7.1 g/dL (6.4-8.2)
[2017-03-06] MEDS: FAMOTIDINE 20 MG TABLET PO SCH (13:00)
[2017-03-06 16:10] VITALS: BP 150/73
[2017-03-06] MEDS: oxyCODONE IR 5 MG TABLET PO PRN (18:42)
[2017-03-06] MEDS: LURASIDONE 40 MG TABLET. PO SCH (20:09)
[2017-03-06] MEDS: TAMSULOSIN 0.4 MG CAP.ER.24H. PO SCH (20:09)
[2017-03-06] MEDS: MELATONIN 3 MG TABLET PO SCH (20:09)
[2017-03-06] MEDS: risperiDONE 1 MG TABLET. PO SCH (20:11)
[2017-03-06] MEDS: ATORVASTATIN CALCIUM 10 MG TABLET. PO SCH (20:11)
--- NOTE | 2017-03-06 21:28 | PDOC ---
Exam Note: Rob Note: Please also refer to the separate dictated note~for this date of service dictated separately.~Patient seen individually. Discussed the patient with Nursing staff reviewed the chart.~Reviewed interim history and current functioning. Reviewed vital signs,~Labs/ Radiology~and current medications noted below. Continue current treatment with the changes noted in the dictated addendum note Assessment: Vital Signs: Vital Signs Date Time Temp Pulse Resp B/P (MAP) Pulse Ox O2 Delivery O2 Flow Rate FiO2 03/06/17 19:45 Room Air 03/06/17 18:42 22 97 03/06/17 16:10 97.2 74 150/73 (98) I&O Intake and Output 03/06/17 07:00 Intake Total 1320 ml Output Total 1100 ml Balance 220 ml Intake Oral 1320 ml Output Urine Total 1100 ml Labs: Laboratory Tests Test 03/06/17 10:30 White Blood Count 8.3 x10^3/uL (4.0-11.0) Red Blood Count 4.56 x10^6/uL (4.30-5.70) Hemoglobin 13.4 g/dL (13.0-17.5) Hematocrit 39.1 % (39.0-53.0) Mean Corpuscular Volume 86 fL (79-100) Mean Corpuscular Hemoglobin 30 pg (25-35) Mean Corpuscular Hemoglobin Concent 34 g/dL (31-37) Red Cell Distribution Width 12.8 % (11.5-14.5) Platelet Count 221 x10^3/uL (140-400) Neutrophils (%) (Auto) 69 % (31-73) Lymphocytes (%) (Auto) 20 % (24-48) L Monocytes (%) (Auto) 7 % (0-9) Eosinophils (%) (Auto) 4 % (0-3) H Basophils (%) (Auto) 1 % (0-3) Neutrophils # (Auto) 5.7 x10^3uL (1.8-7.7) Lymphocytes # (Auto) 1.6 x10^3/uL (1.0-4.8) Monocytes # (Auto) 0.6 x10^3/uL (0.0-1.1) Eosinophils # (Auto) 0.3 x10^3/uL (0.0-0.7) Basophils # (Auto) 0.1 x10^3/uL (0.0-0.2) Sodium Level 127 mmol/L (136-145) L Potassium Level 4.4 mmol/L (3.5-5.1) Chloride Level 94 mmol/L (98-107) L Carbon Dioxide Level 28 mmol/L (21-32) Anion Gap 5 (6-14) L Blood Urea Nitrogen 12 mg/dL (8-26) Creatinine 0.9 mg/dL (0.7-1.3) Estimated GFR (Cockcroft-Gault) 84.7 BUN/Creatinine Ratio 13 (6-20) Glucose Level 122 mg/dL (70-99) H Calcium Level 9.2 mg/dL (8.5-10.1) Total Bilirubin 0.2 mg/dL (0.2-1.0) Aspartate Amino Transferase (AST) 20 U/L (15-37) Alanine Aminotransferase (ALT) 35 U/L (16-63) Alkaline Phosphatase 88 U/L (46-116) Total Protein 7.1 g/dL (6.4-8.2) Albumin 3.3 g/dL (3.4-5.0) L Albumin/Globulin Ratio 0.9 (1.0-1.7) L Current Medications: Meds: Current Medications Acetaminophen (Tylenol) 650 mg PRN Q6HRS PRN PO PAIN / TEMP; Start 02/24/17 at 11:15; Status Cancel Multi-Ingredient Ointment (Analgesic [place]) 1 shaheen PRN QID PRN TP MUSCLE PAIN; Start 02/24/17 at 11:15 Al Hydroxide/Mg Hydroxide (Mylanta Plus Xs) 15 ml PRN AFTMEALHC PRN PO DYSPEPSIA; Start 02/24/17 at 11:15; Status Cancel Magnesium Hydroxide (Milk Of Magnesia) 2,400 mg PRN QHS PRN PO CONSTIPATION; Start 02/24/17 at 11:15; Status Cancel Acetaminophen (Tylenol) 650 mg PRN Q6HRS PRN PO PAIN / TEMP Last administered on 03/06/17 09:25; Start 02/24/17 at 11:30 Ascorbic Acid (Vitamin C) 500 mg BID PO Last administered on 03/06/17 20:11; Start 02/24/17 at 21:00 Aspirin (Children'S Aspirin) 81 mg DAILY PO Last administered on 03/06/17 07: 42; Start 02/25/17 at 09:00 Atorvastatin Calcium (Lipitor) 5 mg QHS PO Last administered on 03/06/17 20: 11; Start 02/24/17 at 21:00 Bisacodyl (Dulcolax Supp) 10 mg PRN DAILY PRN RC CONSTIPATION Last administered on 02/27/17 03:38; Start 02/24/17 at 11:30 Bupropion HCl (Wellbutrin Xl) 150 mg DAILY PO Last administered on 02/25/17 08:42; Start 02/25/17 at 09:00; Stop 02/25/17 at 11:17; Status DC Buspirone HCl (Buspar) 10 mg DAILY@1400 PO Last administered on 02/24/17 16: 59; Start 02/24/17 at 14:00; Stop 02/25/17 at 11:17; Status DC Buspirone HCl (Buspar) 15 mg BID PO Last administered on 02/25/17 08:43; Start 02/24/17 at 21:00; Stop 02/25/17 at 11:17; Status DC Vitamin D (Vitamin D3) 2,000 unit DAILY PO Last administered on 03/06/17 07: 41; Start 02/25/17 at 09:00 Cyanocobalamin (Vitamin B-12) 1,000 mcg DAILY PO Last administered on 07:42; Start 02/25/17 at 09:00 Famotidine (Pepcid) 20 mg AFTRNOON PO Last administered on 03/06/17 13:00; Start 02/24/17 at 13:00 Loperamide HCl (Imodium) 2 mg PRN Q6HRS PRN PO DIARRHEA; Start 02/24/17 at 11: 30 Magnesium Hydroxide (Milk Of Magnesia) 2,400 mg PRN Q24HRS PRN PO CONSTIPATION ; Start 02/24/17 at 11:30 Magnesium Oxide (Magnesium Oxide) 400 mg BID PO Last administered on 20:12; Start 02/24/17 at 21:00 Mirtazapine (Remeron) 7.5 mg QHS PO Last administered on 03/04/17 20:21; Start 02/24/17 at 21:00; Stop 03/05/17 at 18:16; Status DC Olanzapine (ZyPREXA ZYDIS) 2.5 mg PRN Q2HR PRN PO psychosis; Start 02/24/17 at 11:30 Pantoprazole Sodium (Protonix) 40 mg DAILYAC PO Last administered on 07:41; Start 02/25/17 at 07:30 Polyethylene Glycol (miraLAX) 17 gm PRN Q24HRS PRN PO CONSTIPATION Last administered on 02/26/17 09:11; Start 02/24/17 at 11:30 Artificial Tears (Artificial Tears) 1 drop PRN Q2HR PRN OU DRY EYE; Start at 11:30 Risperidone (RisperDAL) 1 mg QHS PO Last administered on 02/28/17 20:34; Start 02/24/17 at 21:00; Stop 03/01/17 at 18:28; Status DC Sennosides (Senna) 8.6 mg BID PO Last administered on 03/06/17 20:12; Start 02/24/17 at 21:00 Tamsulosin HCl (Flomax) 0.4 mg HS PO Last administered on 03/06/17 20:09; Start 02/24/17 at 21:00 Cephalexin HCl (Keflex) 500 mg TID PO Last administered on 03/02/17 20:02; Start 02/24/17 at 14:00; Stop 03/02/17 at 21:00; Status DC Non-Formulary Medication 120 mg HS PO ; Start 02/24/17 at 21:00; Status UNV Al Hydroxide/Mg Hydroxide (Mylanta Plus Xs) 30 ml PRN Q4HRS PRN PO GERD; Start 02/24/17 at 12:30 Melatonin 6 mg QHS PO Last administered on 03/06/17 20:09; Start 02/24/17 at 21:00 Non-Formulary Medication 1 shaheen PRN QID PRN TP MUSCLE PAIN; Start 02/24/17 at 11:30; Status UNV Multivitamins/ Calcium (Thera-M Plus) 1 tab DAILY PO Last administered on 03/06 07:41; Start 02/25/17 at 09:00 Ondansetron HCl (Zofran Odt) 8 mg PRN QID PRN PO NAUSEA/VOMITING; Start at 12:30 Oxcarbazepine (Trileptal) 600 mg BID PO Last administered on 03/06/17 20:11; Start 02/24/17 at 21:00 Lidocaine (Lidoderm) 1 patch DAILY TD Last administered on 03/06/17 07:42; Start 02/25/17 at 09:00 Risperidone (RisperDAL) 1.5 mg QHS PO Last administered on 03/06/17 20:11; Start 03/01/17 at 21:00 Amlodipine Besylate (Norvasc) 5 mg DAILY PO Last administered on 03/06/17 07: 41; Start 03/05/17 at 09:00 Mirtazapine (Remeron) 15 mg QHS PO Last administered on 03/05/17 20:38; Start 03/05/17 at 21:00; Stop 03/06/17 at 17:58; Status DC Oxycodone HCl (Roxicodone) 5 mg PRN Q4HRS PRN PO PAIN Last administered on 18:42; Start 03/06/17 at 18:45 Active Scripts Active Reported Keflex (Cephalexin) 500 Mg Capsule 1 Cap PO TID Risperdal (Risperidone) 1 Mg Tablet 1 Tab PO QHS [Lidoderm] 700 Mg TD DAILY Artificial Tears (Polyvinyl Alcohol) 15 Ml Drops 1 Drop OP PRN Q2HR PRN Mirtazapine 7.5 Mg Tablet 7.5 Mg PO QHS Famotidine 20 Mg Tablet 20 Mg PO AFTRNOON Bisacodyl 10 Mg Supp.rect 10 Mg RC PRN DAILY PRN Oxcarbazepine 600 Mg Tablet 600 Mg PO BID Bupropion Xl (Bupropion Hcl) 150 Mg Tab.er.24h 150 Mg PO DAILY Buspirone Hcl 10 Mg Tablet 10 Mg PO DAILY@1400 Vitamin B-12 (Cyanocobalamin (Vitamin B-12)) 1,000 Mcg Tablet 1,000 Mcg PO DAILY Senna (Sennosides) 8.6 Mg Tablet 1 Tab PO BID Protonix (Pantoprazole Sodium) 40 Mg Tablet.dr 40 Mg PO DAILYAC Alum-Mag Hydroxide-Simeth Liq (Mag Hydrox/Al Hydrox/Simeth) 360 Ml Oral.susp 30 Ml PO PRN Q4HRS PRN Multiple Vitamin (Multivitamin With Minerals) 1 Each Tablet 1 Each PO DAILY Miralax (Polyethylene Glycol 3350) 17 Gm Powd.pack 17 Gm PO PRN Q24HRS PRN Milk Of Magnesia (Magnesium Hydroxide) 400 Mg/5 Ml Oral.susp 2,400 Mg PO PRN Q24HRS PRN Melatonin 3 Mg Tablet 6 Mg PO HS Magnesium Oxide 400 Mg Tablet 400 Mg PO BID Anti-Diarrheal (Loperamide Hcl) 2 Mg Capsule 2 Mg PO PRN Q6HRS PRN Latuda (Lurasidone Hcl) 80 Mg Tablet 120 Mg PO HS Flomax (Tamsulosin Hcl) 0.4 Mg Cap.er.24h 0.4 Mg PO HS Vitamin D3 (Cholecalciferol (Vitamin D3)) 1,000 Unit Tablet 2,000 Unit PO DAILY Atorvastatin Calcium 10 Mg Tablet 5 Mg PO QHS Aspirin 81 Mg Tab.chew 81 Mg PO DAILY Ascorbic Acid 500 Mg Tablet 500 Mg PO BID Buspirone Hcl 15 Mg Tablet 15 Mg PO BID Zyprexa Zydis (Olanzapine) 5 Mg Tab.rapdis 2.5 Mg PO PRN Q2HR PRN Dissolve in mouth Zofran Odt (Ondansetron) 8 Mg Tab.rapdis 8 Mg PO QID PRN Dissolve on tongue Bengay Ultra Strength Crm (Methyl Salicylate/Menth/Camph) 57 Gm Cream..g. 1 Shaheen TP PRN QID PRN Tylenol (Acetaminophen) 325 Mg Tablet 650 Mg PO PRN Q6HRS PRN Max Acetaminophen dose is 4000mg in 24 hours from all sources for adults. I have reviewed the current psychotropics carefully including drug interactions. Risk benefit ratio favors no change other than as noted in my dictated progress note. Diagnosis: Problems: (1) Schizoaffective disorder, bipolar type (2) Chronic schizoaffective disorder with acute exacerbation (3) Mild cognitive impairment (4) Mental status change (5) Psychosis (6) Dementia (7) Schizoaffective disorder (8) SCHIZOAFFECTIVE DISORDER, UNSPECIFIED (9) Schizophrenia (10) Bipolar 1 disorder TINY CHAN MD Mar 06, 2017 21:28
[2017-03-07] MEDS: oxyCODONE IR 5 MG TABLET PO PRN ×3 (06:16→21:11)
[2017-03-07 06:28] VITALS: BP 138/82
[2017-03-07] MEDS: PANTOPRAZOLE 40 MG TABLET. PO SCH (08:04)
[2017-03-07] MEDS: amLODIPine BESYLATE 5 MG TABLET PO SCH (08:04)
[2017-03-07] MEDS: ASCORBIC ACID 500 MG TABLET PO SCH ×2 (08:04→19:57)
[2017-03-07] MEDS: CHOLECALCIFEROL (VITAMIN D3) 1,000 UNIT TABLET PO SCH (08:04)
[2017-03-07] MEDS: CYANOCOBALAMIN (VITAMIN B-12) 1,000 MCG TABLET. PO SCH (08:04)
[2017-03-07] MEDS: MULTIVITAMIN with MINERAL TABLET. PO SCH (08:04)
[2017-03-07] MEDS: ASPIRIN 81 MG TAB.CHEW PO SCH (08:04)
[2017-03-07] MEDS: SENNOSIDES 8.6 MG TABLET PO SCH ×2 (08:04→19:57)
[2017-03-07] MEDS: MAGNESIUM OXIDE 400 MG TABLET PO SCH ×2 (08:04→19:57)
[2017-03-07] MEDS: LIDOCAINE (700MG/PATCH) PATCH. TD SCH (08:05)
[2017-03-07] MEDS: FAMOTIDINE 20 MG TABLET PO SCH (12:22)
[2017-03-07 12:40] LABS: CALCIUM 9.1 mg/dL (8.5-10.1); CREATININE 1.1 mg/dL (0.7-1.3); GFR 67.2; POTASSIUM 4.6 mmol/L (3.5-5.1)
[2017-03-07 16:03] VITALS: BP 134/81
--- NOTE | 2017-03-07 19:53 | PN ---
DATE: 03/06/2017 PSYCHIATRIC PROGRESS NOTE This is a late entry for 03/06/2017 covers elements not covered in my initial note of 03/06/2017. SUBJECTIVE: I met with the patient evening of 03/06/2017. The patient has been demanding, somewhat helpless, irritable, labile at times, but he is feeding himself, which is better. REVIEW OF SYSTEMS: Ambulation impaired, in Broda chair, vague somatic symptoms. No CV, , pulmonary, eye, ENT system symptoms on review. MENTAL STATUS EXAM: Oriented to himself and situation. Speech has some latency, coherent. Abstraction fair, computation impaired, language function intact. Mood and affect somewhat labile. LABORATORY DATA: Reviewed. IMPRESSION: Schizoaffective disorder, bipolar type, mixed with psychotic features. Rest unchanged. PLAN: Continue psychotropics mentioned in my initial note. MAN Cinthia CHAN MD DR: ARON/zena JOB#: [id number] / [id number]
[2017-03-07] MEDS: risperiDONE 1 MG TABLET. PO SCH (19:57)
[2017-03-07] MEDS: TAMSULOSIN 0.4 MG CAP.ER.24H. PO SCH (19:57)
[2017-03-07] MEDS: ATORVASTATIN CALCIUM 10 MG TABLET. PO SCH (19:57)
[2017-03-07] MEDS: MELATONIN 3 MG TABLET PO SCH (19:57)
[2017-03-07] MEDS: LURASIDONE 40 MG TABLET. PO SCH (19:58)
--- NOTE | 2017-03-07 19:59 | PN ---
DATE: 03/05/2017 This late entry 03/05/2017 covers elements not covered in my initial note 03/05/2017. SUBJECTIVE: I met with the patient evening of 03/05/2017. Overall, the patient slept poorly the previous evening, 4-1/2 hours sleeps in the Broda chair during the day, somewhat helpless, refuses to use his hands to feed himself, but this is getting better. Ambulation impaired, in Broda chair. No CV, , pulmonary, eye system symptoms on review. Vague somatic symptoms as above. MENTAL STATUS EXAM: Oriented to himself and situation. Speech has some latency, coherent. Abstraction fair, computation impaired, language function intact, attention span short. Mood and affect somewhat labile. LABORATORY DATA: Reviewed. IMPRESSION: Schizoaffective disorder, bipolar type, mixed with psychotic features. Rest unchanged from initial note. PLAN: Consequent the patient's insomnia, we will increase Remeron from 7.5 mg at bedtime to 15 mg at bedtime since he has a reported allergy to trazodone. Rest psychotropics unchanged from initial note. MAN Cinthia CHAN MD DR: ARON/zena JOB#: [id number] / [id number]
--- NOTE | 2017-03-07 20:19 | PDOC ---
Exam Note: Rob Note: Please also refer to the separate dictated note~for this date of service dictated separately.~Patient seen individually. Discussed the patient with Nursing staff reviewed the chart.~Reviewed interim history and current functioning. Reviewed vital signs,~Labs/ Radiology~and current medications noted below. Continue current treatment with the changes noted in the dictated addendum note Assessment: Vital Signs: Vital Signs Date Time Temp Pulse Resp B/P (MAP) Pulse Ox O2 Delivery O2 Flow Rate FiO2 03/07/17 16:03 97.9 85 18 134/81 (98) 96 03/07/17 06:16 Room Air I&O Intake and Output 03/07/17 07:00 Intake Total 960 ml Output Total 1750 ml Balance -790 ml Intake Oral 960 ml Output Urine Total 1750 ml # Bowel Movements 2 Labs: Laboratory Tests Test 03/07/17 12:23 Sodium Level 126 mmol/L (136-145) L Potassium Level 4.6 mmol/L (3.5-5.1) Chloride Level 92 mmol/L (98-107) L Carbon Dioxide Level 30 mmol/L (21-32) Anion Gap 4 (6-14) L Blood Urea Nitrogen 12 mg/dL (8-26) Creatinine 1.1 mg/dL (0.7-1.3) Estimated GFR (Cockcroft-Gault) 67.2 Glucose Level 122 mg/dL (70-99) H Calcium Level 9.1 mg/dL (8.5-10.1) Current Medications: Meds: Current Medications Acetaminophen (Tylenol) 650 mg PRN Q6HRS PRN PO PAIN / TEMP; Start 02/24/17 at 11:15; Status Cancel Multi-Ingredient Ointment (Analgesic [place]) 1 shaheen PRN QID PRN TP MUSCLE PAIN; Start 02/24/17 at 11:15 Al Hydroxide/Mg Hydroxide (Mylanta Plus Xs) 15 ml PRN AFTMEALHC PRN PO DYSPEPSIA; Start 02/24/17 at 11:15; Status Cancel Magnesium Hydroxide (Milk Of Magnesia) 2,400 mg PRN QHS PRN PO CONSTIPATION; Start 02/24/17 at 11:15; Status Cancel Acetaminophen (Tylenol) 650 mg PRN Q6HRS PRN PO PAIN / TEMP Last administered on 03/06/17t 09:25; Start 02/24/17 at 11:30 Ascorbic Acid (Vitamin C) 500 mg BID PO Last administered on 03/07/17 19:57; Start 02/24/17 at 21:00 Aspirin (Children'S Aspirin) 81 mg DAILY PO Last administered on 03/07/17 08: 04; Start 02/25/17 at 09:00 Atorvastatin Calcium (Lipitor) 5 mg QHS PO Last administered on 03/07/17 19: 57; Start 02/24/17 at 21:00 Bisacodyl (Dulcolax Supp) 10 mg PRN DAILY PRN RC CONSTIPATION Last administered on 02/27/17 03:38; Start 02/24/17 at 11:30 Bupropion HCl (Wellbutrin Xl) 150 mg DAILY PO Last administered on 02/25/17 08:42; Start 02/25/17 at 09:00; Stop 02/25/17 at 11:17; Status DC Buspirone HCl (Buspar) 10 mg DAILY@1400 PO Last administered on 02/24/17 16: 59; Start 02/24/17 at 14:00; Stop 02/25/17 at 11:17; Status DC Buspirone HCl (Buspar) 15 mg BID PO Last administered on 02/25/17 08:43; Start 02/24/17 at 21:00; Stop 02/25/17 at 11:17; Status DC Vitamin D (Vitamin D3) 2,000 unit DAILY PO Last administered on 03/07/17 08: 04; Start 02/25/17 at 09:00 Cyanocobalamin (Vitamin B-12) 1,000 mcg DAILY PO Last administered on 08:04; Start 02/25/17 at 09:00 Famotidine (Pepcid) 20 mg AFTRNOON PO Last administered on 03/07/17 12:22; Start 02/24/17 at 13:00 Loperamide HCl (Imodium) 2 mg PRN Q6HRS PRN PO DIARRHEA; Start 02/24/17 at 11: 30 Magnesium Hydroxide (Milk Of Magnesia) 2,400 mg PRN Q24HRS PRN PO CONSTIPATION ; Start 02/24/17 at 11:30 Magnesium Oxide (Magnesium Oxide) 400 mg BID PO Last administered on 19:57; Start 02/24/17 at 21:00 Mirtazapine (Remeron) 7.5 mg QHS PO Last administered on 03/04/17 20:21; Start 02/24/17 at 21:00; Stop 03/05/17 at 18:16; Status DC Olanzapine (ZyPREXA ZYDIS) 2.5 mg PRN Q2HR PRN PO psychosis; Start 02/24/17 at 11:30 Pantoprazole Sodium (Protonix) 40 mg DAILYAC PO Last administered on 08:04; Start 02/25/17 at 07:30 Polyethylene Glycol (miraLAX) 17 gm PRN Q24HRS PRN PO CONSTIPATION Last administered on 02/26/17 09:11; Start 02/24/17 at 11:30 Artificial Tears (Artificial Tears) 1 drop PRN Q2HR PRN OU DRY EYE; Start at 11:30 Risperidone (RisperDAL) 1 mg QHS PO Last administered on 02/28/17 20:34; Start 02/24/17 at 21:00; Stop 03/01/17 at 18:28; Status DC Sennosides (Senna) 8.6 mg BID PO Last administered on 03/07/17 19:57; Start 02/24/17 at 21:00 Tamsulosin HCl (Flomax) 0.4 mg HS PO Last administered on 03/07/17 19:57; Start 02/24/17 at 21:00 Cephalexin HCl (Keflex) 500 mg TID PO Last administered on 03/02/17 20:02; Start 02/24/17 at 14:00; Stop 03/02/17 at 21:00; Status DC Non-Formulary Medication 120 mg HS PO ; Start 02/24/17 at 21:00; Status UNV Al Hydroxide/Mg Hydroxide (Mylanta Plus Xs) 30 ml PRN Q4HRS PRN PO GERD; Start 02/24/17 at 12:30 Melatonin 6 mg QHS PO Last administered on 03/07/17 19:57; Start 02/24/17 at 21:00 Non-Formulary Medication 1 shaheen PRN QID PRN TP MUSCLE PAIN; Start 02/24/17 at 11:30; Status UNV Multivitamins/ Calcium (Thera-M Plus) 1 tab DAILY PO Last administered on 03/07 08:04; Start 02/25/17 at 09:00 Ondansetron HCl (Zofran Odt) 8 mg PRN QID PRN PO NAUSEA/VOMITING; Start at 12:30 Oxcarbazepine (Trileptal) 600 mg BID PO Last administered on 03/07/17 19:56; Start 02/24/17 at 21:00 Lidocaine (Lidoderm) 1 patch DAILY TD Last administered on 03/07/17 08:05; Start 02/25/17 at 09:00 Risperidone (RisperDAL) 1.5 mg QHS PO Last administered on 03/07/17 19:57; Start 03/01/17 at 21:00 Amlodipine Besylate (Norvasc) 5 mg DAILY PO Last administered on 03/07/17 08: 04; Start 03/05/17 at 09:00 Mirtazapine (Remeron) 15 mg QHS PO Last administered on 03/05/17 20:38; Start 03/05/17 at 21:00; Stop 03/06/17 at 17:58; Status DC Oxycodone HCl (Roxicodone) 5 mg PRN Q4HRS PRN PO PAIN Last administered on 11:21; Start 03/06/17 at 18:45 Active Scripts Active Reported Keflex (Cephalexin) 500 Mg Capsule 1 Cap PO TID Risperdal (Risperidone) 1 Mg Tablet 1 Tab PO QHS [Lidoderm] 700 Mg TD DAILY Artificial Tears (Polyvinyl Alcohol) 15 Ml Drops 1 Drop OP PRN Q2HR PRN Mirtazapine 7.5 Mg Tablet 7.5 Mg PO QHS Famotidine 20 Mg Tablet 20 Mg PO AFTRNOON Bisacodyl 10 Mg Supp.rect 10 Mg RC PRN DAILY PRN Oxcarbazepine 600 Mg Tablet 600 Mg PO BID Bupropion Xl (Bupropion Hcl) 150 Mg Tab.er.24h 150 Mg PO DAILY Buspirone Hcl 10 Mg Tablet 10 Mg PO DAILY@1400 Vitamin B-12 (Cyanocobalamin (Vitamin B-12)) 1,000 Mcg Tablet 1,000 Mcg PO DAILY Senna (Sennosides) 8.6 Mg Tablet 1 Tab PO BID Protonix (Pantoprazole Sodium) 40 Mg Tablet.dr 40 Mg PO DAILYAC Alum-Mag Hydroxide-Simeth Liq (Mag Hydrox/Al Hydrox/Simeth) 360 Ml Oral.susp 30 Ml PO PRN Q4HRS PRN Multiple Vitamin (Multivitamin With Minerals) 1 Each Tablet 1 Each PO DAILY Miralax (Polyethylene Glycol 3350) 17 Gm Powd.pack 17 Gm PO PRN Q24HRS PRN Milk Of Magnesia (Magnesium Hydroxide) 400 Mg/5 Ml Oral.susp 2,400 Mg PO PRN Q24HRS PRN Melatonin 3 Mg Tablet 6 Mg PO HS Magnesium Oxide 400 Mg Tablet 400 Mg PO BID Anti-Diarrheal (Loperamide Hcl) 2 Mg Capsule 2 Mg PO PRN Q6HRS PRN Latuda (Lurasidone Hcl) 80 Mg Tablet 120 Mg PO HS Flomax (Tamsulosin Hcl) 0.4 Mg Cap.er.24h 0.4 Mg PO HS Vitamin D3 (Cholecalciferol (Vitamin D3)) 1,000 Unit Tablet 2,000 Unit PO DAILY Atorvastatin Calcium 10 Mg Tablet 5 Mg PO QHS Aspirin 81 Mg Tab.chew 81 Mg PO DAILY Ascorbic Acid 500 Mg Tablet 500 Mg PO BID Buspirone Hcl 15 Mg Tablet 15 Mg PO BID Zyprexa Zydis (Olanzapine) 5 Mg Tab.rapdis 2.5 Mg PO PRN Q2HR PRN Dissolve in mouth Zofran Odt (Ondansetron) 8 Mg Tab.rapdis 8 Mg PO QID PRN Dissolve on tongue [place] Ultra Strength Crm (Methyl Salicylate/Menth/Camph) 57 Gm Cream..g. 1 Shaheen TP PRN QID PRN Tylenol (Acetaminophen) 325 Mg Tablet 650 Mg PO PRN Q6HRS PRN Max Acetaminophen dose is 4000mg in 24 hours from all sources for adults. I have reviewed the current psychotropics carefully including drug interactions. Risk benefit ratio favors no change other than as noted in my dictated progress note. Diagnosis: Problems: (1) Schizoaffective disorder, bipolar type (2) Chronic schizoaffective disorder with acute exacerbation (3) Mild cognitive impairment (4) Mental status change (5) Psychosis (6) Dementia (7) SIADH (syndrome of inappropriate ADH production) (8) Hyponatremia (9) Tobacco use disorder (10) Schizoaffective disorder (11) SCHIZOAFFECTIVE DISORDER, UNSPECIFIED (12) Schizophrenia (13) Bipolar 1 disorder TINY CHAN MD Mar 07, 2017 20:19
[2017-03-08 05:57] VITALS: BP 145/86
[2017-03-08] MEDS: PANTOPRAZOLE 40 MG TABLET. PO SCH (07:49)
[2017-03-08] MEDS: SENNOSIDES 8.6 MG TABLET PO SCH ×2 (07:49→19:33)
[2017-03-08] MEDS: MAGNESIUM OXIDE 400 MG TABLET PO SCH ×2 (07:49→19:31)
[2017-03-08] MEDS: MULTIVITAMIN with MINERAL TABLET. PO SCH (07:49)
[2017-03-08] MEDS: ASCORBIC ACID 500 MG TABLET PO SCH ×2 (07:49→19:33)
[2017-03-08] MEDS: amLODIPine BESYLATE 5 MG TABLET PO SCH (07:49)
[2017-03-08] MEDS: CHOLECALCIFEROL (VITAMIN D3) 1,000 UNIT TABLET PO SCH (07:49)
[2017-03-08] MEDS: ASPIRIN 81 MG TAB.CHEW PO SCH (07:49)
[2017-03-08] MEDS: CYANOCOBALAMIN (VITAMIN B-12) 1,000 MCG TABLET. PO SCH (07:49)
[2017-03-08] MEDS: LIDOCAINE (700MG/PATCH) PATCH. TD SCH (07:50)
[2017-03-08] MEDS: oxyCODONE IR 5 MG TABLET PO PRN ×2 (07:54→19:44)
[2017-03-08 08:14] LABS: ALBUMIN 3.3 g/dL (3.4-5.0); ALBUMIN/GLOBULIN RATIO 0.9 (1.0-1.7); CALCIUM 8.8 mg/dL (8.5-10.1); CREATININE 1.1 mg/dL (0.7-1.3); GFR 67.2; POTASSIUM 4.3 mmol/L (3.5-5.1); TOTAL BILIRUBIN 0.2 mg/dL (0.2-1.0); TOTAL PROTEIN 7.1 g/dL (6.4-8.2)
[2017-03-08] MEDS: FAMOTIDINE 20 MG TABLET PO SCH (13:04)
[2017-03-08 16:14] VITALS: BP 138/75
[2017-03-08] MEDS: ATORVASTATIN CALCIUM 10 MG TABLET. PO SCH (19:31)
[2017-03-08] MEDS: MELATONIN 3 MG TABLET PO SCH (19:32)
[2017-03-08] MEDS: risperiDONE 1 MG TABLET. PO SCH (19:32)
[2017-03-08] MEDS: TAMSULOSIN 0.4 MG CAP.ER.24H. PO SCH (19:33)
[2017-03-08] MEDS: LURASIDONE 40 MG TABLET. PO SCH (19:33)
--- NOTE | 2017-03-08 20:16 | PDOC ---
Exam Note: Rob Note: Please also refer to the separate dictated note~for this date of service dictated separately.~Patient seen individually. Discussed the patient with Nursing staff reviewed the chart.~Reviewed interim history and current functioning. Reviewed vital signs,~Labs/ Radiology~and current medications noted below. Continue current treatment with the changes noted in the dictated addendum note Assessment: Vital Signs: Vital Signs Date Time Temp Pulse Resp B/P (MAP) Pulse Ox O2 Delivery O2 Flow Rate FiO2 03/08/17 19:44 18 96 Room Air 03/08/17 16:14 97.6 79 138/75 (96) I&O Intake and Output 03/08/17 06:59 Intake Total 1080 ml Output Total 1550 ml Balance -470 ml Intake Oral 1080 ml Output Urine Total 1550 ml Labs: Laboratory Tests Test 03/08/17 07:25 Sodium Level 131 mmol/L (136-145) L Potassium Level 4.3 mmol/L (3.5-5.1) Chloride Level 95 mmol/L (98-107) L Carbon Dioxide Level 26 mmol/L (21-32) Anion Gap 10 (6-14) Blood Urea Nitrogen 14 mg/dL (8-26) Creatinine 1.1 mg/dL (0.7-1.3) Estimated GFR (Cockcroft-Gault) 67.2 BUN/Creatinine Ratio 13 (6-20) Glucose Level 104 mg/dL (70-99) H Calcium Level 8.8 mg/dL (8.5-10.1) Total Bilirubin 0.2 mg/dL (0.2-1.0) Aspartate Amino Transferase (AST) 21 U/L (15-37) Alanine Aminotransferase (ALT) 33 U/L (16-63) Alkaline Phosphatase 85 U/L (46-116) Total Protein 7.1 g/dL (6.4-8.2) Albumin 3.3 g/dL (3.4-5.0) L Albumin/Globulin Ratio 0.9 (1.0-1.7) L Thyroid Stimulating Hormone (TSH) 1.214 uIU/mL (0.358-3.740) Cortisol AM Sample 12.94 ug/dL (4.3-22.4) Current Medications: Meds: Current Medications Acetaminophen (Tylenol) 650 mg PRN Q6HRS PRN PO PAIN / TEMP; Start 02/24/17 at 11:15; Status Cancel Multi-Ingredient Ointment (Analgesic [place]) 1 shaheen PRN QID PRN TP MUSCLE PAIN; Start 02/24/17 at 11:15 Al Hydroxide/Mg Hydroxide (Mylanta Plus Xs) 15 ml PRN AFTMEALHC PRN PO DYSPEPSIA; Start 02/24/17 at 11:15; Status Cancel Magnesium Hydroxide (Milk Of Magnesia) 2,400 mg PRN QHS PRN PO CONSTIPATION; Start 02/24/17 at 11:15; Status Cancel Acetaminophen (Tylenol) 650 mg PRN Q6HRS PRN PO PAIN / TEMP Last administered on 03/06/17 09:25; Start 02/24/17 at 11:30 Ascorbic Acid (Vitamin C) 500 mg BID PO Last administered on 03/08/17 19:33; Start 02/24/17 at 21:00 Aspirin (Children'S Aspirin) 81 mg DAILY PO Last administered on 03/08/17 07: 49; Start 02/25/17 at 09:00 Atorvastatin Calcium (Lipitor) 5 mg QHS PO Last administered on 03/08/17 19: 31; Start 02/24/17 at 21:00 Bisacodyl (Dulcolax Supp) 10 mg PRN DAILY PRN RC CONSTIPATION Last administered on 02/27/17 03:38; Start 02/24/17 at 11:30 Bupropion HCl (Wellbutrin Xl) 150 mg DAILY PO Last administered on 02/25/17 08:42; Start 02/25/17 at 09:00; Stop 02/25/17 at 11:17; Status DC Buspirone HCl (Buspar) 10 mg DAILY@1400 PO Last administered on 02/24/17 16: 59; Start 02/24/17 at 14:00; Stop 02/25/17 at 11:17; Status DC Buspirone HCl (Buspar) 15 mg BID PO Last administered on 02/25/17 08:43; Start 02/24/17 at 21:00; Stop 02/25/17 at 11:17; Status DC Vitamin D (Vitamin D3) 2,000 unit DAILY PO Last administered on 03/08/17 07: 49; Start 02/25/17 at 09:00 Cyanocobalamin (Vitamin B-12) 1,000 mcg DAILY PO Last administered on 07:49; Start 02/25/17 at 09:00 Famotidine (Pepcid) 20 mg AFTRNOON PO Last administered on 03/08/17 13:04; Start 02/24/17 at 13:00 Loperamide HCl (Imodium) 2 mg PRN Q6HRS PRN PO DIARRHEA; Start 02/24/17 at 11: 30 Magnesium Hydroxide (Milk Of Magnesia) 2,400 mg PRN Q24HRS PRN PO CONSTIPATION ; Start 02/24/17 at 11:30 Magnesium Oxide (Magnesium Oxide) 400 mg BID PO Last administered on 19:31; Start 02/24/17 at 21:00 Mirtazapine (Remeron) 7.5 mg QHS PO Last administered on 03/04/17 20:21; Start 02/24/17 at 21:00; Stop 03/05/17 at 18:16; Status DC Olanzapine (ZyPREXA ZYDIS) 2.5 mg PRN Q2HR PRN PO psychosis; Start 02/24/17 at 11:30 Pantoprazole Sodium (Protonix) 40 mg DAILYAC PO Last administered on 07:49; Start 02/25/17 at 07:30 Polyethylene Glycol (miraLAX) 17 gm PRN Q24HRS PRN PO CONSTIPATION Last administered on 02/26/17 09:11; Start 02/24/17 at 11:30 Artificial Tears (Artificial Tears) 1 drop PRN Q2HR PRN OU DRY EYE; Start at 11:30 Risperidone (RisperDAL) 1 mg QHS PO Last administered on 02/28/17 20:34; Start 02/24/17 at 21:00; Stop 03/01/17 at 18:28; Status DC Sennosides (Senna) 8.6 mg BID PO Last administered on 03/08/17 19:33; Start 02/24/17 at 21:00 Tamsulosin HCl (Flomax) 0.4 mg HS PO Last administered on 03/08/17 19:33; Start 02/24/17 at 21:00 Cephalexin HCl (Keflex) 500 mg TID PO Last administered on 03/02/17 20:02; Start 02/24/17 at 14:00; Stop 03/02/17 at 21:00; Status DC Non-Formulary Medication 120 mg HS PO ; Start 02/24/17 at 21:00; Status UNV Al Hydroxide/Mg Hydroxide (Mylanta Plus Xs) 30 ml PRN Q4HRS PRN PO GERD; Start 02/24/17 at 12:30 Melatonin 6 mg QHS PO Last administered on 03/08/17 19:32; Start 02/24/17 at 21:00 Non-Formulary Medication 1 shaheen PRN QID PRN TP MUSCLE PAIN; Start 02/24/17 at 11:30; Status UNV Multivitamins/ Calcium (Thera-M Plus) 1 tab DAILY PO Last administered on 03/08 07:49; Start 02/25/17 at 09:00 Ondansetron HCl (Zofran Odt) 8 mg PRN QID PRN PO NAUSEA/VOMITING; Start at 12:30 Oxcarbazepine (Trileptal) 600 mg BID PO Last administered on 03/08/17 19:32; Start 02/24/17 at 21:00 Lidocaine (Lidoderm) 1 patch DAILY TD Last administered on 03/08/17 07:50; Start 02/25/17 at 09:00 Risperidone (RisperDAL) 1.5 mg QHS PO Last administered on 03/08/17 19:32; Start 03/01/17 at 21:00 Amlodipine Besylate (Norvasc) 5 mg DAILY PO Last administered on 03/08/17 07: 49; Start 03/05/17 at 09:00 Mirtazapine (Remeron) 15 mg QHS PO Last administered on 03/05/17 20:38; Start 03/05/17 at 21:00; Stop 03/06/17 at 17:58; Status DC Oxycodone HCl (Roxicodone) 5 mg PRN Q4HRS PRN PO PAIN Last administered on 19:44; Start 03/06/17 at 18:45 Active Scripts Active Reported Keflex (Cephalexin) 500 Mg Capsule 1 Cap PO TID Risperdal (Risperidone) 1 Mg Tablet 1 Tab PO QHS [Lidoderm] 700 Mg TD DAILY Artificial Tears (Polyvinyl Alcohol) 15 Ml Drops 1 Drop OP PRN Q2HR PRN Mirtazapine 7.5 Mg Tablet 7.5 Mg PO QHS Famotidine 20 Mg Tablet 20 Mg PO AFTRNOON Bisacodyl 10 Mg Supp.rect 10 Mg RC PRN DAILY PRN Oxcarbazepine 600 Mg Tablet 600 Mg PO BID Bupropion Xl (Bupropion Hcl) 150 Mg Tab.er.24h 150 Mg PO DAILY Buspirone Hcl 10 Mg Tablet 10 Mg PO DAILY@1400 Vitamin B-12 (Cyanocobalamin (Vitamin B-12)) 1,000 Mcg Tablet 1,000 Mcg PO DAILY Senna (Sennosides) 8.6 Mg Tablet 1 Tab PO BID Protonix (Pantoprazole Sodium) 40 Mg Tablet.dr 40 Mg PO DAILYAC Alum-Mag Hydroxide-Simeth Liq (Mag Hydrox/Al Hydrox/Simeth) 360 Ml Oral.susp 30 Ml PO PRN Q4HRS PRN Multiple Vitamin (Multivitamin With Minerals) 1 Each Tablet 1 Each PO DAILY Miralax (Polyethylene Glycol 3350) 17 Gm Powd.pack 17 Gm PO PRN Q24HRS PRN Milk Of Magnesia (Magnesium Hydroxide) 400 Mg/5 Ml Oral.susp 2,400 Mg PO PRN Q24HRS PRN Melatonin 3 Mg Tablet 6 Mg PO HS Magnesium Oxide 400 Mg Tablet 400 Mg PO BID Anti-Diarrheal (Loperamide Hcl) 2 Mg Capsule 2 Mg PO PRN Q6HRS PRN Latuda (Lurasidone Hcl) 80 Mg Tablet 120 Mg PO HS Flomax (Tamsulosin Hcl) 0.4 Mg Cap.er.24h 0.4 Mg PO HS Vitamin D3 (Cholecalciferol (Vitamin D3)) 1,000 Unit Tablet 2,000 Unit PO DAILY Atorvastatin Calcium 10 Mg Tablet 5 Mg PO QHS Aspirin 81 Mg Tab.chew 81 Mg PO DAILY Ascorbic Acid 500 Mg Tablet 500 Mg PO BID Buspirone Hcl 15 Mg Tablet 15 Mg PO BID Zyprexa Zydis (Olanzapine) 5 Mg Tab.rapdis 2.5 Mg PO PRN Q2HR PRN Dissolve in mouth Zofran Odt (Ondansetron) 8 Mg Tab.rapdis 8 Mg PO QID PRN Dissolve on tongue [place] Ultra Strength Crm (Methyl Salicylate/Menth/Camph) 57 Gm Cream..g. 1 Shaheen TP PRN QID PRN Tylenol (Acetaminophen) 325 Mg Tablet 650 Mg PO PRN Q6HRS PRN Max Acetaminophen dose is 4000mg in 24 hours from all sources for adults. I have reviewed the current psychotropics carefully including drug interactions. Risk benefit ratio favors no change other than as noted in my dictated progress note. Diagnosis: Problems: (1) Schizoaffective disorder, bipolar type (2) Chronic schizoaffective disorder with acute exacerbation (3) Mild cognitive impairment (4) Mental status change (5) Psychosis (6) Dementia (7) SIADH (syndrome of inappropriate ADH production) (8) Hyponatremia (9) Tobacco use disorder (10) Schizoaffective disorder (11) SCHIZOAFFECTIVE DISORDER, UNSPECIFIED (12) Schizophrenia (13) Bipolar 1 disorder TINY CHAN MD Mar 08, 2017 20:16
--- NOTE | 2017-03-08 22:05 | PN ---
DATE: 03/07/2017 PSYCHIATRIC PROGRESS NOTE This is a late entry for 03/07/2017 covers elements not covered in my initial note of 03/07/2017. SUBJECTIVE: I met with the patient evening of 03/07/2017. Overall, the patient is less demanding, more cooperative, compliant, feeding himself. Sodium 126. He is on fluid restriction, 1 liter fluid during the day. We will repeat labs morning of 03/08/2017. REVIEW OF SYSTEMS: Ambulation impaired, in Broda chair. No CV, , pulmonary, eye system symptoms on review. MENTAL STATUS EXAM: Oriented to himself and situation. Speech moderate latency, low in volume, coherent, abstraction fair, computation impaired, language function intact, attention span short. Mood and affect somewhat withdrawn. LABORATORY DATA: Reviewed. IMPRESSION: Schizoaffective disorder, bipolar type, mixed with psychotic features, in partial remission; cognitive disorder, unspecified versus mild cognitive impairment. Rest unchanged from initial note. PLAN: Continue psychotropics mentioned in my initial note and the fluid restriction noted above. MAN Cinthia CHAN MD DR: ARON/zena JOB#: [id number] / [id number]
[2017-03-09 05:22] VITALS: BP 136/77
[2017-03-09 07:39] LABS: ALBUMIN 3.2 g/dL (3.4-5.0); ALBUMIN/GLOBULIN RATIO 0.9 (1.0-1.7); CREATININE 1.1 mg/dL (0.7-1.3); GFR 67.2; POTASSIUM 4.7 mmol/L (3.5-5.1); TOTAL BILIRUBIN 0.2 mg/dL (0.2-1.0); TOTAL PROTEIN 6.8 g/dL (6.4-8.2)
[2017-03-09] MEDS: CHOLECALCIFEROL (VITAMIN D3) 1,000 UNIT TABLET PO SCH (07:58)
[2017-03-09] MEDS: ASCORBIC ACID 500 MG TABLET PO SCH ×2 (07:59→20:01)
[2017-03-09] MEDS: PANTOPRAZOLE 40 MG TABLET. PO SCH (07:59)
[2017-03-09] MEDS: amLODIPine BESYLATE 5 MG TABLET PO SCH (07:59)
[2017-03-09] MEDS: MAGNESIUM OXIDE 400 MG TABLET PO SCH ×2 (07:59→19:47)
[2017-03-09] MEDS: MULTIVITAMIN with MINERAL TABLET. PO SCH (07:59)
[2017-03-09] MEDS: ASPIRIN 81 MG TAB.CHEW PO SCH (07:59)
[2017-03-09] MEDS: SENNOSIDES 8.6 MG TABLET PO SCH ×2 (07:59→20:01)
[2017-03-09] MEDS: CYANOCOBALAMIN (VITAMIN B-12) 1,000 MCG TABLET. PO SCH (07:59)
[2017-03-09] MEDS: LIDOCAINE (700MG/PATCH) PATCH. TD SCH (08:00)
[2017-03-09] MEDS: oxyCODONE IR 5 MG TABLET PO PRN ×2 (09:08→16:07)
[2017-03-09] MEDS: FAMOTIDINE 20 MG TABLET PO SCH (13:44)
[2017-03-09 15:58] VITALS: BP 129/88
[2017-03-09] MEDS: ATORVASTATIN CALCIUM 10 MG TABLET. PO SCH (19:47)
[2017-03-09] MEDS: MELATONIN 3 MG TABLET PO SCH (20:00)
[2017-03-09] MEDS: LURASIDONE 40 MG TABLET. PO SCH (20:00)
[2017-03-09] MEDS: risperiDONE 1 MG TABLET. PO SCH (20:01)
[2017-03-09] MEDS: TAMSULOSIN 0.4 MG CAP.ER.24H. PO SCH (20:01)
--- NOTE | 2017-03-09 20:14 | PDOC ---
Exam Note: Rob Note: Please also refer to the separate dictated note~for this date of service dictated separately.~Patient seen individually. Discussed the patient with Nursing staff reviewed the chart.~Reviewed interim history and current functioning. Reviewed vital signs,~Labs/ Radiology~and current medications noted below. Continue current treatment with the changes noted in the dictated addendum note Assessment: Vital Signs: Vital Signs Date Time Temp Pulse Resp B/P (MAP) Pulse Ox O2 Delivery O2 Flow Rate FiO2 03/09/17 15:58 97.4 73 19 129/88 (102) 97 03/08/17 20:44 Room Air I&O Intake and Output 03/09/17 07:00 Intake Total 1300 ml Output Total 950 ml Balance 350 ml Intake Oral 1300 ml Output Urine Total 950 ml Labs: Laboratory Tests Test 03/09/17 07:09 Sodium Level 133 mmol/L (136-145) L Potassium Level 4.7 mmol/L (3.5-5.1) Chloride Level 98 mmol/L (98-107) Carbon Dioxide Level 29 mmol/L (21-32) Anion Gap 6 (6-14) Blood Urea Nitrogen 15 mg/dL (8-26) Creatinine 1.1 mg/dL (0.7-1.3) Estimated GFR (Cockcroft-Gault) 67.2 BUN/Creatinine Ratio 14 (6-20) Glucose Level 95 mg/dL (70-99) Calcium Level 9.0 mg/dL (8.5-10.1) Total Bilirubin 0.2 mg/dL (0.2-1.0) Aspartate Amino Transferase (AST) 20 U/L (15-37) Alanine Aminotransferase (ALT) 31 U/L (16-63) Alkaline Phosphatase 81 U/L (46-116) Total Protein 6.8 g/dL (6.4-8.2) Albumin 3.2 g/dL (3.4-5.0) L Albumin/Globulin Ratio 0.9 (1.0-1.7) L Current Medications: Meds: Current Medications Acetaminophen (Tylenol) 650 mg PRN Q6HRS PRN PO PAIN / TEMP; Start 02/24/17 at 11:15; Status Cancel Multi-Ingredient Ointment (Analgesic [place]) 1 shaheen PRN QID PRN TP MUSCLE PAIN; Start 02/24/17 at 11:15 Al Hydroxide/Mg Hydroxide (Mylanta Plus Xs) 15 ml PRN AFTMEALHC PRN PO DYSPEPSIA; Start 02/24/17 at 11:15; Status Cancel Magnesium Hydroxide (Milk Of Magnesia) 2,400 mg PRN QHS PRN PO CONSTIPATION; Start 02/24/17 at 11:15; Status Cancel Acetaminophen (Tylenol) 650 mg PRN Q6HRS PRN PO PAIN / TEMP Last administered on 03/06/17 09:25; Start 02/24/17 at 11:30 Ascorbic Acid (Vitamin C) 500 mg BID PO Last administered on 03/09/17 20:01; Start 02/24/17 at 21:00 Aspirin (Children'S Aspirin) 81 mg DAILY PO Last administered on 03/09/17 07: 59; Start 02/25/17 at 09:00 Atorvastatin Calcium (Lipitor) 5 mg QHS PO Last administered on 03/09/17 19: 47; Start 02/24/17 at 21:00 Bisacodyl (Dulcolax Supp) 10 mg PRN DAILY PRN RC CONSTIPATION Last administered on 02/27/17 03:38; Start 02/24/17 at 11:30 Bupropion HCl (Wellbutrin Xl) 150 mg DAILY PO Last administered on 02/25/17 08:42; Start 02/25/17 at 09:00; Stop 02/25/17 at 11:17; Status DC Buspirone HCl (Buspar) 10 mg DAILY@1400 PO Last administered on 02/24/17 16: 59; Start 02/24/17 at 14:00; Stop 02/25/17 at 11:17; Status DC Buspirone HCl (Buspar) 15 mg BID PO Last administered on 02/25/17 08:43; Start 02/24/17 at 21:00; Stop 02/25/17 at 11:17; Status DC Vitamin D (Vitamin D3) 2,000 unit DAILY PO Last administered on 03/09/17 07: 58; Start 02/25/17 at 09:00 Cyanocobalamin (Vitamin B-12) 1,000 mcg DAILY PO Last administered on 07:59; Start 02/25/17 at 09:00 Famotidine (Pepcid) 20 mg AFTRNOON PO Last administered on 03/09/17 13:44; Start 02/24/17 at 13:00 Loperamide HCl (Imodium) 2 mg PRN Q6HRS PRN PO DIARRHEA; Start 02/24/17 at 11: 30 Magnesium Hydroxide (Milk Of Magnesia) 2,400 mg PRN Q24HRS PRN PO CONSTIPATION ; Start 02/24/17 at 11:30 Magnesium Oxide (Magnesium Oxide) 400 mg BID PO Last administered on 19:47; Start 02/24/17 at 21:00 Mirtazapine (Remeron) 7.5 mg QHS PO Last administered on 03/04/17 20:21; Start 02/24/17 at 21:00; Stop 03/05/17 at 18:16; Status DC Olanzapine (ZyPREXA ZYDIS) 2.5 mg PRN Q2HR PRN PO psychosis; Start 02/24/17 at 11:30 Pantoprazole Sodium (Protonix) 40 mg DAILYAC PO Last administered on 07:59; Start 02/25/17 at 07:30 Polyethylene Glycol (miraLAX) 17 gm PRN Q24HRS PRN PO CONSTIPATION Last administered on 02/26/17 09:11; Start 02/24/17 at 11:30 Artificial Tears (Artificial Tears) 1 drop PRN Q2HR PRN OU DRY EYE; Start at 11:30 Risperidone (RisperDAL) 1 mg QHS PO Last administered on 02/28/17 20:34; Start 02/24/17 at 21:00; Stop 03/01/17 at 18:28; Status DC Sennosides (Senna) 8.6 mg BID PO Last administered on 03/09/17 20:01; Start 02/24/17 at 21:00 Tamsulosin HCl (Flomax) 0.4 mg HS PO Last administered on 03/09/17 20:01; Start 02/24/17 at 21:00 Cephalexin HCl (Keflex) 500 mg TID PO Last administered on 03/02/17 20:02; Start 02/24/17 at 14:00; Stop 03/02/17 at 21:00; Status DC Non-Formulary Medication 120 mg HS PO ; Start 02/24/17 at 21:00; Status UNV Al Hydroxide/Mg Hydroxide (Mylanta Plus Xs) 30 ml PRN Q4HRS PRN PO GERD; Start 02/24/17 at 12:30 Melatonin 6 mg QHS PO Last administered on 03/09/17 20:00; Start 02/24/17 at 21:00 Non-Formulary Medication 1 shaheen PRN QID PRN TP MUSCLE PAIN; Start 02/24/17 at 11:30; Status UNV Multivitamins/ Calcium (Thera-M Plus) 1 tab DAILY PO Last administered on 03/09 07:59; Start 02/25/17 at 09:00 Ondansetron HCl (Zofran Odt) 8 mg PRN QID PRN PO NAUSEA/VOMITING; Start at 12:30 Oxcarbazepine (Trileptal) 600 mg BID PO Last administered on 03/09/17 20:00; Start 02/24/17 at 21:00 Lidocaine (Lidoderm) 1 patch DAILY TD Last administered on 03/09/17 08:00; Start 02/25/17 at 09:00 Risperidone (RisperDAL) 1.5 mg QHS PO Last administered on 03/09/17 20:01; Start 03/01/17 at 21:00 Amlodipine Besylate (Norvasc) 5 mg DAILY PO Last administered on 03/09/17 07: 59; Start 03/05/17 at 09:00 Mirtazapine (Remeron) 15 mg QHS PO Last administered on 03/05/17 20:38; Start 03/05/17 at 21:00; Stop 03/06/17 at 17:58; Status DC Oxycodone HCl (Roxicodone) 5 mg PRN Q4HRS PRN PO PAIN Last administered on 16:07; Start 03/06/17 at 18:45 Active Scripts Active Reported Keflex (Cephalexin) 500 Mg Capsule 1 Cap PO TID Risperdal (Risperidone) 1 Mg Tablet 1 Tab PO QHS [Lidoderm] 700 Mg TD DAILY Artificial Tears (Polyvinyl Alcohol) 15 Ml Drops 1 Drop OP PRN Q2HR PRN Mirtazapine 7.5 Mg Tablet 7.5 Mg PO QHS Famotidine 20 Mg Tablet 20 Mg PO AFTRNOON Bisacodyl 10 Mg Supp.rect 10 Mg RC PRN DAILY PRN Oxcarbazepine 600 Mg Tablet 600 Mg PO BID Bupropion Xl (Bupropion Hcl) 150 Mg Tab.er.24h 150 Mg PO DAILY Buspirone Hcl 10 Mg Tablet 10 Mg PO DAILY@1400 Vitamin B-12 (Cyanocobalamin (Vitamin B-12)) 1,000 Mcg Tablet 1,000 Mcg PO DAILY Senna (Sennosides) 8.6 Mg Tablet 1 Tab PO BID Protonix (Pantoprazole Sodium) 40 Mg Tablet.dr 40 Mg PO DAILYAC Alum-Mag Hydroxide-Simeth Liq (Mag Hydrox/Al Hydrox/Simeth) 360 Ml Oral.susp 30 Ml PO PRN Q4HRS PRN Multiple Vitamin (Multivitamin With Minerals) 1 Each Tablet 1 Each PO DAILY Miralax (Polyethylene Glycol 3350) 17 Gm Powd.pack 17 Gm PO PRN Q24HRS PRN Milk Of Magnesia (Magnesium Hydroxide) 400 Mg/5 Ml Oral.susp 2,400 Mg PO PRN Q24HRS PRN Melatonin 3 Mg Tablet 6 Mg PO HS Magnesium Oxide 400 Mg Tablet 400 Mg PO BID Anti-Diarrheal (Loperamide Hcl) 2 Mg Capsule 2 Mg PO PRN Q6HRS PRN Latuda (Lurasidone Hcl) 80 Mg Tablet 120 Mg PO HS Flomax (Tamsulosin Hcl) 0.4 Mg Cap.er.24h 0.4 Mg PO HS Vitamin D3 (Cholecalciferol (Vitamin D3)) 1,000 Unit Tablet 2,000 Unit PO DAILY Atorvastatin Calcium 10 Mg Tablet 5 Mg PO QHS Aspirin 81 Mg Tab.chew 81 Mg PO DAILY Ascorbic Acid 500 Mg Tablet 500 Mg PO BID Buspirone Hcl 15 Mg Tablet 15 Mg PO BID Zyprexa Zydis (Olanzapine) 5 Mg Tab.rapdis 2.5 Mg PO PRN Q2HR PRN Dissolve in mouth Zofran Odt (Ondansetron) 8 Mg Tab.rapdis 8 Mg PO QID PRN Dissolve on tongue [place] Ultra Strength Crm (Methyl Salicylate/Menth/Camph) 57 Gm Cream..g. 1 Shaheen TP PRN QID PRN Tylenol (Acetaminophen) 325 Mg Tablet 650 Mg PO PRN Q6HRS PRN Max Acetaminophen dose is 4000mg in 24 hours from all sources for adults. I have reviewed the current psychotropics carefully including drug interactions. Risk benefit ratio favors no change other than as noted in my dictated progress note. Diagnosis: Problems: (1) Schizoaffective disorder, bipolar type (2) Chronic schizoaffective disorder with acute exacerbation (3) Mild cognitive impairment (4) Mental status change (5) Psychosis (6) Dementia (7) SIADH (syndrome of inappropriate ADH production) (8) Hyponatremia (9) Tobacco use disorder (10) Schizoaffective disorder (11) SCHIZOAFFECTIVE DISORDER, UNSPECIFIED (12) Schizophrenia (13) Bipolar 1 disorder TINY CHAN MD Mar 09, 2017 20:14
[2017-03-10 05:14] VITALS: BP 129/82
[2017-03-10] MEDS: CHOLECALCIFEROL (VITAMIN D3) 1,000 UNIT TABLET PO SCH (09:14)
[2017-03-10] MEDS: PANTOPRAZOLE 40 MG TABLET. PO SCH (09:15)
[2017-03-10] MEDS: MULTIVITAMIN with MINERAL TABLET. PO SCH (09:15)
[2017-03-10] MEDS: CYANOCOBALAMIN (VITAMIN B-12) 1,000 MCG TABLET. PO SCH (09:15)
[2017-03-10] MEDS: MAGNESIUM OXIDE 400 MG TABLET PO SCH ×2 (09:15→19:47)
[2017-03-10] MEDS: SENNOSIDES 8.6 MG TABLET PO SCH ×2 (09:15→19:46)
[2017-03-10] MEDS: ASPIRIN 81 MG TAB.CHEW PO SCH (09:15)
[2017-03-10] MEDS: ASCORBIC ACID 500 MG TABLET PO SCH ×2 (09:15→19:46)
[2017-03-10] MEDS: amLODIPine BESYLATE 5 MG TABLET PO SCH (09:15)
[2017-03-10] MEDS: LIDOCAINE (700MG/PATCH) PATCH. TD SCH (09:16)
--- NOTE | 2017-03-10 12:26 | PN ---
DATE: 03/08/2017 PSYCHIATRIC PROGRESS NOTE This late entry 03/08/2017 covers elements, not covered in my initial note of 03/08/2017. SUBJECTIVE: I met with the patient evening of 03/08/2017. The patient slept 7-1/4 hours previous evening, done better during the day on 03/08/2017, less agitated, able to feed himself, doing more for himself per nursing report. REVIEW OF SYSTEMS: Ambulation impaired, in Broda chair. No CV, , pulmonary, eye, ENT system symptoms on review. MENTAL STATUS EXAM: Oriented to himself and situation. Speech, often responses monosyllabic. Abstraction fair, computation impaired, language function intact, attention span short. Mood and affect still somewhat distractible, labile at times, but improved, less depressed. LABORATORY DATA: Reviewed. IMPRESSION: Schizoaffective disorder, bipolar type, mixed with psychotic features, in partial remission. PLAN: Continue psychotropics mentioned in my initial note. Adjust as clinically indicated. MAN Cinthia CHAN MD DR: ARON/zena JOB#: [id number] / [id number]
[2017-03-10] MEDS: FAMOTIDINE 20 MG TABLET PO SCH (13:38)
[2017-03-10] MEDS: oxyCODONE IR 5 MG TABLET PO PRN ×2 (13:51→19:54)
[2017-03-10 16:07] VITALS: BP 170/71
[2017-03-10] MEDS: TAMSULOSIN 0.4 MG CAP.ER.24H. PO SCH (19:46)
[2017-03-10] MEDS: ATORVASTATIN CALCIUM 10 MG TABLET. PO SCH (19:47)
[2017-03-10] MEDS: MELATONIN 3 MG TABLET PO SCH (19:47)
[2017-03-10] MEDS: risperiDONE 1 MG TABLET. PO SCH (19:48)
[2017-03-10] MEDS: LURASIDONE 40 MG TABLET. PO SCH (19:49)
--- NOTE | 2017-03-10 19:56 | PDOC ---
Exam Note: Rob Note: Please also refer to the separate dictated note~for this date of service dictated separately.~Patient seen individually. Discussed the patient with Nursing staff reviewed the chart.~Reviewed interim history and current functioning. Reviewed vital signs,~Labs/ Radiology~and current medications noted below. Continue current treatment with the changes noted in the dictated addendum note Assessment: Vital Signs: Vital Signs Date Time Temp Pulse Resp B/P (MAP) Pulse Ox O2 Delivery O2 Flow Rate FiO2 03/10/17 19:54 18 97 Room Air 03/10/17 16:07 97.7 76 170/71 (104) I&O Intake and Output 03/10/17 06:59 Intake Total 1160 ml Output Total 875 ml Balance 285 ml Intake Oral 1160 ml Output Urine Total 875 ml Current Medications: Meds: Current Medications Acetaminophen (Tylenol) 650 mg PRN Q6HRS PRN PO PAIN / TEMP; Start 02/24/17 at 11:15; Status Cancel Multi-Ingredient Ointment (Analgesic [place]) 1 shaheen PRN QID PRN TP MUSCLE PAIN; Start 02/24/17 at 11:15 Al Hydroxide/Mg Hydroxide (Mylanta Plus Xs) 15 ml PRN AFTMEALHC PRN PO DYSPEPSIA; Start 02/24/17 at 11:15; Status Cancel Magnesium Hydroxide (Milk Of Magnesia) 2,400 mg PRN QHS PRN PO CONSTIPATION; Start 02/24/17 at 11:15; Status Cancel Acetaminophen (Tylenol) 650 mg PRN Q6HRS PRN PO PAIN / TEMP Last administered on 03/06/17 09:25; Start 02/24/17 at 11:30 Ascorbic Acid (Vitamin C) 500 mg BID PO Last administered on 03/10/17 19:46; Start 02/24/17 at 21:00 Aspirin (Children'S Aspirin) 81 mg DAILY PO Last administered on 03/10/17 09: 15; Start 02/25/17 at 09:00 Atorvastatin Calcium (Lipitor) 5 mg QHS PO Last administered on 03/10/17 19: 47; Start 02/24/17 at 21:00 Bisacodyl (Dulcolax Supp) 10 mg PRN DAILY PRN RC CONSTIPATION Last administered on 02/27/17 03:38; Start 02/24/17 at 11:30 Bupropion HCl (Wellbutrin Xl) 150 mg DAILY PO Last administered on 02/25/17 08:42; Start 02/25/17 at 09:00; Stop 02/25/17 at 11:17; Status DC Buspirone HCl (Buspar) 10 mg DAILY@1400 PO Last administered on 02/24/17 16: 59; Start 02/24/17 at 14:00; Stop 02/25/17 at 11:17; Status DC Buspirone HCl (Buspar) 15 mg BID PO Last administered on 02/25/17 08:43; Start 02/24/17 at 21:00; Stop 02/25/17 at 11:17; Status DC Vitamin D (Vitamin D3) 2,000 unit DAILY PO Last administered on 03/10/17 09: 14; Start 02/25/17 at 09:00 Cyanocobalamin (Vitamin B-12) 1,000 mcg DAILY PO Last administered on 09:15; Start 02/25/17 at 09:00 Famotidine (Pepcid) 20 mg AFTRNOON PO Last administered on 03/10/17 13:38; Start 02/24/17 at 13:00 Loperamide HCl (Imodium) 2 mg PRN Q6HRS PRN PO DIARRHEA; Start 02/24/17 at 11: 30 Magnesium Hydroxide (Milk Of Magnesia) 2,400 mg PRN Q24HRS PRN PO CONSTIPATION ; Start 02/24/17 at 11:30 Magnesium Oxide (Magnesium Oxide) 400 mg BID PO Last administered on 19:47; Start 02/24/17 at 21:00 Mirtazapine (Remeron) 7.5 mg QHS PO Last administered on 03/04/17 20:21; Start 02/24/17 at 21:00; Stop 03/05/17 at 18:16; Status DC Olanzapine (ZyPREXA ZYDIS) 2.5 mg PRN Q2HR PRN PO psychosis; Start 02/24/17 at 11:30 Pantoprazole Sodium (Protonix) 40 mg DAILYAC PO Last administered on 09:15; Start 02/25/17 at 07:30 Polyethylene Glycol (miraLAX) 17 gm PRN Q24HRS PRN PO CONSTIPATION Last administered on 02/26/17 09:11; Start 02/24/17 at 11:30 Artificial Tears (Artificial Tears) 1 drop PRN Q2HR PRN OU DRY EYE; Start at 11:30 Risperidone (RisperDAL) 1 mg QHS PO Last administered on 02/28/17 20:34; Start 02/24/17 at 21:00; Stop 03/01/17 at 18:28; Status DC Sennosides (Senna) 8.6 mg BID PO Last administered on 03/10/17 19:46; Start 02/24/17 at 21:00 Tamsulosin HCl (Flomax) 0.4 mg HS PO Last administered on 03/10/17 19:46; Start 02/24/17 at 21:00 Cephalexin HCl (Keflex) 500 mg TID PO Last administered on 03/02/17 20:02; Start 02/24/17 at 14:00; Stop 03/02/17 at 21:00; Status DC Non-Formulary Medication 120 mg HS PO ; Start 02/24/17 at 21:00; Status UNV Al Hydroxide/Mg Hydroxide (Mylanta Plus Xs) 30 ml PRN Q4HRS PRN PO GERD; Start 02/24/17 at 12:30 Melatonin 6 mg QHS PO Last administered on 03/10/17 19:47; Start 02/24/17 at 21:00 Non-Formulary Medication 1 shaheen PRN QID PRN TP MUSCLE PAIN; Start 02/24/17 at 11:30; Status UNV Multivitamins/ Calcium (Thera-M Plus) 1 tab DAILY PO Last administered on 03/10 09:15; Start 02/25/17 at 09:00 Ondansetron HCl (Zofran Odt) 8 mg PRN QID PRN PO NAUSEA/VOMITING; Start at 12:30 Oxcarbazepine (Trileptal) 600 mg BID PO Last administered on 03/10/17 19:49; Start 02/24/17 at 21:00 Lidocaine (Lidoderm) 1 patch DAILY TD Last administered on 03/10/17 09:16; Start 02/25/17 at 09:00 Risperidone (RisperDAL) 1.5 mg QHS PO Last administered on 03/10/17 19:48; Start 03/01/17 at 21:00 Amlodipine Besylate (Norvasc) 5 mg DAILY PO Last administered on 03/10/17 09: 15; Start 03/05/17 at 09:00 Mirtazapine (Remeron) 15 mg QHS PO Last administered on 03/05/17 20:38; Start 03/05/17 at 21:00; Stop 03/06/17 at 17:58; Status DC Oxycodone HCl (Roxicodone) 5 mg PRN Q4HRS PRN PO PAIN Last administered on 19:54; Start 03/06/17 at 18:45 Active Scripts Active Reported Keflex (Cephalexin) 500 Mg Capsule 1 Cap PO TID Risperdal (Risperidone) 1 Mg Tablet 1 Tab PO QHS [Lidoderm] 700 Mg TD DAILY Artificial Tears (Polyvinyl Alcohol) 15 Ml Drops 1 Drop OP PRN Q2HR PRN Mirtazapine 7.5 Mg Tablet 7.5 Mg PO QHS Famotidine 20 Mg Tablet 20 Mg PO AFTRNOON Bisacodyl 10 Mg Supp.rect 10 Mg RC PRN DAILY PRN Oxcarbazepine 600 Mg Tablet 600 Mg PO BID Bupropion Xl (Bupropion Hcl) 150 Mg Tab.er.24h 150 Mg PO DAILY Buspirone Hcl 10 Mg Tablet 10 Mg PO DAILY@1400 Vitamin B-12 (Cyanocobalamin (Vitamin B-12)) 1,000 Mcg Tablet 1,000 Mcg PO DAILY Senna (Sennosides) 8.6 Mg Tablet 1 Tab PO BID Protonix (Pantoprazole Sodium) 40 Mg Tablet.dr 40 Mg PO DAILYAC Alum-Mag Hydroxide-Simeth Liq (Mag Hydrox/Al Hydrox/Simeth) 360 Ml Oral.susp 30 Ml PO PRN Q4HRS PRN Multiple Vitamin (Multivitamin With Minerals) 1 Each Tablet 1 Each PO DAILY Miralax (Polyethylene Glycol 3350) 17 Gm Powd.pack 17 Gm PO PRN Q24HRS PRN Milk Of Magnesia (Magnesium Hydroxide) 400 Mg/5 Ml Oral.susp 2,400 Mg PO PRN Q24HRS PRN Melatonin 3 Mg Tablet 6 Mg PO HS Magnesium Oxide 400 Mg Tablet 400 Mg PO BID Anti-Diarrheal (Loperamide Hcl) 2 Mg Capsule 2 Mg PO PRN Q6HRS PRN Latuda (Lurasidone Hcl) 80 Mg Tablet 120 Mg PO HS Flomax (Tamsulosin Hcl) 0.4 Mg Cap.er.24h 0.4 Mg PO HS Vitamin D3 (Cholecalciferol (Vitamin D3)) 1,000 Unit Tablet 2,000 Unit PO DAILY Atorvastatin Calcium 10 Mg Tablet 5 Mg PO QHS Aspirin 81 Mg Tab.chew 81 Mg PO DAILY Ascorbic Acid 500 Mg Tablet 500 Mg PO BID Buspirone Hcl 15 Mg Tablet 15 Mg PO BID Zyprexa Zydis (Olanzapine) 5 Mg Tab.rapdis 2.5 Mg PO PRN Q2HR PRN Dissolve in mouth Zofran Odt (Ondansetron) 8 Mg Tab.rapdis 8 Mg PO QID PRN Dissolve on tongue [place] Ultra Strength Crm (Methyl Salicylate/Menth/Camph) 57 Gm Cream..g. 1 Shaheen TP PRN QID PRN Tylenol (Acetaminophen) 325 Mg Tablet 650 Mg PO PRN Q6HRS PRN Max Acetaminophen dose is 4000mg in 24 hours from all sources for adults. I have reviewed the current psychotropics carefully including drug interactions. Risk benefit ratio favors no change other than as noted in my dictated progress note. Diagnosis: Problems: (1) Schizoaffective disorder, bipolar type (2) UTI (urinary tract infection) (3) Chronic schizoaffective disorder with acute exacerbation (4) Mild cognitive impairment (5) Mental status change (6) Psychosis (7) Dementia (8) SIADH (syndrome of inappropriate ADH production) (9) Hyponatremia (10) Tobacco use disorder (11) Schizoaffective disorder (12) SCHIZOAFFECTIVE DISORDER, UNSPECIFIED (13) Schizophrenia (14) Bipolar 1 disorder TINY CHAN MD Mar 10, 2017 19:56
[2017-03-11] MEDS ORDERED: LIDO700A39 TD (02:10)
[2017-03-11] MEDS ORDERED: AMLO5TAB2 PO (02:14)
[2017-03-11] MEDS ORDERED: RISP1TAB3 PO (02:19)
[2017-03-11] MEDS ORDERED: OXYC5TAB88 PO (02:19)
[2017-03-11 06:10] VITALS: BP 135/86
[2017-03-11] MEDS: CHOLECALCIFEROL (VITAMIN D3) 1,000 UNIT TABLET PO SCH (08:19)
[2017-03-11] MEDS: SENNOSIDES 8.6 MG TABLET PO SCH (08:19)
[2017-03-11] MEDS: MULTIVITAMIN with MINERAL TABLET. PO SCH (08:19)
[2017-03-11] MEDS: CYANOCOBALAMIN (VITAMIN B-12) 1,000 MCG TABLET. PO SCH (08:19)
[2017-03-11] MEDS: PANTOPRAZOLE 40 MG TABLET. PO SCH (08:19)
[2017-03-11 08:20] VITALS: BP 135/86
[2017-03-11] MEDS: ASCORBIC ACID 500 MG TABLET PO SCH (08:20)
[2017-03-11] MEDS: ASPIRIN 81 MG TAB.CHEW PO SCH (08:20)
[2017-03-11] MEDS: amLODIPine BESYLATE 5 MG TABLET PO SCH (08:20)
[2017-03-11] MEDS: MAGNESIUM OXIDE 400 MG TABLET PO SCH (08:20)
[2017-03-11] MEDS: LIDOCAINE (700MG/PATCH) PATCH. TD SCH (08:21)
--- NOTE | 2017-03-11 09:14 | PN ---
DATE: 03/09/2017 PSYCHIATRIC PROGRESS NOTE This is a late entry 03/09/2017 covers elements not covered in my initial note 03/09/2017. SUBJECTIVE: Met with the patient in the evening of 03/09/2017. The patient has been feeding himself, doing a little bit, but more demanding during the day. Sodium is better with fluid restrictions. He is getting a little resistive to taking his medications because he feels psychotropics makes his leg hurt. I processed this with him. REVIEW OF SYSTEMS: The ambulation is impaired, in Broda chair. No CV, , pulmonary, eye, ENT system symptoms on review. Reliability is poor. MENTAL STATUS EXAM: Oriented to himself and situation. Speech moderate latency, often responses monosyllabic. Abstraction fair, computation impaired, language function intact. Mood and affect still somewhat withdrawn. LABORATORY DATA: Reviewed. IMPRESSION: Schizoaffective disorder, bipolar type, mixed with psychotic features, in partial remission. Rest unchanged. PLAN: Continue current psychotropics. Adjust further as clinically indicated. Discussed with social service staff regarding discharge plans. MAN Cinthia CHAN MD DR: ARON/zena JOB#: [id number] / [id number]
--- NOTE | 2017-03-11 18:29 | PDOC ---
Exam Note: Rob Note: Please also refer to the separate dictated note~for this date of service dictated separately.~Patient seen individually. Discussed the patient with Nursing staff reviewed the chart.~Reviewed interim history and current functioning. Reviewed vital signs,~Labs/ Radiology~and current medications noted below. Continue current treatment with the changes noted in the dictated addendum note Assessment: Vital Signs: Vital Signs Date Time Temp Pulse Resp B/P (MAP) Pulse Ox O2 Delivery O2 Flow Rate FiO2 03/11/17 08:20 71 135/86 03/11/17 06:10 97.7 20 94 03/10/17 20:54 Room Air I&O Intake and Output 03/11/17 07:00 Intake Total 1020 ml Output Total 1150 ml Balance -130 ml Intake Oral 1020 ml Output Urine Total 1150 ml Current Medications: Meds: Current Medications Acetaminophen (Tylenol) 650 mg PRN Q6HRS PRN PO PAIN / TEMP; Start 02/24/17 at 11:15; Status Cancel Multi-Ingredient Ointment (Analgesic Browning) 1 shaheen PRN QID PRN TP MUSCLE PAIN; Start 02/24/17 at 11:15; Stop 03/11/17 at 14:36; Status DC Al Hydroxide/Mg Hydroxide (Mylanta Plus Xs) 15 ml PRN AFTMEALHC PRN PO DYSPEPSIA; Start 02/24/17 at 11:15; Status Cancel Magnesium Hydroxide (Milk Of Magnesia) 2,400 mg PRN QHS PRN PO CONSTIPATION; Start 02/24/17 at 11:15; Status Cancel Acetaminophen (Tylenol) 650 mg PRN Q6HRS PRN PO PAIN / TEMP Last administered on 03/06/17 09:25; Start 02/24/17 at 11:30; Stop 03/11/17 at 14:36; Status DC Ascorbic Acid (Vitamin C) 500 mg BID PO Last administered on 03/11/17 08:20; Start 02/24/17 at 21:00; Stop 03/11/17 at 14:36; Status DC Aspirin (Children'S Aspirin) 81 mg DAILY PO Last administered on 03/11/17 08: 20; Start 02/25/17 at 09:00; Stop 03/11/17 at 14:36; Status DC Atorvastatin Calcium (Lipitor) 5 mg QHS PO Last administered on 03/10/17 19: 47; Start 02/24/17 at 21:00; Stop 03/11/17 at 14:36; Status DC Bisacodyl (Dulcolax Supp) 10 mg PRN DAILY PRN RC CONSTIPATION Last administered on 02/27/17 03:38; Start 02/24/17 at 11:30; Stop 03/11/17 at 14 :36; Status DC Bupropion HCl (Wellbutrin Xl) 150 mg DAILY PO Last administered on 02/25/17 08:42; Start 02/25/17 at 09:00; Stop 02/25/17 at 11:17; Status DC Buspirone HCl (Buspar) 10 mg DAILY@1400 PO Last administered on 02/24/17 16: 59; Start 02/24/17 at 14:00; Stop 02/25/17 at 11:17; Status DC Buspirone HCl (Buspar) 15 mg BID PO Last administered on 02/25/17 08:43; Start 02/24/17 at 21:00; Stop 02/25/17 at 11:17; Status DC Vitamin D (Vitamin D3) 2,000 unit DAILY PO Last administered on 03/11/17 08: 19; Start 02/25/17 at 09:00; Stop 03/11/17 at 14:36; Status DC Cyanocobalamin (Vitamin B-12) 1,000 mcg DAILY PO Last administered on 08:19; Start 02/25/17 at 09:00; Stop 03/11/17 at 14:36; Status DC Famotidine (Pepcid) 20 mg AFTRNOON PO Last administered on 03/10/17 13:38; Start 02/24/17 at 13:00; Stop 03/11/17 at 14:36; Status DC Loperamide HCl (Imodium) 2 mg PRN Q6HRS PRN PO DIARRHEA; Start 02/24/17 at 11: 30; Stop 03/11/17 at 14:36; Status DC Magnesium Hydroxide (Milk Of Magnesia) 2,400 mg PRN Q24HRS PRN PO CONSTIPATION ; Start 02/24/17 at 11:30; Stop 03/11/17 at 14:36; Status DC Magnesium Oxide (Magnesium Oxide) 400 mg BID PO Last administered on 08:20; Start 02/24/17 at 21:00; Stop 03/11/17 at 14:36; Status DC Mirtazapine (Remeron) 7.5 mg QHS PO Last administered on 03/04/17 20:21; Start 02/24/17 at 21:00; Stop 03/05/17 at 18:16; Status DC Olanzapine (ZyPREXA ZYDIS) 2.5 mg PRN Q2HR PRN PO psychosis; Start 02/24/17 at 11:30; Stop 03/11/17 at 14:36; Status DC Pantoprazole Sodium (Protonix) 40 mg DAILYAC PO Last administered on 08:19; Start 02/25/17 at 07:30; Stop 03/11/17 at 14:36; Status DC Polyethylene Glycol (miraLAX) 17 gm PRN Q24HRS PRN PO CONSTIPATION Last administered on 02/26/17 09:11; Start 02/24/17 at 11:30; Stop 03/11/17 at 14 :36; Status DC Artificial Tears (Artificial Tears) 1 drop PRN Q2HR PRN OU DRY EYE; Start at 11:30; Stop 03/11/17 at 14:36; Status DC Risperidone (RisperDAL) 1 mg QHS PO Last administered on 02/28/17 20:34; Start 02/24/17 at 21:00; Stop 03/01/17 at 18:28; Status DC Sennosides (Senna) 8.6 mg BID PO Last administered on 03/11/17 08:19; Start 02/24/17 at 21:00; Stop 03/11/17 at 14:36; Status DC Tamsulosin HCl (Flomax) 0.4 mg HS PO Last administered on 03/10/17 19:46; Start 02/24/17 at 21:00; Stop 03/11/17 at 14:36; Status DC Cephalexin HCl (Keflex) 500 mg TID PO Last administered on 03/02/17 20:02; Start 02/24/17 at 14:00; Stop 03/02/17 at 21:00; Status DC Non-Formulary Medication 120 mg HS PO Last administered on 03/10/17 19:49; Start 02/24/17 at 21:00; Stop 03/11/17 at 14:36; Status UNV Al Hydroxide/Mg Hydroxide (Mylanta Plus Xs) 30 ml PRN Q4HRS PRN PO GERD; Start 02/24/17 at 12:30; Stop 03/11/17 at 14:36; Status DC Melatonin 6 mg QHS PO Last administered on 03/10/17 19:47; Start 02/24/17 at 21:00; Stop 03/11/17 at 14:36; Status DC Non-Formulary Medication 1 shaheen PRN QID PRN TP MUSCLE PAIN; Start 02/24/17 at 11:30; Status UNV Multivitamins/ Calcium (Thera-M Plus) 1 tab DAILY PO Last administered on 03/11 08:19; Start 02/25/17 at 09:00; Stop 03/11/17 at 14:36; Status DC Ondansetron HCl (Zofran Odt) 8 mg PRN QID PRN PO NAUSEA/VOMITING; Start at 12:30; Stop 03/11/17 at 14:36; Status DC Oxcarbazepine (Trileptal) 600 mg BID PO Last administered on 03/11/17 08:19; Start 02/24/17 at 21:00; Stop 03/11/17 at 14:36; Status DC Lidocaine (Lidoderm) 1 patch DAILY TD Last administered on 03/11/17 08:21; Start 02/25/17 at 09:00; Stop 03/11/17 at 14:36; Status DC Risperidone (RisperDAL) 1.5 mg QHS PO Last administered on 03/10/17 19:48; Start 03/01/17 at 21:00; Stop 03/11/17 at 14:36; Status DC Amlodipine Besylate (Norvasc) 5 mg DAILY PO Last administered on 03/11/17 08: 20; Start 03/05/17 at 09:00; Stop 03/11/17 at 14:36; Status DC Mirtazapine (Remeron) 15 mg QHS PO Last administered on 03/05/17 20:38; Start 03/05/17 at 21:00; Stop 03/06/17 at 17:58; Status DC Oxycodone HCl (Roxicodone) 5 mg PRN Q4HRS PRN PO PAIN Last administered on t 19:54; Start 03/06/17 at 18:45; Stop 03/11/17 at 14:36; Status DC Active Scripts Active Reported Risperidone 1 Mg Tablet 1.5 Mg PO HS Roxicodone (Oxycodone HCl) 5 Mg Tablet 5 Mg PO PRN Q4HRS PRN Amlodipine Besylate 5 Mg Tablet 5 Mg PO DAILY [Lidoderm] 700 Mg TD DAILY Artificial Tears (Polyvinyl Alcohol) 15 Ml Drops 1 Drop OP PRN Q2HR PRN Famotidine 20 Mg Tablet 20 Mg PO AFTRNOON Bisacodyl 10 Mg Supp.rect 10 Mg RC PRN DAILY PRN Oxcarbazepine 600 Mg Tablet 600 Mg PO BID Vitamin B-12 (Cyanocobalamin (Vitamin B-12)) 1,000 Mcg Tablet 1,000 Mcg PO DAILY Senna (Sennosides) 8.6 Mg Tablet 1 Tab PO BID Protonix (Pantoprazole Sodium) 40 Mg Tablet.dr 40 Mg PO DAILYAC Multiple Vitamin (Multivitamin With Minerals) 1 Each Tablet 1 Each PO DAILY Miralax (Polyethylene Glycol 3350) 17 Gm Powd.pack 17 Gm PO PRN Q24HRS PRN Milk Of Magnesia (Magnesium Hydroxide) 400 Mg/5 Ml Oral.susp 2,400 Mg PO PRN Q24HRS PRN Melatonin 3 Mg Tablet 6 Mg PO HS Magnesium Oxide 400 Mg Tablet 400 Mg PO BID Anti-Diarrheal (Loperamide Hcl) 2 Mg Capsule 2 Mg PO PRN Q6HRS PRN Latuda (Lurasidone Hcl) 80 Mg Tablet 120 Mg PO HS Flomax (Tamsulosin Hcl) 0.4 Mg Cap.er.24h 0.4 Mg PO HS Vitamin D3 (Cholecalciferol (Vitamin D3)) 1,000 Unit Tablet 2,000 Unit PO DAILY Atorvastatin Calcium 10 Mg Tablet 5 Mg PO QHS Aspirin 81 Mg Tab.chew 81 Mg PO DAILY Ascorbic Acid 500 Mg Tablet 500 Mg PO BID Zyprexa Zydis (Olanzapine) 5 Mg Tab.rapdis 2.5 Mg PO PRN Q2HR PRN Dissolve in mouth Zofran Odt (Ondansetron) 8 Mg Tab.rapdis 8 Mg PO QID PRN Dissolve on tongue Bengay Ultra Strength Crm (Methyl Salicylate/Menth/Camph) 57 Gm Cream..g. 1 Shaheen TP PRN QID PRN Tylenol (Acetaminophen) 325 Mg Tablet 650 Mg PO PRN Q6HRS PRN Max Acetaminophen dose is 4000mg in 24 hours from all sources for adults. I have reviewed the current psychotropics carefully including drug interactions. Risk benefit ratio favors no change other than as noted in my dictated progress note. Diagnosis: Problems: (1) Bipolar 1 disorder (2) Schizoaffective disorder (3) Chronic schizoaffective disorder with acute exacerbation (4) Mild cognitive impairment (5) Schizoaffective disorder, bipolar type TINY CHAN MD Mar 11, 2017 18:29
--- NOTE | 2017-03-12 23:02 | DS ---
DATE OF DISCHARGE: 03/11/2017 DISCHARGE SUMMARY AND PSYCHIATRIC PROGRESS NOTE REASON FOR ADMISSION: Please refer to the admission history for details. Briefly, the patient is a 66-year-old male with schizoaffective disorder, referred back to us from [facility] after he was getting increasingly aggressive, psychotic. He was throwing cups, refusing cares, acting helpless, refused to feed himself. He had failed outpatient psychiatric interventions. Behaviors were disruptive, dangerous at the facility and is referred for inpatient psychiatric stabilization. SIGNIFICANT FINDINGS AND CLINICAL COURSE: Following admission, the patient was seen daily individually by myself from a psychiatric standpoint, medical followup per Dr. Chacon/Dr Posada. The patient had marked mood lability, agitation, was quite psychotic and somatically delusional. He refused to eat or drink or feed himself and convinced he could not move his arms and hands and legs because they were paralyzed. These appeared to be part of his psychotic symptoms. Adjustments were made in the psychotropics and he seemed to respond to a combination of Latuda 120 mg at bedtime at bedtime, Risperdal 1 mg p.o. at bedtime, Trileptal 600 mg b.i.d., melatonin 6 mg at bedtime, Zyprexa p.r.n. CONDITION AT DISCHARGE: Improved. He is feeding himself. Somatic delusions were much improved. The patient was on 2 atypical antipsychotics at the time of discharge. If he is stable for 60 days, at that time, attempt should be made to reduce the Latuda gradually by about 20 mg to 40 mg every 4-6 weeks until it is discontinued while maintaining the Risperdal as an atypical antipsychotic for schizoaffective disorder, bipolar type, with psychotic features. REVIEW OF SYSTEMS: Prior to discharge on 03/11/2017, ambulation impaired, in a Broda chair. No CV, , pulmonary, eye system symptoms on review. MENTAL STATUS EXAM: Oriented to himself and situation. Speech coherent, abstraction fair, computation impaired, language function intact. Attention span improved. Mood and affect was improved. FINAL DIAGNOSES: Schizoaffective disorder, bipolar type, mixed with psychotic features, in partial remission; anxiety disorder, unspecified; impulse control disorder, unspecified; cognitive disorder, unspecified. Rest unchanged from admission. DISCHARGE MEDICATIONS: Please refer to the [facility]. DISCHARGE INSTRUCTIONS: [facility]patient psychiatric and [facility]up at [facility]. TINY CHAN MD DR: Jarod JOB#: [id number] / [id number]
--- NOTE | 2017-03-13 11:41 | PN ---
DATE: 03/10/2017 This is a late entry for 03/10/2017 and covers the elements not covered in my initial note of 03/10/2017. SUBJECTIVE: I met with the patient in the evening of 03/10/2017. Overall, the patient is doing somewhat better, less labile in his mood, able to feed himself better, less somatically delusional. REVIEW OF SYSTEMS: Ambulation impaired, in Broda chair. No CV, , pulmonary, eye system symptoms on review. He has vague somatic symptoms. MENTAL STATUS EXAM: Oriented to himself and situation. Speech has some latency, coherent. Abstraction fair, computation impaired, language function intact. Mood and affect, lability is improved. LABORATORY DATA: Reviewed. IMPRESSION: Schizoaffective disorder, bipolar type, mixed with psychotic features, in partial remission. Rest unchanged. PLAN: Continue psychotropics mentioned in my initial note. MAN Cinthia CHAN MD DR: ARON/zena JOB#: [id number] / [id number]
== END 2017-03-11 10:15 | disposition home or self-care (01) | DRG 885 ==
LOC: GEROPSY 10:43
PROVIDERS: ADMIT Psychiatry & Neurology Psychiatry; ATTEND Psychiatry & Neurology Psychiatry
DX: F25.0 Schizoaffective disorder, bipolar type (principal); F03.91 Unspecified dementia, unspecified severity, with behavioral disturbance; E22.2 Syndrome of inappropriate secretion of antidiuretic hormone; F22 Delusional disorders; J44.9 Chronic obstructive pulmonary disease, unspecified; G81.90 Hemiplegia, unspecified affecting unspecified side; N39.0 Urinary tract infection, site not specified; M19.90 Unspecified osteoarthritis, unspecified site; F63.9 Impulse disorder, unspecified; I10 Essential (primary) hypertension; Z66 Do not resuscitate; E78.5 Hyperlipidemia, unspecified; G47.00 Insomnia, unspecified; F41.9 Anxiety disorder, unspecified; Z72.0 Tobacco use; Z79.899 Other long term (current) drug therapy; Z88.0 Allergy status to penicillin; Z88.8 Allergy status to other drugs, medicaments and biological substances
CPT/HCPCS: 36415; 80048; 80053; 82533; 84443; 85025